=== PATIENT | male | born 1940 | race Caucasian/White ===

== ENCOUNTER 2018-11-08 10:10 | Inpatient (IN) | payer MEDICARE, BC ==
[2018-11-08 10:42] LABS: CHLORIDE,CL 98 mmol/L (98-107); SODIUM,NA 133 mmol/L (136-145)
[2018-11-08] MEDS ORDERED: Albuterol/Ipratropium 3.0-0.5 MG/3 ML Neb Soln NEB ONE (11:28)
[2018-11-08] MEDS ORDERED: methylPREDNISolone Sodium Succinate 125 MG/2 ML SDV IVPUSH ONE (11:28)
--- NOTE | 2018-11-08 11:32 | EDM.PDOC ---
ED HPI GENERAL MEDICAL PROBLEM - General Chief Complaint: Respiratory Problem Stated Complaint: shortness of breath Time Seen by Provider: 11/08/18 10:39 Source of Information: Reports: Patient History Limitations: Reports: No Limitations - History of Present Illness INITIAL COMMENTS - FREE TEXT/NARRATIVE: Patient sent here from clinic for evaluation of persistent increased SOB, informed by clinic that patient may have double pneumonia. Patient has not felt well this past week. Had cold type symptoms which led to the increased SOB. Patient says that anytime he has cold/respiratory infection that he gets SOB. Denies fever or chills. No pain complaint. No HEENT changes at this time. Mild cough, nonproductive. No CV changes. Denies GI changes such as nausea/emesis/bowel change. No neuro complaints. Place on Levaquin by clinic, no improvement noted. Has COPD for which he has numerous inhalers prescribed. Not on O2 at home. 89% on room air during initial evaluation. - Related Data Allergies Allergy/AdvReac Type Severity Reaction Status Date / Time gentamicin Allergy unknown Verified 11/08/18 12:06 lovastatin Allergy Dizziness Verified 02/05/14 15:39 Penicillins Allergy Hives Verified 02/05/14 15:39 Home Meds: Home Meds Acetaminophen [Tylenol Extra Strength] 1 - 2 tab PO Q6HR PRN 02/05/14 [History] Albuterol/Ipratropium [Combivent] 2 puff INH BID 02/05/14 [History] Allopurinol [Zyloprim] 200 mg PO QAM 02/05/14 [History] Budesonide/Formoterol [Symbicort 160-4.5 MCG] 2 puff INH QAM 02/05/14 [History] Aravind Cit/Mag/D3/Zn/Tax Collector/Omar/Bor [Citracal-Vit D + Magnesium] 1 each PO BID [History] Docusate Sodium [Colace] 100 mg PO BID PRN 02/05/14 [History] Ferrous Sulfate [Iron] 325 mg PO BID 02/05/14 [History] Fluticasone Propionate [Flonase] 2 spray NASBOTH BEDTIME 02/05/14 [History] Garlic [Odorless Garlic] 1,250 mg PO BID 02/05/14 [History] Isosorbide Mononitrate [Imdur] 30 mg PO QPM #30 tab.er 02/05/14 [Rx] Multivit-Min/FA/Lycopene/Lut [Centrum Silver] 1 each PO DAILY 02/05/14 [History] Niacin 1,000 mg PO BID 02/05/14 [History] Ranitidine HCl 150 mg PO BID 02/05/14 [History] Tiotropium [Spiriva HandiHaler] 1 cap INH DAILY 02/05/14 [History] atorvaSTATin [Lipitor] 60 mg PO QAM 02/05/14 [History] Loratadine [Claritin] 10 mg PO QAM 06/16/14 [History] Albuterol/Ipratropium [Combivent Respimat] 2 inhalation IN BID 11/08/18 [History ] Aspirin [Halfprin] 1 tab PO DAILY 11/08/18 [History] Gabapentin [Neurontin] 300 mg PO BID 11/08/18 [History] Lisinopril 40 mg PO DAILY 11/08/18 [History] Magnesium Gluconate [Mag-G] 1 tab PO DAILY 11/08/18 [History] Metoprolol Succinate [Toprol XL 100mg] 100 mg PO DAILY 11/08/18 [History] Polymyxin B Sulf/Trimethoprim [Polymyxin B-Tmp Eye Drops] 2 drop EYELF Q4H PRN 11/08/18 [History] Warfarin Sodium [Coumadin] 3 mg PO MO@1800 11/08/18 [History] Warfarin [Coumadin] 2 mg PO SUTUWETHFRSA@1800 11/08/18 [History] hydroCHLOROthiazide [Hydrochlorothiazide] 25 mg PO DAILY 11/08/18 [History] levoFLOXacin [Levaquin] 500 mg PO DAILY@1800 11/08/18 [History] Past Medical History HEENT History: Reports: Allergic Rhinitis Cardiovascular History: Reports: Arrhythmia, High Cholesterol, Hypertension, PVD Respiratory History: Reports: COPD Gastrointestinal History: Reports: Colon Polyp, Diverticulosis, GERD, Hiatal Hernia, PUD Genitourinary History: Reports: Chronic Renal Insuffiency Neurological History: Reports: CVA, Neuropathy, Peripheral Endocrine/Metabolic History: Reports: Hyperparathyroidism - Infectious Disease History Infectious Disease History: Reports: Chicken Pox - Past Surgical History HEENT Surgical History: Reports: Other (See Below) Social & Family History - Family History Cardiac: Reports: CAD, [place] Oncologic: Reports: Other (See Below) (family history of cancer) - Tobacco Use Smoking Status *Q: Former Smoker - Caffeine Use Caffeine Use: Reports: Coffee, Soda - Alcohol Use Alcohol Use History: Yes Days Per Week of Alcohol Use: 7 Number of Drinks Per Day: 4 Total Drinks Per Week: 28 Alcohol Use Frequency: Daily - Recreational Drug Use Recreational Drug Use: No Drug Use in Last 12 Months: No - Living Situation & Occupation Living situation: Reports: Single Occupation: Retired ED ROS GENERAL - Review of Systems Review Of Systems: ROS reveals no pertinent complaints other than HPI. ED EXAM, GENERAL - Physical Exam Exam: See Below Exam Limited By: No Limitations General Appearance: Alert, WD/WN, Other (appears fatigued, no acute distress) Eye Exam: Bilateral Eye: EOMI, PERRL Ears: Normal External Exam Nose: No: Nasal Deformity, Nasal Swelling, Nasal Drainage Throat/Mouth: Normal Lips, Normal Voice, No Airway Compromise Head: Atraumatic, Other Neck: Supple, Non-Tender Respiratory/Chest: No Respiratory Distress, No Accessory Muscle Use, Rhonchi ( scattered, bilateral, coarse breath sounds), Wheezing (mild). No: Rales, Stridor Peripheral Pulses: 2+: Radial (L), Radial (R) GI/Abdominal: Normal Bowel Sounds, Soft, Non-Tender, No Distention (Male) Exam: Deferred Rectal (Males) Exam: Deferred Back Exam: No: CVA Tenderness (L), CVA Tenderness (R), Muscle Spasm, Paraspinal Tenderness, Vertebral Tenderness Extremities: Normal Inspection, Non-Tender, No Pedal Edema, Normal Capillary Refill Neurological: Alert, Oriented, CN II-XII Intact, Normal Cognition, Normal Gait, No Motor/Sensory Deficits Psychiatric: Normal Affect, Normal Mood Skin Exam: Warm, Dry, Intact, Normal Color Course - Orders/Labs/Meds Orders: Active Orders 24 hr Category Date Time Status Patient Status [ADT] Routine ADT 11/08/18 13:41 Active Height and Weight [RC] UPON Care 11/08/18 13:41 Active Incentive Breathing [RT Incentive Spirometry] [RC] Care 11/08/18 14:00 Active Q2HWA Oxygen Therapy [RC] PRN Care 11/08/18 13:41 Active Pulse Oximetry [RC] PRN Care 11/08/18 13:44 Active RT Aerosol Therapy [RC] ASDIRECTED Care 11/08/18 11:28 Ordered RT Aerosol Therapy [RC] ASDIRECTED Care 11/08/18 13:47 Active Up ad Samara [RC] ASDIRECTED Care 11/08/18 13:41 Active VTE/DVT Education [RC] PER UNIT ROUTINE Care 11/08/18 13:41 Active Vital Signs [RC] Q6HR Care 11/08/18 13:41 Active Heart Healthy Diet [DIET] Diet 11/08/18 Dinner Active Chest 2V [CR] Stat Exams 11/08/18 10:12 Taken BASIC METABOLIC PANEL,BMP [CHEM] AM Lab 11/09/18 05:15 Ordered CBC WITH AUTO DIFF [HEME] AM Lab 11/09/18 05:15 Ordered INR,PT,PROTHROMBIN TIME [COAG] AM Lab 11/09/18 05:11 Ordered Acetaminophen [Tylenol] Med 11/08/18 13:53 Ordered 650 mg PO Q6H PRN Albuterol/Ipratropium [DuoNeb 3.0-0.5 MG/3 ML] Med 11/08/18 14:00 Ordered 3 ml NEB Q6HRRT Allopurinol [Zyloprim] Med 11/09/18 08:00 Ordered 200 mg PO QAM Aspirin [Halfprin] Med 11/09/18 08:00 Ordered 81 mg PO DAILY Azithromycin [Zithromax] 500 mg Med 11/08/18 11:30 Ordered Sodium Chloride 0.9% [Normal Saline] 250 ml IV Q24H Budesonide/Formoterol Med 11/09/18 08:00 Ordered 2 puff INH QAM Docusate Sodium [Colace] Med 11/08/18 13:47 Ordered 100 mg PO BID PRN Famotidine [Pepcid] Med 11/09/18 08:00 Ordered 20 mg PO DAILY Ferrous Sulfate [Iron] Med 11/08/18 18:00 Ordered 325 mg PO BID Fluticasone Propionate [Flonase] Med 11/08/18 20:00 Ordered DOSE gm NASBOTH BEDTIME Gabapentin [Neurontin] Med 11/08/18 18:00 Ordered 300 mg PO BID Isosorbide Mononitrate [Imdur] Med 11/08/18 18:00 Ordered 30 mg PO QPM Lisinopril [Lisinopril] Med 11/09/18 08:00 Ordered 40 mg PO DAILY Loratadine [Claritin] Med 11/09/18 08:00 Ordered 10 mg PO QAM Metoprolol Succinate [Toprol XL 100mg] Med 11/09/18 08:00 Ordered 100 mg PO DAILY Niacin [Niacin] Med 11/08/18 18:00 Ordered 1,000 mg PO BID Sodium Chloride 0.9% @ 75 MLS/HR(1000ml) Med 11/08/18 11:45 Ordered Sodium Chloride 0.9% [Normal Saline] 1,000 ml IV ASDIRECTED Sodium Chloride 0.9% [Saline Flush] Med 11/08/18 11:28 Ordered 10 ml FLUSH ASDIRECTED PRN Tiotropium [Spiriva HandiHaler] Med 11/09/18 08:00 Ordered DOSE mcg INH DAILY Warfarin Sodium Med 11/11/18 18:00 Ordered 3 mg PO MO@1800 Warfarin [Coumadin] Med 11/08/18 18:00 Ordered 2 mg PO SUTUWETHFRSA@1800 atorvaSTATin [Lipitor] Med 11/09/18 08:00 Ordered 60 mg PO QAM cefTRIAXone [Rocephin] 1 gm Med 11/08/18 11:30 Ordered Sodium Chloride 0.9% [Normal Saline] 100 ml IV Q24H hydroCHLOROthiazide Med 11/09/18 08:00 Ordered 25 mg PO DAILY methylPREDNISolone Sod Succ [Solu-MEDROL] Med 11/09/18 08:00 Ordered 125 mg IVPUSH DAILY Saline Lock Insert [OM.PC] Routine Oth 11/08/18 11:28 Ordered Resuscitation Status Routine Resus Stat 11/08/18 13:41 Ordered Medication Orders Acetaminophen (Tylenol) 650 mg PO Q6H PRN PRN Reason: Pain Albuterol/Ipratropium (Duoneb 3.0-0.5 Mg/3 Ml) 3 ml NEB Q6HRRT [facility] Allopurinol (Zyloprim) 200 mg PO QAM [facility] Aspirin (Halfprin) 81 mg PO DAILY [facility] Atorvastatin Calcium (Lipitor) 60 mg PO QAM [facility] Docusate Sodium (Colace) 100 mg PO BID PRN PRN Reason: Constipation Famotidine (Pepcid) 20 mg PO DAILY [facility] Fluticasone Propionate (Flonase) gm NASBOTH BEDTIME [facility] Gabapentin (Neurontin) 300 mg PO BID [facility] Hydrochlorothiazide (Hydrochlorothiazide) 25 mg PO DAILY [facility] Azithromycin 500 mg/ Sodium (Chloride) 250 mls @ 250 mls/hr IV Q24H [facility] Last Admin: 11/08/18 13:19 Dose: 250 mls/hr Ceftriaxone Sodium 1 gm/ (Sodium Chloride) 100 mls @ 200 mls/hr IV Q24H [facility] Last Admin: 11/08/18 11:58 Dose: 200 mls/hr Sodium Chloride (Normal Saline) 1,000 mls @ 75 mls/hr IV ASDIRECTED [facility] Last Admin: 11/08/18 13:19 Dose: 75 mls/hr Isosorbide Mononitrate (Imdur) 30 mg PO QPM [facility] Loratadine (Claritin) 10 mg PO QAM [facility] Methylprednisolone Sodium Succinate (Solu-Medrol) 125 mg IVPUSH DAILY [facility] Non-Formulary Medication (Budesonide/Formoterol) 2 puff INH QAM [facility] Non-Formulary Medication (Ferrous Sulfate [Iron]) 325 mg PO BID [facility] Non-Formulary Medication (Lisinopril [Lisinopril]) 40 mg PO DAILY [facility] Non-Formulary Medication (Metoprolol Succinate [Toprol Xl 100mg]) 100 mg PO DAILY [facility] Non-Formulary Medication (Niacin [Niacin]) 1,000 mg PO BID [facility] Non-Formulary Medication (Warfarin Sodium) 3 mg PO MO@1800 [facility] Sodium Chloride (Saline Flush) 10 ml FLUSH ASDIRECTED PRN PRN Reason: Keep Vein Open Last Admin: 11/08/18 11:58 Dose: 10 ml Tiotropium [place] (Spiriva Handihaler) mcg INH DAILY [facility] Warfarin Sodium (Coumadin) 2 mg PO SUTUWETHFRSA@1800 [facility] Labs: Laboratory Tests 11/08/18 11/08/18 11/08/18 Range/Units 10:20 10:20 10:20 WBC 10.2 (4.0-10.2) K/uL RBC 4.04 L (4.33-5.41) M/uL Hgb 13.5 (13.1-16.8) g/dL Hct 40.2 (39.0-49.0) % MCV 99.5 H (84.0-98.0) fL MCH 33.4 H (28.2-33.3) pg MCHC 33.6 (31.7-36.0) g/dL RDW 12.9 (11.2-14.1) % Plt Count 199 (150-350) K/uL Neut % (Auto) 69.7 (45.0-80.0) % Lymph % (Auto) 14.2 (10.0-50.0) % Smyth % (Auto) 13.9 (2.0-14.0) % Eos % (Auto) 2.0 (0.0-5.0) % Baso % (Auto) 0.2 (0.0-2.0) % Neut # (Auto) 7.11 H (1.40-7.00) K/uL Lymph # (Auto) 1.45 (0.50-3.50) K/uL Smyth # (Auto) 1.42 H (0.00-1.00) K/uL Eos # (Auto) 0.20 (0.00-0.50) K/uL Baso # (Auto) 0.02 (0.00-0.20) K/uL Sodium 133 L (136-145) mmol/L Potassium 4.4 (3.5-5.1) mmol/L Chloride 98 (98-107) mmol/L Carbon Dioxide 18.8 L (21.0-32.0) mmol/L BUN 54 H (7-18) mg/dL Creatinine 2.65 H (0.51-1.17) mg/dL Est Cr Clr Drug Dosing TNP Estimated GFR (MDRD) 24 mL/min Glucose 111 H (74-106) mg/dL Lactic Acid 2.5 H (0.4-2.0) mmol/L Calcium 9.5 (8.5-10.1) mg/dL Total Bilirubin 0.5 (0.2-1.0) mg/dL AST 71 H (15-37) U/L ALT 41 (12-78) U/L Alkaline Phosphatase 57 (46-116) IU/L NT-Pro-B Natriuret Pep (0-125) pg/mL Total Protein 7.7 (6.4-8.2) g/dL Albumin 3.9 (3.4-5.0) g/dL 11/08/18 Range/Units 10:20 WBC (4.0-10.2) K/uL RBC (4.33-5.41) M/uL Hgb (13.1-16.8) g/dL Hct (39.0-49.0) % MCV (84.0-98.0) fL MCH (28.2-33.3) pg MCHC (31.7-36.0) g/dL RDW (11.2-14.1) % Plt Count (150-350) K/uL Neut % (Auto) (45.0-80.0) % Lymph % (Auto) (10.0-50.0) % Smyth % (Auto) (2.0-14.0) % Eos % (Auto) (0.0-5.0) % Baso % (Auto) (0.0-2.0) % Neut # (Auto) (1.40-7.00) K/uL Lymph # (Auto) (0.50-3.50) K/uL Smyth # (Auto) (0.00-1.00) K/uL Eos # (Auto) (0.00-0.50) K/uL Baso # (Auto) (0.00-0.20) K/uL Sodium (136-145) mmol/L Potassium (3.5-5.1) mmol/L Chloride (98-107) mmol/L Carbon Dioxide (21.0-32.0) mmol/L BUN (7-18) mg/dL Creatinine (0.51-1.17) mg/dL Est Cr Clr Drug Dosing Estimated GFR (MDRD) mL/min Glucose (74-106) mg/dL Lactic Acid (0.4-2.0) mmol/L Calcium (8.5-10.1) mg/dL Total Bilirubin (0.2-1.0) mg/dL AST (15-37) U/L ALT (12-78) U/L Alkaline Phosphatase (46-116) IU/L NT-Pro-B Natriuret Pep 310 H (0-125) pg/mL Total Protein (6.4-8.2) g/dL Albumin (3.4-5.0) g/dL Meds: Medications Generic Name Dose Route Start Last Admin Trade Name Freq PRN Reason Stop Dose Admin Acetaminophen 650 mg 11/08/18 13:53 Tylenol PO Q6H PRN Pain Albuterol/Ipratropium 3 ml 11/08/18 14:00 Duoneb 3.0-0.5 Mg/3 Ml NEB Q6HRRT [facility] Allopurinol 200 mg 11/09/18 08:00 Zyloprim PO QAM [facility] Aspirin 81 mg 11/09/18 08:00 Halfprin PO DAILY [facility] Atorvastatin Calcium 60 mg 11/09/18 08:00 Lipitor PO QAM [facility] Docusate Sodium 100 mg 11/08/18 13:47 Colace PO BID PRN Constipation Famotidine 20 mg 11/09/18 08:00 Pepcid PO DAILY [facility] Fluticasone Propionate gm 11/08/18 20:00 Flonase NASBOTH BEDTIME [facility] Gabapentin 300 mg 11/08/18 18:00 Neurontin PO BID [facility] Hydrochlorothiazide 25 mg 11/09/18 08:00 Hydrochlorothiazide PO DAILY [facility] Azithromycin 500 mg/ Sodium 250 mls @ 250 mls/hr 11/08/18 11:30 11/08/18 13: 19 Chloride IV 250 mls/hr Q24H [facility] Administration Ceftriaxone Sodium 1 gm/ 100 mls @ 200 mls/hr 11/08/18 11:30 11/08/18 11:58 Sodium Chloride IV 200 mls/hr Q24H [facility] Administration Sodium Chloride 1,000 mls @ 75 mls/hr 11/08/18 11:45 11/08/18 13:19 Normal Saline IV 75 mls/hr ASDIRECTED [facility] Administration Isosorbide Mononitrate 30 mg 11/08/18 18:00 Imdur PO QPM [facility] Loratadine 10 mg 11/09/18 08:00 Claritin PO QAM [facility] Methylprednisolone Sodium Succinate 125 mg 11/09/18 08:00 Solu-Medrol IVPUSH DAILY [facility] Non-Formulary Medication 2 puff 11/09/18 08:00 Budesonide/Formoterol INH QAM [facility] Non-Formulary Medication 325 mg 11/08/18 18:00 Ferrous Sulfate [Iron] PO BID [facility] Non-Formulary Medication 40 mg 11/09/18 08:00 Lisinopril [Lisinopril] PO DAILY [facility] Non-Formulary Medication 100 mg 11/09/18 08:00 Metoprolol Succinate [Toprol Xl 100mg] PO DAILY [facility] Non-Formulary Medication 1,000 mg 11/08/18 18:00 Niacin [Niacin] PO BID [facility] Non-Formulary Medication 3 mg 11/11/18 18:00 Warfarin Sodium PO MO@1800 [facility] Sodium Chloride 10 ml 11/08/18 11:28 11/08/18 11:58 Saline Flush FLUSH 10 ml ASDIRECTED PRN Administration Keep Vein Open Tiotropium [place] mcg 11/09/18 08:00 Spiriva Handihaler INH DAILY [facility] Warfarin Sodium 2 mg 11/08/18 18:00 Coumadin PO SUTUWETHFRSA@1800 [facility] Discontinued Medications Generic Name Dose Route Start Last Admin Trade Name Freq PRN Reason Stop Dose Admin Albuterol/Ipratropium 3 ml 11/08/18 11:28 11/08/18 11:58 Duoneb 3.0-0.5 Mg/3 Ml NEB 11/08/18 11:29 3 ml ONETIME ONE Administration Methylprednisolone Sodium Succinate 125 mg 11/08/18 11:28 11/08/18 11:58 Solu-Medrol IVPUSH 11/08/18 11:29 125 mg ONETIME ONE Administration - Radiology Interpretation Free Text/Narrative:: Chest xray showed no acute infiltrates. No change from previous xray taken three days ago. - Re-Assessments/Exams Free Text/Narrative Re-Assessment/Exam: Hamilton Jamil ordered. WBC normal. Lactic acid 2.5 Minimal elevation of ProBNP. Na 133 BUN 54 Cr 2.65 AST 71 Given normal WBC, lack of fever, and clear chest xray, suspect acute COPD exacerbation secondary to viral respiratory infection. Given O2 sats in high 80s, and elevated Lactic Acid, will admit for treatment of COPD. Will continue antibiotic coverage for possible bacterial component. BUN/Cr elevated. Suspect mild dehydration may be contributing to elevation. Initial doses of Solumedrol, Rocephin, and Zithromax ordered while patient was still in ER and waiting for admission to floor. Departure - Departure Time of Disposition: 11:32 Disposition: Admitted As Inpatient 67 Condition: Good Clinical Impression: COPD exacerbation, Respiratory tract infection, Hypoxemia, Renal insufficiency - Discharge Information *PRESCRIPTION DRUG MONITORING PROGRAM REVIEWED*: Not Applicable *COPY OF PRESCRIPTION DRUG MONITORING REPORT IN PATIENT JAKE: Not Applicable Referrals: Homero Newman PA [Primary Care Provider] - Forms: ED Department Discharge - Problem List & Annotations (1) COPD exacerbation SNOMED Code(s): 314057780 Code(s): J44.1 - CHRONIC OBSTRUCTIVE PULMONARY DISEASE W (ACUTE) EXACERBATION Status: Acute Priority: High Current Visit: Yes Annotation/ Comment:: Aggressive nebulizer treatments as well as Solu-medrol IV ordered. PRN supplemental O2. (2) Hypoxemia SNOMED Code(s): 653678585 Code(s): R09.02 - HYPOXEMIA Status: Acute Priority: Medium Current Visit: Yes Annotation/Comment:: O2 sats in high 80s in ER. Supplemental O2 PRN. Plan is to treat underlying COPD exacerbation. (3) Respiratory tract infection SNOMED Code(s): 041312913 Code(s): J98.8 - OTHER SPECIFIED RESPIRATORY DISORDERS Status: Acute Priority: High Current Visit: Yes Annotation/Comment:: Suspect most likely due to viral etiology. Zithromax and Rocephin coverage initiated in ER. Was on Levaquin without any improvement of symptoms this past week. (4) Renal insufficiency SNOMED Code(s): 890536304, 665494868 Code(s): N28.9 - DISORDER OF KIDNEY AND URETER, UNSPECIFIED Status: Chronic Priority: Medium Current Visit: Yes Annotation/Comment:: BUN and Cr are elevated. Will observe for response to IV fluids. Suspect mild dehydration is contributing to current level of elevation. (5) CHF (congestive heart failure) SNOMED Code(s): 76336251 Code(s): I50.9 - HEART FAILURE, UNSPECIFIED Status: Chronic Priority: Low Current Visit: Yes Annotation/Comment:: Mild elevation of ProBNP. Observe for changes. No evidence of congestion on chest xray. Qualifiers: Heart failure type: unspecified Heart failure chronicity: unspecified Qualified Code(s): I50.9 - Heart failure, unspecified (6) HTN, Benign hypertension SNOMED Code(s): 61187830 Code(s): I10 - ESSENTIAL (PRIMARY) HYPERTENSION Status: Chronic Priority : Low Current Visit: No Annotation/Comment:: Observe trends (7) Peptic reflux disease SNOMED Code(s): 738801983 Code(s): K21.9 - GASTRO-ESOPHAGEAL REFLUX DISEASE WITHOUT ESOPHAGITIS Status: Chronic Priority: Low Current Visit: No Annotation/Comment:: Stable per patient (8) Chronic anticoagulation SNOMED Code(s): 318639794 Code(s): Z79.01 - PRISON (CURRENT) USE OF ANTICOAGULANTS Status: Chronic Priority: Low Current Visit: Yes Annotation/Comment:: recheck INR/ PT in am. - Problem List Review Problem List Initiated/Reviewed/Updated: Yes - My Orders Last 24 Hours: My Active Orders 11/08/18 10:12 Chest 2V [CR] Stat 11/08/18 11:28 RT Aerosol Therapy [RC] ASDIRECTED Sodium Chloride 0.9% [Saline Flush] 10 ml FLUSH ASDIRECTED PRN Saline Lock Insert [OM.PC] Routine 11/08/18 11:30 Azithromycin [Zithromax] 500 mg Sodium Chloride 0.9% [Normal Saline] 250 ml IV Q24H cefTRIAXone [Rocephin] 1 gm Sodium Chloride 0.9% [Normal Saline] 100 ml IV Q24H 11/08/18 11:45 Sodium Chloride 0.9% @ 75 MLS/HR(1000ml) Sodium Chloride 0.9% [Normal Saline] 1 ,000 ml IV ASDIRECTED 11/08/18 13:41 Patient Status [ADT] Routine Height and Weight [RC] UPON Oxygen Therapy [RC] PRN Up ad Samara [RC] ASDIRECTED VTE/DVT Education [RC] PER UNIT ROUTINE Vital Signs [RC] Q6HR Resuscitation Status Routine 11/08/18 13:44 Pulse Oximetry [RC] PRN 11/08/18 13:47 RT Aerosol Therapy [RC] ASDIRECTED Docusate Sodium [Colace] 100 mg PO BID PRN 11/08/18 13:53 Acetaminophen [Tylenol] 650 mg PO Q6H PRN 11/08/18 14:00 Incentive Breathing [RT Incentive Spirometry] [RC] Q2HWA Albuterol/Ipratropium [DuoNeb 3.0-0.5 MG/3 ML] 3 ml NEB Q6HRRT 11/08/18 18:00 Ferrous Sulfate [Iron] 325 mg PO BID Gabapentin [Neurontin] 300 mg PO BID Isosorbide Mononitrate [Imdur] 30 mg PO QPM Niacin [Niacin] 1,000 mg PO BID Warfarin [Coumadin] 2 mg PO SUTUWETHFRSA@1800 11/08/18 20:00 Fluticasone Propionate [Flonase] DOSE gm NASBOTH BEDTIME 11/08/18 Dinner Heart Healthy Diet [DIET] 11/09/18 05:11 INR,PT,PROTHROMBIN TIME [COAG] AM 11/09/18 05:15 BASIC METABOLIC PANEL,BMP [CHEM] AM CBC WITH AUTO DIFF [HEME] AM 11/09/18 08:00 Allopurinol [Zyloprim] 200 mg PO QAM Aspirin [Halfprin] 81 mg PO DAILY Budesonide/Formoterol 2 puff INH QAM Famotidine [Pepcid] 20 mg PO DAILY Lisinopril [Lisinopril] 40 mg PO DAILY Loratadine [Claritin] 10 mg PO QAM Metoprolol Succinate [Toprol XL 100mg] 100 mg PO DAILY Tiotropium [Spiriva HandiHaler] DOSE mcg INH DAILY atorvaSTATin [Lipitor] 60 mg PO QAM hydroCHLOROthiazide 25 mg PO DAILY methylPREDNISolone Sod Succ [Solu-MEDROL] 125 mg IVPUSH DAILY 11/11/18 18:00 Warfarin Sodium 3 mg PO MO@1800 - Assessment/Plan Admission H&P: Please use this note as an admission H&P Last 24 Hours: My Active Orders 11/08/18 10:12 Chest 2V [CR] Stat 11/08/18 11:28 RT Aerosol Therapy [RC] ASDIRECTED Sodium Chloride 0.9% [Saline Flush] 10 ml FLUSH ASDIRECTED PRN Saline Lock Insert [OM.PC] Routine 11/08/18 11:30 Azithromycin [Zithromax] 500 mg Sodium Chloride 0.9% [Normal Saline] 250 ml IV Q24H cefTRIAXone [Rocephin] 1 gm Sodium Chloride 0.9% [Normal Saline] 100 ml IV Q24H 11/08/18 11:45 Sodium Chloride 0.9% @ 75 MLS/HR(1000ml) Sodium Chloride 0.9% [Normal Saline] 1 ,000 ml IV ASDIRECTED 11/08/18 13:41 Patient Status [ADT] Routine Height and Weight [RC] UPON Oxygen Therapy [RC] PRN Up ad Samara [RC] ASDIRECTED VTE/DVT Education [RC] PER UNIT ROUTINE Vital Signs [RC] Q6HR Resuscitation Status Routine 11/08/18 13:44 Pulse Oximetry [RC] PRN 11/08/18 13:47 RT Aerosol Therapy [RC] ASDIRECTED Docusate Sodium [Colace] 100 mg PO BID PRN 11/08/18 13:53 Acetaminophen [Tylenol] 650 mg PO Q6H PRN 11/08/18 14:00 Incentive Breathing [RT Incentive Spirometry] [RC] Q2HWA Albuterol/Ipratropium [DuoNeb 3.0-0.5 MG/3 ML] 3 ml NEB Q6HRRT 11/08/18 18:00 Ferrous Sulfate [Iron] 325 mg PO BID Gabapentin [Neurontin] 300 mg PO BID Isosorbide Mononitrate [Imdur] 30 mg PO QPM Niacin [Niacin] 1,000 mg PO BID Warfarin [Coumadin] 2 mg PO [id number]@1800 11/08/18 20:00 Fluticasone Propionate [Flonase] DOSE gm NASBOTH BEDTIME 11/08/18 Dinner Heart Healthy Diet [DIET] 11/09/18 05:11 INR,PT,PROTHROMBIN TIME [COAG] AM 11/09/18 05:15 BASIC METABOLIC PANEL,BMP [CHEM] AM CBC WITH AUTO DIFF [HEME] AM 11/09/18 08:00 Allopurinol [Zyloprim] 200 mg PO QAM Aspirin [Halfprin] 81 mg PO DAILY Budesonide/Formoterol 2 puff INH QAM Famotidine [Pepcid] 20 mg PO DAILY Lisinopril [Lisinopril] 40 mg PO DAILY Loratadine [Claritin] 10 mg PO QAM Metoprolol Succinate [Toprol XL 100mg] 100 mg PO DAILY Tiotropium [Spiriva HandiHaler] DOSE mcg INH DAILY atorvaSTATin [Lipitor] 60 mg PO QAM hydroCHLOROthiazide 25 mg PO DAILY methylPREDNISolone Sod Succ [Solu-MEDROL] 125 mg IVPUSH DAILY 11/11/18 18:00 Warfarin Sodium 3 mg PO MO@1800 Assessment:: as above Plan: as above. Anticipate 3-4 day inpatient stay depending of clinic response to above interventions.
[2018-11-08] MEDS: cefTRIAXone 1 GM in Sodium Chloride 0.9% 100 ML IV SCH (11:58)
[2018-11-08] MEDS: Sodium Chloride 0.9% 10 ML Syringe FLUSH PRN (11:58)
[2018-11-08] MEDS: Sodium Chloride 0.9% 1,000 ML IV SCH (13:19)
[2018-11-08] MEDS: Azithromycin 500 MG in Sodium Chloride 0.9% 250 ML IV SCH (13:19)
[2018-11-08] MEDS ORDERED: Docusate Sodium 100 MG Cap PO PRN (13:47)
[2018-11-08] MEDS: Niacin 500 MG Tab PO SCH (18:21)
[2018-11-08] MEDS: Warfarin 2 MG Tab PO SCH (18:21)
[2018-11-08] MEDS: Albuterol/Ipratropium 3.0-0.5 MG/3 ML Neb Soln NEB SCH ×2 (18:23→23:13)
[2018-11-08] MEDS: Isosorbide Mononitrate 30 MG Tab.ER PO SCH (18:23)
[2018-11-08] MEDS: Gabapentin 300 MG Cap PO SCH (18:23)
[2018-11-08] MEDS: Ferrous Sulfate 325 MG Tab PO SCH (18:23)
[2018-11-08] MEDS: Fluticasone Propionate Nasal Spray 16 GM Bottle NASBOTH SCH (19:41)
[2018-11-08] MEDS: Acetaminophen 325 MG Tab PO PRN (19:42)
[2018-11-09] MEDS: Sodium Chloride 0.9% 1,000 ML IV SCH ×2 (03:56→19:32)
[2018-11-09] MEDS ORDERED: methylPREDNISolone Sodium Succinate 125 MG/2 ML SDV IVPUSH SCH (08:00)
[2018-11-09] MEDS ORDERED: Promethazine 25 MG Tab PO PRN (09:31)
[2018-11-09] MEDS: Albuterol/Ipratropium 3.0-0.5 MG/3 ML Neb Soln NEB SCH ×4 (09:38→19:31)
[2018-11-09] MEDS ORDERED: Albuterol 0.083% 2.5 MG/3 ML Neb Soln NEB PRN (09:42)
[2018-11-09] MEDS: Hydrochlorothiazide 25 MG Tab PO SCH (09:45)
[2018-11-09] MEDS: Metoprolol Succinate 50 MG Tab.ER PO SCH (09:45)
[2018-11-09] MEDS: Loratadine 10 MG Tab PO SCH (09:45)
[2018-11-09] MEDS: Niacin 500 MG Tab PO SCH ×2 (09:46→17:14)
[2018-11-09] MEDS: Lisinopril 20 MG Tab PO SCH (09:46)
[2018-11-09] MEDS: Aspirin 81 MG Tab.EC PO SCH (09:47)
[2018-11-09] MEDS: Ferrous Sulfate 325 MG Tab PO SCH ×2 (09:48→17:14)
[2018-11-09] MEDS: Benzonatate 100 MG Cap PO PRN (09:49)
[2018-11-09] MEDS: Gabapentin 300 MG Cap PO SCH ×2 (09:49→17:14)
[2018-11-09] MEDS: Allopurinol 100 MG Tab PO SCH (09:49)
[2018-11-09] MEDS: Famotidine 20 MG Tab PO SCH (09:50)
[2018-11-09] MEDS: atorvaSTATin 40 MG Tab PO SCH (09:50)
[2018-11-09] MEDS: Formoterol/Mometasone 200-5 MCG 8.8 GM Inhaler IH SCH (09:58)
[2018-11-09] MEDS: Tiotropium Inhaler 18 MCG Inhalation Powder Cap Kit of 5 INH SCH (09:58)
--- NOTE | 2018-11-09 11:10 | PCM.PN ---
- General Info Date of Service: 11/09/18 Admission Dx/Problem (Free Text): COPD exacerbation triggered by respiratory tract infection. Hypoxemia, increased SOB. Subjective Update: Overall patient feels improved today. Less SOB. Functional Status: Reports: Pain Controlled, Tolerating Diet, Ambulating, Urinating, Incentive Spirometry. Denies: New Symptoms - Review of Systems General: Reports: Fatigue, Other (feels a bit shaky this morning. ). Denies: Fever, Weakness, Malaise, Night Sweats HEENT: Denies: Headaches, Sinus Congestion, Sore Throat, Rhinitis Pulmonary: Reports: Shortness of Breath, Cough, Sputum (mostly clear). Denies: Pleuritic Chest Pain, Hemoptysis, Wheezing Cardiovascular: Reports: Dyspnea on Exertion. Denies: Chest Pain, Palpitations , Orthopnea, Edema, Lightheadedness Gastrointestinal: Reports: No Symptoms Genitourinary: Reports: No Symptoms Musculoskeletal: Reports: No Symptoms Skin: Reports: No Symptoms Neurological: Reports: No Symptoms Psychiatric: Reports: No Symptoms - Patient Data Vitals - Most Recent: Last Vital Signs Temp 37.2 C 11/09/18 07:51 Pulse 97 11/09/18 09:45 Resp 19 11/09/18 07:51 BP 132/74 11/09/18 09:46 Pulse Ox 96 11/09/18 07:51 Weight - Most Recent: 87.2 kg I&O - Last 24 Hours: Intake & Output 11/08/18 11/09/18 11/09/18 22:59 06:59 14:59 Intake Total 460 1502 240 Balance 460 1502 240 Lab Results Last 24 Hours: Laboratory Results - last 24 hr 11/08/18 11/09/18 11/09/18 Range/Units 10:20 08:00 08:00 WBC 9.3 (4.0-10.2) K/uL RBC 3.53 L (4.33-5.41) M/uL Hgb 12.0 L D (13.1-16.8) g/dL Hct 35.2 L (39.0-49.0) % MCV 99.7 H (84.0-98.0) fL MCH 34.0 H (28.2-33.3) pg MCHC 34.1 (31.7-36.0) g/dL RDW 12.8 (11.2-14.1) % Plt Count 188 (150-350) K/uL Neut % (Auto) 82.4 H (45.0-80.0) % Lymph % (Auto) 9.5 L (10.0-50.0) % Centre % (Auto) 8.1 (2.0-14.0) % Eos % (Auto) 0.0 (0.0-5.0) % Baso % (Auto) 0.0 (0.0-2.0) % Neut # (Auto) 7.63 H (1.40-7.00) K/uL Lymph # (Auto) 0.88 (0.50-3.50) K/uL Centre # (Auto) 0.75 (0.00-1.00) K/uL Eos # (Auto) 0.00 (0.00-0.50) K/uL Baso # (Auto) 0.00 (0.00-0.20) K/uL PT 31.3 H (9.5-12.0) SEC INR 2.9 Sodium (136-145) mmol/L Potassium (3.5-5.1) mmol/L Chloride (98-107) mmol/L Carbon Dioxide (21.0-32.0) mmol/L BUN (7-18) mg/dL Creatinine (0.51-1.17) mg/dL Est Cr Clr Drug Dosing mL/min Estimated GFR (MDRD) mL/min Glucose (74-106) mg/dL Lactic Acid (0.4-2.0) mmol/L Calcium (8.5-10.1) mg/dL NT-Pro-B Natriuret Pep 310 H (0-125) pg/mL 11/09/18 11/09/18 Range/Units 08:00 08:00 WBC (4.0-10.2) K/uL RBC (4.33-5.41) M/uL Hgb (13.1-16.8) g/dL Hct (39.0-49.0) % MCV (84.0-98.0) fL MCH (28.2-33.3) pg MCHC (31.7-36.0) g/dL RDW (11.2-14.1) % Plt Count (150-350) K/uL Neut % (Auto) (45.0-80.0) % Lymph % (Auto) (10.0-50.0) % Centre % (Auto) (2.0-14.0) % Eos % (Auto) (0.0-5.0) % Baso % (Auto) (0.0-2.0) % Neut # (Auto) (1.40-7.00) K/uL Lymph # (Auto) (0.50-3.50) K/uL Centre # (Auto) (0.00-1.00) K/uL Eos # (Auto) (0.00-0.50) K/uL Baso # (Auto) (0.00-0.20) K/uL PT (9.5-12.0) SEC INR Sodium 136 (136-145) mmol/L Potassium 4.2 (3.5-5.1) mmol/L Chloride 102 (98-107) mmol/L Carbon Dioxide 18.4 L (21.0-32.0) mmol/L BUN 50 H (7-18) mg/dL Creatinine 1.91 H (0.51-1.17) mg/dL Est Cr Clr Drug Dosing 31.34 mL/min Estimated GFR (MDRD) 34 mL/min Glucose 161 H (74-106) mg/dL Lactic Acid 0.9 (0.4-2.0) mmol/L Calcium 8.8 (8.5-10.1) mg/dL NT-Pro-B Natriuret Pep (0-125) pg/mL Med Orders - Current: Current Medications Acetaminophen (Tylenol) 650 mg PO Q6H PRN PRN Reason: Pain Last Admin: 11/08/18 19:42 Dose: 650 mg Albuterol (Proventil Neb Soln) 2.5 mg NEB Q6HRRT PRN PRN Reason: Shortness of Breath Albuterol/Ipratropium (Duoneb 3.0-0.5 Mg/3 Ml) 3 ml NEB Q6HRRT [facility] Last Admin: 11/09/18 09:53 Dose: 3 ml Allopurinol (Zyloprim) 200 mg PO QAM [facility] Last Admin: 11/09/18 09:49 Dose: 200 mg Aspirin (Halfprin) 81 mg PO DAILY [facility] Last Admin: 11/09/18 09:47 Dose: 81 mg Atorvastatin Calcium (Lipitor) 60 mg PO QAM [facility] Last Admin: 11/09/18 09:50 Dose: 60 mg Benzonatate (Tessalon Perles) 200 mg PO TID PRN PRN Reason: Cough Last Admin: 11/09/18 09:49 Dose: 200 mg Docusate Sodium (Colace) 100 mg PO BID PRN PRN Reason: Constipation Famotidine (Pepcid) 20 mg PO DAILY [facility] Last Admin: 11/09/18 09:50 Dose: 20 mg Ferrous Sulfate (Ferrous Sulfate) 325 mg PO BID [facility] Last Admin: 11/09/18 09:48 Dose: 325 mg Fluticasone Propionate (Flonase) 0 gm NASBOTH BEDTIME [facility] Last Admin: 11/08/18 19:41 Dose: 2 spray Gabapentin (Neurontin) 300 mg PO BID [facility] Last Admin: 11/09/18 09:49 Dose: 300 mg Guaifenesin (Mucinex) 600 mg PO TID [facility] Hydrochlorothiazide (Hydrochlorothiazide) 25 mg PO DAILY [facility] Last Admin: 11/09/18 09:45 Dose: 25 mg Azithromycin 500 mg/ Sodium (Chloride) 250 mls @ 250 mls/hr IV Q24H [facility] Last Admin: 11/08/18 13:19 Dose: 250 mls/hr Ceftriaxone Sodium 1 gm/ (Sodium Chloride) 100 mls @ 200 mls/hr IV Q24H [facility] Last Admin: 11/08/18 11:58 Dose: 200 mls/hr Sodium Chloride (Normal Saline) 1,000 mls @ 75 mls/hr IV ASDIRECTED [facility] Last Admin: 11/09/18 03:56 Dose: 75 mls/hr Isosorbide Mononitrate (Imdur) 30 mg PO QPM [facility] Last Admin: 11/08/18 18:23 Dose: 30 mg Lisinopril (Prinivil) 40 mg PO DAILY [facility] Last Admin: 11/09/18 09:46 Dose: 40 mg Loratadine (Claritin) 10 mg PO QAM [facility] Last Admin: 11/09/18 09:45 Dose: 10 mg Methylprednisolone Sodium Succinate (Solu-Medrol) 125 mg IVPUSH DAILY [facility] Last Admin: 11/09/18 09:52 Dose: Not Given Metoprolol Succinate (Toprol Xl) 100 mg PO DAILY [facility] Last Admin: 11/09/18 09:45 Dose: 100 mg Mometasone Furoate/Formoterol Fumar (Dulera 200-5 Mcg) 2 puff IH QAM [facility] Last Admin: 11/09/18 09:58 Dose: 2 puff Niacin (Niacin) 1,000 mg PO BID [facility] Last Admin: 11/09/18 09:46 Dose: 1,000 mg Promethazine HCl (Phenergan) 25 mg PO Q6H PRN PRN Reason: Nausea/Vomiting Sodium Chloride (Saline Flush) 10 ml FLUSH ASDIRECTED PRN PRN Reason: Keep Vein Open Last Admin: 11/08/18 11:58 Dose: 10 ml Tiotropium [place] (Spiriva Handihaler) 18 mcg INH DAILY [facility] Last Admin: 11/09/18 09:58 Dose: 1 cap Warfarin Sodium (Coumadin) 2 mg PO SUTUWETHFRSA@1800 [facility] Last Admin: 11/08/18 18:21 Dose: 2 mg Warfarin Sodium (Coumadin) 3 mg PO MO@1800 [facility] Discontinued Medications Albuterol/Ipratropium (Duoneb 3.0-0.5 Mg/3 Ml) 3 ml NEB ONETIME ONE Stop: 11/08/18 11:29 Last Admin: 11/08/18 11:58 Dose: 3 ml Albuterol/Ipratropium (Duoneb 3.0-0.5 Mg/3 Ml) 3 ml NEB Q6H [facility] Last Admin: 11/09/18 09:38 Dose: Not Given Albuterol/Ipratropium (Duoneb 3.0-0.5 Mg/3 Ml) 3 ml NEB Q4HRRT [facility] Methylprednisolone Sodium Succinate (Solu-Medrol) 125 mg IVPUSH ONETIME ONE Stop: 11/08/18 11:29 Last Admin: 11/08/18 11:58 Dose: 125 mg - Exam Quality Assessment: Supplemental Oxygen, DVT Prophylaxis General: Alert, Oriented, Cooperative, No Acute Distress HEENT: Pupils Equal, Pupils Reactive, EOMI, Mucous Membr. Moist/[place] Neck: Supple, Trachea Midline Lungs: Rhonchi (diffuse, bilateral). No: Crackles, Rales, Stridor, Wheezing Cardiovascular: Regular Rate, Regular Rhythm, No Murmurs GI/Abdominal Exam: Normal Bowel Sounds, Non-Tender, No Distention (Male) Exam: Deferred Back Exam: No: CVA Tenderness (L), CVA Tenderness (R), Muscle Spasm Extremities: Normal Inspection, Normal Range of Motion, Non-Tender, No Pedal Edema, Normal Capillary Refill Peripheral Pulses: 2+: Radial (L), Radial (R) Skin: Warm, Dry, Intact Neurological: No New Focal Deficit Psy/Mental Status: Alert, Normal Affect, Normal Mood Physical Findings Comments:: Rhonchi improved today compared to yesterday. - Problem List & Annotations (1) COPD exacerbation SNOMED Code(s): 299759815 Code(s): J44.1 - CHRONIC OBSTRUCTIVE PULMONARY DISEASE W (ACUTE) EXACERBATION Status: Acute Priority: High Current Visit: Yes Annotation/ Comment:: Aggressive nebulizer treatments as well as Solu-medrol IV ordered. PRN supplemental O2. Today's Solu-medrol dose held due to patient's complaint of feeling shaky. Shakiness may also be due to albuterol component of neb treatments. Improved lung sounds today. Oxygen sats in mid 90s on 2L O2 NC. (2) Hypoxemia SNOMED Code(s): 194332969 Code(s): R09.02 - HYPOXEMIA Status: Acute Priority: Medium Current Visit: Yes Annotation/Comment:: O2 sats in high 80s in ER. Supplemental O2 PRN. Plan is to treat underlying COPD exacerbation. (3) Respiratory tract infection SNOMED Code(s): 805832852 Code(s): J98.8 - OTHER SPECIFIED RESPIRATORY DISORDERS Status: Acute Priority: High Current Visit: Yes Annotation/Comment:: Suspect most likely due to viral etiology. Zithromax and Rocephin coverage initiated in ER. Was on Levaquin without any improvement of symptoms this past week. Will send in sputum culture if a good specimen is obtained by nursing staff. WBC normal today. Afebrile. (4) Renal insufficiency SNOMED Code(s): 271001507, 552864406 Code(s): N28.9 - DISORDER OF KIDNEY AND URETER, UNSPECIFIED Status: Chronic Priority: Medium Current Visit: Yes Annotation/Comment:: BUN and Cr have improved since admission. Will continue to monitor for acute changes. (5) CHF (congestive heart failure) SNOMED Code(s): 78915086 Code(s): I50.9 - HEART FAILURE, UNSPECIFIED Status: Chronic Priority: Low Current Visit: Yes Qualifiers: Heart failure type: unspecified Heart failure chronicity: unspecified Qualified Code(s): I50.9 - Heart failure, unspecified Annotation/Comment:: Mild elevation of ProBNP. Observe for changes. No evidence of congestion on chest xray. 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 Status: Chronic Priority: Low Current Visit: Yes Annotation/Comment:: INR theraputic - Problem List Review Problem List Initiated/Reviewed/Updated: Yes - My Orders Last 24 Hours: My Active Orders 11/08/18 10:12 Chest 2V [CR] Stat 11/08/18 11:28 Sodium Chloride 0.9% [Saline Flush] 10 ml FLUSH ASDIRECTED PRN Saline Lock Insert [OM.PC] Routine 11/08/18 11:30 Azithromycin [Zithromax] 500 mg Sodium Chloride 0.9% [Normal Saline] 250 ml IV Q24H cefTRIAXone [Rocephin] 1 gm Sodium Chloride 0.9% [Normal Saline] 100 ml IV Q24H 11/08/18 11:45 Sodium Chloride 0.9% [Normal Saline] 1,000 ml IV ASDIRECTED 11/08/18 13:41 Patient Status [ADT] Routine Oxygen Therapy [RC] 2300 Up ad Samara [RC] ASDIRECTED VTE/DVT Education [RC] PER UNIT ROUTINE Vital Signs [RC] Q6HR Resuscitation Status Routine 11/08/18 13:44 Pulse Oximetry [RC] PRN 11/08/18 13:47 RT Aerosol Therapy [RC] 00,06,12,18 Docusate Sodium [Colace] 100 mg PO BID PRN 11/08/18 14:00 Incentive Breathing [RT Incentive Spirometry] [RC] Q2HWA Acetaminophen [Tylenol] 650 mg PO Q6H PRN 11/08/18 18:00 Ferrous Sulfate 325 mg PO BID Gabapentin [Neurontin] 300 mg PO BID Isosorbide Mononitrate [Imdur] 30 mg PO QPM Niacin 1,000 mg PO BID Warfarin [Coumadin] 2 mg PO SUTUWETHFRSA@1800 11/08/18 20:00 Fluticasone Propionate [Flonase] 0 gm NASBOTH BEDTIME 11/08/18 Dinner Heart Healthy Diet [DIET] 11/09/18 08:00 Allopurinol [Zyloprim] 200 mg PO QAM Aspirin [Halfprin] 81 mg PO DAILY Famotidine [Pepcid] 20 mg PO DAILY Lisinopril [Prinivil] 40 mg PO DAILY Loratadine [Claritin] 10 mg PO QAM Metoprolol Succinate [Toprol XL] 100 mg PO DAILY Mometasone/Formoterol [Dulera 200-5 MCG] 2 puff IH QAM Tiotropium [Spiriva HandiHaler] 18 mcg INH DAILY atorvaSTATin [Lipitor] 60 mg PO QAM hydroCHLOROthiazide 25 mg PO DAILY methylPREDNISolone Sod Succ [Solu-MEDROL] 125 mg IVPUSH DAILY 11/09/18 09:31 Promethazine [Phenergan] 25 mg PO Q6H PRN 11/09/18 09:32 Benzonatate [Tessalon Perles] 200 mg PO TID PRN 11/09/18 09:34 Daily Weight [Height and Weight] [RC] DAILY 11/09/18 09:42 Albuterol [Proventil Neb Soln] 2.5 mg NEB Q6HRRT PRN 11/09/18 09:43 RT Aerosol Therapy [RC] ASDIRECTED 11/09/18 12:00 guaiFENesin [Mucinex] 600 mg PO TID 11/09/18 14:00 Albuterol/Ipratropium [DuoNeb 3.0-0.5 MG/3 ML] 3 ml NEB Q6HRRT 11/11/18 18:00 Warfarin [Coumadin] 3 mg PO MO@1800 - Assessment Assessment:: As above - Plan Plan:: As above. Continue to anticipate that patient will need a total of 4 days as inpatient as above complaints are being treated. He continues to require supplemental O2.
[2018-11-09] MEDS: cefTRIAXone 1 GM in Sodium Chloride 0.9% 100 ML IV SCH (11:12)
[2018-11-09] MEDS: Azithromycin 500 MG in Sodium Chloride 0.9% 250 ML IV SCH (11:44)
[2018-11-09] MEDS: guaiFENesin 600 MG Tab.ER PO SCH ×2 (11:58→17:14)
[2018-11-09] MEDS ORDERED: Albuterol/Ipratropium 3.0-0.5 MG/3 ML Neb Soln NEB SCH (12:00)
[2018-11-09] MEDS: Warfarin 2 MG Tab PO SCH (17:15)
[2018-11-09] MEDS: Isosorbide Mononitrate 30 MG Tab.ER PO SCH (17:16)
[2018-11-09] MEDS: Fluticasone Propionate Nasal Spray 16 GM Bottle NASBOTH SCH (19:31)
[2018-11-10] MEDS: Albuterol/Ipratropium 3.0-0.5 MG/3 ML Neb Soln NEB SCH ×4 (00:28→14:35)
[2018-11-10] MEDS: Benzonatate 100 MG Cap PO PRN (00:30)
[2018-11-10] MEDS: Acetaminophen 325 MG Tab PO PRN (00:33)
[2018-11-10] MEDS: Niacin 500 MG Tab PO SCH ×2 (08:16→17:43)
[2018-11-10] MEDS: Metoprolol Succinate 50 MG Tab.ER PO SCH (08:18)
[2018-11-10] MEDS: Lisinopril 20 MG Tab PO SCH (08:18)
[2018-11-10] MEDS: Loratadine 10 MG Tab PO SCH (08:19)
[2018-11-10] MEDS: Allopurinol 100 MG Tab PO SCH (08:19)
[2018-11-10] MEDS: guaiFENesin 600 MG Tab.ER PO SCH ×3 (08:19→17:43)
[2018-11-10] MEDS: Hydrochlorothiazide 25 MG Tab PO SCH (08:20)
[2018-11-10] MEDS: Ferrous Sulfate 325 MG Tab PO SCH ×2 (08:20→17:43)
[2018-11-10] MEDS: Aspirin 81 MG Tab.EC PO SCH (08:20)
[2018-11-10] MEDS: Famotidine 20 MG Tab PO SCH (08:20)
[2018-11-10] MEDS: Gabapentin 300 MG Cap PO SCH ×2 (08:20→17:43)
[2018-11-10] MEDS: atorvaSTATin 40 MG Tab PO SCH (08:21)
[2018-11-10] MEDS: Formoterol/Mometasone 200-5 MCG 8.8 GM Inhaler IH SCH (08:22)
[2018-11-10] MEDS: Tiotropium Inhaler 18 MCG Inhalation Powder Cap Kit of 5 INH SCH (08:22)
[2018-11-10] MEDS: cefTRIAXone 1 GM in Sodium Chloride 0.9% 100 ML IV SCH (11:03)
[2018-11-10] MEDS: Azithromycin 500 MG in Sodium Chloride 0.9% 250 ML IV SCH (11:03)
[2018-11-10] MEDS: Sodium Chloride 0.9% 10 ML Syringe FLUSH PRN ×3 (11:04→12:49)
[2018-11-10] MEDS ORDERED: Calcium Carbonate 750 MG Tab.Chew PO PRN (12:08)
--- NOTE | 2018-11-10 15:14 | PCM.PN ---
- General Info Date of Service: 11/10/18 Admission Dx/Problem (Free Text): COPD exacerbation triggered by respiratory tract infection. Hypoxemia, increased SOB. Subjective Update: Overall patient feels improved today. Less SOB. Did say that he had two brief episodes of nausea and anterior chest discomfort both yesterday and today, similar times each day, after taking meds and eating breakfast. Resolved on own. No accompanying emesis/SOB/dizziness/diaphoresis. No radiation of discomfort. Says that he thought it might be due to our giving him a large amount of AM medications at once, and he usually breaks them up over the day when he is home. Functional Status: Reports: Pain Controlled, Tolerating Diet, Ambulating, Urinating, Incentive Spirometry. Denies: New Symptoms - Review of Systems General: Reports: Weakness, Fatigue. Denies: Fever, Malaise, Chills, Night Sweats HEENT: Reports: No Symptoms (no acute changes) Pulmonary: Reports: Shortness of Breath (has chronic baseline SOB, exacerbation is improving. ), Cough, Sputum (mostly clear). Denies: Pleuritic Chest Pain, Hemoptysis, Wheezing Cardiovascular: Reports: Chest Pain (see above note). Denies: Palpitations, Edema, Lightheadedness Gastrointestinal: Reports: No Symptoms Genitourinary: Reports: No Symptoms Musculoskeletal: Reports: No Symptoms Skin: Reports: No Symptoms Neurological: Reports: No Symptoms Psychiatric: Reports: No Symptoms - Patient Data Vitals - Most Recent: Last Vital Signs Temp 36.9 C 11/10/18 12:00 Pulse 99 11/10/18 12:00 Resp 18 11/10/18 12:00 BP 97/59 L 11/10/18 12:00 Pulse Ox 91 L 11/10/18 12:00 Weight - Most Recent: 87.2 kg I&O - Last 24 Hours: Intake & Output 11/10/18 11/10/18 11/10/18 06:59 14:59 22:59 Intake Total 240 Balance 240 Lab Results Last 24 Hours: Laboratory Results - last 24 hr 11/10/18 11/10/18 Range/Units 07:38 07:38 WBC 10.5 H (4.0-10.2) K/uL RBC 3.35 L (4.33-5.41) M/uL Hgb 11.3 L (13.1-16.8) g/dL Hct 34.0 L (39.0-49.0) % MCV 101.5 H (84.0-98.0) fL MCH 33.7 H (28.2-33.3) pg MCHC 33.2 (31.7-36.0) g/dL RDW 13.1 (11.2-14.1) % Plt Count 194 (150-350) K/uL Neut % (Auto) 74.6 (45.0-80.0) % Lymph % (Auto) 15.2 (10.0-50.0) % Gates % (Auto) 10.0 (2.0-14.0) % Eos % (Auto) 0.1 (0.0-5.0) % Baso % (Auto) 0.1 (0.0-2.0) % Neut # (Auto) 7.84 H (1.40-7.00) K/uL Lymph # (Auto) 1.60 (0.50-3.50) K/uL [place] # (Auto) 1.05 H (0.00-1.00) K/uL Eos # (Auto) 0.01 (0.00-0.50) K/uL Baso # (Auto) 0.01 (0.00-0.20) K/uL Sodium 140 (136-145) mmol/L Potassium 3.6 (3.5-5.1) mmol/L Chloride 109 H (98-107) mmol/L Carbon Dioxide 18.8 L (21.0-32.0) mmol/L BUN 41 H (7-18) mg/dL Creatinine 1.64 H (0.51-1.17) mg/dL Est Cr Clr Drug Dosing 36.49 mL/min Estimated GFR (MDRD) 41 mL/min Glucose 122 H (74-106) mg/dL Calcium 8.4 L (8.5-10.1) mg/dL Magnesium 1.5 L (1.8-2.4) mg/dL Med Orders - Current: Current Medications Acetaminophen (Tylenol) 650 mg PO Q6H PRN PRN Reason: Pain Last Admin: 11/10/18 00:33 Dose: 650 mg Albuterol (Proventil Neb Soln) 2.5 mg NEB Q6HRRT PRN PRN Reason: Shortness of Breath Albuterol/Ipratropium (Duoneb 3.0-0.5 Mg/3 Ml) 3 ml NEB Q6HRRT [facility] Last Admin: 11/10/18 14:35 Dose: 3 ml Allopurinol (Zyloprim) 200 mg PO QAM [facility] Last Admin: 11/10/18 08:19 Dose: 200 mg Aspirin (Halfprin) 81 mg PO DAILY [facility] Last Admin: 11/10/18 08:20 Dose: 81 mg Atorvastatin Calcium (Lipitor) 60 mg PO QAM [facility] Last Admin: 11/10/18 08:21 Dose: 60 mg Benzonatate (Tessalon Perles) 200 mg PO TID PRN PRN Reason: Cough Last Admin: 11/10/18 00:30 Dose: 200 mg Calcium Carbonate/Glycine (Tums Extra Strength) 750 mg PO Q2HR PRN PRN Reason: Indigestion Last Admin: 11/10/18 12:21 Dose: 750 mg Docusate Sodium (Colace) 100 mg PO BID PRN PRN Reason: Constipation Famotidine (Pepcid) 20 mg PO DAILY [facility] Last Admin: 11/10/18 08:20 Dose: 20 mg Ferrous Sulfate (Ferrous Sulfate) 325 mg PO BID [facility] Last Admin: 11/10/18 08:20 Dose: 325 mg Fluticasone Propionate (Flonase) 0 gm NASBOTH BEDTIME [facility] Last Admin: 11/09/18 19:31 Dose: 2 spray Gabapentin (Neurontin) 300 mg PO BID [facility] Last Admin: 11/10/18 08:20 Dose: 300 mg Guaifenesin (Mucinex) 600 mg PO TID [facility] Last Admin: 11/10/18 11:04 Dose: 600 mg Hydrochlorothiazide (Hydrochlorothiazide) 25 mg PO DAILY [facility] Last Admin: 11/10/18 08:20 Dose: 25 mg Azithromycin 500 mg/ Sodium (Chloride) 250 mls @ 250 mls/hr IV Q24H [facility] Last Admin: 11/10/18 11:03 Dose: 250 mls/hr Ceftriaxone Sodium 1 gm/ (Sodium Chloride) 100 mls @ 200 mls/hr IV Q24H [facility] Last Admin: 11/10/18 11:03 Dose: 200 mls/hr Sodium Chloride (Normal Saline) 1,000 mls @ 75 mls/hr IV ASDIRECTED [facility] Last Admin: 11/09/18 19:32 Dose: 75 mls/hr Isosorbide Mononitrate (Imdur) 30 mg PO QPM [facility] Last Admin: 11/09/18 17:16 Dose: 30 mg Lisinopril (Prinivil) 40 mg PO DAILY [facility] Last Admin: 11/10/18 08:18 Dose: 40 mg Loratadine (Claritin) 10 mg PO QAM [facility] Last Admin: 11/10/18 08:19 Dose: 10 mg Methylprednisolone Sodium Succinate (Solu-Medrol) 125 mg IVPUSH DAILY [facility] Last Admin: 11/09/18 09:52 Dose: Not Given Metoprolol Succinate (Toprol Xl) 100 mg PO DAILY [facility] Last Admin: 11/10/18 08:18 Dose: 100 mg Mometasone Furoate/Formoterol Fumar (Dulera 200-5 Mcg) 2 puff IH QAM [facility] Last Admin: 11/10/18 08:22 Dose: 2 puff Niacin (Niacin) 1,000 mg PO BID [facility] Last Admin: 11/10/18 08:16 Dose: 1,000 mg Promethazine HCl (Phenergan) 25 mg PO Q6H PRN PRN Reason: Nausea/Vomiting Sodium Chloride (Saline Flush) 10 ml FLUSH ASDIRECTED PRN PRN Reason: Keep Vein Open Last Admin: 11/10/18 12:49 Dose: 10 ml Tiotropium [place] (Spiriva Handihaler) 18 mcg INH DAILY [facility] Last Admin: 11/10/18 08:22 Dose: 1 cap Warfarin Sodium (Coumadin) 2 mg PO SUTUWETHFRSA@1800 [facility] Last Admin: 11/09/18 17:15 Dose: 2 mg Warfarin Sodium (Coumadin) 3 mg PO MO@1800 [facility] Discontinued Medications Albuterol/Ipratropium (Duoneb 3.0-0.5 Mg/3 Ml) 3 ml NEB ONETIME ONE Stop: 11/08/18 11:29 Last Admin: 11/08/18 11:58 Dose: 3 ml Albuterol/Ipratropium (Duoneb 3.0-0.5 Mg/3 Ml) 3 ml NEB Q6H [facility] Last Admin: 11/09/18 09:38 Dose: Not Given Albuterol/Ipratropium (Duoneb 3.0-0.5 Mg/3 Ml) 3 ml NEB Q4HRRT [facility] Magnesium Sulfate/Dextrose (Magnesium 1 Gm In D5w 100 Ml) 1 gm IV ONETIME ONE Stop: 11/10/18 10:57 Last Admin: 11/10/18 12:43 Dose: 1 gm Methylprednisolone Sodium Succinate (Solu-Medrol) 125 mg IVPUSH ONETIME ONE Stop: 11/08/18 11:29 Last Admin: 11/08/18 11:58 Dose: 125 mg - Exam Quality Assessment: Supplemental Oxygen, DVT Prophylaxis General: Alert, Oriented, Cooperative, No Acute Distress HEENT: Pupils Equal, Pupils Reactive, EOMI, Mucous Membr. Moist/[place] Neck: Supple Lungs: Normal Respiratory Effort, Rhonchi (bilaterally), Wheezing (bilaterally) , Other (improved today compared to yesterday). No: Crackles, Rales, Rub, Stridor Cardiovascular: Regular Rate GI/Abdominal Exam: Normal Bowel Sounds, Soft, Non-Tender, No Distention (Male) Exam: Deferred Back Exam: No: CVA Tenderness (L), CVA Tenderness (R), Muscle Spasm, Paraspinal Tenderness, Vertebral Tenderness Extremities: Normal Inspection, Normal Range of Motion, Non-Tender, No Pedal Edema, Normal Capillary Refill Peripheral Pulses: 2+: Radial (L), Radial (R), Dorsalis Pedis (L), Dorsalis Pedis (R) Skin: Warm, Dry Neurological: No New Focal Deficit Psy/Mental Status: Alert, Normal Affect, Normal Mood - Problem List & Annotations (1) COPD exacerbation SNOMED Code(s): 794426721 Code(s): J44.1 - CHRONIC OBSTRUCTIVE PULMONARY DISEASE W (ACUTE) EXACERBATION Status: Acute Priority: High Current Visit: Yes Annotation/ Comment:: Aggressive nebulizer treatments as well as Solu-medrol IV ordered. Supplemental O2. Improved lung sounds today. Oxygen sats in mid 90s on 2L O2 NC. (2) Hypoxemia SNOMED Code(s): 559529196 Code(s): R09.02 - HYPOXEMIA Status: Acute Priority: Medium Current Visit: Yes Annotation/Comment:: O2 sats in high 80s in ER. Supplemental O2 PRN. Plan is to treat underlying COPD exacerbation. (3) Respiratory tract infection SNOMED Code(s): 871743673 Code(s): J98.8 - OTHER SPECIFIED RESPIRATORY DISORDERS Status: Acute Priority: High Current Visit: Yes Annotation/Comment:: Suspect most likely due to viral etiology. Zithromax and Rocephin coverage initiated in ER. Was on Levaquin without any improvement of symptoms this past week. Will send in sputum culture if a good specimen is obtained by nursing staff. Lactic acid improved. (4) Renal insufficiency SNOMED Code(s): 360530932, 414157022 Code(s): N28.9 - DISORDER OF KIDNEY AND URETER, UNSPECIFIED Status: Chronic Priority: Medium Current Visit: Yes Annotation/Comment:: BUN and Cr have improved since admission. Will continue to monitor for acute changes. (5) CHF (congestive heart failure) SNOMED Code(s): 82317679 Code(s): I50.9 - HEART FAILURE, UNSPECIFIED Status: Chronic Priority: Low Current Visit: Yes Qualifiers: Heart failure type: unspecified Heart failure chronicity: unspecified Qualified Code(s): I50.9 - Heart failure, unspecified Annotation/Comment:: Mild elevation of ProBNP. Observe for changes. No evidence of congestion on chest xray. (6) HTN, Benign hypertension SNOMED Code(s): 33893217 Code(s): I10 - ESSENTIAL (PRIMARY) HYPERTENSION Status: Chronic Priority : Low Current Visit: No Annotation/Comment:: Observe trends. Has intermittent hypotension noted. Asymptomatic. Will hold BP meds if hypotensive. 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 Currently resolved. Patient feels that it may be due taking meds/eating breakfast. Has history of GERD. Will order EKG and troponin this afternoon, with repeat troponin in AM. Monitor for recurrence. - Problem List Review Problem List Initiated/Reviewed/Updated: Yes - My Orders Last 24 Hours: My Active Orders 11/10/18 12:08 Calcium Carbonate [Tums Extra Strength] 750 mg PO Q2HR PRN 11/10/18 14:04 TROPONIN I [CHEM] Urgent 11/10/18 14:05 EKG Documentation Completion [RC] ASDIRECTED EKG 12 Lead [EK] Routine 11/10/18 14:06 Consult to Occupational Therapy [OT Evaluation and Treatment] [CONS] Routine PT Evaluation and Treatment [CONS] Routine 11/11/18 05:11 Chest 2V [CR] AM COMPREHENSIVE METABOLIC PN,CMP [CHEM] AM LACTIC ACID [CHEM] AM TROPONIN I [CHEM] AM 11/11/18 05:15 CBC WITH AUTO DIFF [HEME] AM 11/11/18 18:00 Warfarin [Coumadin] 3 mg PO MO@1800 - Assessment Assessment:: As above - Plan Plan:: As above. Continue to anticipate that patient will need a total of 4 days as inpatient as above complaints are being treated. He continues to require supplemental O2. Will have PT and OT consult on patient tomorrow. Consider swing bed admission vs transfer to higher level of care at 96hours depending on patient's clinical course.
[2018-11-10 17:31] VITALS: BP 117/70
--- NOTE | 2018-11-10 17:38 | PCM.DCSUM1 ---
Discharge Summary - Hospital Course Brief History: Patient admitted for treatment of COPD exacerbation/pneumonia Diagnosis: Stroke: No - Discharge Data Discharge Date: 11/10/18 Discharge Disposition: DC/Tfer to Acute Hospital 02 Condition: Good - Discharge Diagnosis/Problem(s) (1) Atypical chest pain SNOMED Code(s): 736247094 ICD Code: R07.89 - OTHER CHEST PAIN Status: Acute Priority: Medium Current Visit: Yes Onset Date: ~11/09/18 Problem Details: Two episodes of epigastric/lower chest discomfort lasting 30-60min yesterday morning and today around the same time. Currently resolved. Patient felt that it may be due taking meds/eating breakfast and did not report this until this afternoon. Troponin requested from sample taken this morning was 0.0 Elevated at 4.8 on sample from 1630. EKG showed depression in ventricular leads. Call placed to [facility] and transfer arranged after reviewing patient with /hospitalist and Cardiology. (2) COPD exacerbation SNOMED Code(s): 497739607 ICD Code: J44.1 - CHRONIC OBSTRUCTIVE PULMONARY DISEASE W (ACUTE) EXACERBATION Status: Acute Priority: High Current Visit: Yes Problem Details: Increased wheezing/SOB s/p symptoms suggestive of viral illness. Receiving regular nebulizer treatments, Solu-medrol, supplemental O2. Improved since admission. Oxygen sats in mid 90s on 2L O2 NC. (3) Hypoxemia SNOMED Code(s): 766968030 ICD Code: R09.02 - HYPOXEMIA Status: Acute Priority: Medium Current Visit: Yes Problem Details: O2 sats room air in high 80s in ER. Supplemental O2. (4) Respiratory tract infection SNOMED Code(s): 746150174 ICD Code: J98.8 - OTHER SPECIFIED RESPIRATORY DISORDERS Status: Acute Priority: High Current Visit: Yes Problem Details: Suspect most likely due to viral etiology. Zithromax and Rocephin coverage initiated in ER. Was on Levaquin without any improvement of symptoms this past week. Will send in sputum culture if a good specimen is obtained by nursing staff. Lactic acid improved. (5) Renal insufficiency SNOMED Code(s): 657177731, 110871574 ICD Code: N28.9 - DISORDER OF KIDNEY AND URETER, UNSPECIFIED Status: Chronic Priority: Medium Current Visit: Yes Problem Details: BUN and Cr have improved since admission and IV fluids. (6) CHF (congestive heart failure) SNOMED Code(s): 35235988 ICD Code: I50.9 - HEART FAILURE, UNSPECIFIED Status: Chronic Priority: Low Current Visit: Yes Problem Details: Mild elevation of ProBNP. No evidence of congestion on chest xray. Qualifiers: Heart failure type: unspecified Heart failure chronicity: unspecified Qualified Code(s): I50.9 - Heart failure, unspecified (7) HTN, Benign hypertension SNOMED Code(s): 28918288 ICD Code: I10 - ESSENTIAL (PRIMARY) HYPERTENSION Status: Chronic Priority : Low Current Visit: No Problem Details: Observe trends. Normotensive with episodes of lower BP observed. 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 ST changes observed on EKG and Troponin elevated. Consults: Consultations 11/10/18 14:06 Consult to Occupational Therapy [OT Evaluation and Treatment] [CONS] Routine PT Evaluation and Treatment [CONS] Routine Hospital Course: As above. Patient improved and reported feeling much better overall since admission. Cough improving. Lactic acid normalized. Eating and drinking well. Renal function also improved. Today he mentioned that he had had two similar episodes of chest heaviness/nausea after taking morning meds and eating breakfast both yesterday and today. Symptoms had resolved. He did not report this to staff as he thought it was due to taking all of his meds at once versus breaking them up throughout the day as he usually does when home. He denied any active chest pain, nausea, dizziness, diaphoresis. EKG and troponins requested. EKG suggested lateral ischemia. Troponins showed change from this morning's sample which was zero, to this afternoon's sample, which was elevated. Call placed to [facility]/EKG faxed. Discussed patient with , hospitalist, who also consulted with Cardiology. It was recommended that we transfer patient to their facility with planned cardiac cath for tomorrow. No heparin or other interventions were recommended at this time as patient had therapeutic INR and is on Coumadin. Transfer arranged by EMS. - Discharge Plan *PRESCRIPTION DRUG MONITORING PROGRAM REVIEWED*: Not Applicable *COPY OF PRESCRIPTION DRUG MONITORING REPORT IN PATIENT JAKE: Not Applicable Home Medications: Home Meds Acetaminophen [Tylenol Extra Strength] 1 - 2 tab PO Q6HR PRN 02/05/14 [History] Albuterol/Ipratropium [Combivent] 2 puff INH BID 02/05/14 [History] Allopurinol [Zyloprim] 200 mg PO QAM 02/05/14 [History] Budesonide/Formoterol [Symbicort 160-4.5 MCG] 2 puff INH QAM 02/05/14 [History] Aravind Cit/Mag/D3/Zn/Mold Tooling Technician/Omar/Bor [Citracal-Vit D + Magnesium] 1 each PO BID [History] Docusate Sodium [Colace] 100 mg PO BID PRN 02/05/14 [History] Ferrous Sulfate [Iron] 325 mg PO BID 02/05/14 [History] Fluticasone Propionate [Flonase] 2 spray NASBOTH BEDTIME 02/05/14 [History] Garlic [Odorless Garlic] 1,250 mg PO BID 02/05/14 [History] Isosorbide Mononitrate [Imdur] 30 mg PO QPM #30 tab.er 02/05/14 [Rx] Multivit-Min/FA/Lycopene/Lut [Centrum Silver] 1 each PO DAILY 02/05/14 [History] Niacin 1,000 mg PO BID 02/05/14 [History] Ranitidine HCl 150 mg PO BID 02/05/14 [History] Tiotropium [Spiriva HandiHaler] 1 cap INH DAILY 02/05/14 [History] atorvaSTATin [Lipitor] 60 mg PO QAM 02/05/14 [History] Loratadine [Claritin] 10 mg PO QAM 06/16/14 [History] Albuterol/Ipratropium [Combivent Respimat] 2 inhalation IN BID 11/08/18 [History ] Aspirin [Halfprin] 1 tab PO DAILY 11/08/18 [History] Gabapentin [Neurontin] 300 mg PO BID 11/08/18 [History] Lisinopril 40 mg PO DAILY 11/08/18 [History] Magnesium Gluconate [Mag-G] 1 tab PO DAILY 11/08/18 [History] Metoprolol Succinate [Toprol XL 100mg] 100 mg PO DAILY 11/08/18 [History] Polymyxin B Sulf/Trimethoprim [Polymyxin B-Tmp Eye Drops] 2 drop EYELF Q4H PRN 11/08/18 [History] Warfarin Sodium [Coumadin] 3 mg PO MO@1800 11/08/18 [History] Warfarin [Coumadin] 2 mg PO SUTUWETHFRSA@1800 11/08/18 [History] hydroCHLOROthiazide [Hydrochlorothiazide] 25 mg PO DAILY 11/08/18 [History] levoFLOXacin [Levaquin] 500 mg PO DAILY@1800 11/08/18 [History] Patient Handouts: Chronic Obstructive Pulmonary Disease, Ceftriaxone injection , Azithromycin for infusion, Community-Acquired Pneumonia, Adult Forms: ED Department Discharge Referrals: Homero Newman PA [Primary Care Provider] - - Discharge Summary/Plan Comment DC Time >30 min.: No - General Info Date of Service: 11/10/18 Admission Dx/Problem (Free Text: COPD exacerbation triggered by respiratory tract infection. Hypoxemia, increased SOB. Subjective Update: Denies chest pain at this time. Overall feels comfortable. Functional Status: Reports: Pain Controlled, Tolerating Diet, Ambulating, Urinating. Denies: New Symptoms Numeric/FACES Score: 0 - Review of Systems General: Reports: Weakness, Fatigue, Malaise. Denies: Fever, Chills, Night Sweats HEENT: Reports: No Symptoms Pulmonary: Reports: Shortness of Breath, Cough, Sputum, Wheezing. Denies: Pleuritic Chest Pain, Hemoptysis Cardiovascular: Reports: Dyspnea on Exertion. Denies: Chest Pain, Palpitations , Edema, Lightheadedness Gastrointestinal: Reports: No Symptoms Genitourinary: Reports: No Symptoms Musculoskeletal: Reports: No Symptoms Skin: Reports: No Symptoms Neurological: Reports: No Symptoms Psychiatric: Reports: No Symptoms - Patient Data Vitals - Most Recent: Last Vital Signs Temp 37.7 C 11/10/18 17:30 Pulse 94 11/10/18 17:30 Resp 19 11/10/18 17:30 BP 117/70 11/10/18 17:30 Pulse Ox 94 L 11/10/18 17:30 Weight - Most Recent: 87.2 kg I&O - Last 24 hours: Intake & Output 11/10/18 11/10/18 11/10/18 06:59 14:59 22:59 Intake Total 240 Balance 240 Lab Results - Last 24 hrs: Laboratory Results - last 24 hr 11/10/18 11/10/18 11/10/18 Range/Units 07:38 07:38 07:38 WBC 10.5 H (4.0-10.2) K/uL RBC 3.35 L (4.33-5.41) M/uL Hgb 11.3 L (13.1-16.8) g/dL Hct 34.0 L (39.0-49.0) % MCV 101.5 H (84.0-98.0) fL MCH 33.7 H (28.2-33.3) pg MCHC 33.2 (31.7-36.0) g/dL RDW 13.1 (11.2-14.1) % Plt Count 194 (150-350) K/uL Neut % (Auto) 74.6 (45.0-80.0) % Lymph % (Auto) 15.2 (10.0-50.0) % [place] % (Auto) 10.0 (2.0-14.0) % Eos % (Auto) 0.1 (0.0-5.0) % Baso % (Auto) 0.1 (0.0-2.0) % Neut # (Auto) 7.84 H (1.40-7.00) K/uL Lymph # (Auto) 1.60 (0.50-3.50) K/uL [place] # (Auto) 1.05 H (0.00-1.00) K/uL Eos # (Auto) 0.01 (0.00-0.50) K/uL Baso # (Auto) 0.01 (0.00-0.20) K/uL Sodium 140 (136-145) mmol/L Potassium 3.6 (3.5-5.1) mmol/L Chloride 109 H (98-107) mmol/L Carbon Dioxide 18.8 L (21.0-32.0) mmol/L BUN 41 H (7-18) mg/dL Creatinine 1.64 H (0.51-1.17) mg/dL Est Cr Clr Drug Dosing 36.49 mL/min Estimated GFR (MDRD) 41 mL/min Glucose 122 H (74-106) mg/dL Calcium 8.4 L (8.5-10.1) mg/dL Magnesium 1.5 L (1.8-2.4) mg/dL Troponin I 0.000 (0.000-0.056) ng/mL 11/10/18 Range/Units 16:30 WBC (4.0-10.2) K/uL RBC (4.33-5.41) M/uL Hgb (13.1-16.8) g/dL Hct (39.0-49.0) % MCV (84.0-98.0) fL MCH (28.2-33.3) pg MCHC (31.7-36.0) g/dL RDW (11.2-14.1) % Plt Count (150-350) K/uL Neut % (Auto) (45.0-80.0) % Lymph % (Auto) (10.0-50.0) % [place] % (Auto) (2.0-14.0) % Eos % (Auto) (0.0-5.0) % Baso % (Auto) (0.0-2.0) % Neut # (Auto) (1.40-7.00) K/uL Lymph # (Auto) (0.50-3.50) K/uL [place] # (Auto) (0.00-1.00) K/uL Eos # (Auto) (0.00-0.50) K/uL Baso # (Auto) (0.00-0.20) K/uL Sodium (136-145) mmol/L Potassium (3.5-5.1) mmol/L Chloride (98-107) mmol/L Carbon Dioxide (21.0-32.0) mmol/L BUN (7-18) mg/dL Creatinine (0.51-1.17) mg/dL Est Cr Clr Drug Dosing mL/min Estimated GFR (MDRD) mL/min Glucose (74-106) mg/dL Calcium (8.5-10.1) mg/dL Magnesium (1.8-2.4) mg/dL Troponin I 4.860 H* (0.000-0.056) ng/mL Med Orders - Current: Current Medications Acetaminophen (Tylenol) 650 mg PO Q6H PRN PRN Reason: Pain Last Admin: 11/10/18 00:33 Dose: 650 mg Albuterol (Proventil Neb Soln) 2.5 mg NEB Q6HRRT PRN PRN Reason: Shortness of Breath Albuterol/Ipratropium (Duoneb 3.0-0.5 Mg/3 Ml) 3 ml NEB Q6HRRT [facility] Last Admin: 11/10/18 14:35 Dose: 3 ml Allopurinol (Zyloprim) 200 mg PO QAM [facility] Last Admin: 11/10/18 08:19 Dose: 200 mg Aspirin (Halfprin) 81 mg PO DAILY [facility] Last Admin: 11/10/18 08:20 Dose: 81 mg Atorvastatin Calcium (Lipitor) 60 mg PO QAM [facility] Last Admin: 11/10/18 08:21 Dose: 60 mg Benzonatate (Tessalon Perles) 200 mg PO TID PRN PRN Reason: Cough Last Admin: 11/10/18 00:30 Dose: 200 mg Calcium Carbonate/Glycine (Tums Extra Strength) 750 mg PO Q2HR PRN PRN Reason: Indigestion Last Admin: 11/10/18 12:21 Dose: 750 mg Docusate Sodium (Colace) 100 mg PO BID PRN PRN Reason: Constipation Famotidine (Pepcid) 20 mg PO DAILY [facility] Last Admin: 11/10/18 08:20 Dose: 20 mg Ferrous Sulfate (Ferrous Sulfate) 325 mg PO BID [facility] Last Admin: 11/10/18 08:20 Dose: 325 mg Fluticasone Propionate (Flonase) 0 gm NASBOTH BEDTIME [facility] Last Admin: 11/09/18 19:31 Dose: 2 spray Gabapentin (Neurontin) 300 mg PO BID [facility] Last Admin: 11/10/18 08:20 Dose: 300 mg Guaifenesin (Mucinex) 600 mg PO TID [facility] Last Admin: 11/10/18 11:04 Dose: 600 mg Hydrochlorothiazide (Hydrochlorothiazide) 25 mg PO DAILY [facility] Last Admin: 11/10/18 08:20 Dose: 25 mg Azithromycin 500 mg/ Sodium (Chloride) 250 mls @ 250 mls/hr IV Q24H [facility] Last Admin: 11/10/18 11:03 Dose: 250 mls/hr Ceftriaxone Sodium 1 gm/ (Sodium Chloride) 100 mls @ 200 mls/hr IV Q24H [facility] Last Admin: 11/10/18 11:03 Dose: 200 mls/hr Sodium Chloride (Normal Saline) 1,000 mls @ 75 mls/hr IV ASDIRECTED [facility] Last Admin: 11/09/18 19:32 Dose: 75 mls/hr Isosorbide Mononitrate (Imdur) 30 mg PO QPM [facility] Last Admin: 11/09/18 17:16 Dose: 30 mg Lisinopril (Prinivil) 40 mg PO DAILY [facility] Last Admin: 11/10/18 08:18 Dose: 40 mg Loratadine (Claritin) 10 mg PO QAM [facility] Last Admin: 11/10/18 08:19 Dose: 10 mg Methylprednisolone Sodium Succinate (Solu-Medrol) 125 mg IVPUSH DAILY [facility] Last Admin: 11/09/18 09:52 Dose: Not Given Metoprolol Succinate (Toprol Xl) 100 mg PO DAILY [facility] Last Admin: 11/10/18 08:18 Dose: 100 mg Mometasone Furoate/Formoterol Fumar (Dulera 200-5 Mcg) 2 puff IH QAM [facility] Last Admin: 11/10/18 08:22 Dose: 2 puff Niacin (Niacin) 1,000 mg PO BID [facility] Last Admin: 11/10/18 08:16 Dose: 1,000 mg Promethazine HCl (Phenergan) 25 mg PO Q6H PRN PRN Reason: Nausea/Vomiting Sodium Chloride (Saline Flush) 10 ml FLUSH ASDIRECTED PRN PRN Reason: Keep Vein Open Last Admin: 11/10/18 12:49 Dose: 10 ml Tiotropium [place] (Spiriva Handihaler) 18 mcg INH DAILY [facility] Last Admin: 11/10/18 08:22 Dose: 1 cap Warfarin Sodium (Coumadin) 2 mg PO SUTUWETHFRSA@1800 [facility] Last Admin: 11/09/18 17:15 Dose: 2 mg Warfarin Sodium (Coumadin) 3 mg PO MO@1800 [facility] Discontinued Medications Albuterol/Ipratropium (Duoneb 3.0-0.5 Mg/3 Ml) 3 ml NEB ONETIME ONE Stop: 11/08/18 11:29 Last Admin: 11/08/18 11:58 Dose: 3 ml Albuterol/Ipratropium (Duoneb 3.0-0.5 Mg/3 Ml) 3 ml NEB Q6H [facility] Last Admin: 11/09/18 09:38 Dose: Not Given Albuterol/Ipratropium (Duoneb 3.0-0.5 Mg/3 Ml) 3 ml NEB Q4HRRT [place] Magnesium Sulfate/Dextrose (Magnesium 1 Gm In D5w 100 Ml) 1 gm IV ONETIME ONE Stop: 11/10/18 10:57 Last Admin: 11/10/18 12:43 Dose: 1 gm Methylprednisolone Sodium Succinate (Solu-Medrol) 125 mg IVPUSH ONETIME ONE Stop: 11/08/18 11:29 Last Admin: 11/08/18 11:58 Dose: 125 mg - Exam Quality Assessment: Reports: Supplemental Oxygen, DVT Prophylaxis General: Reports: Alert, Oriented, Cooperative, No Acute Distress HEENT: Reports: Pupils Equal, Pupils Reactive, EOMI, Mucous Membr. Moist/Chest [place] Neck: Reports: Supple Lungs: Reports: Rhonchi, Wheezing. Denies: Crackles, Rales, Stridor Cardiovascular: Reports: Regular Rate, Regular Rhythm GI/Abdominal Exam: Soft, Non-Tender (Male) Exam: Deferred Rectal (Males) Exam: Deferred Back Exam: Reports: Normal Inspection Extremities: Normal Range of Motion, Normal Capillary Refill Skin: Reports: Warm, Dry Neurological: Reports: No New Focal Deficit Psy/Mental Status: Reports: Alert, Normal Affect, Normal Mood EKG INTERPRETATION EKG Date: 11/10/18 Time: 15:45 Rhythm: NSR Rate (Beats/Min): 98 [place]: LAD-Left [place] Deviation P-Wave: Present QRS: Normal ST-T: Depressed (lateral leads) Comparison: Change From Previous EKG (last EKG 2013, NSR)
[2018-11-10] MEDS: Warfarin 2 MG Tab PO SCH (17:43)
[2018-11-10] MEDS: Isosorbide Mononitrate 30 MG Tab.ER PO SCH (17:43)
== END 2018-11-10 18:16 | DRG 191 ==
LOC: LL.ED 10:10 → LL.MS 11:36
PROVIDERS: ADMIT Emergency Medicine; ATTEND Emergency Medicine
DX: J44.1 Chronic obstructive pulmonary disease with (acute) exacerbation (principal); I13.0 Hypertensive heart and chronic kidney disease with heart failure and stage 1 through stage 4 chronic kidney disease, or unspecified chronic kidney disease; R09.02 Hypoxemia; I50.9 Heart failure, unspecified; J30.9 Allergic rhinitis, unspecified; E78.00 Pure hypercholesterolemia, unspecified; I73.9 Peripheral vascular disease, unspecified; J06.9 Acute upper respiratory infection, unspecified; B97.89 Other viral agents as the cause of diseases classified elsewhere; K21.9 Gastro-esophageal reflux disease without esophagitis; R07.89 Other chest pain; N18.9 Chronic kidney disease, unspecified; G62.9 Polyneuropathy, unspecified; E21.3 Hyperparathyroidism, unspecified; Z87.891 Personal history of nicotine dependence; Z88.0 Allergy status to penicillin; Z88.1 Allergy status to other antibiotic agents; Z79.82 Long term (current) use of aspirin; Z79.01 Long term (current) use of anticoagulants; Z86.010 Personal history of colon polyps; Z86.73 Personal history of transient ischemic attack (TIA), and cerebral infarction without residual deficits; Z87.11 Personal history of peptic ulcer disease
CPT/HCPCS: 36415; 71046; 80048; 80053; 83605; 83735; 83880; 84484; 85025; 85610; 93005; 94640; 99285-25; A9270-GY; J0456; J0696; J2930; J3475; J7030; J7050; J7620-GY

== ENCOUNTER 2018-12-10 21:04 | Emergency (ER) | payer MEDICARE, BC ==
[2018-12-10] MEDS ORDERED: Sodium Chloride 0.9% 10 ML Syringe FLUSH PRN (21:15)
[2018-12-10 22:02] LABS: CHLORIDE,CL 98 mmol/L (98-107); SODIUM,NA 133 mmol/L (136-145)
--- NOTE | 2018-12-10 22:52 | EDM.PDOC ---
ED HPI GENERAL MEDICAL PROBLEM - General Chief Complaint: Chest Pain Stated Complaint: CHEST PAIN Time Seen by Provider: 12/10/18 21:14 Source of Information: Reports: Patient History Limitations: Reports: No Limitations - History of Present Illness INITIAL COMMENTS - FREE TEXT/NARRATIVE: Patient noted central/left sided chest pain approx 20:45. No sweating/increased SOB noted. Pain radiated towards his back. No other complaints. Resolved completely by the time he arrived to the ER at 21:00 No other complaints. See here several months ago and found to be having ischemia. Transferred to [facility]. Has had stents but [facility] is currently putting a plan together for the patient to have bypass surgery. Has appointment two days from now for this. Chest Pain Score (Numeric/FACES): 5 - Related Data Allergies Allergy/AdvReac Type Severity Reaction Status Date / Time gentamicin Allergy unknown Verified 12/10/18 22:40 lovastatin Allergy Dizziness Verified 12/10/18 22:40 Penicillins Allergy Hives Verified 12/10/18 22:40 Home Meds: Home Meds Acetaminophen [Tylenol Extra Strength] 1 - 2 tab PO Q6HR PRN 02/05/14 [History] Albuterol/Ipratropium [Combivent] 2 puff INH BID 02/05/14 [History] Allopurinol [Zyloprim] 200 mg PO QAM 02/05/14 [History] Budesonide/Formoterol [Symbicort 160-4.5 MCG] 2 puff INH QAM 02/05/14 [History] Raavind Cit/Mag/D3/Zn/Back Line Cook/Omar/Bor [Citracal-Vit D + Magnesium] 1 each PO BID [History] Docusate Sodium [Colace] 100 mg PO BID PRN 02/05/14 [History] Ferrous Sulfate [Iron] 325 mg PO BID 02/05/14 [History] Fluticasone Propionate [Flonase] 2 spray NASBOTH BEDTIME 02/05/14 [History] Garlic [Odorless Garlic] 1,250 mg PO BID 02/05/14 [History] Isosorbide Mononitrate [Imdur] 30 mg PO QPM #30 tab.er 02/05/14 [Rx] Multivit-Min/FA/Lycopene/Lut [Centrum Silver] 1 each PO DAILY 02/05/14 [History] Niacin 1,000 mg PO BID 02/05/14 [History] Ranitidine HCl 150 mg PO BID 02/05/14 [History] Tiotropium [Spiriva HandiHaler] 1 cap INH DAILY 02/05/14 [History] atorvaSTATin [Lipitor] 60 mg PO QAM 02/05/14 [History] Loratadine [Claritin] 10 mg PO QAM 06/16/14 [History] Albuterol/Ipratropium [Combivent Respimat] 2 inhalation IN BID 11/08/18 [History ] Aspirin [Halfprin] 1 tab PO DAILY 11/08/18 [History] Gabapentin [Neurontin] 300 mg PO BID 11/08/18 [History] Lisinopril 40 mg PO DAILY 11/08/18 [History] Magnesium Gluconate [Mag-G] 1 tab PO DAILY 11/08/18 [History] Metoprolol Succinate [Toprol XL 100mg] 100 mg PO DAILY 11/08/18 [History] Polymyxin B Sulf/Trimethoprim [Polymyxin B-Tmp Eye Drops] 2 drop EYELF Q4H PRN 11/08/18 [History] hydroCHLOROthiazide [Hydrochlorothiazide] 25 mg PO DAILY 11/08/18 [History] Clopidogrel [Plavix] 75 mg PO DAILY 12/10/18 [History] Warfarin [Coumadin] 1 mg PO TUFR 12/10/18 [History] Warfarin [Coumadin] 2 mg PO ASDIRECTED 12/10/18 [History] Past Medical History HEENT History: Reports: Allergic Rhinitis Cardiovascular History: Reports: Arrhythmia, CAD, High Cholesterol, Hypertension , PVD Respiratory History: Reports: COPD Gastrointestinal History: Reports: Colon Polyp, Diverticulosis, GERD, Hiatal Hernia, PUD Genitourinary History: Reports: Chronic Renal Insuffiency Neurological History: Reports: CVA, Neuropathy, Peripheral Endocrine/Metabolic History: Reports: Hyperparathyroidism - Infectious Disease History Infectious Disease History: Reports: Chicken Pox - Past Surgical History HEENT Surgical History: Reports: Other (See Below) Social & Family History - Family History Cardiac: Reports: CAD, [place] Oncologic: Reports: Other (See Below) (family history of cancer) - Tobacco Use Smoking Status *Q: Former Smoker (quit 2000) - Caffeine Use Caffeine Use: Reports: Coffee, Soda - Alcohol Use Alcohol Use History: No - Recreational Drug Use Recreational Drug Use: No Drug Use in Last 12 Months: No - Living Situation & Occupation Living situation: Reports: Single Occupation: Retired ED ROS GENERAL - Review of Systems Review Of Systems: See Below Constitutional: Reports: No Symptoms HEENT: Reports: No Symptoms Respiratory: Reports: No Symptoms, Cough (had pneumonia diagnosis several months ago, has persistent improving cough) Cardiovascular: Reports: Chest Pain (now resolved), Dyspnea on Exertion (chronic , unchanged) GI/Abdominal: Reports: No Symptoms : Reports: No Symptoms Musculoskeletal: Reports: No Symptoms Skin: Reports: No Symptoms Neurological: Reports: No Symptoms Psychiatric: Reports: No Symptoms ED EXAM, GENERAL - Physical Exam Exam: See Below Exam Limited By: No Limitations General Appearance: Alert, WD/WN, No Apparent Distress Eye Exam: Bilateral Eye: EOMI, PERRL Nose: No: Nasal Deformity, Nasal Swelling, Nasal Drainage Throat/Mouth: Normal Lips, Normal Voice, No Airway Compromise, Other (dentures) Head: Atraumatic, Normocephalic Neck: Supple, Non-Tender, Full Range of Motion Respiratory/Chest: No Respiratory Distress, No Accessory Muscle Use, Chest Non- Tender, Rhonchi (scattered mild bilateral rhonchi). No: Rales, Wheezing, Stridor Cardiovascular: Normal Peripheral Pulses, Regular Rate, Rhythm, No Edema, No Murmur GI/Abdominal: Soft, Non-Tender (Male) Exam: Deferred Rectal (Males) Exam: Deferred Back Exam: No: CVA Tenderness (L), CVA Tenderness (R), Muscle Spasm Extremities: Non-Tender, Normal Capillary Refill Neurological: Alert, Oriented, Normal Cognition, Normal Gait, Other ( appropriate tone/strength) Psychiatric: Normal Affect, Normal Mood Skin Exam: Warm, Dry, Intact, Normal Color EKG INTERPRETATION EKG Date: 12/10/18 Time: 21:07 Rhythm: NSR Rate (Beats/Min): 87 [place]: LAD-Left [place] Deviation P-Wave: Present QRS: Normal ST-T: Other (no obvious depression/elevation suggestive of ischemia) QT: Normal Comparison: Change From Previous EKG (previous EKG was when patient presented with myocardial ischemia and ST depression) Course - Vital Signs Last Recorded V/S: Last Vital Signs Temp 36.5 C 12/10/18 21:10 Pulse 87 12/10/18 21:10 Resp 20 12/11/18 04:30 BP 146/84 H 12/11/18 04:30 Pulse Ox 97 12/11/18 04:30 - Orders/Labs/Meds Orders: Active Orders 24 hr Category Date Time Status EKG Documentation Completion [RC] ASDIRECTED Care 12/10/18 21:15 Active Chest 2V [CR] Stat Exams 12/10/18 21:16 Taken Saline Lock Insert [OM.PC] Stat Oth 12/10/18 21:15 Ordered Labs: Laboratory Tests 12/10/18 12/10/18 12/10/18 Range/Units 21:35 21:35 21:35 WBC 6.0 (4.0-10.2) K/uL RBC 3.17 L (4.33-5.41) M/uL Hgb 10.7 L (13.1-16.8) g/dL Hct 32.3 L (39.0-49.0) % MCV 101.9 H (84.0-98.0) fL MCH 33.8 H (28.2-33.3) pg MCHC 33.1 (31.7-36.0) g/dL RDW 13.6 (11.2-14.1) % Plt Count 165 (150-350) K/uL Neut % (Auto) 61.9 (45.0-80.0) % Lymph % (Auto) 22.0 (10.0-50.0) % Young % (Auto) 11.6 (2.0-14.0) % Eos % (Auto) 4.2 (0.0-5.0) % Baso % (Auto) 0.3 (0.0-2.0) % Neut # (Auto) 3.72 (1.40-7.00) K/uL Lymph # (Auto) 1.32 (0.50-3.50) K/uL Young # (Auto) 0.70 (0.00-1.00) K/uL Eos # (Auto) 0.25 (0.00-0.50) K/uL Baso # (Auto) 0.02 (0.00-0.20) K/uL PT 35.9 H (9.5-12.0) SEC INR 3.3 D-Dimer, Quantitative 102 (0-400) ng/mL Sodium (136-145) mmol/L Potassium (3.5-5.1) mmol/L Chloride (98-107) mmol/L Carbon Dioxide (21.0-32.0) mmol/L BUN (7-18) mg/dL Creatinine (0.51-1.17) mg/dL Est Cr Clr Drug Dosing Estimated GFR (MDRD) mL/min Glucose (74-106) mg/dL Calcium (8.5-10.1) mg/dL Magnesium (1.8-2.4) mg/dL Total Bilirubin (0.2-1.0) mg/dL AST (15-37) U/L ALT (12-78) U/L Alkaline Phosphatase (46-116) IU/L Troponin I (0.000-0.056) ng/mL NT-Pro-B Natriuret Pep (0-125) pg/mL Total Protein (6.4-8.2) g/dL Albumin (3.4-5.0) g/dL Specimen Type Urine Color Urine Appearance Urine pH (5.0-9.0) Ur Specific [place] (1.005-1.030) Urine Protein (NEGATIVE) mg/dL Urine Glucose (UA) (NEGATIVE) mg/dL Urine Ketones (NEGATIVE) mg/dL Urine Occult Blood (NEGATIVE) Urine Nitrite (NEGATIVE) Urine Bilirubin (NEGATIVE) Urine Urobilinogen (0.2-1.0) E.U./dL Ur Leukocyte Esterase (NEGATIVE) Urine RBC /HPF Urine WBC /HPF Ur Epithelial Cells /LPF Urine Bacteria (NONE TO FEW) /HPF 12/10/18 12/11/18 12/11/18 Range/Units 21:35 04:08 04:30 WBC (4.0-10.2) K/uL RBC (4.33-5.41) M/uL Hgb (13.1-16.8) g/dL Hct (39.0-49.0) % MCV (84.0-98.0) fL MCH (28.2-33.3) pg MCHC (31.7-36.0) g/dL RDW (11.2-14.1) % Plt Count (150-350) K/uL Neut % (Auto) (45.0-80.0) % Lymph % (Auto) (10.0-50.0) % Young % (Auto) (2.0-14.0) % Eos % (Auto) (0.0-5.0) % Baso % (Auto) (0.0-2.0) % Neut # (Auto) (1.40-7.00) K/uL Lymph # (Auto) (0.50-3.50) K/uL Young # (Auto) (0.00-1.00) K/uL Eos # (Auto) (0.00-0.50) K/uL Baso # (Auto) (0.00-0.20) K/uL PT (9.5-12.0) SEC INR D-Dimer, Quantitative (0-400) ng/mL Sodium 133 L (136-145) mmol/L Potassium 4.3 (3.5-5.1) mmol/L Chloride 98 (98-107) mmol/L Carbon Dioxide 23.7 (21.0-32.0) mmol/L BUN 36 H (7-18) mg/dL Creatinine 1.36 H (0.51-1.17) mg/dL Est Cr Clr Drug Dosing TNP Estimated GFR (MDRD) 51 mL/min Glucose 122 H (74-106) mg/dL Calcium 8.9 (8.5-10.1) mg/dL Magnesium 1.5 L (1.8-2.4) mg/dL Total Bilirubin 0.4 (0.2-1.0) mg/dL AST 24 (15-37) U/L ALT 47 (12-78) U/L Alkaline Phosphatase 55 (46-116) IU/L Troponin I 0.514 H* 0.484 H* (0.000-0.056) ng/mL NT-Pro-B Natriuret Pep 559 H (0-125) pg/mL Total Protein 6.0 L (6.4-8.2) g/dL Albumin 3.2 L (3.4-5.0) g/dL Specimen Type Urinblad Urine Color Yellow Urine Appearance Clear Urine pH 7.0 (5.0-9.0) Ur Specific [place] 1.015 (1.005-1.030) Urine Protein Negative (NEGATIVE) mg/dL Urine Glucose (UA) Negative (NEGATIVE) mg/dL Urine Ketones Negative (NEGATIVE) mg/dL Urine Occult Blood Negative (NEGATIVE) Urine Nitrite Negative (NEGATIVE) Urine Bilirubin Negative (NEGATIVE) Urine Urobilinogen 0.2 (0.2-1.0) E.U./dL Ur Leukocyte Esterase Negative (NEGATIVE) Urine RBC Not seen /HPF Urine WBC 0-5 /HPF Ur Epithelial Cells Rare /LPF Urine Bacteria Rare (NONE TO FEW) /HPF Meds: Medications Discontinued Medications Generic Name Dose Route Start Last Admin Trade Name Freq PRN Reason Stop Dose Admin Magnesium Sulfate/Dextrose 1 gm 12/10/18 22:53 12/10/18 23:04 Magnesium 1 Gm In D5w 100 Ml IV 12/10/18 22:54 1 gm ONETIME ONE Administration Sodium Chloride 10 ml 12/10/18 21:15 12/10/18 23:04 Saline Flush FLUSH 10 ml ASDIRECTED PRN Administration Keep Vein Open - Re-Assessments/Exams Free Text/Narrative Re-Assessment/Exam: 12/10/18 22:46 Troponin elevated at 0.5 EKG unremarkable for acute ischemia Call placed to [facility] and reviewed patient with from Cardiology. Noted that last week at [facility] patient's Troponin was 1.5 recommended recheck of Troponin in 6 hours. If it becomes more elevated, transfer to [facility] will be arranged. If it does not change/decreases, then the Troponin, while still elevated overall , is continuing to trend downward s/p initial cardiac event. Patient will be able to be discharged home. Patient is scheduled to see CardioThoracic Surgery as well as Pulmonology in two days () as they evaluate him for planned upcoming CABG. Patient is agreeable with this plan. Note that patient's BP and O2 sats are always lower in right arm than left. Hypotensive readings noted on right, but when BP checked on the right BPs were in normal range. 12/11/18 18:16 Repeat Troponin performed at 0400 showed further lowering of Troponin level. Patient remained comfortable throughout stay, sleeping. No recurrence of chest pain. OK to be discharged home. To follow up tomorrow December 12 with Pulmonology and Cardio-Thoracic surgery as scheduled. Departure - Departure Time of Disposition: 05:00 Disposition: Home, Self-Care 01 Clinical Impression: Chest pain Qualifiers: Chest pain type: unspecified Qualified Code(s): R07.9 - Chest pain, unspecified Instructions: Nonspecific Chest Pain, [id number] Referrals: Homero Newman PA [Primary Care Provider] - Forms: ED Department Discharge Additional Instructions: Observe for changes. Follow up for recheck if you have more episodes of chest pain. Follow up with your schedule appointments at [facility]. - My Orders Last 24 Hours: My Active Orders 12/10/18 21:15 EKG Documentation Completion [RC] ASDIRECTED Saline Lock Insert [OM.PC] Stat 12/10/18 21:16 Chest 2V [CR] Stat - Assessment/Plan Last 24 Hours: My Active Orders 12/10/18 21:15 EKG Documentation Completion [RC] ASDIRECTED Saline Lock Insert [OM.PC] Stat 12/10/18 21:16 Chest 2V [CR] Stat
[2018-12-10] MEDS ORDERED: Magnesium Sulfate/D5W 1 GM/100 ML Premix Bag IV ONE (22:53)
[2018-12-11 05:07] VITALS: BP 146/84
== END 2018-12-11 04:45 | disposition home or self-care (01) ==
LOC: LL.ED 21:04
DX: R07.9 Chest pain, unspecified (principal); I12.9 Hypertensive chronic kidney disease with stage 1 through stage 4 chronic kidney disease, or unspecified chronic kidney disease; N18.9 Chronic kidney disease, unspecified; J44.9 Chronic obstructive pulmonary disease, unspecified; E78.00 Pure hypercholesterolemia, unspecified; E21.3 Hyperparathyroidism, unspecified; I25.10 Atherosclerotic heart disease of native coronary artery without angina pectoris; Z87.891 Personal history of nicotine dependence; Z79.899 Other long term (current) drug therapy; Z88.1 Allergy status to other antibiotic agents; Z88.0 Allergy status to penicillin; Z88.8 Allergy status to other drugs, medicaments and biological substances; Z79.82 Long term (current) use of aspirin
CPT/HCPCS: 36415; 71046; 80053; 81001; 83735; 83880; 84484; 85025; 85379; 85610; 93005; 96365; 99285-25; J3475

== ENCOUNTER 2019-01-15 10:12 | Inpatient (IN) | payer MEDICARE, BC ==
--- NOTE | 2019-01-15 12:22 | PCM.HP ---
H&P History of Present Illness - General Date of Service: 01/15/19 Admit Problem/Dx: S/P CABG x 2 Source of Information: Patient History Limitations: Reports: No Limitations - History of Present Illness Initial Comments - Free Text/Narative: Patient is being admitted to [facility] for a short term stay for PT/OT rehabilitation after a CABG x 2. This patient is new to this provider. His PCP is Homero Newman PA-C. He recently had surgery completed at [facility] in [place] and is doing well. Plans are for him to regain strength and ensue he can complete ADLs prior to returning home. He will be discharged with cardiac rehab was well. He has a history of stroke, COPD, CKD, and CVD. - Related Data Allergies/Adverse Reactions: Allergies Allergy/AdvReac Type Severity Reaction Status Date / Time gentamicin Allergy unknown Verified 01/15/19 12:06 lovastatin Allergy Dizziness Verified 01/15/19 12:06 Penicillins Allergy Hives Verified 01/15/19 12:06 Home Medications: Home Meds Acetaminophen [Tylenol Extra Strength] 2 tab PO TID PRN 02/05/14 [History] Allopurinol [Zyloprim] 200 mg PO QAM 02/05/14 [History] Fluticasone Propionate [Flonase] 2 spray NASBOTH DAILY PRN 02/05/14 [History] Multivit-Min/FA/Lycopene/Lut [Centrum Silver] 1 each PO DAILY 02/05/14 [History] Tiotropium [Spiriva HandiHaler] 1 cap INH DAILY 02/05/14 [History] atorvaSTATin [Lipitor] 60 mg PO BEDTIME 02/05/14 [History] Loratadine [Claritin] 10 mg PO QAM 06/16/14 [History] Aspirin [Halfprin] 1 tab PO DAILY 11/08/18 [History] hydroCHLOROthiazide [Hydrochlorothiazide] 25 mg PO DAILY 11/08/18 [History] Clopidogrel [Plavix] 75 mg PO DAILY 12/10/18 [History] Warfarin [Coumadin] 2 mg PO ASDIRECTED 12/10/18 [History] Albuterol Sulfate [Albuterol Sulfate Hfa] 2 puff INH Q6H PRN 01/15/19 [History] Amiodarone [Cordarone] 400 mg PO DAILY 01/15/19 [History] Calcium Citrate/Vitamin D3 [Calcium Citrate - Vit D Tablet] 1 each PO BIDMEALS 01/15/19 [History] Colchicine 0.6 mg PO ASDIRECTED 01/15/19 [History] Docusate Sodium [Dss] 250 mg PO DAILY 01/15/19 [History] Fluticasone/Vilanterol [Breo Ellipta 200-25 Mcg INH] 1 puff INH DAILY 01/15/19 [ History] Hydrocodone/Acetaminophen [Hydrocodon-Acetaminoph 7.5-325] 1 tab PO Q4H PRN 07/24 [History] Metoprolol Tartrate [Lopressor] 50 mg PO Q12HR 01/15/19 [History] Omeprazole 20 mg PO DAILY 01/15/19 [History] Umeclidinium [place] [Incruse Ellipta*] 1 puff IH DAILY 01/15/19 [History] Past Medical History HEENT History: Reports: Allergic Rhinitis Cardiovascular History: Reports: Arrhythmia, Bypass, CAD, High Cholesterol, Hypertension, PVD Respiratory History: Reports: COPD Gastrointestinal History: Reports: Colon Polyp, Diverticulosis, GERD, Hiatal Hernia, PUD Genitourinary History: Reports: Chronic Renal Insuffiency Neurological History: Reports: CVA, Neuropathy, Peripheral Endocrine/Metabolic History: Reports: Hyperparathyroidism Hematologic History: Reports: None Immunologic History: Reports: None Dermatologic History: Reports: None - Infectious Disease History Infectious Disease History: Reports: None, Chicken Pox - Past Surgical History HEENT Surgical History: Reports: Other (See Below) Social & Family History - Family History HEENT: Reports: Allergic Rhinitis Cardiac: Reports: CAD, [place] Oncologic: Reports: Other (See Below) (family history of cancer) - Caffeine Use Caffeine Use: Reports: Coffee, Soda - Living Situation & Occupation Living situation: Reports: Single Occupation: Retired H&P Review of Systems - Review of Systems: Review Of Systems: See Below General: Reports: No Symptoms HEENT: Reports: No Symptoms, Glasses Pulmonary: Reports: Cough Cardiovascular: Reports: No Symptoms Gastrointestinal: Reports: No Symptoms Genitourinary: Reports: No Symptoms Musculoskeletal: Reports: No Symptoms Skin: Reports: No Symptoms Psychiatric: Reports: No Symptoms Neurological: Reports: No Symptoms Hematologic/Lymphatic: Reports: No Symptoms Immunologic: Reports: No Symptoms Exam - Exam Exam: See Below - Vital Signs Vital Signs: Last Vital Signs Temp 97.5 F 01/15/19 11:23 Pulse 103 H 01/15/19 11:23 Resp 18 01/15/19 11:23 BP 138/98 H 01/15/19 11:23 Pulse Ox 98 01/15/19 11:23 Weight: 192 lb 8 oz - Exam General: Alert, Oriented HEENT: Conjunctiva Clear, EOMI, Hearing Intact, Mucosa Moist & Bent Lungs: Clear to Auscultation, Normal Respiratory Effort, Crackles (crackes noted to the left lower base) Cardiovascular: Regular Rate, Regular Rhythm, Normal S1, Normal S2 GI/Abdominal Exam: Normal Bowel Sounds, Soft, Non-Tender (Male) Exam: Deferred Rectal (Males) Exam: Deferred Back Exam: Normal Inspection, Full Range of Motion Extremities: Normal Inspection, Normal Range of Motion, No Pedal Edema, Normal Capillary Refill Skin: Warm, Dry, Intact Neuro Extensive - Mental Status: Alert, Oriented x3, Normal Mood/Affect, Normal Cognition, Memory Intact Psychiatric: Alert, Normal Affect, Normal Mood - Problem List (1) Coronary artery disease involving coronary bypass graft SNOMED Code(s): 058101208, [id number], [id number], [id number], [id number] ICD Code: I25.810 - ATHEROSCLEROSIS OF CABG W/O ANGINA PECTORIS Status: Acute Current Visit: Yes Problem Details: S/P CABG x 2, Will r3ehab with PT/ OT. Discharge plan is to attend Cardiac rehab. Monitor BP and INR level to ensure adequate intervention (2) COPD, Mild chronic obstructive pulmonary disease SNOMED Code(s): 907406349 ICD Code: J44.9 - CHRONIC OBSTRUCTIVE PULMONARY DISEASE, UNSPECIFIED Status : Chronic Priority: Low Current Visit: No Problem Details: Stable disease with current medical therapy (3) HTN, Benign hypertension SNOMED Code(s): 41857747 ICD Code: I10 - ESSENTIAL (PRIMARY) HYPERTENSION Status: Chronic Priority : Low Current Visit: No Problem Details: Observe trends. keep within a stable range as he is S/P CABG x 2 Problem List Initiated/Reviewed/Updated: Yes
[2019-01-15] MEDS ORDERED: Albuterol 8 GM Inhaler INH PRN (12:28)
[2019-01-15] MEDS ORDERED: Acetaminophen/HYDROcodone 325-7.5 MG Tab PO PRN (12:28)
[2019-01-15] MEDS ORDERED: Fluticasone Propionate Nasal Spray 16 GM Bottle NASBOTH PRN (12:28)
[2019-01-15] MEDS ORDERED: Warfarin 2 MG Tab PO SCH (12:30)
[2019-01-15] MEDS: Calcium Carbonate/Vitamin D3 625 MG-125 Unit Tab PO SCH (17:55)
[2019-01-15] MEDS: Metoprolol Tartrate 50 MG Tab PO SCH (19:14)
[2019-01-15] MEDS: atorvaSTATin 40 MG Tab PO SCH (19:15)
[2019-01-15] MEDS: Acetaminophen 500 MG Tab PO PRN (19:15)
[2019-01-16] MEDS ORDERED: Non-Formulary Medication 1 Each (Umeclidinium Bromide [Incruse Ellipta*] 1 PUFF) IH SCH (08:00)
[2019-01-16] MEDS: Docusate Sodium 100 MG Cap PO SCH (08:29)
[2019-01-16] MEDS: Calcium Carbonate/Vitamin D3 625 MG-125 Unit Tab PO SCH ×2 (08:29→17:36)
[2019-01-16] MEDS: Omeprazole 20 MG Cap.CR PO SCH (08:29)
[2019-01-16] MEDS: Aspirin 81 MG Tab.EC PO SCH (08:29)
[2019-01-16] MEDS: Clopidogrel 75 MG Tab PO SCH (08:29)
[2019-01-16] MEDS: Metoprolol Tartrate 50 MG Tab PO SCH ×2 (08:29→20:36)
[2019-01-16] MEDS: Amiodarone 200 MG Tab PO SCH (08:29)
[2019-01-16] MEDS: Allopurinol 100 MG Tab PO SCH (08:29)
[2019-01-16] MEDS: Loratadine 10 MG Tab PO SCH (08:30)
[2019-01-16] MEDS: Formoterol/Mometasone 200-5 MCG 8.8 GM Inhaler IH SCH ×2 (08:30→17:36)
[2019-01-16] MEDS: Hydrochlorothiazide 25 MG Tab PO SCH (08:30)
[2019-01-16] MEDS: Multivitamin Tab PO SCH (08:30)
[2019-01-16] MEDS: Tiotropium Inhaler 18 MCG Inhalation Powder Cap Kit of 5 INH SCH (08:31)
[2019-01-16] MEDS: Acetaminophen 500 MG Tab PO PRN ×2 (08:40→20:35)
--- OUTSIDE RECORDS SUMMARY | 2019-01-16 15:21 | XMSREPORT ---
:[address] [facility] Address [address] [place] [address] [address] [place] [address] Care Team Providers Name Role Phone Homero Newman PA-C Primary Care Provider Provider, No Attributed RESOURCE Attributed Provider Unavailable Honey Livingston DO [facility] Attending [facility] RESOURCE Unavailable Reason for Referral Status Reason Specialty Diagnoses / Procedures Referred By Contact Referred To Contact Peter Basilio PA-C [address] [place] [address] Reason for Visit Auth/Cert Status Reason Specialty Diagnoses / Procedures Referred By Contact Referred To Contact Diagnoses Atherosclerotic heart disease of [place] coronary artery Procedures CORONARY ARTERY BYPASS USING ARTERIAL GRAFT(S) SNGL ARTERIAL GRAFT Encounter Details Date Type Department Care Team Description 01/08/2019 - Hospital Encounter [facility] V, CAD, multiple vessel 01/15/2019 CENTER 6CD Leta Castrejon MD [address] [facility] [address] [place] [address] [place] [address] [phone] Allergies Active Allergy Reactions Severity Noted Date Comments Gentamicin Rash 11/05/2018 Lovastatin Dizziness 12/06/2012 Penicillin Hives (High) High 12/06/2012 documented as of this encounter (statuses as of 01/15/2019) Medications Medication Sig Dispensed Refills Start End Status Date Date allopurinol (ZYLOPRIM) Take 200 mg by 0 Active 100 mg tablet mouth 1 time per day colchicine 0.6 mg Take 0.6 mg by 0 Active tablet mouth as needed. 2 tablets po on onset of gout attack with 1 tablet po q1h prn thereafter with max dose of 5 tablets per 24 hours fluticasone (FLONASE) [place] 2 sprays 0 Active 50 mcg/spray nasal into each nostril spray 1 time a day as needed for other (Specify) (allergies) loratadine (CLARITIN) Take 10 mg by 0 Active 10 mg tablet mouth 1 time per day. Multiple Take 1 tablet by 0 Active Vitamins-Minerals mouth 1 time per (CENTRUM SILVER ULTRA day. MENS PO) atorvaSTATin (LIPITOR) Take 60 mg by 30 tablet 1 Active 40 mg tablet mouth every night 013 at bedtime calcium Take 1 tablet by 0 Active citrate-vitamin D mouth 2 times a (CITRACAL + VIT D) 315 day with meals. mg-200 unit TABS aspirin (ECOTRIN LOW Take 81 mg by 0 Active STRENGTH) 81 MG mouth 1 time per 013 enteric coated tablet day tiotropium (SPIRIVA) Inhale 18 mcg 0 Active 18 MCG aer cap orally 1 time per 013 day albuterol HFA Inhale 2 puffs 0 Active (PROVENTIL,PROAIR,VENT orally every 6 MAURICIO) 108 (90 BASE) hours as needed MCG/ACT inhaler for shortness of breath Shake well before using. acetaminophen Take 2 tablets 0 Active (TYLENOL) 500 mg (1,000 mg) by 017 tabletIndications: mouth 3 times a Pain day as needed (pain) For mild pain or fever warfarin (COUMADIN) 2 [facility] 0 Active MG tablet Anticoagulation Pt:Take as directed. (Insurance Purposes: 2-3mg daily dose range) Call [phone] if ? clopidogrel (PLAVIX) Take 1 tablet (75 90 tablet 3 Active 75 mg mg) by mouth 1 019 tabletIndications: time per day NSTEMI (non-ST elevated myocardial infarction) (HCC) Docusate Sodium (DSS) Take 250 mg by 30 capsule 0 Active 250 MG mouth 1 time per 019 CAPSIndications: day NSTEMI (non-ST elevated myocardial infarction) (HCC), CAD, multiple vessel, S/P CABG x 2, Cerebrovascular accident (CVA), unspecified mechanism (HCC), Subclavian artery stenosis, right (HCC), Essential hypertension, Panlobular emphysema (HCC), Atherosclerotic peripheral vascular disease with intermittent claudication ([facility]), History of CEA (carotid endarterectomy), History of cerebral thrombosis, Paroxysmal atrial fibrillation ([facility]), Acute on chronic diastolic CHF (congestive heart failure) ([facility]) fluticasone-vilanterol Inhale 1 puff 3 Inhaler 4 01/15/2 01/19/ Active (BREO ELLIPTA) 200-25 orally 1 time per 019 2020 mcg/puff day inhalerIndications: NSTEMI (non-ST elevated myocardial infarction) ([facility]), CAD, multiple vessel, S/P CABG x 2, Cerebrovascular accident (CVA), unspecified mechanism (HCC), Subclavian artery stenosis, right (HCC), Essential hypertension, Panlobular emphysema ([facility]), Atherosclerotic peripheral vascular disease with intermittent claudication ([facility]), History of CEA (carotid endarterectomy), History of cerebral thrombosis, Paroxysmal atrial fibrillation ([facility]), Acute on chronic diastolic CHF (congestive heart failure) ([facility]) HYDROcodone-acetaminop Take 1 tablet by 40 tablet 0 Active hen (NORCO) 7.5-325 mg mouth Every 4 019 tabletIndications: hours as needed NSTEMI (non-ST for moderate pain elevated myocardial or severe pain infarction) ([facility]), Earliest Fill CAD, multiple vessel, Date: 01/15/19 S/P CABG x 2, Cerebrovascular accident (CVA), unspecified mechanism ([facility]), Subclavian artery stenosis, right ([facility]), Essential hypertension, Panlobular emphysema ([facility]), Atherosclerotic peripheral vascular disease with intermittent claudication ([facility]), History of CEA (carotid endarterectomy), History of cerebral thrombosis, Paroxysmal atrial fibrillation ([facility]), Acute on chronic diastolic CHF (congestive heart failure) ([facility]) omeprazole (PRILOSEC) Take 1 capsule (20 30 capsule 3 Active 20 mg mg) by mouth 1 019 capsuleIndications: time a day in the NSTEMI (non-ST morning elevated myocardial infarction) ([facility]), CAD, multiple vessel, S/P CABG x 2, Cerebrovascular accident (CVA), unspecified mechanism ([facility]), Subclavian artery stenosis, right (HCC), Essential hypertension, Panlobular emphysema (HCC), Atherosclerotic peripheral vascular disease with intermittent claudication (HCC), History of CEA (carotid endarterectomy), History of cerebral thrombosis, Paroxysmal atrial fibrillation (HCC), Acute on chronic diastolic CHF (congestive heart failure) (HCC) umeclidinium (INCRUSE Inhale 1 puff 1 Inhaler 0 Active ELLIPTA) 62.5 mcg/puff orally 1 time per 019 inhalerIndications: day NSTEMI (non-ST elevated myocardial infarction) (HCC), CAD, multiple vessel, S/P CABG x 2, Cerebrovascular accident (CVA), unspecified mechanism (HCC), Subclavian artery stenosis, right (HCC), Essential hypertension, Panlobular emphysema (HCC), Atherosclerotic peripheral vascular disease with intermittent claudication (HCC), History of CEA (carotid endarterectomy), History of cerebral thrombosis, Paroxysmal atrial fibrillation (HCC), Acute on chronic diastolic CHF (congestive heart failure) (HCC) hydroCHLOROthiazide 25 Take 1 tablet (25 30 tablet 0 Active mg tabletIndications: mg) by mouth NSTEMI (non-ST time per day elevated myocardial infarction) (HCC), CAD, multiple vessel, S/P CABG x 2, Cerebrovascular accident (CVA), unspecified mechanism (HCC), Subclavian artery stenosis, right (HCC), Essential hypertension, Panlobular emphysema (HCC), Atherosclerotic peripheral vascular disease with intermittent claudication (HCC), History of CEA (carotid endarterectomy), History of cerebral thrombosis, Paroxysmal atrial fibrillation (HCC), Acute on chronic diastolic CHF (congestive heart failure) (HCC) amiodarone (CORDARONE, Take 1 tablet (400 90 tablet 4 2 01/19/ Active PACERONE) 400 mg mg) by mouth 2019 tabletIndications: time per day NSTEMI (non-ST elevated myocardial infarction) (HCC), CAD, multiple vessel, S/P CABG x 2, Cerebrovascular accident (CVA), unspecified mechanism (HCC), Subclavian artery stenosis, right (HCC), Essential hypertension, Panlobular emphysema (HCC), Atherosclerotic peripheral vascular disease with intermittent claudication (HCC), History of CEA (carotid endarterectomy), History of cerebral thrombosis, Paroxysmal atrial fibrillation (HCC), Acute on chronic diastolic CHF (congestive heart failure) ([facility]) metoprolol tartrate Take 1 tablet (50 180 tablet 4 01/15/2 01/19/ Active (LOPRESSOR) 50 mg mg) by mouth Every 2019 tabletIndications: 12 hours NSTEMI (non-ST elevated myocardial infarction) ([facility]), CAD, multiple vessel, S/P CABG x 2, Cerebrovascular accident (CVA), unspecified mechanism ([facility]), Subclavian artery stenosis, right ([facility]), Essential hypertension, Panlobular emphysema ([facility]), Atherosclerotic peripheral vascular disease with intermittent claudication ([facility]), History of CEA (carotid endarterectomy), History of cerebral thrombosis, Paroxysmal atrial fibrillation ([facility]), Acute on chronic diastolic CHF (congestive heart failure) ([facility]) gabapentin (NEURONTIN) Take 300 mg by 0 01/15/ Discontinued 300 mg capsule mouth 2 times a 2018 day niacin 500 mg tablet Take 1,000 mg by 0 01/15/ Discontinued mouth 2 times a 2018 day with meals. garlic 1250 MG TABS Take 1 tablet by 0 01/15/ Discontinued mouth every 2018 at bedtime ranitidine (ZANTAC) Take 300 mg by 0 01/15/ Discontinued 150 mg tablet mouth every night 2018 at bedtime. magnesium gluconate Take 500 mg by 0 01/15/ Discontinued (MAGONATE) 500 mg mouth 1 time per 2018 tablet day isosorbide mononitrate Take 30 mg by 0 01/15/ Discontinued (IMDUR) 30 mg SR mouth 1 time a day 2018 tablet (24 hr) at supper metoprolol succinate Take 1 tablet (100 30 tablet 0 01/15/ Discontinued (TOPROL XL) 100 mg SR mg) by mouth 2018 tablet (24 time per day hr)Indications: Paroxysmal atrial fibrillation ([facility]) ferrous sulfate (65 MG Take 1 tablet (325 0 01/15/ Discontinued FE PER 325 MG TABLET) mg) by mouth 2018 325 mg tablet time per day lisinopril (PRINIVIL, Take 40 mg by 0 01/15/ Discontinued ZESTRIL) 40 mg tablet mouth 1 time per 2019 day hydroCHLOROthiazide 25 Take 25 mg by 0 01/15/ Discontinued mg tablet mouth 1 time per 2018 day docusate sodium Take 100 mg by 0 06/12/ Discontinued (COLACE) 100 mg mouth 2 times a 2018 capsule day as needed for constipation albuterol-ipratropium Inhale 1 puff 3 Inhaler 4 Discontinued (COMBIVENT RESPIMAT) orally Every 4 2018 20-100 MCG/ACT hours as needed inhalerIndications: for shortness of Chronic obstructive breath or wheezing pulmonary disease with acute exacerbation (HCC) budesonide-formoterol Inhale 2 puffs 3 Inhaler 4 Discontinued (SYMBICORT) 160-4.5 orally 2 times a 2018 mcg/puff day Shake well inhalerIndications: before using. 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 (HCC), Other emphysema (HCC) nitroglycerin Dissolve 1 tablet 20 tablet 0 Discontinued (NITROSTAT) 0.4 mg (0.4 mg) under the 2018 sublingual tongue Every 5 tabletIndications: minutes as needed NSTEMI (non-ST for chest pain May elevated myocardial repeat every 5 infarction) (HCC) minutes for a total of 3 doses. documented as of this encounter (statuses as of 01/15/2019) Active Problems Problem Noted Date S/P CABG x 2 01/11/2019 Overview: Procedure: PROCEDURE: Procedure(s) and Anesthesia Type: * CORONARY ARTERY BYPASS GRAFTING X2, SVBG FROM AORTA TO OBTUSE MARGINAL, SVBG FROM FREE CHOE TO LAD. 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 2) 04/02/13 Lower extremity angiogram with right BLOCK BREAKER stent/TRAINMASTER, bilateral BLOCK BREAKER occlusion with reconstitution of the deep femoral and SFAs at their origins via collaterals. Moderately diseased SFA and pop liteal arteries bilaterally, diseased AT and PT runoff to both feet. Essential hypertension 02/05/2013 Emphysema lung 02/05/2013 Subclavian artery stenosis, right 12/25/2012 Overview: Noted on CTA and MRA 12/07/12 December 31, 2012 Cerebral Angiogram shows stenosis right subclavian artery with diminutive right vertebral artery Bilateral carotid artery disease 12/09/2012 Overview: 1) H/O left CEA approximately [address] [facility] 2) 12/07/12 MRA and CTA with right ICA stenosis, bilateral vertebral artery stenosis, and no significant left ICA stenosis. Right subclavian stenosis and patent vertebral arteries. 3) Admitted to [facility] with amaurosis fugax of right eye and left facial numbness 12/30/12 4) 12/31/12 cerebral angiogram with > 90% right ICA stenosis with occlusion of right ECA. Previous left CEA , patent. Significant stenosis origin of the left vertebral artery. Stenosis right subclavian artery with diminutive right vertebral artery. 5) 01/01/[address] Sands. CVA (cerebral vascular accident) 12/07/2012 Overview: MRI, MRA, and CTA done 12/07/12. Symptomatic ischemic stroke in the right posterior cerebral artery (patent trigeminal artery) distribution. Symptomatic Right ICA stenosis with Amarurosis fugax as presenting symptom; resolved and on clopidogrel. documented as of this encounter (statuses as of 01/15/2019) Social History Tobacco Use Types Packs/Day Years Used Date Former Smoker 1 20 Quit: 08/06/1986 Smokeless Tobacco: Never Used Alcohol Use Drinks/Week oz/Week Comments Yes 28 Cans of beer 16.8 4 beers daily Sexually Active Control Partners Comments Not Currently Sex Assigned at Date Recorded Not on file Job Start Date Occupation Industry Not on file Not on file Not on file Travel History Travel Start Travel End No recent travel history available. documented as of this encounter Last Filed Vital Signs Vital Sign Reading Time Taken Blood Pressure 136/92 01/15/2019 9:11 AM CDT Pulse 113 01/15/2019 9:11 AM CDT Temperature 36.5 C (97.7 F) 01/15/2019 9:11 AM CDT Respiratory Rate 16 01/15/2019 9:11 AM CDT Oxygen Saturation 96% 01/15/2019 9:11 AM CDT Inhaled Oxygen Concentration - - Weight 87.4 kg (192 lb 10.9 oz) 01/15/2019 6:22 AM CDT Height 170.2 cm (5' 7") 01/08/2019 5:23 AM CDT Body Mass Index 30.18 01/08/2019 5:23 AM CDT documented in this encounter Functional Status Functional Status Response Date of Assessment Is the person deaf or does he/she have serious difficulty No 01/08/2019 hearing? Is this person blind or does he/she have difficulty No 01/08/2019 seeing even when wearing glasses? Do you have difficulty with walking, balance, climbing No 01/08/2019 stairs, or had a fall in the last 3 months? Does the patient have difficulty dressing or bathing? No 01/08/2019 Because of a physical, mental, or emotional condition; No 01/08/2019 does this person have difficulty doing errands alone such as visiting a doctor's office or shopping? Cognitive Status Response Date of Assessment Because of a physical, mental, or emotional condition; No 01/08/2019 does this person have serious difficulty concentrating, remembering, or making decisions? documented as of this encounter Discharge Summaries Not on filedocumented in this encounter Discharge Instructions Luiza Mendoza RN - 01/08/2019You have a scopolamine patch behind your left ear. This is to help prevent nausea and vomiting. You may remove this in 72 hours, 01/11/2019. After removing the patch fold the patch over on itself and dispose of it where children and pets cannot get to it. Wash behind you ear and then your hands. It is recommended that someone be with you around the clock for the first week at home. Continue to use incentive spirometer every 2 hours during the day while awake. Weigh daily. Notify if weight gain of 3-5 pounds or more in 1 week. Shower/wash incisions daily with antibacterial soap. Cleanse incisions gently each day with warm water and antibacterial soap (liquid soap is easiest to use). Do not scrub. Pat incisions dry. Watch for signs/symptoms of infection: Redness, warmth, swelling or extreme tenderness in any area of incision. Any drainage from chest incision. Pain associated with chest drainage and a clicking sensation. Moore or green drainage from arm or leg incisions. It is normal to see some clear, straw-colored or light pink drainage from arm or leg incisions for afew days. Notify of fever more than 101 degrees Fahrenheit for more than one day or over 100 degreesFahrenheit for more than two days. Walk at least 4 times daily. Goal: 10 to 15 minutes each time. Sit up in a chair for all meals. Elevate legs while sitting. If support stockings were worn in the hospital, continue to wear them at home during the day for one week. If legs are still swollen one week after surgery, continue wearing the stockings for one month. Do not lift more than 5 to 10 lbs for 2 weeks, then no more than 20 lbs for 1 month. No [address] until seen at last follow-up appointment (4 weeks). Heart Failure Discharge Instructions Diet: Low sodium (low salt) diet Fluid intake 2-3 liters daily unless otherwise advised Follow instructions from our dietitian if one visited you Activity: Plan time every day for walking or other activity. If you feel tired and short of breath, stop and rest. Continue activity when ready. Follow guidelines given by cardiac rehab and nursing staff. Treatments/Self Care: Weigh yourself daily at the same time of the day and with the same amount of clothing. Write down your weight every day and keep this record. Avoid NSAIDs or Non-Steroidal Anti-Inflammatory Drugs (ie: Advil, Ibuprofen, Motrin, etc.) Contact Your Doctor If You Have Any of These Symptoms: Sudden weight gain of 2 to 3 pounds in a day or 5 pounds in a week. This is a sign of fluid build-up. Swelling in feet , ankles, legs, or stomach area Shortness of breath or trouble breathing at rest Having to sleep with more pillows or sitting up Frequent or worsening cough A decrease in amount of urination Chest pain Confusion Questions about medications or other problems Review the Living Well with Heart Failure booklet for more information on caring for yourself or your loved one at home. documented in this encounter Medications at Time of Discharge Medication Sig Dispensed Refills Start Date End Date Docusate Sodium (DSS) 250 Take 250 mg by mouth 30 capsule 0 01/15/2019 MG CAPSIndications: 1 time per day NSTEMI (non-ST elevated myocardial infarction) ([facility]), CAD, multiple vessel, S/P CABG x 2, Cerebrovascular accident (CVA), unspecified mechanism (HCC), Subclavian artery stenosis, right (HCC), Essential hypertension, Panlobular emphysema (HCC), Atherosclerotic peripheral vascular disease with intermittent claudication ([facility]), History of CEA (carotid endarterectomy), History of cerebral thrombosis, Paroxysmal atrial fibrillation ([facility]), Acute on chronic diastolic CHF (congestive heart failure) ([facility]) fluticasone-vilanterol Inhale 1 puff orally 3 Inhaler 4 01/15/2019 (BREO ELLIPTA) 200-25 1 time per day 0 mcg/puff inhalerIndications: NSTEMI (non-ST elevated myocardial infarction) ([facility]), CAD, multiple vessel, S/P CABG x 2, Cerebrovascular accident (CVA), unspecified mechanism (HCC), Subclavian artery stenosis, right ([facility]), Essential hypertension, Panlobular emphysema ([facility]), Atherosclerotic peripheral vascular disease with intermittent claudication ([facility]), History of CEA (carotid endarterectomy), History of cerebral thrombosis, Paroxysmal atrial fibrillation ([facility]), Acute on chronic diastolic CHF (congestive heart failure) ([facility]) HYDROcodone-acetaminophen Take 1 tablet by 40 tablet 0 01/15/2019 (NORCO) 7.5-325 mg mouth Every 4 hours tabletIndications: NSTEMI as needed for (non-ST elevated moderate pain or myocardial infarction) severe pain Earliest ([facility]), CAD, multiple Fill Date: 01/15/19 vessel, S/P CABG x 2, Cerebrovascular accident (CVA), unspecified mechanism ([facility]), Subclavian artery stenosis, right (HCC), Essential hypertension, Panlobular emphysema ([facility]), Atherosclerotic peripheral vascular disease with intermittent claudication ([facility]), History of CEA (carotid endarterectomy), History of cerebral thrombosis, Paroxysmal atrial fibrillation ([facility]), Acute on chronic diastolic CHF (congestive heart failure) ([facility]) omeprazole (PRILOSEC) 20 Take 1 capsule (20 30 capsule 3 01/15/2019 mg capsuleIndications: mg) by mouth 1 time a NSTEMI (non-ST elevated day in the morning myocardial infarction) ([facility]), CAD, multiple vessel, S/P CABG x 2, Cerebrovascular accident (CVA), unspecified mechanism (HCC), Subclavian artery stenosis, right (HCC), Essential hypertension, Panlobular emphysema (HCC), Atherosclerotic peripheral vascular disease with intermittent claudication ([facility]), History of CEA (carotid endarterectomy), History of cerebral thrombosis, Paroxysmal atrial fibrillation ([facility]), Acute on chronic diastolic CHF (congestive heart failure) ([facility]) umeclidinium (INCRUSE Inhale 1 puff orally 1 Inhaler 0 01/15/2019 ELLIPTA) 62.5 mcg/puff 1 time per day inhalerIndications: NSTEMI (non-ST elevated myocardial infarction) ([facility]), CAD, multiple vessel, S/P CABG x 2, Cerebrovascular accident (CVA), unspecified mechanism (HCC), Subclavian artery stenosis, right (HCC), Essential hypertension, Panlobular emphysema ([facility]), Atherosclerotic peripheral vascular disease with intermittent claudication ([facility]), History of CEA (carotid endarterectomy), History of cerebral thrombosis, Paroxysmal atrial fibrillation ([facility]), Acute on chronic diastolic CHF (congestive heart failure) ([facility]) hydroCHLOROthiazide 25 mg Take 1 tablet (25 mg) 30 tablet 0 01/15/2019 tabletIndications: NSTEMI by mouth 1 time per (non-ST elevated day myocardial infarction) ([facility]), CAD, multiple vessel, S/P CABG x 2, Cerebrovascular accident (CVA), unspecified mechanism (HCC), Subclavian artery stenosis, right (HCC), Essential hypertension, Panlobular emphysema ([facility]), Atherosclerotic peripheral vascular disease with intermittent claudication ([facility]), History of CEA (carotid endarterectomy), History of cerebral thrombosis, Paroxysmal atrial fibrillation ([facility]), Acute on chronic diastolic CHF (congestive heart failure) ([facility]) amiodarone (CORDARONE, Take 1 tablet (400 90 tablet 4 01/15/2019 PACERONE) 400 mg mg) by mouth 1 time 0 tabletIndications: NSTEMI per day (non-ST elevated myocardial infarction) ([facility]), CAD, multiple vessel, S/P CABG x 2, Cerebrovascular accident (CVA), unspecified mechanism (HCC), Subclavian artery stenosis, right (HCC), Essential hypertension, Panlobular emphysema ([facility]), Atherosclerotic peripheral vascular disease with intermittent claudication ([facility]), History of CEA (carotid endarterectomy), History of cerebral thrombosis, Paroxysmal atrial fibrillation ([facility]), Acute on chronic diastolic CHF (congestive heart failure) ([facility]) metoprolol tartrate Take 1 tablet (50 mg) 180 tablet 4 01/15/2019 (LOPRESSOR) 50 mg by mouth Every 12 0 tabletIndications: NSTEMI hours (non-ST elevated myocardial infarction) ([facility]), CAD, multiple vessel, S/P CABG x 2, Cerebrovascular accident (CVA), unspecified mechanism ([facility]), Subclavian artery stenosis, right ([facility]), Essential hypertension, Panlobular emphysema ([facility]), Atherosclerotic peripheral vascular disease with intermittent claudication ([facility]), History of CEA (carotid endarterectomy), History of cerebral thrombosis, Paroxysmal atrial fibrillation ([facility]), Acute on chronic diastolic CHF (congestive heart failure) ([facility]) clopidogrel (PLAVIX) 75 Take 1 tablet (75 mg) 90 tablet 3 11/20/2018 mg tabletIndications: by mouth 1 time per NSTEMI (non-ST elevated day myocardial infarction) ([facility]) warfarin (COUMADIN) 2 MG [facility] 0 tablet Anticoagulation Pt:Take as directed. (Insurance Purposes: 2-3mg daily dose range) Call [phone] if ? acetaminophen (TYLENOL) Take 2 tablets (1,000 0 01/06/2017 500 mg tabletIndications: mg) by mouth 3 times Pain a day as needed (pain) For mild pain or fever albuterol HFA Inhale 2 puffs orally 0 (PROVENTIL,PROAIR,VENTOLI every 6 hours as N) 108 (90 BASE) MCG/ACT needed for shortness inhaler of breath Shake well before using. aspirin (ECOTRIN LOW Take 81 mg by mouth 1 0 04/11/2013 STRENGTH) 81 MG enteric time per day coated tablet tiotropium (SPIRIVA) 18 Inhale 18 mcg orally 0 04/11/2013 MCG aer cap 1 time per day calcium citrate-vitamin D Take 1 tablet by 0 (CITRACAL + VIT D) 315 mouth 2 times a day mg-200 unit TABS with meals. atorvaSTATin (LIPITOR) 40 Take 60 mg by mouth 30 tablet 1 01/06/2013 mg tablet every night at bedtime Multiple Take 1 tablet by 0 Vitamins-Minerals mouth 1 time per day. (CENTRUM SILVER ULTRA MENS PO) allopurinol (ZYLOPRIM) Take 200 mg by mouth 0 100 mg tablet 1 time per day colchicine 0.6 mg tablet Take 0.6 mg by mouth 0 as needed. 2 tablets po on onset of gout attack with 1 tablet po q1h prn thereafter with max dose of 5 tablets per 24 hours fluticasone (FLONASE) 50 [place] 2 sprays into 0 mcg/spray nasal spray each nostril 1 time a day as needed for other (Specify) (allergies) loratadine (CLARITIN) 10 Take 10 mg by mouth 1 0 mg tablet time per day. documented as of this encounter Progress Notes Cipriano Maciel MD - 01/13/2019 7:57 PM CDTCase management note reviewed: Patient with successful thoracentesis of 750 mld effusion today Hb 9.4 and would not routinely transfuse. Will check F/U hb again in AM Titrate coumadin to pre op parameters for PAF Home Ox evaluation in AM Anticipate appropriate for transfer in AM if heart rate controled with PAF Mirna Plaza PA-C - 01/13/2019 8:44 AM CDT Cardiothoracic Surgery Progress note - POD#5 Subjective Patient feels good this AM with no complaints. BM this morning Objective Admission weight: Weight: 87 kg (191 lb 11 oz) Current weight: Weight: 88.7 kg (195 lb 8 oz) Temp: 97.9 F (36.6 C) | BP: 127/59 | Pulse: 124 | Resp: 16 | Pain Ratin (out of 10) | Weight: 88.7 kg (195 lb 8 oz) | O2 Device: NC - no humidity O2 Flow Rate (L/min): 2 l/min | SpO2: 93 % Maximum Temperatures (last 24 hours) Temperature Maximum Max Temp 98.6 F (37 C) Tele: Sinus tachycardia Heart: Regular rhythm and tachycardic Lungs: Mild expiratory wheezes bilaterally Extremities: no edema Incision(s): sternotomy clean, dry and intact and right leg clean, dry and intact Labs: CBC: Lab Results Component Value Date WBC 13.3 (H) 01/12/2019 NUCRBC 0 01/07/2019 RBC 2.97 (L) 01/12/2019 HEMOGLOBIN 9.4 (L) 01/12/2019 HEMATOCRIT 28.7 (L) 01/12/2019 MCV 96.6 01/12/2019 MCH 31.6 01/12/2019 MCHC 32.8 01/12/2019 RDW 14.5 12/25/2016 PLTCOUNT 209 01/12/2019 NEUTROPCT 67.1 01/07/2019 BANDPCT 4 01/03/2013 LYMPHSPCT 18.8 01/07/2019 MONOSPCT 11.5 01/07/2019 EOSPCT 2.1 01/07/2019 BASOPHILPCT 0.5 01/07/2019 Renal Function Panel: Lab Results Component Value Date GLUCOSE 109 (H) 01/13/2019 BUN 32 (H) 01/12/2019 CREATSERUM 1.30 01/12/2019 BCRATIO 24.6 01/12/2019 NA 136 01/12/2019 POTASSIUM 4.2 01/12/2019 CL 105 01/12/2019 CO2 19 (L) 01/12/2019 ANIONGAP 8.0 12/25/2016 CA 9.8 01/12/2019 EGFR 54 (L) 01/12/2019 EGFRAF 65 01/12/2019 INR: Lab Results Component Value Date INR 1.7 (L) 01/13/2019 Assessment: Tre Hassan 78y/o/m POD# [address] Snow Plan: Left thoracentesis this morning Pulmonary toilet Continue aspirin, plavix, beta shadia, statin, amiodarone and coumadin OOB to chair Ambulate Cardiac rehab Discharge 1-2 days- needs SNF placement Peter Colon PA-C - 01/12/2019 9: 46 AM CDT Postop CABG NSR mostly converted Afib this am On anticoag and plavix Feels well no complaints Current Vital Signs Temp: 97.9 F (36.6 C) BP: 132/89 Pulse: 107 O2 Device: NC - no humidity O2 Flow Rate (L/min): 5 l/min Resp: 16 Pain Ratin (out of 10) Weight: 90.8 kg (200 lb 3.2 oz) SpO2: 94 % Labs (Last day) 01/12/19699 - 01/12/19699 CBC 01/12/19699 CBC WBC 4.0-11.0 (K/uL) 13.3 RBC 4.40-5.80 (M/uL) 2.97 Hemoglobin 13.5-17.5 (g/dL) 9.4 Hematocrit 40.0-50.0 (%) 28.7 MCV 80.0-98.0 (fL) 96.6 MCH 25.5-34.0 (pg) 31.6 MCHC 31.5-36.5 (g/dL) 32.8 RDW-CV 11.5-15.5 (%) 17.2 RDW-SD 35.5-50.0 (fl) 61.2 Platelet Count 140-400 (K/uL) 209 MPV 8.5-12.0 (fL) 9.8 01/12/19699 - 01/12/19699 CHEMISTRY 01/12/19699 CHEMISTRY Glucose 70-100 (mg/dL) 118 Sodium 135-145 (meq/L) 136 Potassium 3.5-5.3 (meq/L) 4.2 Chloride 99-110 (meq/L) 105 CO2 20-29 (meq/L) 19 Anion Gap with K 6-20 (meq/L) 16 BUN 6-22 (mg/dL) 32 Creatinine 0.80-1.30 (mg/dL) 1.30 BUN/Creatinine Ratio 10.0-25.0 24.6 Calcium 8.5-10.5 (mg/dL) 9.8 eGFR >=60 (mL/min/1.73m2) 65 eGFR Non- >=60 (mL/min/1.73m2) 54 01/12/19710 - 01/12/19710 ECG/EKG 01/12/19710 ECG/EKG EKG WAVEFORM Atrial fibrillation with rapid ventricular response Septal infarct , age undetermined Abnormal ECG When compared with ECG of 07-JAN-2019 14:11, Atrial fibrillation has replaced Sinus rhythm Septal infarct is now Present T wave amplitude has decreased in Lateral leads Ventricular Rate: 108 BPM Atrial Rate: 100 BPM QRS Duration: 84 ms Q-T Interval: 358 ms QTc Calculation(Bazett): 479 ms Calculated R [place]: -9 degrees Calculated T [place]: 54 degrees 01/12/19699 - 01/12/19699 GENERAL COAGULATION 01/12/19699 GENERAL COAGULATION Protime 12.0-14.5 (secs) 16.3 INR 2.0-3.5 1.3 01/12/19 0058 - 01/12/19 005 GLUCOSE POINT OF CARE 01/12/1957 GLUCOSE POINT OF CARE Glucose POC 70-100 (mg/dL) 120 01/12/19 0700 - 01/12/19 07 OTHER 01/12/19699 OTHER Age (Years) 78 Heart IRR Lungs clear Wounds intact Remove CL Amio BB Ambulate IS Home maybe tomorrow if HR controlled Seen examined by Dr snowElectronically signed by Peter Basilio PA-C at 9:47 AM CDPeter Tang PA-C - 01/11/2019 9:34 AM CDT Postop CABG Afib this am rate 120 Tolerating well No complaints except pablo which was placed for retention Current Vital Signs Temp: 98.1 F (36.7 C) BP: 137/90 Pulse: 131 O2 Device: NC - no humidity O2 Flow Rate (L/min): 6 l/min Resp: 18 Pain Ratin (out of 10) Weight: 89.5 kg (197 lb 5 oz) SpO2: 94 % Labs (Last day) 01/11/19313 - 01/11/19313 CBC 01/11/1931301/11/19313 CBC Hemoglobin 13.5-17.5 (g/dL) 9.1 Hematocrit 40.0-50.0 (%) 28.3 01/11/19313 - 01/11/19 011 CHEMISTRY 01/11/1931301/11/1931301/11/1931301/11/19 011 CHEMISTRY Glucose 70-100 (mg/dL) 133 Potassium 3.5-5.3 (meq/L) 4.1 BUN 6-22 (mg/dL) 26 Creatinine 0.80-1.30 (mg/dL) 1.44 eGFR >=60 (mL/min/1.73m2) 58 eGFR Non- >=60 (mL/min/1.73m2) 48 01/11/19 0314 - 01/11/19 0314 OTHER 01/11/19 0314 OTHER Age (Years) 78 Heart IRR Lungs clear some decrease basilar Wounds intact right thigh soft without ecchymosis Neuro intact Amio BB Voiding trial Ambulate IS Anitcoag if persistent Afib although he is on Plavix and ASA for severe PVD as well Seen examined by Dr SnowElectronically signed by Peter Basilio PA-C at 9:37 AM Tonny aBker MD - 01/10/2019 3:46 PM CDT DIABETES CONSULT SERVICE PROGRESS NOTE 01/10/2019 Assessment and Plan 1. Hyperglycemia is currently stable. Treatment Options and Recommendations Stop all insulin and accuchecks Endocrine will sign off. Please page [phone] to contact diabetes consult service with any questions you may have Identifying Information / Chief Complaint Tre Hassan is a 78yr old male admitted on 01/08/2019 4:56 AM. Chief Complaint: Hyperglycemia Interval History Interval History: He is stable. Blood sugars are well controlled. He is eating. Review of Systems General: No fevers or chills Skin: No rashes Physical Exam Vital Signs: BP: 93/58 (01/10/19 0900) | Pulse: 92 (01/10/19 1246) | Resp: 19 ( 01/10/19 1246) Mental Status: alert Eyes: sclera anicteric Skin: No rashes, lesions, or nodules on limited exam Data Review Last A1C Lab Results Component Value Date HGBA1C 5.9 (H) 11/10/2018 Last 48 Hours Glucose POC Glucose 01/10/19 0748 01/10/19 0401 01/09/19 2246 01/09/19 1811 01/09/19 1230 POC Glucose 143 155 149 146 Lab Glucose 191 01/09/19 0758 01/09/19 0406 01/08/19 1947 POC Glucose 121 107 Lab Glucose 124 Tonny Snow MD Peter Colon PA-C - 01/10/2019 7:03 AM CDT Postop CABG No problems overnight Rhoda mostly inop Current Vital Signs Temp: 98.6 F (37 C) BP: 112/70 Pulse: 84 O2 Device: Mask - Oxymask O2 Flow Rate (L/min): 6 l/min Resp: 20 Pain Ratin (out of 10) Weight: 91.4 kg (201 lb 8 oz) SpO2: (!) 89 % Labs (Last day) 01/10/19151 - 01/10/19151 BG ARTERIAL 01/10/19151 BG ARTERIAL pH Arterial 7.35-7.45 7.38 pCO2 Arterial 35-45 (mmHg) 34 pO2 Arterial 80-100 (mmHg) 114 O2 Sat % Arterial 95-98 (%) 98 Base Excess Arterial -2-2 (meq/L) -5 HCO3 (Bicarb) 20-29 (mmol/L) 20 Collection Site Arterial Arterial Line O2 Source Mask 01/10/19400 - 01/10/19400 CBC 01/10/19400 CBC WBC 4.0-11.0 (K/uL) 16.9 RBC 4.40-5.80 (M/uL) 3.12 Hemoglobin 13.5-17.5 (g/dL) 9.9 Hematocrit 40.0-50.0 (%) 30.3 MCV 80.0-98.0 (fL) 97.1 MCH 25.5-34.0 (pg) 31.7 MCHC 31.5-36.5 (g/dL) 32.7 RDW-CV 11.5-15.5 (%) 18.7 RDW-SD 35.5-50.0 (fl) 67.7 Platelet Count 140-400 (K/uL) 144 MPV 8.5-12.0 (fL) 9.5 01/10/19400 - 01/10/19151 CHEMISTRY 01/10/1940001/10/1915101/10/1915101/10/19151 CHEMISTRY Glucose 70-100 (mg/dL) 191 Sodium 135-145 (meq/L) 138 Potassium 3.5-5.3 (meq/L) 4.2 4.2 Chloride 99-110 (meq/L) 111 CO2 20-29 (meq/L) 16 Anion Gap with K 6-20 (meq/L) 15 BUN 6-22 (mg/dL) 20 Creatinine 0.80-1.30 (mg/dL) 1.32 BUN/Creatinine Ratio 10.0-25.0 15.2 Calcium 8.5-10.5 (mg/dL) 9.3 Ionized Calcium 1.12-1.32 (mmol/L) 1.32 Corrected Calcium 8.5-10.5 (mg/dL) 9.7 Phosphorus 2.5-4.5 (mg/dL) 2.4 Magnesium 1.8-2.4 (mg/dL) 2.0 Albumin 3.5-5.0 (g/dL) 3.5 eGFR >=60 (mL/min/1.73m2) 64 eGFR Non- >=60 (mL/min/1.73m2) 53 01/10/19 0152 - 01/10/19 0152 CO-OXIMETRY STUDIES 01/10/19 0152 CO-OXIMETRY STUDIES Carbon Monoxide 0.0-3.0 (%) 0.6 Methemoglobin 0.0-3.0 (%) 0.4 01/09/19 2246 - 01/09/19 2246 GLUCOSE POINT OF CARE 01/09/19 2246 GLUCOSE POINT OF CARE Glucose POC 70-100 (mg/dL) 155 01/10/19 0401 - 01/10/19 0152 OTHER 01/10/19 0401 01/10/19 0152 OTHER Age (Years) 78 [place] Test Not Done-Drawn From Line p50 25.00-29.00 (mmHg) 26.84 Heart RRR Lungs clear Wounds intact Neuro intact Same Rx Ambulate IS CTs out Seen examined by Dr SnowElectronically signed by Peter Basilio PA-C at 7:05 AM Igor Bonilla MD - 01/09/2019 9:35 AM CDT DIABETES CONSULT SERVICE PROGRESS NOTE 01/09/2019 Assessment and Plan 1. Stress Hyperglycemia, postoperative 2. Prediabetes 3. CAD s/p CABG He reports feeling better. Has not started eating much. BG at goal. Recommendations: -Will monitor on low dose novolog correction scale for today. -Blood sugar targets will be from 140 to 180 while inpatient. -It is likely that he will not need blood glucose medications upon dismissal, but lifestyle modification is going to be recommended. -We will continue to follow. Thank you for the consult, please page [phone] to contact diabetes consult service with any questions. Identifying Information / Chief Complaint Tre Hassan is a 78yr old male admitted on 01/08/2019 4:56 AM. CC: hyperglycemia, glucose management Interval History Patient reports feeling better today. No nausea, no vomiting and not eating much yet. Has remained hemodynamically stable. Review of Systems General: Denies any fever or chills CV: Denies chest pain Respiratory: Denies shortness of breath GI: Denies nausea, vomiting or abdominal pain, appetite is low. Physical Exam Vital Signs: BP: 100/66 (01/09/19 0700) | Pulse: 95 (01/09/19 08) | Resp: 17 ( 01/09/19825) Gen: Comfortable, no distress Mental Status: Awake, oriented Eyes: sclera anicteric Skin: No rashes, lesions, or nodules on limited exam Ext: no edema Data Review Last A1C Lab Results Component Value Date HGBA1C 5.9 (H) 11/10/2018 Last 48 Hours Glucose POC Glucose (Last 10 results in the past 48 hours) 01/09/19 0758 01/09/19 0406 01/08/19 1947 01/08/19 1545 01/08/19 1247 POC Glucose 121 107 111 111 Lab Glucose 124 01/08/19 1150 01/08/19 1121 01/08/19 1000 01/08/19 0825 01/08/19 0718 POC Glucose 129 132 Lab Glucose 181 142 116 Igor Uribe MD Cipriano Jay MD - 01/09/2019 6:59 AM CDT CARDIOVASCULAR SURGERY PROGRESS NOTE Tre Hassan is a 78yr old male admitted on 01/08/2019 4:56 AM. Procedure: PROCEDURE: Procedure(s) and Anesthesia Type: * CORONARY ARTERY BYPASS GRAFTING X2, SVBG FROM AORTA TO OBTUSE MARGINAL, SVBG FROM FREE CHOE TO LAD. ENDOSCOPIC VEIN HARVEST, OFF PUMP - general SUBJECTIVE Patient with hypotension post op requiring continued low to moderate infusion of josselyn synephrine. Newonset afib this AM with HR 115-120 and contributing to hypotension. Amiodarone infusion started. Patient awake and alert and denies symptoms. Excellent u/o. Known subclavian stenosis and central pressure likely higher OBJECTIVE 24 hour Intake/Output 01/08 0700 - 01/09 0659 In: 3594 Out: 3220 [Urine:2280] Vitals: Wt Readings from Last 1 Encounters: 01/08/19 87 kg (191 lb 11 oz) Current Vital Signs Temp: 100.2 F (37.9 C) BP: 62/33 Pulse: 114 O2 Device: Mask - Oxymask O2 Flow Rate (L/min): 6 l/min Resp: 18 Pain Ratin (out of 10) Weight: 87 kg (191 lb 11 oz) SpO2: 96 % Physical Exam Heart:IRR, afib Lungs:CTA, oxygenating well, no significant effusions onr CXR Wounds:dressings dry, chest tubes patent Extremities: warm and perfused with chronic PVD Medications amiodarone 400 mg 2 times a day allopurinol 200 mg daily atorvaSTATin 60 mg at bedtime calcium citrate-vitamin D 1 tablet 2 times a day with meals sodium bicarbonate 25 mEq Bolus scopolamine 1 patch Every 3 days albuterol-ipratropium 1 unit-dose 4 times a day fluticasone-vilanterol 1 puff Daily umeclidinium 1 puff daily insulin aspart 2-8 Units 3 times a day with meals Diagnostics and Labs Labs (Last day) 01/09/19405 - 01/08/192158 BG ARTERIAL 01/09/19 0406 01/08/19 2159 BG ARTERIAL pH Arterial 7.35-7.45 7.38 7.32 pCO2 Arterial 35-45 (mmHg) 35 40 pO2 Arterial 80-100 (mmHg) 96 103 O2 Sat % Arterial 95-98 (%) 96 96 Base Excess Arterial -2-2 (meq/L) -4 -5 HCO3 (Bicarb) 20-29 (mmol/L) 21 20 Collection Site Arterial Arterial Line Arterial Line O2 Source NIV NIV 01/09/1955 - 01[birth year]09[birth year]1955 BLOOD BANK 01/09/1965401/09/19654 BLOOD BANK Product Code RBC, Leukoreduced CP2D>AS3 [id number] Unit ID [id number] Unit ABO Type A Unit Rh Type POS XM Interp Compatible Product Status Issued IS 01/09/19405 - 01/08/192158 CBC 01/09/1940501/08/19215801/08/192158 CBC WBC 4.0-11.0 (K/uL) 15.3 RBC 4.40-5.80 (M/uL) 3.08 Hemoglobin 13.5-17.5 (g/dL) 9.7 9.7 Hematocrit 40.0-50.0 (%) 29.9 29.3 MCV 80.0-98.0 (fL) 97.1 MCH 25.5-34.0 (pg) 31.5 MCHC 31.5-36.5 (g/dL) 32.4 RDW-CV 11.5-15.5 (%) 16.5 RDW-SD 35.5-50.0 (fl) 58.7 Platelet Count 140-400 (K/uL) 176 MPV 8.5-12.0 (fL) 9.5 01/09/19405 - 01/08/192158 CHEMISTRY 01/09/1940501/09/1940501/09/1940501/08/19215801/08/192158 CHEMISTRY Glucose 70-100 (mg/dL) 124 Sodium 135-145 (meq/L) 138 Potassium 3.5-5.3 (meq/L) 4.6 4.7 Chloride 99-110 (meq/L) 108 CO2 20-29 (meq/L) 18 Anion Gap with K 6-20 (meq/L) 17 BUN 6-22 (mg/dL) 21 Creatinine 0.80-1.30 (mg/dL) 1.25 BUN/Creatinine Ratio 10.0-25.0 16.8 Calcium 8.5-10.5 (mg/dL) 8.8 Ionized Calcium 1.12-1.32 (mmol/L) 1.19 Phosphorus 2.5-4.5 (mg/dL) 3.8 Magnesium 1.8-2.4 (mg/dL) 2.0 2.2 Albumin 3.5-5.0 (g/dL) 4.0 eGFR >=60 (mL/min/1.73m2) 68 eGFR Non- >=60 (mL/min/1.73m2) 56 01/08/199 - 01/08/192158 CHEMISTRY 01/08/192158 CHEMISTRY Ionized Calcium 1.12-1.32 (mmol/L) 1.21 01/09/19 0406 - 01/08/192158 CO-OXIMETRY STUDIES 01/09/19 0406 01/08/192158 CO-OXIMETRY STUDIES Carbon Monoxide 0.0-3.0 (%) 0.9 0.9 Methemoglobin 0.0-3.0 (%) 0.7 0.8 01/08/197 - 01/08/191946 GLUCOSE POINT OF CARE 01/08/191946 GLUCOSE POINT OF CARE Glucose POC 70-100 (mg/dL) 107 01/09/19 0655 - 01/08/192158 OTHER 01/09/19 0655 01/09/19 0406 01/09/19 0406 01/08/192158 OTHER Age (Years) 78 [place] Test Not Done-Drawn From Line Not Done-Drawn From Line BPAM Blood Expiration Date [id number] BPA Coding System 6200 p50 25.00-29.00 (mmHg) 26.71 28.55 . ASSESSMENT/PLAN Post Op day: 1 Day Post-Op 1. Hypotension with rapid afib - starting amio / no tolerance for betablockers at this time 2. Chronic PVD 3. Moderate anemia - needs volume bolus and will transfuse for symptomatic hypotension Becky Lambert [facility] - 01/08/2019 6:13 AM T01/08/2019 06:13 - Patient was seen by pharmacy med reconciliation team. HOME MEDICATIONS have been reconciled and updated to match the patient's home usage. Patient denies use of other inhalers, creams/ointments, eye/ear drops, patches or injectables, OTC, vitamins and/or herbal products. Respectfully, Becky Palumbo RPh. documented in this encounter Plan of Treatment Name Priority Associated Diagnoses Order Schedule PROTIME/INR Routine Early AM draw for labs until discontinued starting 01/12/2019, 4 completed EKG Routine NSTEMI (non-ST elevated Expected: 02/13/2019 myocardial infarction) (Approximate), Expires: ([facility]) 01/15/2020 CAD, multiple vessel S/P CABG x 2 Cerebrovascular accident (CVA), unspecified mechanism (HCC) Subclavian artery stenosis, right ([facility]) Essential hypertension Panlobular emphysema ([facility]) Atherosclerotic peripheral vascular disease with intermittent claudication ([facility]) History of CEA (carotid endarterectomy) History of cerebral thrombosis Paroxysmal atrial fibrillation ([facility]) Acute on chronic diastolic CHF (congestive heart failure) ([facility]) XRAY CHEST PA AND LATERAL Routine NSTEMI (non-ST elevated Expected: 2018 myocardial infarction) (Approximate), Expires: ([facility]) 02/14/2020 CAD, multiple vessel S/P CABG x 2 Cerebrovascular accident (CVA), unspecified mechanism (HCC) Subclavian artery stenosis, right (HCC) Essential hypertension Panlobular emphysema (HCC) Atherosclerotic peripheral vascular disease with intermittent claudication ([facility]) History of CEA (carotid endarterectomy) History of cerebral thrombosis Paroxysmal atrial fibrillation (HCC) Acute on chronic diastolic CHF (congestive heart failure) ([facility]) COMPLETE BLOOD COUNT WITH Routine NSTEMI (non-ST elevated Expected: 2018 DIFFERENTIAL myocardial infarction) (Approximate), Expires: ([facility]) 02/14/2020 CAD, multiple vessel S/P CABG x 2 Cerebrovascular accident (CVA), unspecified mechanism (HCC) Subclavian artery stenosis, right (HCC) Essential hypertension Panlobular emphysema (HCC) Atherosclerotic peripheral vascular disease with intermittent claudication ([facility]) History of CEA (carotid endarterectomy) History of cerebral thrombosis Paroxysmal atrial fibrillation (HCC) Acute on chronic diastolic CHF (congestive heart failure) ([facility]) BASIC METABOLIC PANEL Routine NSTEMI (non-ST elevated Expected: 02/13/2019 myocardial infarction) (Approximate), Expires: (HCC) 02/14/2020 CAD, multiple vessel S/P CABG x 2 Cerebrovascular accident (CVA), unspecified mechanism (HCC) Subclavian artery stenosis, right (HCC) Essential hypertension Panlobular emphysema (HCC) Atherosclerotic peripheral vascular disease with intermittent claudication (HCC) History of CEA (carotid endarterectomy) History of cerebral thrombosis Paroxysmal atrial fibrillation (HCC) Acute on chronic diastolic CHF (congestive heart failure) ([facility]) Name Priority Associated Diagnoses Order Schedule Hospital Discharge Routine NSTEMI (non-ST elevated Expected: 01/15/2019, Referral - Patient being myocardial infarction) ([facility]) Expires: 01/21/2019 discharged on Warfarin CAD, multiple vessel ([facility]OUMADIN) S/P CABG x 2 Cerebrovascular accident (CVA), unspecified mechanism (HCC) Subclavian artery stenosis, right (HCC) Essential hypertension Panlobular emphysema (HCC) Atherosclerotic peripheral vascular disease with intermittent claudication (HCC) History of CEA (carotid endarterectomy) History of cerebral thrombosis Paroxysmal atrial fibrillation (HCC) Acute on chronic diastolic CHF (congestive heart failure) ([facility]) documented as of this encounter Implants Implanted Type Area Sales And Service Change Leader Device Shelf Model / Identifier Expiration Serial / Date Lot Patch Vascuguard 1x8mm N [id number] Ea - [id number] Vascular Right: DAVIS [id number] / Implanted: Qty: 1 on 01/01/2013 by Tonny Sands MD CAROTID / [id number] Stnt Smart 10x30 80cm N [id number] Ea-04/02/2013 Vascular J[employer]J CORDIS COLLEEN / Implanted: 04/02/2013 by Carlitos Ceballos MD (Quantity not on file) / [id number] Patch Vascuguard 0.8x8cm N [id number] Ea - [id number] Right: DAVIS [id number] 12/23/2020 [id number] / Implanted: Qty: 1 on 12/28/2016 by Adam Mccoy MD GROIN 1 / [id number] [employer] 6 Ccs 4-18 N [id number] Bx12/Ea1 - [id number] N/A: J&J ETHICON, [id number] / Implanted: Qty: 3 on 01/08/2019 by Cipriano Maciel MD [employer] / documented as of this encounter Procedures Procedure Name Priority Date/Time Associated Comments Diagnosis PROTIME/INR Routine 01/15/2019 6:16 Results for this AM CDT procedure are in the results section. PROTIME/INR Routine 01/14/2019 7:09 Results for this AM CDT procedure are in the results section. COMPLETE BLOOD COUNT Routine 01/14/2019 7:09 Results for this WITHOUT DIFFERENTIAL AM CDT procedure are in the results section. XRAY CHEST PA AND Routine 01/14/2019 6:32 Results for this LATERAL AM CDT procedure are in the results section. IR THORACENTESIS Routine 01/13/2019 8:30 Results for this AM CDT procedure are in the results section. GLUCOSE BY METER, Routine 01/13/2019 5:53 Results for this POCT AM CDT procedure are in the results section. PROTIME/INR Routine 01/13/2019 5:44 Results for this AM CDT procedure are in the results section. EKG Routine 01/12/2019 7:11 Results for this AM CDT procedure are in the results section. PROTIME/INR Routine 01/12/2019 7:00 Results for this AM CDT procedure are in the results section. COMPLETE BLOOD COUNT Timed Routine 01/12/2019 7:00 Results for this WITHOUT DIFFERENTIAL AM CDT procedure are in the results section. BASIC METABOLIC PANEL Routine 01/12/2019 7:00 Results for this AM CDT procedure are in the results section. XRAY CHEST PA AND Routine 01/12/2019 6:46 Results for this LATERAL AM CDT procedure are in the results section. GLUCOSE BY METER, Routine 01/12/2019 12:58 Results for this POCT AM CDT procedure are in the results section. HEMOGLOBIN Routine 01/11/2019 3:14 Results for this AM CDT procedure are in the results section. HEMATOCRIT Routine 01/11/2019 3:14 Results for this AM CDT procedure are in the results section. POTASSIUM Routine 01/11/2019 3:14 Results for this AM CDT procedure are in the results section. CREATININE Routine 01/11/2019 3:14 Results for this AM CDT procedure are in the results section. BLOOD UREA NITROGEN Timed Routine 01/11/2019 3:14 Results for this AM CDT procedure are in the results section. GLUCOSE Routine 01/11/2019 1:16 Results for this AM CDT procedure are in the results section. GLUCOSE BY METER, Routine 01/10/2019 7:48 Results for this POCT AM CDT procedure are in the results section. XRAY CHEST PORTABLE Routine 01/10/2019 4:40 Results for this AM CDT procedure are in the results section. COMPLETE BLOOD COUNT Routine 01/10/2019 4:01 Results for this WITHOUT DIFFERENTIAL AM CDT procedure are in the results section. RENAL FUNCTION PANEL Routine 01/10/2019 4:01 Results for this AM CDT procedure are in the results section. BLOOD GAS ARTERIAL Timed Routine 01/10/2019 1:52 Results for this WITH IONIZED CALCIUM AM CDT procedure are in the results section. POTASSIUM Timed Routine 01/10/2019 1:52 Results for this AM CDT procedure are in the results section. MAGNESIUM Timed Routine 01/10/2019 1:52 Results for this AM CDT procedure are in the results section. GLUCOSE BY METER, Routine 01/09/2019 10:46 Results for this POCT PM CDT procedure are in the results section. GLUCOSE BY METER, Routine 01/09/2019 6:11 Results for this POCT PM CDT procedure are in the results section. BLOOD GAS ARTERIAL Timed Routine 01/09/2019 6:10 Results for this WITH IONIZED CALCIUM PM CDT procedure are in the results section. POTASSIUM Timed Routine 01/09/2019 6:10 Results for this PM CDT procedure are in the results section. MAGNESIUM Timed Routine 01/09/2019 6:10 Results for this PM CDT procedure are in the results section. GLUCOSE BY METER, Routine 01/09/2019 12:30 Results for this POCT PM CDT procedure are in the results section. BLOOD GAS ARTERIAL Timed Routine 01/09/2019 10:00 Results for this WITH IONIZED CALCIUM AM CDT procedure are in the results section. POTASSIUM Timed Routine 01/09/2019 10:00 Results for this AM CDT procedure are in the results section. MAGNESIUM Timed Routine 01/09/2019 10:00 Results for this AM CDT procedure are in the results section. TRANSFUSE RED BLOOD STAT 01/09/2019 9:48 CELLS IN UNITS AM CDT GLUCOSE BY METER, Routine 01/09/2019 7:58 Results for this POCT AM CDT procedure are in the results section. PREPARE AND HOLD RED Routine 01/09/2019 6:55 Results for this BLOOD CELLS IN UNITS AM CDT procedure are in - BLOOD BANK the results section. XRAY CHEST PORTABLE Routine 01/09/2019 4:35 Results for this AM CDT procedure are in the results section. BLOOD GAS ARTERIAL Routine 01/09/2019 4:06 Results for this WITH IONIZED CALCIUM AM CDT procedure are in the results section. COMPLETE BLOOD COUNT Routine 01/09/2019 4:06 Results for this WITHOUT DIFFERENTIAL AM CDT procedure are in the results section. MAGNESIUM Routine 01/09/2019 4:06 Results for this AM CDT procedure are in the results section. RENAL FUNCTION PANEL Routine 01/09/2019 4:06 Results for this AM CDT procedure are in the results section. BLOOD GAS ARTERIAL Timed Routine 01/08/2019 9:59 Results for this WITH IONIZED CALCIUM PM CDT procedure are in the results section. HEMOGLOBIN Timed Routine 01/08/2019 9:59 Results for this PM CDT procedure are in the results section. HEMATOCRIT Timed Routine 01/08/2019 9:59 Results for this PM CDT procedure are in the results section. POTASSIUM Timed Routine 01/08/2019 9:59 Results for this PM CDT procedure are in the results section. MAGNESIUM Timed Routine 01/08/2019 9:59 Results for this PM CDT procedure are in the results section. GLUCOSE BY METER, Routine 01/08/2019 7:47 Results for this POCT PM CDT procedure are in the results section. BLOOD GAS ARTERIAL Routine 01/08/2019 6:44 Results for this WITH IONIZED CALCIUM PM CDT procedure are in the results section. BLOOD GAS ARTERIAL Timed Routine 01/08/2019 3:45 Results for this WITH IONIZED CALCIUM PM CDT procedure are in the results section. GLUCOSE BY METER, Routine 01/08/2019 3:45 Results for this POCT PM CDT procedure are in the results section. COMPLETE BLOOD COUNT Routine 01/08/2019 3:45 Results for this WITHOUT DIFFERENTIAL PM CDT procedure are in the results section. POTASSIUM Timed Routine 01/08/2019 3:45 Results for this PM CDT procedure are in the results section. MAGNESIUM Timed Routine 01/08/2019 3:45 Results for this PM CDT procedure are in the results section. BLOOD GAS ARTERIAL Timed Routine 01/08/2019 2:44 Results for this WITH IONIZED CALCIUM PM CDT procedure are in the results section. TRANSFUSE RED BLOOD Routine 01/08/2019 2:31 CELLS IN UNITS PM CDT PREPARE AND HOLD RED Routine 01/08/2019 1:10 Results for this BLOOD CELLS IN UNITS PM CDT procedure are in - BLOOD BANK the results section. BLOOD GAS ARTERIAL Timed Routine 01/08/2019 12:47 Results for this WITH IONIZED CALCIUM PM CDT procedure are in the results section. GLUCOSE BY METER, Routine 01/08/2019 12:47 Results for this POCT PM CDT procedure are in the results section. BLOOD GAS ARTERIAL Timed Routine 01/08/2019 11:50 Results for this WITH IONIZED CALCIUM AM CDT procedure are in the results section. GLUCOSE BY METER, Routine 01/08/2019 11:50 Results for this POCT AM CDT procedure are in the results section. PTT Routine 01/08/2019 11:50 Results for this AM CDT procedure are in the results section. PROTIME/INR Routine 01/08/2019 11:50 Results for this AM CDT procedure are in the results section. FIBRINOGEN Routine 01/08/2019 11:50 Results for this AM CDT procedure are in the results section. BLOOD GAS ARTERIAL Timed Routine 01/08/2019 11:22 Results for this WITH IONIZED CALCIUM AM CDT procedure are in the results section. COMPLETE BLOOD COUNT Routine 01/08/2019 11:22 Results for this WITHOUT DIFFERENTIAL AM CDT procedure are in the results section. HEMATOCRIT ANA 01/08/2019 11:22 Results for this AM CDT procedure are in the results section. POTASSIUM ANA 01/08/2019 11:22 Results for this AM CDT procedure are in the results section. MAGNESIUM NAA 01/08/2019 11:22 Results for this AM CDT procedure are in the results section. GLUCOSE BY METER, Routine 01/08/2019 11:21 Results for this POCT AM CDT procedure are in the results section. XRAY CHEST PORTABLE Routine 01/08/2019 10:57 Results for this AM CDT procedure are in the results section. HEPARIN ASSAY Routine 01/08/2019 10:02 Results for this AM CDT procedure are in the results section. ACTIVATED CLOTTING Routine 01/08/2019 10:02 Results for this TIME POCT AM CDT procedure are in the results section. OR PANEL 1 POCT Routine 01/08/2019 10:00 Results for this AM CDT procedure are in the results section. HEPARIN ASSAY Routine 01/08/2019 9:50 Results for this AM CDT procedure are in the results section. ACTIVATED CLOTTING Routine 01/08/2019 9:50 Results for this TIME POCT AM CDT procedure are in the results section. ACTIVATED CLOTTING Routine 01/08/2019 9:22 Results for this TIME POCT AM CDT procedure are in the results section. ACTIVATED CLOTTING Routine 01/08/2019 8:52 Results for this TIME POCT AM CDT procedure are in the results section. ACTIVATED CLOTTING Routine 01/08/2019 8:45 Results for this TIME POCT AM CDT procedure are in the results section. OR PANEL 1 POCT Routine 01/08/2019 8:25 Results for this AM CDT procedure are in the results section. ACTIVATED CLOTTING Routine 01/08/2019 8:25 Results for this TIME POCT AM CDT procedure are in the results section. HEPARIN DOSE RESPONSE Routine 01/08/2019 7:18 Results for this AM CDT procedure are in the results section. OR PANEL 1 POCT Routine 01/08/2019 7:18 Results for this AM CDT procedure are in the results section. ACTIVATED CLOTTING Routine 01/08/2019 7:18 Results for this TIME POCT AM CDT procedure are in the results section. BYPASS CORONARY 01/08/2019 6:45 CVD ARTERY AM CDT (cardiovascular disease) documented in this encounter Results PROTIME/INR (01/15/2019 6:16 AM CDT)Only the most recent of5 resultswithin the time period is included. Protime 25.3 (H) 12.0 - 14.[address] INR 2.3 2.0 - 3.[address] Specimen Blood Narrative Performed At Normal INR reference range (patients not on oral [address] anticoagulants)0.9-1.1. INR Standard Intensity=(2.0 - 3.0) INR Higher Intensity=(2.5 - 3.5) Performing Organization Address City/State/Zipcode Phone Number [address] [place] [address] COMPLETE BLOOD COUNT WITHOUT DIFFERENTIAL (01/14/2019 7:09 AM CDT)Only the most recent of6 resultswithin the time period is included. WBC 10.9 4.0 - 11.0 K/uL [address] RBC 2.88 (L) 4.40 - 5.80 M/uL [address] Hemoglobin 9.0 (L) 13.5 - 17.5 g/dL [address] Hematocrit 27.3 (L) 40.0 - 50.0 % [address] MCV 94.8 80.0 - 98.[address] MCH 31.3 25.5 - 34.[address] MCHC 33.0 31.5 - 36.5 g/dL [address] RDW-CV 16.3 (H) 11.5 - 15.5 % [address] RDW-SD 57.0 (H) 35.5 - 50.[address] Platelet Count 251 140 - 400 K/uL [address] MPV 9.6 8.5 - 12.[address] Specimen Blood Performing Organization Address City/State/Zipcode Phone Number [address], [place] [address] XRAY CHEST PA AND LATERAL (01/14/2019 6:32 AM CDT)Only the most recent of2 resultswithin the time period is included. Specimen Narrative Performed At [facility] Patient Name: TRE HASSAN Date of :1940 Procedure: XRAY CHEST PA AND LATERAL Date of Service: 01/14/2019 EXAM: XRAY CHEST PA AND LATERAL INDICATION:left effusion COMPARISON(S): 01/12/2019 0641 hours. FINDINGS/IMPRESSION: Right IJ CVP line is been removed. Left pleural effusion has improved. There is still persistent atelectasis and fluid on the left I can't exclude concomitant consolidation. Heart size is improved vessels are within normal limits without definite CHF. The right lung remains clear. Apical thickening is present bilaterally. IMPRESSION: Slight improvement in the appearance the chest. No new abnormalities detected. Finalized by: Jayden Aguilar MD on 01/14/2019 8:42 AM CDT Patient/Procedure Information: MRN/ELIZABETH: [id number] Order Number: [id number] Accession Number: [id number] Ordering Provider: CIPRIANO SNOW Authorizing Provider: CIPRIANO SNOW Procedure Note Interface, Radiantres - 01/14/2019 8:44 AM CDT Patient Name: TRE HASSAN Date of : 1940 Procedure: XRAY CHEST PA AND LATERAL Date of Service: 01/14/2019 EXAM: XRAY CHEST PA AND LATERAL INDICATION:left effusion COMPARISON(S): 01/12/2019 0641 hours. FINDINGS/IMPRESSION: Right IJ CVP line is been removed. Left pleural effusion has improved. There is still persistent atelectasis and fluid on the left I can't exclude concomitant consolidation. Heart size is improved vessels are within normal limits without definite CHF. The right lung remains clear. Apical thickening is present bilaterally. IMPRESSION: Slight improvement in the appearance the chest. No new abnormalities detected. Finalized by: Jayden Aguilar MD on 01/14/2019 8:42 AM CDT Patient/Procedure Information: MRN/ELIZABETH: [id number] Order Number: [id number] Accession Number: [id number] Ordering Provider: CIPRIANO SNOW Authorizing Provider: CIPRIANO SNOW Performing Organization Address City/State/Zipcode Phone Number [facility] IR THORACENTESIS (01/13/2019 8:30 AM CDT) Specimen Narrative Performed At [facility] Patient Name: TRE HASSAN Date of :1940 Procedure: IR THORACENTESIS Date of Service: 01/13/2019 ULTRASOUND GUIDED LEFT THORACENTESIS INDICATION: Pleural effusion SEDATION:Local anesthesia used. TECHNIQUE:Informed consent was obtained.Patient placed sitting upright position on the interventional table.Ultrasound was performed identifying a left pleural effusion.Image was recorded.The skin overlying the left posterior chest was prepped and draped in the usual sterile fashion.The skin was infiltrated with lidocaine.Using real-time ultrasound guidance, a Yueh needle was advanced into the pleural space with subsequent drainage of left pleural fluid.Samples of the fluid sent for appropriate laboratory testing if requested.Catheter was removed and a sterile dressing applied. ESTIMATED BLOOD LOSS:Minimal. CONDITION: Stable. FINDINGS:Ultrasound demonstrates a left pleural effusion. IMPRESSION: 1.Successful ultrasound guided left thoracentesis with drainage of 700 mL of dark bloody pleural fluid. Finalized by: Sae Pham MD on 01/13/2019 9:21 AM CDT Patient/Procedure Information: MRN/ELIZABETH: [id number] Order Number: [id number] Accession Number: [id number] Ordering Provider: CIPRIANO SNOW Authorizing Provider: CIPRIANO SNOW Procedure Note Interface, Radiantres - 01/13/2019 9:23 AM CDT Patient Name: TRE HASSAN Date of : 1940 Procedure: IR THORACENTESIS Date of Service: 01/13/2019 ULTRASOUND GUIDED LEFT THORACENTESIS INDICATION: Pleural effusion SEDATION: Local anesthesia used. TECHNIQUE: Informed consent was obtained. Patient placed sitting upright position on the interventional table. Ultrasound was performed identifying a left pleural effusion. Image was recorded. The skin overlying the left posterior chest was prepped and draped in the usual sterile fashion. The skin was infiltrated with lidocaine. Using real-time ultrasound guidance, a Yueh needle was advanced into the pleural space with subsequent drainage of left pleural fluid. Samples of the fluid sent for appropriate laboratory testing if requested. Catheter was removed and a sterile dressing applied. ESTIMATED BLOOD LOSS: Minimal. CONDITION: Stable. FINDINGS: Ultrasound demonstrates a left pleural effusion. IMPRESSION: 1. Successful ultrasound guided left thoracentesis with drainage of 700 mL of dark bloody pleural fluid. Finalized by: Sae Pham MD on 01/13/2019 9:21 AM CDT Patient/Procedure Information: MRN/ELIZABETH: [id number] Order Number: [id number] Accession Number: [id number] Ordering Provider: CIPRIANO SNOW Authorizing Provider: CIPRIANO SNOW Performing Organization Address City/[facility]/Zipcode Phone Number [facility] GLUCOSE BY METER, POCT (01/13/2019 5:53 AM CDT)Only the most recent of12 resultswithin the time period is included. Glucose POC 109 (H) 70 - 100 mg/dL POINT OF CARE TESTING Specimen Blood Performing Organization Address City/[facility]/Zipcode Phone Number POINT OF [address] [place] [address] CARE TESTING EKG (01/12/2019 7:11 AM CDT) EKG [employer] Atrial fibrillation with rapid ventricular response Septal infarct , age undetermined Abnormal ECG When compared with ECG of 07-JAN-2019 14:11, Atrial fibrillation has replaced Sinus rhythm Septal infarct is now Present T wave amplitude has decreased in Lateral leads Ventricular Rate: 108 BPM Atrial Rate: 100 BPM QRS Duration: 84 ms Q-T Interval: 358 ms QTc Calculation(Bazett): 479 ms Calculated R Chatham: -9 degrees Calculated T [place]: 54 degrees Specimen Narrative Performed At Performing Organization Address [facility] Phone Number IRIS JAIMES BASIC METABOLIC PANEL (01/12/2019 7:00 AM CDT) Glucose 118 (H) 70 - 100 mg/dL [address] BUN 32 (H) 6 - 22 mg/dL [place] [address] [facility] Creatinine 1.30 0.80 - 1.[address] mg/dL BUN/Creatinine Ratio 24.6 10.0 - 25.[address] Sodium 136 135 - 145 meq/L [address] Potassium 4.2 3.5 - 5.3 meq/L [address] Chloride 105 99 - 110 meq/L [address] CO2 19 (L) 20 - 29 meq/L [address] Anion Gap with K 16 6 - 20 meq/L [address] Calcium 9.8 8.5 - 10.5 mg/dL [address] Age [address] eGFR Non- 54 (L) >=[address] Cymro mL/min/1.73m2 eGFR 65 >=[address] mL/min/1.73m2 Specimen Blood Performing Organization Address [facility] Phone Number [place] [address] [facility] [address] [place] [address] BLOOD UREA NITROGEN (01/11/2019 3:14 AM CDT) BUN 26 (H) 6 - 22 mg/dL [place] [address] [facility] Specimen Blood Performing Organization Address [facility] Phone Number [place] [address] [facility] [address] [place] [address] CREATININE (01/11/2019 3:14 AM CDT) Creatinine 1.44 (H) 0.80 - 1.[address] mg/dL Age [address] eGFR Non- 48 (L) >=[address] Cymro mL/min/1.73m2 eGFR 58 (L) >=[address] mL/min/1.73m2 Specimen Blood Performing Organization Address [facility] Phone Number [address] [address] POTASSIUM (01/11/2019 3:14 AM CDT)Only the most recent of7 resultswithin the time period is included. Potassium 4.1 3.5 - 5.3 meq/L [address] Specimen Blood Performing Organization Address [facility] Phone Number [address] [address] HEMATOCRIT (01/11/2019 3:14 AM CDT)Only the most recent of3 resultswithin the time period is included. Hematocrit 28.3 (L) 40.0 - 50.0 % [address] Specimen Blood Performing Organization Address [facility] Phone Number [address] [address] HEMOGLOBIN (01/11/2019 3:14 AM CDT)Only the most recent of2 resultswithin the time period is included. Hemoglobin 9.1 (L) 13.5 - 17.5 g/dL [address] Specimen Blood Performing Organization Address [facility] Phone Number [address] [address] GLUCOSE (01/11/2019 1:16 AM CDT) Glucose 133 (H) 70 - 100 mg/dL [address] Specimen Blood Performing Organization Address [facility] Phone Number [address] [address] XRAY CHEST PORTABLE - (01/10/2019 4:40 AM CDT)Only the most recent of3 resultswithin the time period is included. Specimen Narrative Performed At [facility] Patient Name: TRE HASSAN Date of :1940 Procedure: XRAY CHEST PORTABLE Date of Service: 01/10/2019 EXAM: XRAY CHEST PORTABLE INDICATION: Male,78 years year old patient, cabg COMPARISON(S): 01/09/2019 TECHNIQUE: AP portable view FINDINGS: Support devices: Mediastinal drainage catheters are stable. Stable right internal jugular central line terminates within distal SVC. Lungs: The lungs are expanded. There is worsening dense left lung base opacity. There is minimal ground glass opacity right lung base, new. Pleura: There is no pneumothorax on either side. There is minimal pleural effusion on the left side. Right costophrenic angle is sharp. Heart, Mediastinum and Vessels: Sternal cerclage wires are present from a prior sternotomy. There is stable minimal cardiomegaly. There is new minimal interstitial edema. IMPRESSION: Minimal interstitial edema has developed. Worsening left lung base infiltrate/atelectasis. Right lung base opacity is likely due to congestion. Minimal left-sided pleural effusion. Finalized by: Katiuska Quintero MD on 01/10/2019 6:14 AM CDT Patient/Procedure Information: MRN/ELIZABETH: [id number] Order Number: [id number] Accession Number: [id number] Ordering Provider: CIPRIANO SNOW Authorizing Provider: CIPRIANO SNOW Procedure Note Interface, Radiantres - 01/10/2019 6:16 AM CDT Patient Name: TRE HASSAN Date of : 1940 Procedure: XRAY CHEST PORTABLE Date of Service: 01/10/2019 EXAM: XRAY CHEST PORTABLE INDICATION: Male, 78 years year old patient, cabg COMPARISON(S): 01/09/2019 TECHNIQUE: AP portable view FINDINGS: Support devices: Mediastinal drainage catheters are stable. Stable right internal jugular central line terminates within distal SVC. Lungs: The lungs are expanded. There is worsening dense left lung base opacity. There is minimal ground glass opacity right lung base, new. Pleura: There is no pneumothorax on either side. There is minimal pleural effusion on the left side. Right costophrenic angle is sharp. Heart, Mediastinum and Vessels: Sternal cerclage wires are present from a prior sternotomy. There is stable minimal cardiomegaly. There is new minimal interstitial edema. IMPRESSION: Minimal interstitial edema has developed. Worsening left lung base infiltrate/ atelectasis. Right lung base opacity is likely due to congestion. Minimal left- sided pleural effusion. Finalized by: Katiuska Quintero MD on 01/10/2019 6:14 AM CDT Patient/Procedure Information: MRN/ELIZABETH: [id number] Order Number: [id number] Accession Number: [id number] Ordering Provider: CIPRIANO SNOW Authorizing Provider: CIPRIANO SNOW Performing Organization Address [facility] Phone Number [facility] RENAL FUNCTION PANEL (01/10/2019 4:01 AM CDT)Only the most recent of2 resultswithin the time period is included. Glucose 191 (H) 70 - 100 mg/dL [address] BUN 20 6 - 22 mg/dL [address] Creatinine 1.32 (H) 0.80 - 1.[address] mg/dL BUN/Creatinine Ratio 15.2 10.0 - 25.[address] Sodium 138 135 - 145 meq/L [address] Potassium 4.2 3.5 - 5.3 meq/L [address] Chloride 111 (H) 99 - 110 meq/L [address] CO2 16 (L) 20 - 29 meq/L [address] Anion Gap with K 15 6 - 20 meq/L [address] Calcium 9.3 8.5 - 10.[address] mg/dL Phosphorus 2.4 (L) 2.5 - 4.5 mg/dL [address] Albumin 3.5 3.5 - 5.0 g/dL [address] Corrected Calcium 9.7 8.5 - 10.[address] mg/dL Age 78 Years [place] [address] [facility] eGFR Non- 53 (L) >=[address] Cymro mL/min/1.73m2 eGFR 64 >=[address] mL/min/1.73m2 Specimen Blood Performing Organization Address [facility] Phone Number [address] [place] [address] BLOOD GAS ARTERIAL WITH IONIZED CALCIUM (01/10/2019 1:52 AM CDT)Only the most recent of11 resultswithin the time period is included. pH Arterial 7.38 7.35 - 7.45 [facility] pCO2 Arterial 34 (L) 35 - 45 mmHg [facility] pO2 Arterial 114 (H) 80 - 100 [facility] mmHg [facility] Base Excess Arterial -5 (L) -2 - 2 meq/L [facility] HCO3 (Bicarb) 20 20 - 29 [facility] mmol/L [facility] O2 Sat % Arterial 98 95 - 98 % [facility] Carbon Monoxide 0.6 0.0 - 3.0 % [facility] Methemoglobin 0.4 0.0 - 3.0 % [facility] p50 26.84 25.00 - [facility] 29.00 mmHg [facility] Allens Test Not Done-Drawn [facility] From Line [facility] Collection Site Arterial Line [facility] Arterial [facility] O2 Source Mask [facility] Ionized Calcium 1.32 1.12 - 1.32 [facility] mmol/L [facility] Specimen Blood Narrative Performed At 6L [facility] oxymask Performing Organization Address [facility] Phone Number - [facility] [address] [address] RESPIRATORY THERAPY MAGNESIUM (01/10/2019 1:52 AM CDT)Only the most recent of7 resultswithin the time period is included. Pathologist [facility] Magnesium 2.0 1.8 - 2.4 mg/dL [place] [address] [facility] Specimen Blood Performing Organization Address [facility] Phone Number [address] [address] PREPARE AND HOLD RED BLOOD CELLS IN UNITS - BLOOD BANK, 1 Units (01/09/2019 6: 55 AM CDT)Only the most recent of2 resultswithin the time period is included. BPAM Product Code [id number] LAB BPAM Unit Number [id number] LAB Unit ABO Type A LAB Unit Rh Type POS LAB XM Interp Compatible LAB BPAM Dispense Status TR LAB BPAM Blood [id number] LAB Expiration Date BPAM Coding System 6202 LAB Product Code RBC, Leukoreduced LAB [id number] Unit ID [id number] LAB Product Status Transfused LAB Specimen Blood Performing Organization Address [facility] Phone Number LAB FIBRINOGEN (01/08/2019 11:50 AM CDT) Fibrinogen 292 200 - 450 mg/dL [address] Specimen Blood Performing Organization Address [facility] Phone Number [address] [address] PTT (01/08/2019 11:50 AM CDT) APTT 30 24 - [address] Specimen Blood Performing Organization Address [facility] Number [place] [address] [place] [address] ACTIVATED CLOTTING TIME POCT (01/08/2019 10:02 AM CDT)Only the most recent of7 resultswithin the time period is included. Activated Clotting 140 100 - 150 Secs [facility] POINT OF CARE TESTING Specimen Blood Performing Organization Address [facility] Phone Number POINT OF [address] [place] [id number] CARE TESTING HEPARIN ASSAY (01/08/2019 10:02 AM CDT)Only the most recent of2 resultswithin the time period is included. Heparin Assay 0 No Reference Range [facility] U/Kg [facility] POINT OF CARE TESTING Specimen Blood Performing Organization Address [facility] Phone Number POINT OF [address] [place] [id number] CARE TESTING OR PANEL 1 POCT (01/08/2019 10:00 AM CDT)Only the most recent of3 resultswithin the time period is included. pH Arterial POCT 7.28 (L) 7.35 - 7.45 POINT OF CARE TESTING pCO2 Arterial POCT 41 35 - 45 mmHg POINT OF CARE TESTING pO2 Arterial POCT 240 (H) 80 - 100 mmHg POINT OF [facility] TESTING HCO3 (Bicarb) 20 20 - 29 mmol/L [facility] Arterial POCT [facility] POINT OF [facility] TESTING Base Excess Arterial -7 (L) -2 - 2 meq/L [facility] POINT OF [facility] TESTING O2 Sat % Arterial 100 (H) 95 - 98 % [facility] POINT OF [facility] TESTING Ionized Calcium 1.19 1.12 - 1.32 [facility] mmol/L [facility] POINT OF [facility] TESTING Sodium 135 135 - 145 meq/L [facility] TESTING Potassium 3.6 3.5 - 5.3 meq/L [facility] TESTING Glucose 181 (H) 70 - 100 mg/dL [facility] OF [facility] TESTING Hematocrit 32.0 (L) 40.0 - 50.0 % [facility] OF [facility] TESTING Hemoglobin 11.0 (L) 13.5 - 17.5 [facility] g/dL [facility] POINT OF [facility] TESTING Specimen Source Arterial POINT OF [facility] TESTING Specimen Blood Narrative Performed At Whole blood sample. Unable to evaluate for POINT OF [facility] hemolysis. TESTING Performing Organization Address City/State/Zipcode Phone Number [facility] [address] [address] CARE TESTING HEPARIN DOSE RESPONSE (01/08/2019 7:18 AM CDT) Heparin Dose 85 No Reference Range 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 S/P CABG (coronary artery bypass graft) Postsurgical aortocoronary bypass status NSTEMI (non-ST elevated myocardial infarction) (HCC) Acute myocardial infarction, subendocardial infarction, episode of care unspecified CAD, multiple vessel Coronary atherosclerosis of unspecified type of vessel, one[place] or graft Cerebrovascular accident (CVA), unspecified mechanism (HCC) Subclavian artery stenosis, right (HCC) Atherosclerosis of other specified arteries Essential hypertension Unspecified essential hypertension Panlobular emphysema (HCC) Other emphysema Atherosclerotic peripheral vascular disease with intermittent claudication (HCC ) Atherosclerosis of oneida arteries of the extremities with intermittent claudication History of CEA (carotid endarterectomy) Other postprocedural status History of cerebral thrombosis Transient ischemic attack (TIA), and cerebral infarction without residual deficits Paroxysmal atrial fibrillation (HCC) Atrial fibrillation Acute on chronic diastolic CHF (congestive heart failure) (HCC) Acute on chronic diastolic heart failure documented in this encounter Discharge Diagnoses Not on filedocumented in this encounter Administered Medications Medication Order MAR Action Action Date Dose Rate Site .Anticoagulation (WARFARIN) therapy nursing reminder Anti-coag reminder, First dose on 01/11/19 at 1000, Until Discontinued acetaminophen (TYLENOL) tablet 650 mg Given 01/15/2019 9:00 AM CDT 650 mg 650 mg, Oral, Every four hours prn, Starting 01/08/19 at 1042, Until Discontinued, mild pain, fever > (indicate temp), fever greater than 101 F, Post - Op, Oral or NG, Given 01/15/2019 1:10 AM CDT 650 mg Given 01/14/2019 1:14 PM CDT 650 mg albuterol (PROVENTIL) (2.5 mg/3mL) 0.083% inhalation soln 2.5 mg 2.5 mg, Nebulization, Every four hours prn, Starting Temi 01/09/19 at 0445, Until Discontinued, shortness of breath, wheezing, 3 mL allopurinol (ZYLOPRIM) tablet 200 mg Given 01/15/2019 8:36 AM CDT 200 mg 200 mg, Oral, DAILY, First dose on Temi 01/09/19 at 0900, Until Discontinued Given 01/14/2019 7:33 AM CDT 200 mg Given 01/13/2019 9:17 AM CDT 200 mg amiodarone (CORDARONE, PACERONE) tablet 400 Given 01/15/2019 8:36 AM CDT 400 mg mg 400 mg, Oral, Daily, First dose on 01/15/19 at 0900, Until Discontinued, Hold for HR < 60, amiodarone (NEXTERONE) 1.8 mg/mL in D5W IV infusion (premix) 1 mg/min (33.3333 mL/hr, rounded to 33.3 mL/hr), IV, at 33.3 mL/hr, PRN per parameter, 1 dose, Starting Sun01/10/19 at 0718, Until Discontinued, other (Specify), atrial fib, 200 mL, Infuse using a 0.2 or 0.22 micron filter. Infuse at 1 mg/min x 6 hours. If possible, run in a dedicated central line., amiodarone (NEXTERONE) 1.8 mg/mL in D5W IV infusion (premix) 0.5 mg/min (16.6667 mL/hr, rounded to 16.7 mL/hr), IV, at 16.7 mL/hr, PRN per parameter, Starting Sun01/10/19 at 0718, Until Discontinued, other (Specify), atrial fib, 200 mL, Infuse using a 0.2 or 0.22 micron filter. Infuse at 0.5 mg/min. f possible, run in a dedicated central line. Check with Provider to continue after 24 hours., aspirin enteric coated tablet 81 mg Given 01/15/2019 8:36 AM CDT 81 mg 81 mg, Oral, Daily, First dose on Sun01/10/19 at 0900, Until Discontinued, Tablet should be swallowed whole and not be divided, crushed or chewed., Given 01/14/2019 7:33 AM CDT 81 mg Given 01/13/2019 9:31 AM CDT 81 mg atorvaSTATin (LIPITOR) tablet 60 mg Given 01/14/2019 8:46 PM CDT 60 mg 60 mg, Oral, Bedtime, First dose on Sun01/09/19 at 2100, Until Discontinued Given 01/13/2019 8:14 PM CDT 60 mg Given 01/12/2019 9:09 PM CDT 60 mg bisacodyl (DULCOLAX) suppository 10 mg Given 01/13/2019 5:48 AM CDT 10 mg 10 mg, Rectal, One time a day prn, Starting Sun01/10/19 at 0718, Until Discontinued, constipation, Administer if no BM by POD # 3, calcium citrate-vitamin D (CITRACAL + VIT Given 01/15/2019 8:36 AM CDT 1 tablet D) 315 mg-250 unit tablet 1 tablet 1 tablet, Oral, Two times a day with meals, First dose on Sun01/09/19 at 0800, Until Discontinued, Give with food, Given 01/14/2019 6:41 PM CDT 1 tablet Given 01/14/2019 7:32 AM CDT 1 tablet carbohydrate 30 g 30 g, Oral, PRN per parameter, Starting Sun01/08/19 at 1042, Until Discontinued , other (Specify), for FIRST blood glucose less than 70 mg/dL, Post - Op, - Patient is alert and taking Orals - Check blood glucose 30 minutes after administration - 30 grams carbohydrate=8 oz of fruit juice, clopidogrel (PLAVIX) tablet 75 mg Given 01/15/2019 8:36 AM CDT 75 mg 75 mg, Oral, Daily, First dose on Sun01/10/19 at 0900, Until Discontinued Given 01/14/2019 7:32 AM CDT 75 mg Given 01/13/2019 9:31 AM CDT 75 mg dextrose 50% IV solution 25 mL 25 mL, IV, PRN per parameter, Starting Sun01/08/19 at 1042, Until Discontinued, other (Specify), for FIRST blood glucose less than 70 mg/dL, 50 mL, Post - Op, - Patient not alert or if NPO - Check blood glucose 30 minutes after administration, dextrose 50% IV solution 50 mL 50 mL, IV, PRN per parameter, Starting Sun01/08/19 at 1042, Until Discontinued, other (Specify), blood glucose remains less than 70 mg/dL after first 30 minute check - Call Physician and recheck blood glucose again after 30 minutes, 50 mL , Post - Op, - Call Physician ANA and recheck blood glucose again after 30 minutes, dextrose chewable tablet 24 g 24 g (6 tablet), Oral, PRN per parameter, Starting Sun01/08/19 at 1042, Until Discontinued, other (Specify), for FIRST blood glucose less than 70 mg/dL, Post - Op, - Patient is alert and taking Orals - Check blood glucose 30 minutes after administration, docusate sodium capsule 250 mg Given 01/13/2019 9:18 AM CDT 250 mg 250 mg, Oral, Daily, First dose on Sun01/10/19 at 0900, Until Discontinued, Swallow cap whole. Should not be crushed or chewed, Given 01/12/2019 9:51 AM CDT 250 mg Given 01/11/2019 9:37 AM CDT 250 mg fluticasone-vilanterol (BREO ELLIPTA) 200-25 Given 01/15/2019 7:57 AM CDT 1 puff mcg/puff inhaler 1 puff 1 puff, Inhalation, Daily, First dose on 01/11/19 at 1200, Until Discontinued, Rinse mouth after use., Given 01/14/2019 10:00 AM CDT 1 puff Given 01/13/2019 8:54 AM CDT 1 puff heparin 2000 units in normal Already Infusing 01/08/2019 11:02 AM CDT 3 mL /hr saline 1000 mL IV solution Injection, at 3 mL/hr, Continuous, Starting Sun01/08/19 at 1135, Until Discontinued, 1,000 mL, Post - Op, Maintain pressure lines (CVP/Arterial Line) with heparin flush bag solution Infuse at 3 mL/hr continuously to maintain line patency. Discontinue when line removed, hydroCHLOROthiazide tablet 25 mg Given 01/15/2019 8:36 AM CDT 25 mg 25 mg, Oral, Daily, First dose on 01/11/19 at 0900, Until Discontinued Given 01/14/2019 7:32 AM CDT 25 mg Given 01/13/2019 9:17 AM CDT 25 mg HYDROcodone-acetaminophen (NORCO) 7.5-325 Given 01/13/2019 5:58 AM CDT 1 tablet mg tablet 1 tablet 1 tablet, Oral, Every four hours prn, Starting Sun01/08/19 at 1042, Until Discontinued, moderate pain, severe pain, Post - Op, Total dose of acetaminophen from all acetaminophen containing products should not exceed 4 grams (4000 mg) per day., Given 01/10/2019 10:41 AM CDT 1 tablet Given 01/10/2019 3:51 AM CDT 1 tablet magnesium hydroxide (MILK OF MAGNESIA) oral Given 01/13/2019 9:18 AM CDT 30 mL suspension 30 mL 30 mL, Oral, Daily, First dose on 01/11/19 at 0900, Until Discontinued, 30 mL, Start post-op day 2, Given 01/12/2019 9:50 AM CDT 30 mL Given 01/11/2019 9:39 AM CDT 30 mL metoprolol tartrate (LOPRESSOR) tablet 50 mg 50 mg, Oral, Every twelve hours, First dose on Sun01/15/19 at 1800, Until Discontinued, Hold for SBP < 100 or HR < 60, nalOXone (NARCAN) injection solution (vial) 0.2 mg 0.2 mg, IV, PRN per parameter, Starting Sun01/08/19 at 1030, Until Discontinued , other (Specify), Respiratory rate is 8 per minute or less, may repeat every 3 minutes until RR is over 10 and notify MD, 1 mL, Respiratory rate is 8 per minute or less, may repeat every 3 minutes until respiratory rate is over 10 and notify MD Discontinue when [employer] is discontinued, omeprazole (priLOSEC) capsule 20 mg Given 01/15/2019 6:20 AM CDT 20 mg 20 mg, Oral, One time a day before breakfast, First dose on Sun01/10/19 at 0720, Until Discontinued, Swallow cap whole. Do not crush, chew or open., Given 01/14/2019 6:15 AM CDT 20 mg Given 01/13/2019 5:49 AM CDT 20 mg ondansetron (ZOFRAN) injection solution 4 mg Given 01/12/2019 8:15 AM CDT 4 mg 4 mg, IV, Every four hours prn, Starting Sun01/08/19 at 1042, Until Discontinued, nausea, vomiting, 2 mL, Post - Op, If preference is to further dilute for IV administration: First draw up patient-specific dose, then dilute to 10 mL with 0.9% sodium chloride., Given 01/11/2019 4:51 PM CDT 4 mg Given 01/09/2019 4:43 AM CDT 4 mg temazepam (RESTORIL) capsule 15 mg 15 mg, Oral, Bedtime prn, Starting Sun01/10/19 at 0718, Until Discontinued, insomnia umeclidinium (INCRUSE ELLIPTA) 62.5 mcg/puff Given 01/15/2019 7:57 AM CDT 1 puff inhaler 1 puff 1 puff, Inhalation, Daily, First dose on Sun01/11/19 at 1200, Until Discontinued Given 01/14/2019 10:00 AM CDT 1 puff Given 01/13/2019 8:54 AM CDT 1 puff vitamin c (ascorbic acid) controlled Given 01/15/2019 9:00 AM CDT 1,000 mg release capsule 1,000 mg 1,000 mg, Oral, Two times a day, First dose on Sun01/13/19 at 0900, Until Discontinued Given 01/14/2019 8:44 PM CDT 1,000 mg Given 01/14/2019 7:32 AM CDT 1,000 mg Medication Order MAR Action Action Date Dose Rate Site acetaminophen (OFIRMEV) IV Given 01/08/2019 10:19 PM CDT 1,000 mg solution 1,000 mg 1,000 mg, IV, Every six hours, 2 doses, First dose on Sun01/08/19 at 1700, Last dose on Sun01/08/19 at 2300, 100 mL, Total dose of acetaminophen from all acetaminophen containing products should not exceed 4 grams (4000 mg) per day., Given 01/08/2019 5:14 PM CDT 1,000 mg albumin (human) 5 % IV solution 12.5 g Given 01/08/2019 11:07 AM CDT 12.5 g 12.5 g (250 mL), IV, PRN per parameter, Starting Sun01/08/19 at 1042, Until Temi 01/09/19 at 0646, other (Specify), blood pressure and HR parameters in admin instructions, 250 mL, Post - Op, as specified by MD. Give up to up to 250mL 5% albumin, albumin (human) 5 % IV solution 12.5 Given 01/08/2019 4:21 PM CDT 12.5 g 999 mL/hr g 12.5 g, IV, at 999 mL/hr, Now, 1 dose, Sun01/08/19 at 1620, 250 mL, If using a CENTRAL line: administer as fast as clinically possible. Run as a primary line; pump does not need to be utilized., albumin (human) 5 % IV solution 12.5 Given 01/08/2019 8:49 PM CDT 12.5 g 999 mL/hr g 12.5 g, IV, at 999 mL/hr, Now, 1 dose, Sun01/08/19 at 2035, 250 mL, If using a CENTRAL line: administer as fast as clinically possible. Run as a primary line; pump does not need to be utilized., albumin (human) 5 % IV solution 12.5 Given 01/08/2019 10:16 PM CDT 12.5 g 999 mL/hr g 12.5 g, IV, at 999 mL/hr, Now, 1 dose, Sun01/08/19 at 2205, 250 mL, If using a CENTRAL line: administer as fast as clinically possible. Run as a primary line; pump does not need to be utilized., albuterol (PROVENTIL) (2.5 mg/3mL) 0.083% Given 01/08/2019 3:50 PM CDT 2.5 mg inhalation soln 2.5 mg 2.5 mg, Nebulization, Every two hours, 3 doses, First dose on Sun01/08/19 at 1200, Last dose on Sun01/08/19 at 1600, 3 mL Given 01/08/2019 1:05 PM CDT 2.5 mg Given 01/08/2019 10:56 AM CDT 2.5 mg albuterol (PROVENTIL) (2.5 mg/3mL) 0.083% Given 01/09/2019 4:43 AM CDT 2.5 mg inhalation soln 2.5 mg 2.5 mg, Nebulization, Every four hours, First dose on Sun01/08/19 at 1835, Until Discontinued, 3 mL Given 01/09/2019 12:11 AM CDT 2.5 mg Given 01/08/2019 7:43 PM CDT 2.5 mg albuterol-ipratropium (DUO-NEB) 2.5-0.5 mg/3 Given 01/09/2019 11:45 AM CDT 3 mL mL inhalation solution 3 mL 3 mL (1 unit-dose), Nebulization, Four times a day, First dose on Sun01/08/19 at 1200, Until Discontinued, 3 mL, Formulary Substitute for Combivent , , Given 01/09/2019 8:24 AM CDT 3 mL albuterol-ipratropium (DUO-NEB) 2.5-0.5 mg/3 Given 01/11/2019 9:47 AM CDT 3 mL mL inhalation solution 3 mL 3 mL (1 unit-dose), Nebulization, Every four hours, First dose on Sun01/09/19 at 1600, Until Discontinued, 3 mL, Formulary Substitute for Combivent , , Given 01/11/2019 4:27 AM CDT 3 mL Given 01/11/2019 12:28 AM CDT 3 mL amiodarone (CORDARONE, PACERONE) tablet 400 Given 01/14/2019 7:33 AM CDT 400 mg mg 400 mg, Oral, Two times a day, First dose on Temi 01/09/19 at 0900, Until Discontinued, Hold for HR < 60, Given 01/13/2019 8:14 PM CDT 400 mg Given 01/13/2019 9:18 AM CDT 400 mg amiodarone (CORDARONE, PACERONE) tablet 400 Given 01/14/2019 8:46 PM CDT 400 mg mg 400 mg, Oral, One time, 1 dose, 01/14/19 at 2100 amiodarone (NEXTERONE) 1.8 New Bag 01/09/2019 8:36 AM CDT 1 mg/min 33.3 mL /hr mg/mL in D5W IV infusion (premix) 1 mg/min (33.3333 mL/hr, rounded to 33.3 mL/hr), IV, at 33.3 mL/hr, Continuous, Starting Temi 01/09/19 at 0745, Until Temi 01/09/19 at 1344, 200 mL, Infuse using a 0.2 micron filter. Infuse at 1 mg/min x 6 hours. If possible, run in a dedicated central line., amiodarone (NEXTERONE) 1.8 New Bag 01/10/2019 2:04 AM CDT 0.5 mg/min 16.7 mL/hr mg/mL in D5W IV infusion (premix) 0.5 mg/min (16.6667 mL/hr, rounded to 16.7 mL/hr), IV, at 16.7 mL/hr, Continuous, Starting Temi 01/09/19 at 1345, Until Sun01/10/19 at 1733, 200 mL, Infuse using a 0.2 or 0.22 micron filter. If possible, run in a dedicated central line., New Bag 01/09/2019 2:04 PM CDT 0.5 mg/min 16.7 mL/hr amiodarone (NEXTERONE) 1.8 New Bag 01/11/2019 3:06 AM CDT 0.5 mg/min 16.7 mL/hr mg/mL in D5W IV infusion (premix) 0.5 mg/min (16.6667 mL/hr, rounded to 16.7 mL/hr), IV, at 16.7 mL/hr, Continuous, Starting Sun01/10/19 at 1835, Until 01/12/19 at 1013, 200 mL, Infuse using a 0.2 or 0.22 micron filter. If possible, run in a dedicated central line., New Bag 01/10/2019 5:55 PM CDT 0.5 mg/min 16.7 mL/hr amiodarone (NEXTERONE) 150 mg/100 mL in Given 01/09/2019 5:30 AM CDT 150 mg dextrose IV loading dose (premix) 150 mg, IV, One time, 1 dose, [facility] 01/09/19 at 0635, 100 mL, Infuse using a 0.2 or 0.22 micron filter. If possible, run in a dedicated central line. Administer over 10 minutes., amiodarone (NEXTERONE) 150 mg/100 mL in Given 01/11/2019 9:40 AM CDT 150 mg dextrose IV loading dose (premix) 150 mg, IV, Loading dose, 1 dose, [facility] 01/11/19 at 0935, 100 mL, Central line preferred if available. Acceptable to give peripherally for urgent need and one-time administration. Pursue a central line for continuous use greater than 24 hours. Administer over 10 minutes. Administer over 10 minutes., amiodarone (NEXTERONE) 150 mg/100 mL in Given 01/12/2019 11:10 AM CDT 150 mg dextrose IV loading dose (premix) 150 mg, IV, One time, 1 dose, [facility] 01/12/19 at 1050, 100 mL, Central line preferred if available. Acceptable to give peripherally for urgent need and one-time administration. Pursue a central line for continuous use greater than 24 hours. Administer over 10 minutes. Administer over 10 minutes., budesonide (PULMICORT) 0.5 mg/2 mL Given 01/11/2019 9:48 AM CDT 0.5 mg inhalation soln 0.5 mg 0.5 mg, Nebulization, Two times a day, First dose on [facility] 01/09/19 at 2000, Until Discontinued, 2 mL, Protect from light., Given 01/10/2019 7:25 PM CDT 0.5 mg Given 01/10/2019 9:03 AM CDT 0.5 mg calcium CHLORIDE 10 % IV solution 500 mg Given 01/08/2019 4:22 PM CDT 500 mg 500 mg, IV, Now, 1 dose, Sun01/08/19 at 1620, 10 mL, Central line preferred if available. Acceptable to give peripherally for urgent need and one-time administration. Pursue a central line for continuous use greater than 24 hours., calcium CHLORIDE 10 % IV solution 500 mg Given 01/09/2019 6:52 AM CDT 500 mg 500 mg, IV, Now, 1 dose, Temi 01/09/19 at 0650, 10 mL, Central line preferred if available. Acceptable to give peripherally for urgent need and one-time administration. Pursue a central line for continuous use greater than 24 hours., calcium CHLORIDE 10% IV solution 1 dose, Starting Temi 01/09/19 at 0652, Until Sun01/09/19 at 0652, OdensChristopher : cabinet override, ceFAZolin (ANCEF) 2000 mg/20 mL sterile Given 01/09/2019 1:57 AM CDT 2,000 mg water IV syringe 2,000 mg, IV, Every six hours, 3 doses, First dose on Sun01/08/19 at 1330, Last dose on Sun01/09/19 at 0130, 20 mL, Post - Op, Administer as IV push over 4 minutes., Given 01/08/2019 6:46 PM CDT 2,000 mg Given 01/08/2019 1:25 PM CDT 2,000 mg DOPamine (1600 mcg/mL) Already Infusing 01/08/2019 11:30 2.5 mcg/kg/min 8.2 mL/hr in D5W IV solution AM CDT (premix)~ 2.5 mcg/kg/min 87 kg (8.1563 mL/hr, rounded to 8.2 mL/hr), IV, at 8.2 mL/hr, PRN per parameter, Starting Sun01/08/19 at 1042, Until Sun01/08/19 at 1307, blood pressure, SBP greater than 100, 250 mL, Post - Op DOPamine (1600 mcg/mL) in Rate Change 01/08/2019 1:05 PM CDT 3 mcg/kg/min 9.8 mL/hr D5W IV solution (premix)~ 3 mcg/kg/min 87 kg (9.7875 mL/hr, rounded to 9.8 mL/hr), IV, at 9.8 mL/hr, PRN per parameter, Starting Sun01/08/19 at 1306, Until Sun01/09/19 at 0646, blood pressure, SBP greater than 100, 250 mL, Post - Op enoxaparin (LOVENOX) subcutaneous injection Given 01/12/2019 9:09 PM CDT 60 mg solution 60 mg 60 mg, Subcutaneous, Every twelve hours, First dose on Sun01/09/19 at 1000, Until Discontinued, D/C if INR > or=1.8 Pharmacy to adjust for Cr Cl after 24 hours D/C if NSR for 6 hours Administration should be alternated between the left and right anterolateral and left and right posterolateral abdominal wall. The whole length of the needle should be introduced into a skin fold held between the thumb and forefinger; the skin fold should be held throughout the injection. To minimize bruising, do not rub the injection site after completion of the injection., Given 01/12/2019 8:17 AM CDT 60 mg Given 01/11/2019 9:29 PM CDT 60 mg furosemide (LASIX) injection solution 20 mg Given 01/10/2019 5:55 PM CDT 20 mg 20 mg, IV, One time, 1 dose, Sun01/10/19 at 1730, 2 mL, If preference is to further dilute for IV administration: First draw up patient-specific dose, then dilute to 10 mL with 0.9% sodium chloride. Administer SLOW IV push., hydrocortisone sod succinate (solu-CORTEF) Given 01/09/2019 11:30 PM CDT 100 mg injection 100 mg 100 mg, IV, Every eight hours, 2 doses, First dose on Sun01/09/19 at 1500, Last dose on Sun01/09/19 at 2300, 2 mL Given 01/09/2019 3:01 PM CDT 100 mg ketorolac (TORADOL) intravenous injection 15 Given 01/09/2019 5:06 AM CDT 15 mg mg 15 mg, IV, Every six hours prn, 4 doses, Starting Sun01/08/19 at 1630, Until Temi 01/09/19 at 0809, other (Specify), pain not responding to other pain medications, 1 mL, Post - Op, If preference is to further dilute for IV administration: First draw up patient-specific dose, then dilute to 10 mL with 0.9% sodium chloride., magnesium sulfate 2 g/50 mL premixed IV Given 01/09/2019 11:45 AM CDT 2 g solution 2 g, IV, PRN per parameter, Starting Sun01/08/19 at 1042, Until Sun01/10/19 at 0717, other (Specify), for Mg++ 1.6 - 1.8, 50 mL, Post - Op, For Mg++ 1.6 - 1.8 Consult with MD before administering if urine output less than 30 ml/hr OR SCr greater than 1.5, Given 01/08/2019 11:58 AM CDT 2 g magnesium sulfate in dextrose 5% IV solution 1 Given 01/10/2019 2:48 AM CDT 1 g g 1 g, IV, PRN per parameter, Starting Sun01/08/19 at 1042, Until Sun01/10/19 at 0717, other (Specify), for Mg++ 1.9 - 2.1, 100 mL, Post - Op, For Mg++ 1.9 - 2.1 Consult with MD before administering if urine output less than 30 ml/hr OR SCr greater than 1.5, methylPREDNISolone (MEDROL DOSEPAK) tablet 4 Given 01/10/2019 12:26 PM CDT 4 mg mg 4 mg, Oral, One time, 1 dose, Sun01/10/19 at 1230, 1 tablet after lunch, methylPREDNISolone (MEDROL DOSEPAK) tablet 4 Given 01/10/2019 5:54 PM CDT 4 mg mg 4 mg, Oral, One time, 1 dose, Sun01/10/19 at 1800, 1 tablet after supper, methylPREDNISolone (MEDROL DOSEPAK) tablet 4 Given 01/11/2019 6:35 AM CDT 4 mg mg 4 mg, Oral, One time, 1 dose, 01/11/19 at 0730, 2nd day: 1 tablet before breakfast, methylPREDNISolone (MEDROL DOSEPAK) tablet 4 Given 01/11/2019 1:18 PM CDT 4 mg mg 4 mg, Oral, One time, 1 dose, 01/11/19 at 1230, 2nd day: 1 tablet after lunch, methylPREDNISolone (MEDROL DOSEPAK) tablet 4 Given 01/11/2019 7:04 PM CDT 4 mg mg 4 mg, Oral, One time, 1 dose, 01/11/19 at 1800, 2nd day: 1 tablet after supper, methylPREDNISolone (MEDROL DOSEPAK) tablet 4 Given 01/12/2019 9:35 PM CDT 4 mg mg 4 mg, Oral, Before meals and at bedtime, 4 doses, First dose on 01/12/19 at 0730, Last dose on Sun01/12/19 at 2100, 3rd day: 1 tablet before breakfast, after lunch, after supper and at bedtime, per Medrol Dosepak instructions, Given 01/12/2019 4:55 PM CDT 4 mg Given 01/12/2019 1:16 PM CDT 4 mg methylPREDNISolone (MEDROL DOSEPAK) tablet 4 Given 01/13/2019 8:14 PM CDT 4 mg mg 4 mg, Oral, Three times a day, 3 doses, First dose on Sun01/13/19 at 0730, Last dose on Sun01/13/19 at 2100, 4th day: 1 tablet before breakfast, after lunch, and at bedtime, per Medrol Dosepak instructions, Given 01/13/2019 12:06 PM CDT 4 mg Given 01/13/2019 6:36 AM CDT 4 mg methylPREDNISolone (MEDROL DOSEPAK) tablet 4 Given 01/14/2019 8:46 PM CDT 4 mg mg 4 mg, Oral, Two times a day, 2 doses, First dose on Sun01/14/19 at 0730, Last dose on Sun01/14/19 at 2100, 5th day: 1 tablet before breakfast and at bedtime, per Medrol Dosepak instructions, Given 01/14/2019 7:32 AM CDT 4 mg methylPREDNISolone (MEDROL DOSEPAK) tablet 4 Given 01/15/2019 6:20 AM CDT 4 mg mg 4 mg, Oral, One time, 1 dose, Sun01/15/19 at 0700, 6th day: 1 tablet before breakfast, per Medrol Dosepak instructions, methylPREDNISolone (MEDROL DOSEPAK) tablet 8 Given 01/10/2019 8:09 AM CDT 8 mg mg 8 mg, Oral, One time, 1 dose, Sun01/10/19 at 0730, 1st day: 2 tablets before breakfast, methylPREDNISolone (MEDROL DOSEPAK) tablet 8 Given 01/10/2019 8:19 PM CDT 8 mg mg 8 mg, Oral, One time, 1 dose, Sun01/10/19 at 2100, 2 tablets at bedtime, methylPREDNISolone (MEDROL DOSEPAK) tablet 8 Given 01/11/2019 8:03 PM CDT 8 mg mg 8 mg, Oral, One time, 1 dose, Sun01/11/19 at 2100, 2nd day: 2 tablets at bedtime, metoprolol tartrate (LOPRESSOR) IV solution Given 01/13/2019 9:19 AM CDT 2.5 mg 2.5 mg 2.5 mg, IV, Bolus, 1 dose, 01/13/19 at 0800, 5 mL metoprolol tartrate (LOPRESSOR) tablet 25 mg Given 01/11/2019 9:39 AM CDT 25 mg 25 mg, Oral, One time, 1 dose, Sun01/11/19 at 0925 metoprolol tartrate (LOPRESSOR) tablet 25 mg Given 01/15/2019 6:20 AM CDT 25 mg 25 mg, Oral, Every twelve hours, First dose on Sun01/11/19 at 1800, Until Discontinued, Hold for SBP < 100 or HR < 60, Given 01/14/2019 6:40 PM CDT 25 mg Given 01/14/2019 6:15 AM CDT 25 mg metoprolol tartrate (LOPRESSOR) tablet 25 mg Given 01/15/2019 8:36 AM CDT 25 mg 25 mg, Oral, One time, 1 dose, Sun01/15/19 at 0800 metoprolol tartrate (LOPRESSOR) tablet 6.25 Given 01/08/2019 6:04 AM CDT 6.25 mg mg 6.25 mg, Oral, Pre-op, 1 dose, Sun01/08/19 at 0530, Pre - Op, Give po morning of surguery, PHENYLephrine 200 mcg/mL Rate Change 01/10/2019 5:11 AM 0.5 mcg/kg/min 13.1 mL/hr in sodium chloride 0.9% CDT 250 mL 0-1.5 mcg/kg/min 87 kg (0-39.15 mL/hr, rounded to 0-39.2 mL/hr), IV, at 0-39.2 mL/hr, Titrate, Starting Sun01/08/19 at 1135, Until Sun01/10/19 at 0717, 250 mL, Post - Op, Initiate the infusion at 0.1-0.5 mcg/kg/min. Increase or decrease the infusion by 0.1-0.5 mcg/kg/min every 5 minutes to keep SBP range 90 to 130. When discontinuing or weaning, decrease dose gradually by 0.1-0.5 mcg/kg/minute every 5 minutes as tolerated to prevent severe hypotension. Document titrations in One Chart (MAR or I&O Flowsheet medication group)., New Bag 01/10/2019 4:55 AM CDT 0.3 mcg/kg/min 7.8 mL/hr Rate Change 01/10/2019 4:50 AM CDT 0.3 mcg/kg/min 7.8 mL/hr potassium chloride 20meq/50 mL IV piggyback Given 01/08/2019 3:26 PM CDT 20 mEq (CENTRAL LINE) 20 mEq, IV, PRN per parameter, Starting Sun01/08/19 at 1042, Until Sun01/10/19 at 0717, other (Specify), For K+ less than 3.5, 50 mL, Post - Op, Potassium Replacement 60 mEq for K+ less than or equal to 3.5 (40 mEq infusion over 4 hr followed by a 20 mEq infusion over 2 hr) Consult with MD before administering if urine output less than 30 ml/hr OR SCr greater than 1.5, potassium chloride 40 mEq/100 mL sterile Given 01/08/2019 11:54 AM CDT 40 mEq water IV piggyback (CENTRAL LINE) 40 mEq, IV, PRN per parameter, Starting Sun01/08/19 at 1042, Until Sun01/10/19 at 0717, other (Specify), For K+ less than 3.5, 100 mL, Post - Op, Potassium Replacement 60 mEq for K+ less than or equal to 3.5 (40 mEq infusion over 4 hr followed by a 20 mEq infusion over 2 hr) Consult with MD before administering if urine output less than 30 ml/hr OR SCr greater than 1.5, scopolamine Applied 01/08/2019 6:06 AM 1 patch Behind Left Ear (TRANSDERM-SCOP) patch 1 CDT Transdermal patch 1 patch, Transdermal, Every three days, 1 dose, First dose on Sun01/08/19 at 0530, Administer over 3 Days sodium bicarbonate 8.4 % IV solution (bolus) Given 01/08/2019 12:02 PM CDT 25 mEq 25 mEq 25 mEq, IV, Bolus, 1 dose, Sun01/08/19 at 1255, 50 mL sodium bicarbonate 8.4 % IV solution (bolus) Given 01/09/2019 8:36 AM CDT 25 mEq 25 mEq 25 mEq, IV, Bolus, 1 dose, [place] 01/09/19 at 0800, 50 mL sodium bicarbonate 8.4% IV solution (bolus) 1 dose, Starting Sun01/08/19 at 1200, Until Sun01/08/19 at 1202, Roberts[place]ittin: cabinet override, sodium chloride 0.9% IV solution flush bag New Bag 01/08/2019 1:26 PM CDT 200 mL IV, Continuous, Starting Sun01/08/19 at 1410, Until Sun01/09/19 at 1409, 500 mL, IV line carrier for line flush with blood product infusion., sodium chloride 0.9% IV solution New Bag 01/10/2019 4:53 AM CDT 75 mL/hr IV, at 75 mL/hr, Continuous, Starting Sun01/08/19 at 1135, Until Sun01/10/19 at 0717, 1,000 mL, Post - Op Rate Change 01/09/2019 4:14 PM CDT 75 mL/hr Rate Change 01/09/2019 7:29 AM CDT 100 mL/hr vitamin c (ascorbic acid) controlled release Given 01/08/2019 6:04 AM CDT 500 mg capsule 1,000 mg 1,000 mg, Oral, Two times a day, First dose on Sun01/08/19 at 0900, Until Discontinued, Pre - Op warfarin (COUMADIN) tablet 1 mg Given 01/14/2019 10:12 PM CDT 1 mg 1 mg, Oral, Warfarin one time dose, 1 dose, 01/14/19 at 1845, If patient is receiving tube feeding, hold tube feeding 1 hour before and 1 hour after warfarin administration., warfarin (COUMADIN) tablet 2 mg Given 01/12/2019 4:56 PM CDT 2 mg 2 mg, Oral, Warfarin one time dose, 1 dose, 01/12/19 at 1600, If patient is receiving tube feeding, hold tube feeding 1 hour before and 1 hour after warfarin administration, warfarin (COUMADIN) tablet 2 mg Given 01/13/2019 4:20 PM CDT 2 mg 2 mg, Oral, Warfarin one time dose, 1 dose, 01/13/19 at 1600, If patient is receiving tube feeding, hold tube feeding 1 hour before and 1 hour after warfarin administration, warfarin (COUMADIN) tablet 2 mg Given 01/15/2019 9:00 AM CDT 2 mg 2 mg, Oral, Warfarin one time dose, 1 dose, 01/15/19 at 1600, If patient is receiving tube feeding, hold tube feeding 1 hour before and 1 hour after warfarin administration., warfarin (COUMADIN) tablet 2.5 mg Given 01/11/2019 5:26 PM CDT 2.5 mg 2.5 mg, Oral, Warfarin one time dose, 1 dose, 01/11/19 at 1600, If patient is receiving tube feeding, hold tube feeding 1 hour before and 1 hour after warfarin administration, documented in this encounter
[2019-01-16] MEDS: Calcium Carbonate 500 MG Tab.Chew PO PRN (17:35)
[2019-01-16] MEDS: atorvaSTATin 40 MG Tab PO SCH (20:36)
[2019-01-17] MEDS: Aspirin 81 MG Tab.EC PO SCH (07:23)
[2019-01-17] MEDS: Calcium Carbonate/Vitamin D3 625 MG-125 Unit Tab PO SCH ×2 (07:23→17:18)
[2019-01-17] MEDS: Hydrochlorothiazide 25 MG Tab PO SCH (07:23)
[2019-01-17] MEDS: Clopidogrel 75 MG Tab PO SCH (07:23)
[2019-01-17] MEDS: Allopurinol 100 MG Tab PO SCH (07:23)
[2019-01-17] MEDS: Omeprazole 20 MG Cap.CR PO SCH (07:23)
[2019-01-17] MEDS: Metoprolol Tartrate 50 MG Tab PO SCH ×2 (07:23→20:09)
[2019-01-17] MEDS: Docusate Sodium 100 MG Cap PO SCH (07:23)
[2019-01-17] MEDS: Multivitamin Tab PO SCH (07:23)
[2019-01-17] MEDS: Loratadine 10 MG Tab PO SCH (07:24)
[2019-01-17] MEDS: Tiotropium Inhaler 18 MCG Inhalation Powder Cap Kit of 5 INH SCH (07:24)
[2019-01-17] MEDS: Amiodarone 200 MG Tab PO SCH (07:24)
[2019-01-17] MEDS: Formoterol/Mometasone 200-5 MCG 8.8 GM Inhaler IH SCH ×2 (07:24→17:17)
[2019-01-17] MEDS: Acetaminophen 500 MG Tab PO PRN ×2 (14:41→23:51)
[2019-01-17] MEDS: atorvaSTATin 40 MG Tab PO SCH (20:03)
[2019-01-18] MEDS: Formoterol/Mometasone 200-5 MCG 8.8 GM Inhaler IH SCH ×2 (07:36→17:06)
[2019-01-18] MEDS: Allopurinol 100 MG Tab PO SCH (07:36)
[2019-01-18] MEDS: Amiodarone 200 MG Tab PO SCH (07:37)
[2019-01-18] MEDS: Docusate Sodium 100 MG Cap PO SCH (07:37)
[2019-01-18] MEDS: Clopidogrel 75 MG Tab PO SCH (07:37)
[2019-01-18] MEDS: Metoprolol Tartrate 50 MG Tab PO SCH ×2 (07:38→19:16)
[2019-01-18] MEDS: Omeprazole 20 MG Cap.CR PO SCH (07:38)
[2019-01-18] MEDS: Multivitamin Tab PO SCH (07:38)
[2019-01-18] MEDS: Hydrochlorothiazide 25 MG Tab PO SCH (07:38)
[2019-01-18] MEDS: Aspirin 81 MG Tab.EC PO SCH (07:39)
[2019-01-18] MEDS: Calcium Carbonate/Vitamin D3 625 MG-125 Unit Tab PO SCH ×2 (07:39→17:06)
[2019-01-18] MEDS: Loratadine 10 MG Tab PO SCH (07:39)
[2019-01-18] MEDS: Tiotropium Inhaler 18 MCG Inhalation Powder Cap Kit of 5 INH SCH (07:40)
[2019-01-18] MEDS: Warfarin 2 MG Tab PO SCH (17:06)
[2019-01-18] MEDS: atorvaSTATin 40 MG Tab PO SCH (19:16)
[2019-01-18] MEDS: Acetaminophen 500 MG Tab PO PRN (19:17)
[2019-01-19] MEDS: Calcium Carbonate/Vitamin D3 625 MG-125 Unit Tab PO SCH ×2 (07:28→17:42)
[2019-01-19] MEDS: Hydrochlorothiazide 25 MG Tab PO SCH (07:28)
[2019-01-19] MEDS: Clopidogrel 75 MG Tab PO SCH (07:28)
[2019-01-19] MEDS: Allopurinol 100 MG Tab PO SCH (07:28)
[2019-01-19] MEDS: Aspirin 81 MG Tab.EC PO SCH (07:28)
[2019-01-19] MEDS: Multivitamin Tab PO SCH (07:29)
[2019-01-19] MEDS: Formoterol/Mometasone 200-5 MCG 8.8 GM Inhaler IH SCH ×2 (07:29→17:42)
[2019-01-19] MEDS: Metoprolol Tartrate 50 MG Tab PO SCH ×2 (07:29→19:58)
[2019-01-19] MEDS: Docusate Sodium 100 MG Cap PO SCH (07:29)
[2019-01-19] MEDS: Amiodarone 200 MG Tab PO SCH (07:29)
[2019-01-19] MEDS: Omeprazole 20 MG Cap.CR PO SCH (07:29)
[2019-01-19] MEDS: Loratadine 10 MG Tab PO SCH (07:30)
[2019-01-19] MEDS: Tiotropium Inhaler 18 MCG Inhalation Powder Cap Kit of 5 INH SCH (07:30)
[2019-01-19] MEDS: Calcium Carbonate 500 MG Tab.Chew PO PRN (10:33)
[2019-01-19] MEDS ORDERED: Aluminum Hydroxide/Magnesium Hydroxide/Simethicone Susp 30 ML Cup PO PRN (11:23)
[2019-01-19] MEDS: Warfarin 2 MG Tab PO SCH (17:42)
[2019-01-19] MEDS: Acetaminophen 500 MG Tab PO PRN (19:56)
[2019-01-19] MEDS: atorvaSTATin 40 MG Tab PO SCH (19:57)
[2019-01-20] MEDS: Formoterol/Mometasone 200-5 MCG 8.8 GM Inhaler IH SCH ×2 (09:18→17:29)
[2019-01-20] MEDS: Calcium Carbonate/Vitamin D3 625 MG-125 Unit Tab PO SCH ×2 (09:18→17:29)
[2019-01-20] MEDS: Hydrochlorothiazide 25 MG Tab PO SCH (09:18)
[2019-01-20] MEDS: Aspirin 81 MG Tab.EC PO SCH (09:19)
[2019-01-20] MEDS: Loratadine 10 MG Tab PO SCH (09:19)
[2019-01-20] MEDS: Docusate Sodium 100 MG Cap PO SCH (09:19)
[2019-01-20] MEDS: Omeprazole 20 MG Cap.CR PO SCH (09:19)
[2019-01-20] MEDS: Metoprolol Tartrate 50 MG Tab PO SCH ×2 (09:20→19:20)
[2019-01-20] MEDS: Multivitamin Tab PO SCH (09:23)
[2019-01-20] MEDS: Tiotropium Inhaler 18 MCG Inhalation Powder Cap Kit of 5 INH SCH (09:23)
[2019-01-20] MEDS: Amiodarone 200 MG Tab PO SCH (09:24)
[2019-01-20] MEDS: Clopidogrel 75 MG Tab PO SCH (09:24)
[2019-01-20] MEDS: Allopurinol 100 MG Tab PO SCH (09:27)
[2019-01-20] MEDS: atorvaSTATin 40 MG Tab PO SCH (19:21)
[2019-01-21] MEDS: Aspirin 81 MG Tab.EC PO SCH (07:18)
[2019-01-21] MEDS: Calcium Carbonate/Vitamin D3 625 MG-125 Unit Tab PO SCH ×2 (07:18→17:13)
[2019-01-21] MEDS: Hydrochlorothiazide 25 MG Tab PO SCH (07:19)
[2019-01-21] MEDS: Loratadine 10 MG Tab PO SCH (07:19)
[2019-01-21] MEDS: Allopurinol 100 MG Tab PO SCH (07:19)
[2019-01-21] MEDS: Omeprazole 20 MG Cap.CR PO SCH (07:19)
[2019-01-21] MEDS: Docusate Sodium 100 MG Cap PO SCH (07:20)
[2019-01-21] MEDS: Amiodarone 200 MG Tab PO SCH (07:20)
[2019-01-21] MEDS: Clopidogrel 75 MG Tab PO SCH (07:20)
[2019-01-21] MEDS: Multivitamin Tab PO SCH (07:20)
[2019-01-21] MEDS: Metoprolol Tartrate 50 MG Tab PO SCH ×2 (07:21→20:29)
[2019-01-21] MEDS: Formoterol/Mometasone 200-5 MCG 8.8 GM Inhaler IH SCH ×2 (07:22→17:14)
[2019-01-21] MEDS: Tiotropium Inhaler 18 MCG Inhalation Powder Cap Kit of 5 INH SCH (07:22)
[2019-01-21] MEDS ORDERED: Warfarin 2 MG Tab PO ONE (18:00)
[2019-01-21] MEDS: atorvaSTATin 40 MG Tab PO SCH (20:30)
[2019-01-22] MEDS: Tiotropium Inhaler 18 MCG Inhalation Powder Cap Kit of 5 INH SCH (08:07)
[2019-01-22] MEDS: Formoterol/Mometasone 200-5 MCG 8.8 GM Inhaler IH SCH ×2 (08:07→17:24)
[2019-01-22] MEDS: Hydrochlorothiazide 25 MG Tab PO SCH (08:09)
[2019-01-22] MEDS: Allopurinol 100 MG Tab PO SCH (08:10)
[2019-01-22] MEDS: Aspirin 81 MG Tab.EC PO SCH (08:10)
[2019-01-22] MEDS: Multivitamin Tab PO SCH (08:10)
[2019-01-22] MEDS: Docusate Sodium 100 MG Cap PO SCH (08:10)
[2019-01-22] MEDS: Omeprazole 20 MG Cap.CR PO SCH (08:10)
[2019-01-22] MEDS: Calcium Carbonate/Vitamin D3 625 MG-125 Unit Tab PO SCH ×2 (08:11→17:24)
[2019-01-22] MEDS: Clopidogrel 75 MG Tab PO SCH (08:11)
[2019-01-22] MEDS: Acetaminophen 500 MG Tab PO PRN ×2 (08:11→15:41)
[2019-01-22] MEDS: Amiodarone 200 MG Tab PO SCH (08:11)
[2019-01-22] MEDS: Metoprolol Tartrate 50 MG Tab PO SCH ×2 (08:12→19:59)
[2019-01-22] MEDS: Loratadine 10 MG Tab PO SCH (08:12)
[2019-01-22] MEDS: Gabapentin 300 MG Cap PO SCH ×2 (10:24→17:24)
[2019-01-22] MEDS ORDERED: Iopamidol 755 Mg/ML 100 ML Bottle IVPUSH ONE (10:37)
[2019-01-22] MEDS: Levofloxacin 500 MG Tab PO SCH (15:42)
[2019-01-22] MEDS ORDERED: Albuterol/Ipratropium 3.0-0.5 MG/3 ML Neb Soln NEB PRN (16:46)
[2019-01-22] MEDS: Albuterol/Ipratropium 3.0-0.5 MG/3 ML Neb Soln NEB SCH (19:59)
[2019-01-22] MEDS: atorvaSTATin 40 MG Tab PO SCH (20:00)
[2019-01-23] MEDS: Calcium Carbonate/Vitamin D3 625 MG-125 Unit Tab PO SCH ×2 (07:20→17:02)
[2019-01-23] MEDS: Metoprolol Tartrate 50 MG Tab PO SCH ×2 (07:21→19:50)
[2019-01-23] MEDS: Omeprazole 20 MG Cap.CR PO SCH (07:21)
[2019-01-23] MEDS: Docusate Sodium 100 MG Cap PO SCH (07:21)
[2019-01-23] MEDS: Hydrochlorothiazide 25 MG Tab PO SCH (07:21)
[2019-01-23] MEDS: Allopurinol 100 MG Tab PO SCH (07:22)
[2019-01-23] MEDS: Clopidogrel 75 MG Tab PO SCH (07:23)
[2019-01-23] MEDS: Gabapentin 300 MG Cap PO SCH ×2 (07:23→17:02)
[2019-01-23] MEDS: Loratadine 10 MG Tab PO SCH (07:23)
[2019-01-23] MEDS: Amiodarone 200 MG Tab PO SCH (07:23)
[2019-01-23] MEDS: Multivitamin Tab PO SCH (07:23)
[2019-01-23] MEDS: Aspirin 81 MG Tab.EC PO SCH (07:23)
[2019-01-23] MEDS: Albuterol/Ipratropium 3.0-0.5 MG/3 ML Neb Soln NEB SCH ×4 (07:24→19:51)
[2019-01-23] MEDS: Levofloxacin 500 MG Tab PO SCH (07:24)
[2019-01-23] MEDS: Tiotropium Inhaler 18 MCG Inhalation Powder Cap Kit of 5 INH SCH (07:26)
[2019-01-23] MEDS: Formoterol/Mometasone 200-5 MCG 8.8 GM Inhaler IH SCH ×2 (07:26→17:02)
[2019-01-23] MEDS: Acetaminophen 500 MG Tab PO PRN (08:33)
[2019-01-23] MEDS ORDERED: Dextromethorphan/guaiFENesin 600-30 MG Tab.ER PO PRN (10:35)
[2019-01-23] MEDS ORDERED: Warfarin 2 MG Tab PO ONE (18:00)
[2019-01-23] MEDS: atorvaSTATin 40 MG Tab PO SCH (19:51)
[2019-01-24] MEDS: Albuterol/Ipratropium 3.0-0.5 MG/3 ML Neb Soln NEB SCH ×4 (08:04→20:11)
[2019-01-24] MEDS: Formoterol/Mometasone 200-5 MCG 8.8 GM Inhaler IH SCH ×2 (08:05→17:35)
[2019-01-24] MEDS: Gabapentin 300 MG Cap PO SCH ×2 (08:06→17:29)
[2019-01-24] MEDS: Multivitamin Tab PO SCH (08:06)
[2019-01-24] MEDS: Levofloxacin 500 MG Tab PO SCH (08:06)
[2019-01-24] MEDS: Loratadine 10 MG Tab PO SCH (08:06)
[2019-01-24] MEDS: Omeprazole 20 MG Cap.CR PO SCH (08:08)
[2019-01-24] MEDS: Clopidogrel 75 MG Tab PO SCH (08:08)
[2019-01-24] MEDS: Docusate Sodium 100 MG Cap PO SCH (08:08)
[2019-01-24] MEDS: Amiodarone 200 MG Tab PO SCH (08:08)
[2019-01-24] MEDS: Allopurinol 100 MG Tab PO SCH (08:08)
[2019-01-24] MEDS: Hydrochlorothiazide 25 MG Tab PO SCH (08:09)
[2019-01-24] MEDS: Metoprolol Tartrate 50 MG Tab PO SCH ×2 (08:09→20:15)
[2019-01-24] MEDS: Calcium Carbonate/Vitamin D3 625 MG-125 Unit Tab PO SCH ×2 (08:09→17:29)
[2019-01-24] MEDS: Aspirin 81 MG Tab.EC PO SCH (08:09)
[2019-01-24] MEDS: Tiotropium Inhaler 18 MCG Inhalation Powder Cap Kit of 5 INH SCH (08:10)
[2019-01-24] MEDS: Acetaminophen 500 MG Tab PO PRN (08:25)
[2019-01-24] MEDS ORDERED: Dextromethorphan/guaiFENesin 600-30 MG Tab.ER PO PRN (09:19)
[2019-01-24] MEDS ORDERED: Furosemide 40 MG/4 ML VIAL IVPUSH ONE (14:23)
[2019-01-24] MEDS ORDERED: Potassium Chloride 20 MEQ Tab.ER PO STA (14:24)
[2019-01-24] MEDS ORDERED: Furosemide 40 MG/4 ML VIAL ONE (17:16)
[2019-01-24] MEDS ORDERED: Potassium Chloride 20 MEQ Tab.ER ONE (17:16)
[2019-01-24] MEDS: atorvaSTATin 40 MG Tab PO SCH (20:11)
[2019-01-25] MEDS: Loratadine 10 MG Tab PO SCH (07:34)
[2019-01-25] MEDS: Calcium Carbonate/Vitamin D3 625 MG-125 Unit Tab PO SCH ×2 (07:34→17:32)
[2019-01-25] MEDS: Docusate Sodium 100 MG Cap PO SCH (07:34)
[2019-01-25] MEDS: Formoterol/Mometasone 200-5 MCG 8.8 GM Inhaler IH SCH ×2 (07:35→17:37)
[2019-01-25] MEDS: Hydrochlorothiazide 25 MG Tab PO SCH (07:36)
[2019-01-25] MEDS: Aspirin 81 MG Tab.EC PO SCH (07:36)
[2019-01-25] MEDS: Multivitamin Tab PO SCH (07:37)
[2019-01-25] MEDS: guaiFENesin 600 MG Tab.ER PO SCH (07:37)
[2019-01-25] MEDS: Allopurinol 100 MG Tab PO SCH (07:37)
[2019-01-25] MEDS: Omeprazole 20 MG Cap.CR PO SCH (07:37)
[2019-01-25] MEDS: Gabapentin 300 MG Cap PO SCH ×2 (07:37→17:32)
[2019-01-25] MEDS: Clopidogrel 75 MG Tab PO SCH (07:37)
[2019-01-25] MEDS: Tiotropium Inhaler 18 MCG Inhalation Powder Cap Kit of 5 INH SCH (07:47)
[2019-01-25] MEDS: Levofloxacin 500 MG Tab PO SCH (07:48)
[2019-01-25] MEDS: Metoprolol Tartrate 50 MG Tab PO SCH ×2 (07:49→19:55)
[2019-01-25] MEDS: Albuterol/Ipratropium 3.0-0.5 MG/3 ML Neb Soln NEB SCH ×4 (07:50→19:54)
[2019-01-25] MEDS ORDERED: Potassium Chloride 20 MEQ Tab.ER PO SCH ×2 (08:00→12:00)
[2019-01-25] MEDS: Amiodarone 200 MG Tab PO SCH ×2 (08:18→08:33)
[2019-01-25] MEDS: Furosemide 40 MG/4 ML VIAL IVPUSH SCH ×2 (08:33→16:30)
--- NOTE | 2019-01-25 10:17 | PCM.PN ---
- General Info Date of Service: 01/25/19 Admission Dx/Problem (Free Text): 1. Coronary artery disease status post TX and CABG 2. Postoperative pneumonia 3. Generalized weakness Subjective Update: Nursing staff is requesting that I evaluate the patient today. Functional Status: Reports: Pain Controlled, Tolerating Diet, Ambulating, Urinating, New Symptoms (Left-sided pleurisy) Pain Score: 2 (Left-sided pleurisy) - Review of Systems General: Reports: Weakness (Slowly improving generalized postoperative), Fatigue (As above). Denies: Fever, Malaise, Chills, Night Sweats, Appetite ( Adequate) HEENT: Reports: Glasses. Denies: Dysphasia, Ear Pain, Eye Pain, Headaches, Post Nasal Drip, Sinus Congestion, Sore Throat, Rhinitis, Visual Changes Pulmonary: Reports: Pleuritic Chest Pain, Cough, Wheezing. Denies: Shortness of Breath, Sputum, Hemoptysis Cardiovascular: Reports: Chest Pain (Pleurisy as above), Edema. Denies: Palpitations, Dyspnea on Exertion, Orthopnea, PND, Lightheadedness Gastrointestinal: Reports: No Symptoms. Denies: Abdominal Pain, Constipation, Decreased Appetite, Diarrhea, Difficulty Swallowing, Hematochezia, Melena, Nausea, Vomiting Genitourinary: Reports: No Symptoms. Denies: Dysuria, Frequency, Pain, Urgency , Incontinence, Hematuria, Retention, Flank Pain Musculoskeletal: Reports: No Symptoms. Denies: Neck Pain, Shoulder Pain, Arm Pain, Back Pain Skin: Reports: No Symptoms. Denies: Diaphoresis Neurological: Reports: Tremors, Difficulty Walking, Weakness. Denies: Confusion , Dizziness, Headache, Numbness, Paresthesia, Seizure, Syncope, Tingling Psychiatric: Reports: No Symptoms. Denies: Confusion, Depression, Anxiety, Agitation, Cravings, Hallucinations - Patient Data Vitals - Most Recent: Last Vital Signs Temp 37.1 C 01/25/19 07:31 Pulse 105 H 01/25/19 07:49 Resp 21 H 01/25/19 07:31 BP 101/59 L 01/25/19 07:49 Pulse Ox 91 L 01/25/19 07:31 Vital Signs - 24 hr 01/24/19 01/24/19 01/25/19 19:32 20:15 07:31 Temperature [ 36.7 C 37.1 C Oral] Pulse, 104 H Peripheral Pulse, 104 H 105 H Peripheral [ Pulse Oximetry] Respiratory 18 21 H Rate Blood Pressure 90/58 L Blood Pressure 101/59 L [Left Upper Arm ] Blood Pressure 90/58 L [Right Upper Arm] O2 Sat by Pulse 93 L 91 L Oximetry 01/25/19 07:49 Temperature [ Oral] Pulse, 105 H Peripheral Pulse, Peripheral [ Pulse Oximetry] Respiratory Rate Blood Pressure 101/59 L Blood Pressure [Left Upper Arm ] Blood Pressure [Right Upper Arm] O2 Sat by Pulse Oximetry Weight - Most Recent: 84.141 kg I&O - Last 24 Hours: Intake & Output 01/24/19 01/25/19 01/25/19 22:59 06:59 14:59 Intake Total 660 300 75 Balance 660 300 75 Imaging Impressions - Last 24 Hours: Telemetry strip shows mild sinus tachycardia with heart rate in the 100s. Chest x-ra, PA and lateral, shows moderate pulmonary obstructive disease with left lower lobe pulmonary infiltrates and possible mild pulmonary hypertension versus beginning centralized CHF. Note status post medial sternotomy. 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 Lab Results Last 24 Hours: Laboratory Tests 01/16/19 01/16/19 01/16/19 Range/Units 07:00 07:00 07:00 WBC 13.1 H (4.0-10.2) K/uL RBC 3.06 L (4.33-5.41) M/uL Hgb 9.6 L (13.1-16.8) g/dL Hct 29.3 L (39.0-49.0) % MCV 95.8 D (84.0-98.0) fL MCH 31.4 (28.2-33.3) pg MCHC 32.8 (31.7-36.0) g/dL RDW 15.7 H (11.2-14.1) % Plt Count 367 H D (150-350) K/uL Neut % (Auto) 77.2 (45.0-80.0) % Lymph % (Auto) 11.9 (10.0-50.0) % Hill % (Auto) 8.1 (2.0-14.0) % Eos % (Auto) 2.6 (0.0-5.0) % Baso % (Auto) 0.2 (0.0-2.0) % Neut # (Auto) 10.15 H (1.40-7.00) K/uL Lymph # (Auto) 1.56 (0.50-3.50) K/uL Hill # (Auto) 1.06 H (0.00-1.00) K/uL Eos # (Auto) 0.34 (0.00-0.50) K/uL Baso # (Auto) 0.02 (0.00-0.20) K/uL PT 40.8 H (9.5-12.0) SEC INR 3.8 D-Dimer, Quantitative (0-400) ng/mL Sodium 132 L (136-145) mmol/L Potassium 3.4 L (3.5-5.1) mmol/L Chloride 94 L (98-107) mmol/L Carbon Dioxide 25.1 (21.0-32.0) mmol/L BUN 29 H (7-18) mg/dL Creatinine 1.18 H (0.51-1.17) mg/dL Est Cr Clr Drug Dosing 49.01 mL/min Estimated GFR (MDRD) 60 mL/min Glucose 81 (74-106) mg/dL Lactic Acid (0.4-2.0) mmol/L Calcium 9.1 (8.5-10.1) mg/dL Total Bilirubin (0.2-1.0) mg/dL AST (15-37) U/L ALT (12-78) U/L Alkaline Phosphatase (46-116) IU/L NT-Pro-B Natriuret Pep (0-125) pg/mL Total Protein (6.4-8.2) g/dL Albumin (3.4-5.0) g/dL 01/20/19 01/22/19 01/22/19 Range/Units 07:00 09:28 09:28 WBC 12.4 H (4.0-10.2) K/uL RBC 3.02 L (4.33-5.41) M/uL Hgb 9.5 L (13.1-16.8) g/dL Hct 28.6 L (39.0-49.0) % MCV 94.7 (84.0-98.0) fL MCH 31.5 (28.2-33.3) pg MCHC 33.2 (31.7-36.0) g/dL RDW 15.9 H (11.2-14.1) % Plt Count 642 H D (150-350) K/uL Neut % (Auto) 79.2 (45.0-80.0) % Lymph % (Auto) 9.3 L (10.0-50.0) % Hill % (Auto) 9.5 (2.0-14.0) % Eos % (Auto) 1.5 (0.0-5.0) % Baso % (Auto) 0.5 (0.0-2.0) % Neut # (Auto) 9.81 H (1.40-7.00) K/uL Lymph # (Auto) 1.15 (0.50-3.50) K/uL Hill # (Auto) 1.17 H (0.00-1.00) K/uL Eos # (Auto) 0.19 (0.00-0.50) K/uL Baso # (Auto) 0.06 (0.00-0.20) K/uL PT (9.5-12.0) SEC INR 3.2 D-Dimer, Quantitative 2610 H (0-400) ng/mL Sodium (136-145) mmol/L Potassium (3.5-5.1) mmol/L Chloride (98-107) mmol/L Carbon Dioxide (21.0-32.0) mmol/L BUN (7-18) mg/dL Creatinine (0.51-1.17) mg/dL Est Cr Clr Drug Dosing mL/min Estimated GFR (MDRD) mL/min Glucose (74-106) mg/dL Lactic Acid (0.4-2.0) mmol/L Calcium (8.5-10.1) mg/dL Total Bilirubin (0.2-1.0) mg/dL AST (15-37) U/L ALT (12-78) U/L Alkaline Phosphatase (46-116) IU/L NT-Pro-B Natriuret Pep (0-125) pg/mL Total Protein (6.4-8.2) g/dL Albumin (3.4-5.0) g/dL 01/22/19 01/22/19 01/22/19 Range/Units 09:28 09:28 09:28 WBC (4.0-10.2) K/uL RBC (4.33-5.41) M/uL Hgb (13.1-16.8) g/dL Hct (39.0-49.0) % MCV (84.0-98.0) fL MCH (28.2-33.3) pg MCHC (31.7-36.0) g/dL RDW (11.2-14.1) % Plt Count (150-350) K/uL Neut % (Auto) (45.0-80.0) % Lymph % (Auto) (10.0-50.0) % Hill % (Auto) (2.0-14.0) % Eos % (Auto) (0.0-5.0) % Baso % (Auto) (0.0-2.0) % Neut # (Auto) (1.40-7.00) K/uL Lymph # (Auto) (0.50-3.50) K/uL Hill # (Auto) (0.00-1.00) K/uL Eos # (Auto) (0.00-0.50) K/uL Baso # (Auto) (0.00-0.20) K/uL PT 37.6 H (9.5-12.0) SEC INR 3.5 D-Dimer, Quantitative (0-400) ng/mL Sodium 129 L (136-145) mmol/L Potassium 3.7 (3.5-5.1) mmol/L Chloride 94 L (98-107) mmol/L Carbon Dioxide 20.8 L (21.0-32.0) mmol/L BUN 23 H (7-18) mg/dL Creatinine 1.24 H (0.51-1.17) mg/dL Est Cr Clr Drug Dosing 46.64 mL/min Estimated GFR (MDRD) 57 mL/min Glucose 162 H (74-106) mg/dL Lactic Acid 2.4 H (0.4-2.0) mmol/L Calcium 9.0 (8.5-10.1) mg/dL Total Bilirubin 0.6 (0.2-1.0) mg/dL AST 55 H (15-37) U/L ALT 75 (12-78) U/L Alkaline Phosphatase 72 (46-116) IU/L NT-Pro-B Natriuret Pep 1249 H (0-125) pg/mL Total Protein 6.8 (6.4-8.2) g/dL Albumin 2.9 L (3.4-5.0) g/dL 01/24/19 01/24/19 01/24/19 Range/Units 07:45 07:45 07:45 WBC 10.4 H (4.0-10.2) K/uL RBC 2.66 L (4.33-5.41) M/uL Hgb 8.4 L (13.1-16.8) g/dL Hct 25.3 L (39.0-49.0) % MCV 95.1 (84.0-98.0) fL MCH 31.6 (28.2-33.3) pg MCHC 33.2 (31.7-36.0) g/dL RDW 16.0 H (11.2-14.1) % Plt Count 617 H (150-350) K/uL Neut % (Auto) 72.9 (45.0-80.0) % Lymph % (Auto) 11.4 (10.0-50.0) % Hill % (Auto) 14.0 (2.0-14.0) % Eos % (Auto) 1.4 (0.0-5.0) % Baso % (Auto) 0.3 (0.0-2.0) % Neut # (Auto) 7.56 H (1.40-7.00) K/uL Lymph # (Auto) 1.18 (0.50-3.50) K/uL Hill # (Auto) 1.45 H (0.00-1.00) K/uL Eos # (Auto) 0.14 (0.00-0.50) K/uL Baso # (Auto) 0.03 (0.00-0.20) K/uL PT 46.0 H (9.5-12.0) SEC INR 4.3 D-Dimer, Quantitative 3590 H (0-400) ng/mL Sodium (136-145) mmol/L Potassium (3.5-5.1) mmol/L Chloride (98-107) mmol/L Carbon Dioxide (21.0-32.0) mmol/L BUN (7-18) mg/dL Creatinine (0.51-1.17) mg/dL Est Cr Clr Drug Dosing mL/min Estimated GFR (MDRD) mL/min Glucose (74-106) mg/dL Lactic Acid (0.4-2.0) mmol/L Calcium (8.5-10.1) mg/dL Total Bilirubin (0.2-1.0) mg/dL AST (15-37) U/L ALT (12-78) U/L Alkaline Phosphatase (46-116) IU/L NT-Pro-B Natriuret Pep (0-125) pg/mL Total Protein (6.4-8.2) g/dL Albumin (3.4-5.0) g/dL Aaron Results Last 24 Hours: None Med Orders - Current: Current Medications Acetaminophen (Tylenol Extra Strength) 1,000 mg PO TID PRN PRN Reason: Pain/Fever Last Admin: 01/24/19 08:25 Dose: 1,000 mg Hydrocodone Bitart/Acetaminophen ([place] 325-7.5 Mg) 1 tab PO Q4H PRN PRN Reason: Pain (moderate 4-6) Al Hydroxide/Mg Hydroxide (Mag-Al Plus) 30 ml PO Q4H PRN PRN Reason: Indigestion Last Admin: 01/19/19 16:21 Dose: 30 ml Albuterol (Ventolin Hfa) 0 gm INH Q6H PRN PRN Reason: Shortness of Breath Albuterol/Ipratropium (Duoneb 3.0-0.5 Mg/3 Ml) 3 ml NEB QIDRT [facility] Last Admin: 01/25/19 07:50 Dose: 3 ml Albuterol/Ipratropium (Duoneb 3.0-0.5 Mg/3 Ml) 3 ml NEB Q4H PRN PRN Reason: Shortness of Breath Last Admin: 01/22/19 16:50 Dose: 3 ml Allopurinol (Zyloprim) 200 mg PO QAM [facility] Last Admin: 01/25/19 07:37 Dose: 200 mg Amiodarone HCl (Cordarone) 200 mg PO DAILY [facility] Last Admin: 01/25/19 08:33 Dose: 200 mg Aspirin (Halfprin) 81 mg PO DAILY [facility] Last Admin: 01/25/19 07:36 Dose: 81 mg Atorvastatin Calcium (Lipitor) 60 mg PO BEDTIME [facility] Last Admin: 01/24/19 20:11 Dose: 60 mg Calcium Carbonate (Oystcal-D 625 Mg-125 Units) 1 tab PO BIDMEALS [facility] Last Admin: 01/25/19 07:34 Dose: 1 tab Calcium Carbonate/Glycine (Tums) 1,000 mg PO Q2HR PRN PRN Reason: Indigestion Last Admin: 01/19/19 10:33 Dose: 1,000 mg Clopidogrel Bisulfate (Plavix) 75 mg PO DAILY [facility] Last Admin: 01/25/19 07:37 Dose: 75 mg Docusate Sodium (Colace) 200 mg PO DAILY [facility] Last Admin: 01/25/19 07:34 Dose: 200 mg Fluticasone Propionate (Flonase) 0 gm NASBOTH DAILY PRN PRN Reason: Allergies Furosemide (Lasix) 40 mg IVPUSH Q8HR [facility] Last Admin: 01/25/19 08:33 Dose: 40 mg Gabapentin (Neurontin) 300 mg PO BID [facility] Last Admin: 01/25/19 07:37 Dose: 300 mg Guaifenesin (Mucinex) 600 mg PO DAILY [facility] Last Admin: 01/25/19 07:37 Dose: 600 mg Guaifenesin/Dextromethorphan (Mucinex Dm Er 600-30 Mg) 1 tab PO ASDIRECTED PRN PRN Reason: Cough Last Admin: 01/24/19 21:47 Dose: 1 tab Hydrochlorothiazide (Hydrochlorothiazide) 25 mg PO DAILY [facility] Last Admin: 01/25/19 07:36 Dose: 25 mg Ceftriaxone Sodium 1 gm/ (Sodium Chloride) 100 mls @ 200 mls/hr IV Q24H [facility] Loratadine (Claritin) 10 mg PO QAM [facility] Last Admin: 01/25/19 07:34 Dose: 10 mg Metoprolol Tartrate (Lopressor) 25 mg PO Q12HR [facility] Last Admin: 01/25/19 07:49 Dose: 25 mg Mometasone Furoate/Formoterol Fumar (Dulera 200-5 Mcg) 0 puff IH BID [facility] Last Admin: 01/25/19 07:35 Dose: 2 puff Multivitamins/Minerals/Vitamin C (Tab-A-Cooper) 1 tab PO DAILY [facility] Last Admin: 01/25/19 07:37 Dose: 1 tab Omeprazole (Omeprazole) 20 mg PO DAILY [facility] Last Admin: 01/25/19 07:37 Dose: 20 mg Potassium Chloride (Klor-Con M20) 20 meq PO TID [facility] Sodium Chloride (Saline Flush) 10 ml FLUSH ASDIRECTED PRN PRN Reason: Keep Vein Open Tiotropium [place] (Spiriva Handihaler) 18 mcg INH DAILY [facility] Last Admin: 01/25/19 07:47 Dose: 18 mcg Warfarin Sodium (Coumadin) 0.5 mg PO ONETIME ONE Stop: 01/25/19 18:01 Discontinued Medications Amiodarone HCl (Cordarone) 400 mg PO DAILY [facility] Last Admin: 01/25/19 08:18 Dose: Not Given Furosemide (Lasix) 40 mg IVPUSH NOW ONE Stop: 01/24/19 14:24 Last Admin: 01/24/19 17:28 Dose: 40 mg Furosemide (Lasix) Confirm Administered Dose 40 mg .ROUTE .STK-MED ONE Stop: 01/24/19 17:17 Last Admin: 01/24/19 17:30 Dose: Not Given Guaifenesin/Dextromethorphan (Mucinex Dm Er 600-30 Mg) 1 tab PO BID PRN PRN Reason: Cough Last Admin: 01/24/19 08:24 Dose: 1 tab Iopamidol (Isovue-370 (76%)) 100 ml IVPUSH ONETIME ONE Stop: 01/22/19 10:38 Last Admin: 01/22/19 11:41 Dose: 100 ml Levofloxacin (Levaquin) 750 mg PO DAILY [facility] Stop: 01/26/19 08:01 Last Admin: 01/25/19 07:48 Dose: 750 mg Metoprolol Tartrate (Lopressor) 50 mg PO Q12HR [facility] Last Admin: 01/20/19 09:20 Dose: 50 mg Non-Formulary Medication (Umeclidinium [place] [Incruse Ellipta*]) 1 puff IH DAILY [facility] Potassium Chloride (Klor-Con M20) 20 meq PO NOW STA Stop: 01/24/19 14:25 Last Admin: 01/24/19 17:29 Dose: 20 meq Potassium Chloride (Klor-Con M20) 20 meq PO DAILY [facility] Last Admin: 01/25/19 07:37 Dose: 20 meq Potassium Chloride (Klor-Con M20) Confirm Administered Dose 20 meq .ROUTE .STK- MED ONE Stop: 01/24/19 17:17 Last Admin: 01/24/19 17:30 Dose: Not Given Warfarin Sodium (Coumadin) 2 mg PO ASDIRECTED [facility] Warfarin Sodium (Coumadin) 1 mg PO ONETIME ONE Stop: 01/17/19 18:01 Last Admin: 01/17/19 17:18 Dose: 1 mg Warfarin Sodium (Coumadin) 2 mg PO DAILY@1800 [place] Stop: 01/19/19 18:01 Last Admin: 01/19/19 17:42 Dose: 2 mg Warfarin Sodium (Coumadin) 1 mg PO ONETIME ONE Stop: 01/20/19 18:01 Last Admin: 01/20/19 17:29 Dose: 1 mg Warfarin Sodium (Coumadin) 2 mg PO ONETIME ONE Stop: 01/21/19 18:01 Last Admin: 01/21/19 17:13 Dose: 2 mg Warfarin Sodium (Coumadin) 1 mg PO ONETIME ONE Stop: 01/22/19 18:01 Last Admin: 01/22/19 17:25 Dose: 1 mg Warfarin Sodium (Coumadin) 2 mg PO ONETIME ONE Stop: 01/23/19 18:01 Last Admin: 01/23/19 17:02 Dose: 2 mg - Exam Quality Assessment: Supplemental Oxygen, DVT Prophylaxis (On Coumadin). No: Central Line/PICC, Urine Catheter, Skin Breakdown, Restraints General: Alert, Cooperative, No Acute Distress HEENT: Pupils Equal, Pupils Reactive, EOMI, Mucous Membr. Moist/[place], Other ( Patient wearing glasses. Midline cleft palate/lip. Complete dentures uppers and lowers) Neck: Supple, Trachea Midline, No JVD, No Thyromegaly, Carotid Bruit (Mild bilateral carotid bruits). No: Lymphadenopathy Lungs: Rales (Moderate left-sided mid to inferior rales), Rhonchi (Occasional), Wheezing (Occasional). No: Rub Cardiovascular: No Murmurs, Tachycardia (Mild, regular rhythm). No: Gallops, Rubs GI/Abdominal Exam: Normal Bowel Sounds, Soft, Non-Tender, No Organomegaly, No Distention, No Abnormal Bruit, No Mass. No: Guarding (Male) Exam: Deferred Back Exam: Other (Mild kyphosis). No: CVA Tenderness (L), CVA Tenderness (R), Decreased Range of Motion, Muscle Spasm, Paraspinal Tenderness, Vertebral Tenderness Extremities: Normal Range of Motion, Non-Tender, Normal Capillary Refill, Pedal Edema (+1 pedal edema). No: Shmuel's Sign Peripheral Pulses: 2+: Radial (L), Radial (R), Dorsalis Pedis (L), Dorsalis Pedis (R) Skin: Warm, Dry, Intact Wound/Incisions: Healing Well (Sternotomy with no evidence of infection) Neurological: No New Focal Deficit, Other (Stable generalized weakness. Mild resting tremor with no rigidity or cogwheeling) Psy/Mental Status: Alert, Normal Affect, Normal Mood. No: Agitated, Hallucinations, Withdrawal Symptoms - Problem List & Annotations (1) Coronary artery disease involving coronary bypass graft SNOMED Code(s): 726534489, 05111433, 672111669, 508995785, 040817254 Code(s): I25.810 - ATHEROSCLEROSIS OF CABG W/O ANGINA PECTORIS Status: Acute Priority: Medium Current Visit: Yes Qualifiers: [place] vs. transplanted heart: [place] heart Associated angina: without angina Qualified Code(s): I25.810 - Atherosclerosis of coronary artery bypass graft(s) without angina pectoris Annotation/Comment:: No chest pain or anginal type symptoms. Note d-dimer elevation with apparently negative CTA of the chest with negative preliminary report of venous Doppler studies of the lower extremities in this facility on . Note previously elevated INR and Coumadin therapy. Continue aggressive IV Lasix therapy for now. S/P CABG x 2, Will r3ehab with PT/OT. Discharge plan is to attend Cardiac rehab. Monitor BP and INR level to ensure adequate intervention (2) Pneumonia SNOMED Code(s): 077156634 Code(s): J18.9 - PNEUMONIA, UNSPECIFIED ORGANISM Status: Acute Priority: High Current Visit: Yes Qualifiers: Pneumonia type: due to unspecified organism Laterality: left Lung location: lower lobe of lung Qualified Code(s): J18.1 - Lobar pneumonia, unspecified organism Annotation/Comment:: Refractory postoperative pneumonia after recent CABG not responding to oral Levaquin with patient receiving high-dose Levaquin with a total of 4 of 5 doses to this point. Secondary to ineffectiveness and elevated INR Levaquin will be discontinued with initiation of IV Rocephin therapy today with caution secondary to previously elevated INR. Coumadin is on hold. Attempt to obtain sputum ANA. Continue aggressive nebulizer treatments. Consider transfer to inpatient care, depending on his clinical course. His regular provider already has a planned follow-up scheduled for 01/27. Initiate incentive spirometry. (3) CHF (congestive heart failure) SNOMED Code(s): 22633523 Code(s): I50.9 - HEART FAILURE, UNSPECIFIED Status: Chronic Priority: High Current Visit: Yes Qualifiers: Heart failure type: unspecified Heart failure chronicity: unspecified Qualified Code(s): I50.9 - Heart failure, unspecified Annotation/Comment:: BNP elevation with IV Lasix therapy already initiated as above. Chest x-ray today does show some mild centralized CHF, however no significant pleural effusions. Continue to observe closely by regular provider with follow-up and blood work already scheduled for 01/27. (4) Elevated d-dimer SNOMED Code(s): 068949432 Code(s): R79.89 - OTHER SPECIFIED ABNORMAL FINDINGS OF BLOOD CHEMISTRY Status: Acute Priority: High Current Visit: Yes Annotation/Comment:: As above. (5) Anemia SNOMED Code(s): 823489593 Code(s): D64.9 - ANEMIA, UNSPECIFIED Status: Acute Priority: High Current Visit: Yes Qualifiers: Anemia type: unspecified type Qualified Code(s): D64.9 - Anemia, unspecified Annotation/Comment:: Progressive anemia with Coumadin on hold secondary to elevated INR. Blood work already ordered for 01/26 with additional INR to be conducted tomorrow. No evidence of acute GI bleed, etc. however additional TIBC panel, ferritin, and vitamin B 12 level tomorrow with repeat INR. (6) Hyponatremia SNOMED Code(s): 53595044 Code(s): E87.1 - HYPO-OSMOLALITY AND HYPONATREMIA Status: Acute Priority : Medium Current Visit: Yes Annotation/Comment:: Mild hyponatremia secondary to CHF. Continue to observe closely. Note initiation of IV Lasix therapy and potassium supplementation yesterday. Repeat labs already ordered. (7) Hypokalemia SNOMED Code(s): 75982704 Code(s): E87.6 - HYPOKALEMIA Status: Acute Priority: Medium Current Visit: Yes Annotation/Comment:: As above (8) HTN, Benign hypertension SNOMED Code(s): 46641819 Code(s): I10 - ESSENTIAL (PRIMARY) HYPERTENSION Status: Chronic Priority : Low Current Visit: No Annotation/Comment:: Observe trends some borderline nonsymptomatic hypotension during his swing bed care. Continue to observe closely secondary to his CABG x 2,, etc. (9) Peptic reflux disease SNOMED Code(s): 549008695 Code(s): K21.9 - GASTRO-ESOPHAGEAL REFLUX DISEASE WITHOUT ESOPHAGITIS Status: Chronic Priority: Low Current Visit: Yes Annotation/Comment:: Stable per patient (10) Renal insufficiency SNOMED Code(s): 408575507, 447523486 Code(s): N28.9 - DISORDER OF KIDNEY AND URETER, UNSPECIFIED Status: Chronic Priority: Medium Current Visit: Yes Annotation/Comment:: Continue to observe closely as above. BUN and Cr have improved since admission and IV fluids. - Problem List Review Problem List Initiated/Reviewed/Updated: Yes - My Orders Last 24 Hours: My Active Orders 01/25/19 08:00 Furosemide [Lasix] 40 mg IVPUSH Q8HR 01/25/19 08:15 Amiodarone [Cordarone] 200 mg PO DAILY 01/25/19 09:40 Chest 2V [CR] Routine 01/25/19 10:15 cefTRIAXone [Rocephin] 1 gm Sodium Chloride 0.9% [Normal Saline] 100 ml IV Q24H 01/25/19 12:00 Potassium Chloride [Klor-Con M20] 20 meq PO TID 01/27/19 05:11 EKG Documentation Completion [RC] ASDIRECTED CK W CKMB [CHEM] Routine TROPONIN I [CHEM] Routine EKG 12 Lead [EK] Routine - Assessment Assessment:: As above - Plan Plan:: As above. Extensive precautions were given to the patient, who is in agreement with the treatment plan. MO [facility] at the [facility] will reevaluate the patient on 01/27 with blood work already ordered.
[2019-01-25] MEDS ORDERED: Albuterol 0.083% 2.5 MG/3 ML Neb Soln INH PRN (10:19)
[2019-01-25] MEDS: cefTRIAXone 1 GM in Sodium Chloride 0.9% 100 ML IV SCH (11:35)
[2019-01-25] MEDS: Sodium Chloride 0.9% 10 ML Syringe FLUSH PRN ×2 (11:36→20:05)
[2019-01-25] MEDS: atorvaSTATin 40 MG Tab PO SCH (19:54)
[2019-01-25] MEDS: Acetaminophen 500 MG Tab PO PRN (20:00)
[2019-01-26] MEDS: Allopurinol 100 MG Tab PO SCH (07:43)
[2019-01-26] MEDS: Aspirin 81 MG Tab.EC PO SCH (07:44)
[2019-01-26] MEDS: Loratadine 10 MG Tab PO SCH (07:44)
[2019-01-26] MEDS: guaiFENesin 600 MG Tab.ER PO SCH (07:44)
[2019-01-26] MEDS: Gabapentin 300 MG Cap PO SCH ×2 (07:44→17:11)
[2019-01-26] MEDS: Multivitamin Tab PO SCH (07:44)
[2019-01-26] MEDS: Omeprazole 20 MG Cap.CR PO SCH (07:44)
[2019-01-26] MEDS: Clopidogrel 75 MG Tab PO SCH (07:44)
[2019-01-26] MEDS: Amiodarone 200 MG Tab PO SCH (07:44)
[2019-01-26] MEDS: Calcium Carbonate/Vitamin D3 625 MG-125 Unit Tab PO SCH ×2 (07:44→17:11)
[2019-01-26] MEDS: Tiotropium Inhaler 18 MCG Inhalation Powder Cap Kit of 5 INH SCH (07:45)
[2019-01-26] MEDS: Formoterol/Mometasone 200-5 MCG 8.8 GM Inhaler IH SCH ×2 (07:45→17:11)
[2019-01-26] MEDS: Docusate Sodium 100 MG Cap PO SCH (07:45)
[2019-01-26] MEDS: Albuterol/Ipratropium 3.0-0.5 MG/3 ML Neb Soln NEB SCH ×4 (07:45→19:56)
[2019-01-26] MEDS: Metoprolol Tartrate 50 MG Tab PO SCH (07:46)
[2019-01-26] MEDS ORDERED: Potassium Chloride 20 MEQ Tab.ER PO SCH (08:00)
[2019-01-26] MEDS ORDERED: Furosemide 20 MG/2 ML VIAL IVPUSH SCH (08:00)
--- NOTE | 2019-01-26 09:14 | PCM.SN ---
- Free Text/Narrative Note: Patient significantly hypotensive this morning with AM Lopresser and Lasix held and reduced doses yesterday. Patient not tolerating Lasix therapy, which will be discontinued. Discontinue potassium and Lopressor and change to low dose Toprol XL starting this evening. Patient is afebrile and no tachycardia despite recent decrease of his Amiodarone. No sign of Sepsis, GI bleed, cardiac symptoms , etc with patient otherwise clinically stable. INR now therapeutic but will still hold Coumadin until labs tomorrow secondary to new Rocephin therapy. Follow up already scheduled for tomorrow. Hemoccult still not collected.
[2019-01-26] MEDS: Sodium Chloride 0.9% 10 ML Syringe FLUSH PRN (10:53)
[2019-01-26] MEDS: cefTRIAXone 1 GM in Sodium Chloride 0.9% 100 ML IV SCH (10:53)
[2019-01-26] MEDS: Magnesium Hydroxide 400 MG/5 ML Susp 30 ML Cup PO PRN (10:53)
[2019-01-26] MEDS: Acetaminophen 500 MG Tab PO PRN (16:04)
[2019-01-26] MEDS: atorvaSTATin 40 MG Tab PO SCH (19:55)
[2019-01-26] MEDS ORDERED: Metoprolol Succinate 25 MG Tab.ER PO SCH (20:00)
[2019-01-26] MEDS ORDERED: Lactated Ringers 1,000 ML IV ONE (20:09)
[2019-01-26] MEDS ORDERED: Lactated Ringers 500 ML IV PRN (20:31)
[2019-01-27] MEDS: Omeprazole 20 MG Cap.CR PO SCH ×2 (00:23→09:14)
[2019-01-27 04:23] VITALS: BP 92/58
[2019-01-27] MEDS: Albuterol/Ipratropium 3.0-0.5 MG/3 ML Neb Soln NEB SCH (09:12)
[2019-01-27] MEDS: Formoterol/Mometasone 200-5 MCG 8.8 GM Inhaler IH SCH (09:12)
[2019-01-27] MEDS: Aspirin 81 MG Tab.EC PO SCH (09:13)
[2019-01-27] MEDS: Amiodarone 200 MG Tab PO SCH (09:13)
[2019-01-27] MEDS: guaiFENesin 600 MG Tab.ER PO SCH (09:13)
[2019-01-27] MEDS: Loratadine 10 MG Tab PO SCH (09:14)
[2019-01-27] MEDS: Clopidogrel 75 MG Tab PO SCH (09:15)
[2019-01-27] MEDS: Allopurinol 100 MG Tab PO SCH (09:15)
[2019-01-27] MEDS: Docusate Sodium 100 MG Cap PO SCH (09:15)
[2019-01-27] MEDS: Calcium Carbonate/Vitamin D3 625 MG-125 Unit Tab PO SCH (09:17)
[2019-01-27] MEDS: Magnesium Hydroxide 400 MG/5 ML Susp 30 ML Cup PO PRN (09:18)
[2019-01-27] MEDS: Multivitamin Tab PO SCH (09:20)
[2019-01-27] MEDS: Gabapentin 300 MG Cap PO SCH (09:20)
[2019-01-27] MEDS: Tiotropium Inhaler 18 MCG Inhalation Powder Cap Kit of 5 INH SCH (09:20)
[2019-01-27] MEDS ORDERED: Lactated Ringers 1,000 ML IV SCH (10:00)
--- NOTE | 2019-01-27 16:06 | PCM.DCSUM1 ---
Discharge Summary - Hospital Course Free Text/Narrative:: Patient was admitted to [facility] for a rehabilitation with PT/OT after a CABG x 2. He has progressively had a decline since being admitted. He was evaluated due to left lower lobe congestion. He was noted to have a small pleural effusion, along with pneumonia. An elevated WBC and lactic acid were suggestive of this as well. He was given Levaquin PO for this. Patient continued to have abnormal labs and deteriorating physical exam. Today, he was noted to have confusion, continued SOB, decreasing RBC level, elevated d-dimer, platelets and iron levels. He was noted to have a positive Hemoccult. His vitals were deteriorating as well. With this information, we transferred him back to [facility] for primary evaluation of positive Hemoccult with suspected GI bleed. Patient was informed and aware of transfer. He will be going by ambulance. Hospitalist at [facility] was accepting care. - Discharge Data Discharge Date: 01/27/19 Discharge Disposition: DC/Tfer to Acute Hospital 02 Condition: Good - Discharge Diagnosis/Problem(s) (1) Coronary artery disease involving coronary bypass graft SNOMED Code(s): 754516791, [id number], [id number], [id number], [id number] ICD Code: I25.810 - ATHEROSCLEROSIS OF CABG W/O ANGINA PECTORIS Status: Acute Priority: Medium Problem Details: No chest pain or anginal type symptoms. Note d-dimer elevation with apparently negative CTA of the chest with negative preliminary report of venous Doppler studies of the lower extremities in this facility on 01/24. Decreased BP wtih lasix wtihout resolve of SOB and/or pleural effusion continues. Re-evaluation requested at [facility]. Qualifiers: [place] vs. transplanted heart: [place] heart Associated angina: without angina Qualified Code(s): I25.810 - Atherosclerosis of coronary artery bypass graft(s) without angina pectoris (2) COPD, Mild chronic obstructive pulmonary disease SNOMED Code(s): 706565646 ICD Code: J44.9 - CHRONIC OBSTRUCTIVE PULMONARY DISEASE, UNSPECIFIED Status : Chronic Priority: Low Problem Details: Stable disease with current medical therapy (3) HTN, Benign hypertension SNOMED Code(s): 26119637 ICD Code: I10 - ESSENTIAL (PRIMARY) HYPERTENSION Status: Chronic Priority : Low Problem Details: Observe trends some borderline nonsymptomatic hypotension during his swing bed care. Continue to observe closely secondary to his CABG x 2,, etc. - Patient Summary/Data Consults: Consultations 01/15/19 12:22 OT Evaluation and Treatment [CONS] Routine PT Evaluation and Treatment [CONS] Routine - Patient Instructions Diet: Heart Healthy Diet Activity: As Tolerated Driving: Do Not Drive Showering/Bathing: May Shower - Discharge Plan *PRESCRIPTION DRUG MONITORING PROGRAM REVIEWED*: Not Applicable *COPY OF PRESCRIPTION DRUG MONITORING REPORT IN PATIENT JAKE: Not Applicable Home Medications: Home Meds Acetaminophen [Tylenol Extra Strength] 2 tab PO TID PRN 02/05/14 [History] Allopurinol [Zyloprim] 200 mg PO QAM 02/05/14 [History] Fluticasone Propionate [Flonase] 2 spray NASBOTH DAILY PRN 02/05/14 [History] Multivit-Min/FA/Lycopene/Lut [Centrum Silver] 1 each PO DAILY 02/05/14 [History] Tiotropium [Spiriva HandiHaler] 1 cap INH DAILY 02/05/14 [History] atorvaSTATin [Lipitor] 60 mg PO BEDTIME 02/05/14 [History] Loratadine [Claritin] 10 mg PO QAM 06/16/14 [History] Aspirin [Halfprin] 1 tab PO DAILY 11/08/18 [History] hydroCHLOROthiazide [Hydrochlorothiazide] 25 mg PO DAILY 11/08/18 [History] Clopidogrel [Plavix] 75 mg PO DAILY 12/10/18 [History] Warfarin [Coumadin] 2 mg PO ASDIRECTED 12/10/18 [History] Albuterol Sulfate [Albuterol Sulfate Hfa] 2 puff INH Q6H PRN 01/15/19 [History] Amiodarone [Cordarone] 400 mg PO DAILY 01/15/19 [History] Calcium Citrate/Vitamin D3 [Calcium Citrate - Vit D Tablet] 1 each PO BIDMEALS 01/15/19 [History] Colchicine 0.6 mg PO ASDIRECTED 01/15/19 [History] Docusate Sodium [Dss] 250 mg PO DAILY 01/15/19 [History] Fluticasone/Vilanterol [Breo Ellipta 200-25 Mcg INH] 1 puff INH DAILY 01/15/19 [ History] Hydrocodone/Acetaminophen [Hydrocodon-Acetaminoph 7.5-325] 1 tab PO Q4H PRN 07/24 [History] Metoprolol Tartrate [Lopressor] 50 mg PO Q12HR 01/15/19 [History] Omeprazole 20 mg PO DAILY 01/15/19 [History] Umeclidinium [place] [Incruse Ellipta*] 1 puff IH DAILY 01/15/19 [History] Nitroglycerin 0.4 mg SL Q5M PRN 01/20/19 [History] Gabapentin [Neurontin] 300 mg PO Q12HR 01/22/19 [History] - Discharge Summary/Plan Comment DC Time >30 min.: Yes - General Info Functional Status: Reports: Pain Controlled - Review of Systems General: Reports: No Symptoms HEENT: Reports: No Symptoms Pulmonary: Reports: Shortness of Breath Cardiovascular: Reports: No Symptoms Gastrointestinal: Reports: No Symptoms Genitourinary: Reports: No Symptoms Musculoskeletal: Reports: No Symptoms Skin: Reports: No Symptoms Neurological: Reports: Confusion Psychiatric: Reports: Confusion - Patient Data Vitals - Most Recent: Last Vital Signs Temp 98.6 F 01/27/19 04:00 Pulse 95 01/27/19 04:00 Resp 20 01/27/19 04:00 BP 92/58 L 01/27/19 04:00 Pulse Ox 92 L 01/27/19 04:00 Weight - Most Recent: 185 lb 6.4 oz I&O - Last 24 hours: Intake & Output 01/27/19 01/27/19 01/27/19 06:59 14:59 22:59 Intake Total 400 120 Output Total 200 Balance 200 120 Lab Results - Last 24 hrs: Laboratory Results - last 24 hr 01/27/19 01/27/19 01/27/19 Range/Units 07:15 07:15 07:15 WBC 9.6 (4.0-10.2) K/uL RBC 2.43 L (4.33-5.41) M/uL Hgb 7.5 L (13.1-16.8) g/dL Hct 23.0 L* (39.0-49.0) % MCV 94.7 (84.0-98.0) fL MCH 30.9 (28.2-33.3) pg MCHC 32.6 (31.7-36.0) g/dL RDW 16.2 H (11.2-14.1) % Plt Count 497 H D (150-350) K/uL Neut % (Auto) 77.1 (45.0-80.0) % Lymph % (Auto) 9.3 L (10.0-50.0) % [place] % (Auto) 9.8 (2.0-14.0) % Eos % (Auto) 3.4 (0.0-5.0) % Baso % (Auto) 0.4 (0.0-2.0) % Neut # (Auto) 7.41 H (1.40-7.00) K/uL Lymph # (Auto) 0.89 (0.50-3.50) K/uL [place] # (Auto) 0.94 (0.00-1.00) K/uL Eos # (Auto) 0.33 (0.00-0.50) K/uL Baso # (Auto) 0.04 (0.00-0.20) K/uL PT 18.8 H D (9.5-12.0) SEC INR 1.7 D-Dimer, Quantitative 3950 H (0-400) ng/mL Sodium (136-145) mmol/L Potassium (3.5-5.1) mmol/L Chloride (98-107) mmol/L Carbon Dioxide (21.0-32.0) mmol/L BUN (7-18) mg/dL Creatinine (0.51-1.17) mg/dL Est Cr Clr Drug Dosing mL/min Estimated GFR (MDRD) mL/min Glucose (74-106) mg/dL Lactic Acid (0.4-2.0) mmol/L Calcium (8.5-10.1) mg/dL Iron (50-175) ug/dL TIBC (250-450) ug/dL % Saturation Ferritin (8-388) ng/mL Total Bilirubin (0.2-1.0) mg/dL AST (15-37) U/L ALT (12-78) U/L Alkaline Phosphatase (46-116) IU/L Creatine Kinase (26-308) U/L Creatine Kinase Index (0.0-2.5) % CK-MB (CK-2) (0.00-3.60) ng/mL Troponin I (0.000-0.056) ng/mL NT-Pro-B Natriuret Pep (0-125) pg/mL Total Protein (6.4-8.2) g/dL Albumin (3.4-5.0) g/dL Vitamin B12 (193-986) pg/mL Folate (8.6-58.9) ng/mL 01/27/19 01/27/19 01/27/19 Range/Units 07:15 07:15 07:15 WBC (4.0-10.2) K/uL RBC (4.33-5.41) M/uL Hgb (13.1-16.8) g/dL Hct (39.0-49.0) % MCV (84.0-98.0) fL MCH (28.2-33.3) pg MCHC (31.7-36.0) g/dL RDW (11.2-14.1) % Plt Count (150-350) K/uL Neut % (Auto) (45.0-80.0) % Lymph % (Auto) (10.0-50.0) % [place] % (Auto) (2.0-14.0) % Eos % (Auto) (0.0-5.0) % Baso % (Auto) (0.0-2.0) % Neut # (Auto) (1.40-7.00) K/uL Lymph # (Auto) (0.50-3.50) K/uL [place] # (Auto) (0.00-1.00) K/uL Eos # (Auto) (0.00-0.50) K/uL Baso # (Auto) (0.00-0.20) K/uL PT (9.5-12.0) SEC INR D-Dimer, Quantitative (0-400) ng/mL Sodium 132 L (136-145) mmol/L Potassium 4.3 (3.5-5.1) mmol/L Chloride 98 (98-107) mmol/L Carbon Dioxide 20.7 L (21.0-32.0) mmol/L BUN 36 H (7-18) mg/dL Creatinine 1.71 H (0.51-1.17) mg/dL Est Cr Clr Drug Dosing 33.82 mL/min Estimated GFR (MDRD) 39 mL/min Glucose 122 H (74-106) mg/dL Lactic Acid 1.0 (0.4-2.0) mmol/L Calcium 8.9 (8.5-10.1) mg/dL Iron 15 L (50-175) ug/dL TIBC 208 L (250-450) ug/dL % Saturation 7.08254 Ferritin 1471 H (8-388) ng/mL Total Bilirubin 0.4 (0.2-1.0) mg/dL AST 86 H (15-37) U/L ALT 106 H (12-78) U/L Alkaline Phosphatase 67 (46-116) IU/L Creatine Kinase 139 (26-308) U/L Creatine Kinase Index 0.9 (0.0-2.5) % CK-MB (CK-2) 1.30 (0.00-3.60) ng/mL Troponin I 0.006 (0.000-0.056) ng/mL NT-Pro-B Natriuret Pep 1401 H (0-125) pg/mL Total Protein 6.1 L (6.4-8.2) g/dL Albumin 2.3 L (3.4-5.0) g/dL Vitamin B12 792 (193-986) pg/mL Folate 19.9 (8.6-58.9) ng/mL [facility] Results - Last 24 hrs: Microbiology 01/26/19 21:15 Stool Occult Blood (LEONIDES) - Final Stool / Feces Med Orders - Current: Current Medications Discontinued Medications Acetaminophen (Tylenol Extra Strength) 1,000 mg PO TID PRN PRN Reason: Pain/Fever Last Admin: 01/26/19 16:04 Dose: 1,000 mg Hydrocodone Bitart/Acetaminophen ([place] 325-7.5 Mg) 1 tab PO Q4H PRN PRN Reason: Pain (moderate 4-6) Al Hydroxide/Mg Hydroxide (Mag-Al Plus) 30 ml PO Q4H PRN PRN Reason: Indigestion Last Admin: 01/19/19 16:21 Dose: 30 ml Albuterol (Ventolin Hfa) 0 gm INH Q6H PRN PRN Reason: Shortness of Breath Albuterol (Proventil Neb Soln) 2.5 mg INH Q2H PRN PRN Reason: SHORTNESS OF BREATH Albuterol/Ipratropium (Duoneb 3.0-0.5 Mg/3 Ml) 3 ml NEB QIDRT [facility] Last Admin: 01/27/19 09:12 Dose: 3 ml Albuterol/Ipratropium (Duoneb 3.0-0.5 Mg/3 Ml) 3 ml NEB Q4H PRN PRN Reason: Shortness of Breath Last Admin: 01/22/19 16:50 Dose: 3 ml Allopurinol (Zyloprim) 200 mg PO QAM [facility] Last Admin: 01/27/19 09:15 Dose: 200 mg Amiodarone HCl (Cordarone) 400 mg PO DAILY [facility] Last Admin: 01/25/19 08:18 Dose: Not Given Amiodarone HCl (Cordarone) 200 mg PO DAILY [facility] Last Admin: 01/27/19 09:13 Dose: 200 mg Aspirin (Halfprin) 81 mg PO DAILY [facility] Last Admin: 01/27/19 09:13 Dose: 81 mg Atorvastatin Calcium (Lipitor) 60 mg PO BEDTIME [facility] Last Admin: 01/26/19 19:55 Dose: 60 mg Calcium Carbonate (Oystcal-D 625 Mg-125 Units) 1 tab PO BIDMEALS [facility] Last Admin: 01/27/19 09:17 Dose: 1 tab Calcium Carbonate/Glycine (Tums) 1,000 mg PO Q2HR PRN PRN Reason: Indigestion Last Admin: 01/19/19 10:33 Dose: 1,000 mg Clopidogrel Bisulfate (Plavix) 75 mg PO DAILY [facility] Last Admin: 01/27/19 09:15 Dose: 75 mg Docusate Sodium (Colace) 200 mg PO DAILY [facility] Last Admin: 01/27/19 09:15 Dose: 200 mg Fluticasone Propionate (Flonase) 0 gm NASBOTH DAILY PRN PRN Reason: Allergies Furosemide (Lasix) 40 mg IVPUSH NOW ONE Stop: 01/24/19 14:24 Last Admin: 01/24/19 17:28 Dose: 40 mg Furosemide (Lasix) Confirm Administered Dose 40 mg .ROUTE .STK-MED ONE Stop: 01/24/19 17:17 Last Admin: 01/24/19 17:30 Dose: Not Given Furosemide (Lasix) 40 mg IVPUSH Q8HR [facility] Last Admin: 01/25/19 16:30 Dose: Not Given Furosemide (Lasix) 20 mg IVPUSH Q12H [facility] Last Admin: 01/26/19 07:46 Dose: Not Given Gabapentin (Neurontin) 300 mg PO BID [facility] Last Admin: 01/27/19 09:20 Dose: 300 mg Guaifenesin (Mucinex) 600 mg PO DAILY [facility] Last Admin: 01/27/19 09:13 Dose: 600 mg Guaifenesin/Dextromethorphan (Mucinex Dm Er 600-30 Mg) 1 tab PO BID PRN PRN Reason: Cough Last Admin: 01/24/19 08:24 Dose: 1 tab Guaifenesin/Dextromethorphan (Mucinex Dm Er 600-30 Mg) 1 tab PO ASDIRECTED PRN PRN Reason: Cough Last Admin: 01/24/19 21:47 Dose: 1 tab Hydrochlorothiazide (Hydrochlorothiazide) 25 mg PO DAILY [facility] Last Admin: 01/25/19 07:36 Dose: 25 mg Ceftriaxone Sodium 1 gm/ (Sodium Chloride) 100 mls @ 200 mls/hr IV Q24H [facility] Last Admin: 01/26/19 10:53 Dose: 200 mls/hr Lactated Ringer's (Ringers, Lactated) 500 mls @ 500 mls/hr IV .BOLUS ONE Stop: 01/26/19 21:08 Last Admin: 01/26/19 21:02 Dose: 500 mls/hr Lactated Ringer's (Ringers, Lactated) 500 mls @ 500 mls/hr IV .BOLUS PRN PRN Reason: IF SBP LESS THAN 90 Stop: 01/26/19 23:59 Last Admin: 01/26/19 22:10 Dose: 999 mls/hr Lactated Ringer's (Ringers, Lactated) 1,000 mls @ 150 mls/hr IV ASDIRECTED [facility] Last Admin: 01/27/19 10:06 Dose: 150 mls/hr Iopamidol (Isovue-370 (76%)) 100 ml IVPUSH ONETIME ONE Stop: 01/22/19 10:38 Last Admin: 01/22/19 11:41 Dose: 100 ml Levofloxacin (Levaquin) 750 mg PO DAILY [facility] Stop: 01/26/19 08:01 Last Admin: 01/25/19 07:48 Dose: 750 mg Loratadine (Claritin) 10 mg PO QAM [facility] Last Admin: 01/27/19 09:14 Dose: 10 mg Magnesium Hydroxide (Milk Of Magnesia) 30 ml PO DAILY PRN PRN Reason: Constipation Last Admin: 01/27/19 09:18 Dose: 30 ml Metoprolol Succinate (Toprol Xl) 12.5 mg PO BEDTIME [facility] Last Admin: 01/26/19 22:10 Dose: 12.5 mg Metoprolol Tartrate (Lopressor) 50 mg PO Q12HR [facility] Last Admin: 01/20/19 09:20 Dose: 50 mg Metoprolol Tartrate (Lopressor) 25 mg PO Q12HR [facility] Last Admin: 01/26/19 07:46 Dose: Not Given Mometasone Furoate/Formoterol Fumar (Dulera 200-5 Mcg) 0 puff IH BID [facility] Last Admin: 01/27/19 09:12 Dose: 2 puff Multivitamins/Minerals/Vitamin C (Tab-A-Cooper) 1 tab PO DAILY [facility] Last Admin: 01/27/19 09:20 Dose: 1 tab Non-Formulary Medication (Umeclidinium [place] [Incruse Ellipta*]) 1 puff IH DAILY [facility] Omeprazole (Omeprazole) 20 mg PO DAILY [facility] Last Admin: 01/26/19 07:44 Dose: 20 mg Omeprazole (Omeprazole) 20 mg PO BIDAC [facility] Last Admin: 01/27/19 09:14 Dose: 20 mg Potassium Chloride (Klor-Con M20) 20 meq PO NOW STA Stop: 01/24/19 14:25 Last Admin: 01/24/19 17:29 Dose: 20 meq Potassium Chloride (Klor-Con M20) 20 meq PO DAILY [facility] Last Admin: 01/25/19 07:37 Dose: 20 meq Potassium Chloride (Klor-Con M20) Confirm Administered Dose 20 meq .ROUTE .STK- MED ONE Stop: 01/24/19 17:17 Last Admin: 01/24/19 17:30 Dose: Not Given Potassium Chloride (Klor-Con M20) 20 meq PO TID [facility] Last Admin: 01/25/19 11:36 Dose: 20 meq Potassium Chloride (Klor-Con M20) 20 meq PO BID [facility] Last Admin: 01/26/19 07:44 Dose: 20 meq Sodium Chloride (Saline Flush) 10 ml FLUSH ASDIRECTED PRN PRN Reason: Keep Vein Open Last Admin: 01/26/19 10:53 Dose: 10 ml Tiotropium [place] (Spiriva Handihaler) 18 mcg INH DAILY [facility] Last Admin: 01/27/19 09:20 Dose: 18 mcg Warfarin Sodium (Coumadin) 2 mg PO ASDIRECTED [facility] Warfarin Sodium (Coumadin) 1 mg PO ONETIME ONE Stop: 01/17/19 18:01 Last Admin: 01/17/19 17:18 Dose: 1 mg Warfarin Sodium (Coumadin) 2 mg PO DAILY@1800 [facility] Stop: 01/19/19 18:01 Last Admin: 01/19/19 17:42 Dose: 2 mg Warfarin Sodium (Coumadin) 1 mg PO ONETIME ONE Stop: 01/20/19 18:01 Last Admin: 01/20/19 17:29 Dose: 1 mg Warfarin Sodium (Coumadin) 2 mg PO ONETIME ONE Stop: 01/21/19 18:01 Last Admin: 01/21/19 17:13 Dose: 2 mg Warfarin Sodium (Coumadin) 1 mg PO ONETIME ONE Stop: 01/22/19 18:01 Last Admin: 01/22/19 17:25 Dose: 1 mg Warfarin Sodium (Coumadin) 2 mg PO ONETIME ONE Stop: 01/23/19 18:01 Last Admin: 01/23/19 17:02 Dose: 2 mg Warfarin Sodium (Coumadin) 0.5 mg PO ONETIME ONE Stop: 01/25/19 18:01 - Exam Quality Assessment: Reports: Supplemental Oxygen General: Reports: Alert HEENT: Reports: Pupils Equal, Pupils Reactive Neck: Reports: Supple Lungs: Reports: Rales Cardiovascular: Reports: Regular Rate, Regular Rhythm GI/Abdominal Exam: Normal Bowel Sounds, Soft, Non-Tender Skin: Reports: Warm, Dry, Intact Psy/Mental Status: Reports: Alert, Normal Affect, Normal Mood, Other (some confusion noted)
== END 2019-01-27 11:00 | DRG 194 ==
LOC: LL.MS 11:13
PROVIDERS: ADMIT Nurse Practitioner; ATTEND Family Medicine
PROC: 3E033XZ Introduction of Vasopressor into Peripheral Vein, Percutaneous Approach (ICD-10-PCS; principal; 2019-01-26)
DX: J18.1 Lobar pneumonia, unspecified organism (principal); J44.0 Chronic obstructive pulmonary disease with (acute) lower respiratory infection; I13.0 Hypertensive heart and chronic kidney disease with heart failure and stage 1 through stage 4 chronic kidney disease, or unspecified chronic kidney disease; E87.1 Hypo-osmolality and hyponatremia; J90 Pleural effusion, not elsewhere classified; N18.9 Chronic kidney disease, unspecified; I25.10 Atherosclerotic heart disease of native coronary artery without angina pectoris; J31.0 Chronic rhinitis; E78.00 Pure hypercholesterolemia, unspecified; I73.9 Peripheral vascular disease, unspecified; K21.9 Gastro-esophageal reflux disease without esophagitis; G62.9 Polyneuropathy, unspecified; E21.3 Hyperparathyroidism, unspecified; I95.9 Hypotension, unspecified; I50.9 Heart failure, unspecified; R79.89 Other specified abnormal findings of blood chemistry; D63.1 Anemia in chronic kidney disease; E87.6 Hypokalemia; Z95.1 Presence of aortocoronary bypass graft; Z86.73 Personal history of transient ischemic attack (TIA), and cerebral infarction without residual deficits; Z88.1 Allergy status to other antibiotic agents; Z88.0 Allergy status to penicillin; Z88.8 Allergy status to other drugs, medicaments and biological substances; Z79.899 Other long term (current) drug therapy; Z79.82 Long term (current) use of aspirin; Z79.01 Long term (current) use of anticoagulants; Z86.010 Personal history of colon polyps; Z87.11 Personal history of peptic ulcer disease; I25.2 Old myocardial infarction
CPT/HCPCS: 36415; 71046; 71275; 80048; 80053; 82272; 82550; 82553; 82607; 82728; 82746; 83540; 83550; 83605; 83880; 84484; 85025; 85379; 85610; 87040; 93005; 93970; 94640; 97110-GO; 97110-GP; 97116-GP; 97161-GP; 97165-GO; 97530-GO; 97530-GP; 97535-GO; A9270-GY; J0696; J1940; J7050; J7120; J7620-GY; Q9967

== ENCOUNTER 2019-01-31 11:28 | Inpatient (IN) | payer MEDICARE, BC ==
--- OUTSIDE RECORDS SUMMARY | 2019-01-31 14:03 | XMSREPORT ---
:1940 Author Organization and [facility] Address [address] [place] [address] [address] [place] [address] Care Team Providers Name Role Phone Homero Newman PA-C Primary Care Provider Provider, No Attributed RESOURCE Attributed Provider Unavailable Honey Livingston DO [facility] Attending [facility] RESOURCE Unavailable Reason for Referral (Routine) Status Reason Specialty Diagnoses / Procedures Referred By Contact Referred To Contact [address] [phone] (Routine) Status Reason Specialty Diagnoses / Procedures Referred By Contact Referred To Contact [address] [phone] Reason for Visit Auth/Cert Status Reason Specialty Diagnoses / Procedures Referred By Contact Referred To Contact Encounter Details Date Type Department Care Team Description 01/27/2019 - Hospital Encounter [facility] Provider, Generic Hosp Procedure CAP ([facility] 01/31/2019 CENTER 5B ICU Paul Arcos MD [address] [place] [address] [id number] acquired pneumonia) [id number] Rocío Chen MD [address] [place] [address] [id number] [place], [place] [id number] Allergies Active Allergy Reactions Severity Noted Date Comments Gentamicin Rash 11/05/2018 Lovastatin Dizziness 12/06/2012 Penicillin Hives (High) High 12/06/2012 documented as of this encounter (statuses as of 01/31/2019) Medications Medication Sig Dispensed Refills Start End Status Date Date fluticasone (FLONASE) Benton 2 sprays 0 Active 50 mcg/spray nasal into each nostril spray 1 time a day as needed for other (Specify) (allergies) tiotropium (SPIRIVA) Inhale 18 mcg 0 Active [...] needed (pain) For mild pain or fever CALCIUM Take 1 tablet 0 Active CITRATE-VITAMIN D PO (Citracal - 625mg and VitD 125units) by mouth 2 times a day with meals budesonide-formoterol Inhale 2 puffs 3 Inhaler 4 02/04/ Active (SYMBICORT) 160-4.5 orally 2 times a 019 2020 mcg/puff day Shake well inhalerIndications: before using. 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 (HCC) allopurinol (ZYLOPRIM) Take 2 tablets 30 tablet 0 Active 100 mg tablet (200 mg) by mouth 019 1 time per day docusate sodium Take 2 capsules 0 Active (COLACE) 100 mg (200 mg) by mouth 019 capsule 1 time per day gabapentin (NEURONTIN) Take 1 capsule 0 Active 300 mg (300 mg) by mouth 019 capsuleIndications: 2 times a day NSTEMI (non-ST elevated myocardial infarction) ([facility]), CAD, multiple vessel, S/P CABG x 2, Cerebrovascular accident (CVA), unspecified mechanism ([facility]), Subclavian artery stenosis, right ([facility]), Essential hypertension, Panlobular emphysema ([facility]), Atherosclerotic peripheral vascular disease with intermittent claudication ([facility]), History of CEA (carotid endarterectomy), History of cerebral thrombosis, Paroxysmal atrial fibrillation ([facility]), Acute on chronic diastolic CHF (congestive heart failure) ([facility]) loratadine (CLARITIN) Take 1 tablet (10 0 Active 10 mg tablet mg) by mouth 1 019 time per day omeprazole (PRILOSEC) Take 1 capsule (20 30 capsule 3 Active 20 mg mg) by mouth 1 019 capsuleIndications: time a day in the NSTEMI (non-ST morning elevated myocardial infarction) ([facility]), CAD, multiple vessel, S/P CABG x 2, Cerebrovascular accident (CVA), unspecified mechanism ([facility]), Subclavian artery stenosis, right ([facility]), Essential hypertension, Panlobular emphysema ([facility]), Atherosclerotic peripheral vascular disease with intermittent claudication ([facility]), History of CEA (carotid endarterectomy), History of cerebral thrombosis, Paroxysmal atrial fibrillation ([facility]), Acute on chronic diastolic CHF (congestive heart failure) ([facility]) atorvaSTATin (LIPITOR) Take 1.5 tablets 30 tablet 1 Active 40 mg tablet (60 mg) by mouth 019 every night at bedtime aspirin (ECOTRIN LOW Take 1 tablet (81 30 tablet 0 Active STRENGTH) 81 MG mg) by mouth 1 019 enteric coated tablet time per day enoxaparin (LOVENOX) Inject 80 mg 10 syringe 0 Active 80 mg syringe (100 subcutaneously 2 019 mg/mL) subcutaneous times a day injection solutionIndications: Paroxysmal atrial fibrillation ([facility]) predniSONE 20 mg Take 1 tablet (20 12 tablet 0 Active tabletIndications: mg) by mouth 1 019 Chronic obstructive time per day pulmonary disease with acute exacerbation ([facility]) Multiple Take by mouth 1 0 Active Vitamins-Minerals time per day 019 (CENTRUM SILVER ULTRA MENS) TABS warfarin (COUMADIN) 2 [facility] 0 Active MG tablet Anticoagulation 019 Pt:Take as directed. (Insurance Purposes: 2-3mg daily dose range) Call [phone] if ? amiodarone (CORDARONE, Take 1 tablet (200 0 Active PACERONE) 200 mg mg) by mouth 1 019 tablet time per day metoprolol succinate Take 1.5 tablets 45 tablet 0 01/31/2 03/02/ Active (TOPROL XL) 50 mg SR (75 mg) by mouth 2018 tablet (24 time per day hr)Indications: Paroxysmal atrial fibrillation (HCC) colchicine 0.6 mg Take 1 tablet (0.6 3 tablet 0 Active tablet mg) by mouth as 019 needed 2 tablets po on onset of gout attack with 1 tablet po q1h prn thereafter with max dose of 5 tablets per 24 hours allopurinol (ZYLOPRIM) Take 200 mg by 0 01/31/ Discontinued 100 mg tablet mouth 1 time per 2018 day colchicine 0.6 mg Take 0.6 mg by 0 01/31/ Discontinued tablet mouth as needed. 2 2019 tablets po on onset of gout attack with 1 tablet po q1h prn thereafter with max dose of 5 tablets per 24 hours loratadine (CLARITIN) Take 10 mg by 0 01/31/ Discontinued 10 mg tablet mouth 1 time per 2018 day. Multiple Take 1 tablet by 0 01/31/ Discontinued Vitamins-Minerals mouth 1 time per 2018 (CENTRUM SILVER ULTRA day. MENS PO) atorvaSTATin (LIPITOR) Take 60 mg by 30 tablet 1 01/31/ Discontinued 40 mg tablet mouth every night 2018 at bedtime calcium Take 1 tablet by 0 01/28/ Discontinued citrate-vitamin D mouth 2 times a 2018 (CITRACAL + VIT D) 315 day with meals. mg-200 unit TABS aspirin (ECOTRIN LOW Take 81 mg by 0 2 01/31/ Discontinued STRENGTH) 81 MG mouth 1 time per 2018 enteric coated tablet day warfarin (COUMADIN) 2 [facility] 0 01/31/ Discontinued MG tablet Anticoagulation 2018 Pt:Take as directed. (Insurance Purposes: 2-3mg daily dose range) Call [phone] if ? clopidogrel (PLAVIX) Take 1 tablet (75 90 tablet 3 11/20/01/31/ Discontinued 75 mg mg) by mouth 2018 tabletIndications: time per day NSTEMI (non-ST elevated myocardial infarction) ([facility]) Docusate Sodium (DSS) Take 250 mg by 30 capsule 0 01/15/01/31/ Discontinued 250 MG mouth 1 time per 2018 CAPSIndications: day NSTEMI (non-ST elevated myocardial infarction) ([facility]), CAD, multiple vessel, S/P CABG x 2, Cerebrovascular accident (CVA), unspecified mechanism ([facility]), Subclavian artery stenosis, right (HCC), Essential hypertension, Panlobular emphysema (HCC), Atherosclerotic peripheral vascular disease with intermittent claudication (HCC), History of CEA (carotid endarterectomy), History of cerebral thrombosis, Paroxysmal atrial fibrillation ([facility]), Acute on chronic diastolic CHF (congestive heart failure) ([facility]) fluticasone-vilanterol Inhale 1 puff 3 Inhaler 4 2 01/31/ Discontinued (BREO ELLIPTA) 200-25 orally 1 time per 2018 mcg/puff day inhalerIndications: NSTEMI (non-ST elevated myocardial infarction) ([facility]), CAD, multiple vessel, S/P CABG x 2, Cerebrovascular accident (CVA), unspecified mechanism (HCC), Subclavian artery stenosis, right (HCC), Essential hypertension, Panlobular emphysema ([facility]), Atherosclerotic peripheral vascular disease with intermittent claudication ([facility]), History of CEA (carotid endarterectomy), History of cerebral thrombosis, Paroxysmal atrial fibrillation ([facility]), Acute on chronic diastolic CHF (congestive heart failure) ([facility]) HYDROcodone-acetaminop Take 1 tablet by 40 tablet 0 2 01/31/ Discontinued hen (NORCO) 7.5-325 mg mouth Every 2018 tabletIndications: hours as needed NSTEMI (non-ST for moderate pain elevated myocardial or severe pain infarction) ([facility]), Earliest Fill CAD, multiple vessel, Date: 01/15/19 S/P CABG x 2, Cerebrovascular accident (CVA), unspecified mechanism (HCC), Subclavian artery stenosis, right (HCC), Essential hypertension, Panlobular emphysema (HCC), Atherosclerotic peripheral vascular disease with intermittent claudication ([facility]), History of CEA (carotid endarterectomy), History of cerebral thrombosis, Paroxysmal atrial fibrillation ([facility]), Acute on chronic diastolic CHF (congestive heart failure) ([facility]) omeprazole (PRILOSEC) Take 1 capsule (20 30 capsule 3 2 01/31/ Discontinued 20 mg mg) by mouth 2018 capsuleIndications: time a day in the NSTEMI (non-ST morning elevated myocardial infarction) ([facility]), CAD, multiple vessel, S/P CABG x 2, Cerebrovascular accident (CVA), unspecified mechanism (HCC), Subclavian artery stenosis, right (HCC), Essential hypertension, Panlobular emphysema (HCC), Atherosclerotic peripheral vascular disease with intermittent claudication (HCC), History of CEA (carotid endarterectomy), History of cerebral thrombosis, Paroxysmal atrial fibrillation (HCC), Acute on chronic diastolic CHF (congestive heart failure) ([facility]) umeclidinium (INCRUSE Inhale 1 puff 1 Inhaler 0 01/15/2 01/31/ Discontinued ELLIPTA) 62.5 mcg/puff orally 1 time per 2018 inhalerIndications: day NSTEMI (non-ST elevated myocardial infarction) (HCC), CAD, multiple vessel, S/P CABG x 2, Cerebrovascular accident (CVA), unspecified mechanism (HCC), Subclavian artery stenosis, right (HCC), Essential hypertension, Panlobular emphysema (HCC), Atherosclerotic peripheral vascular disease with intermittent claudication (HCC), History of CEA (carotid endarterectomy), History of cerebral thrombosis, Paroxysmal atrial fibrillation (HCC), Acute on chronic diastolic CHF (congestive heart failure) ([facility]) hydroCHLOROthiazide 25 Take 1 tablet (25 30 tablet 0 01/15/2 01/31/ Discontinued mg tabletIndications: mg) by mouth 2018 NSTEMI (non-ST time per day elevated myocardial infarction) (HCC), CAD, multiple vessel, S/P CABG x 2, Cerebrovascular accident (CVA), unspecified mechanism (HCC), Subclavian artery stenosis, right (HCC), Essential hypertension, Panlobular emphysema (HCC), Atherosclerotic peripheral vascular disease with intermittent claudication (HCC), History of CEA (carotid endarterectomy), History of cerebral thrombosis, Paroxysmal atrial fibrillation (HCC), Acute on chronic diastolic CHF (congestive heart failure) ([facility]) amiodarone (CORDARONE, Take 1 tablet (400 90 tablet 4 01/15/2 01/31/ Discontinued PACERONE) 400 mg mg) by mouth 2018 tabletIndications: time per day NSTEMI (non-ST elevated myocardial infarction) (HCC), CAD, multiple vessel, S/P CABG x 2, Cerebrovascular accident (CVA), unspecified mechanism (HCC), Subclavian artery stenosis, right (HCC), Essential hypertension, Panlobular emphysema (HCC), Atherosclerotic peripheral vascular disease with intermittent claudication (HCC), History of CEA (carotid endarterectomy), History of cerebral thrombosis, Paroxysmal atrial fibrillation ([facility]), Acute on chronic diastolic CHF (congestive heart failure) ([facility]) metoprolol tartrate Take 1 tablet (50 180 tablet 4 01/31/ Discontinued (LOPRESSOR) 50 mg mg) by mouth Every 2019 tabletIndications: 12 hours NSTEMI (non-ST elevated myocardial infarction) ([facility]), CAD, multiple vessel, S/P CABG x 2, Cerebrovascular accident (CVA), unspecified mechanism ([facility]), Subclavian artery stenosis, right ([facility]), Essential hypertension, Panlobular emphysema ([facility]), Atherosclerotic peripheral vascular disease with intermittent claudication ([facility]), History of CEA (carotid endarterectomy), History of cerebral thrombosis, Paroxysmal atrial fibrillation ([facility]), Acute on chronic diastolic CHF (congestive heart failure) ([facility]) docusate sodium Take 200 mg by 0 01/31/ Discontinued (COLACE) 100 mg mouth 1 time per 2018 capsule day IPRATROPIUM-ALBUTEROL Inhale 3 mL by 0 01/31/ Discontinued INH nebulization 4 2019 times a day amiodarone (CORDARONE, Take 200 mg by 0 01/31/ Discontinued PACERONE) 200 mg mouth 1 time per 2018 tablet day metoprolol tartrate Take 25 mg by 0 01/31/ Discontinued (LOPRESSOR) 25 mg mouth 2 times a 2019 tablet day mometasone-formoterol Inhale 2 puffs 0 01/31/ Discontinued (DULERA) 200-5 orally 2 times a 2019 mcg/puff inhaler day Shake well before using. Rinse mouth after use. 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 Right subclavian stenosis and patent vertebral arteries. 3) Admitted to [facility] with amaurosis fugax of right eye and [...] as of this encounter (statuses as of 01/31/2019) Social History Tobacco Use Types Packs/Day Years [...] Vital Sign Reading Time Taken Blood Pressure 156/125 01/31/2019 10:00 AM CDT Pulse 75 01/31/2019 10:00 AM CDT Temperature 36.7 C (98 F) 01/31/2019 12:00 AM CDT Respiratory Rate 23 01/31/2019 10:00 AM CDT Oxygen Saturation 94% 01/31/2019 10:00 AM CDT Inhaled Oxygen Concentration - - Weight 86.1 kg (189 lb 13.1 oz) 01/27/2019 3:00 PM CDT Height 170.2 cm (5' 7") 01/27/2019 3:00 PM CDT Body Mass Index 29.73 01/27/2019 3:00 PM CDT documented in this encounter Functional Status Functional Status Response Date of Assessment Is the person deaf or does he/she have serious difficulty No 01/27/2019 hearing? Is this person blind or does he/she have difficulty No 01/27/2019 seeing even when wearing glasses? Do you have difficulty with walking, balance, climbing No 01/27/2019 stairs, or had a fall in the last 3 months? Does the patient have difficulty dressing or bathing? No 01/27/2019 Because of a physical, mental, or emotional condition; No 01/27/2019 does this person have difficulty doing errands alone such as visiting a doctor's office or shopping? Cognitive Status Response Date of Assessment Because of a physical, mental, or emotional condition; No 01/27/2019 does this person have serious difficulty concentrating, remembering, or making decisions? documented as of this encounter Discharge Summaries Not on filedocumented in this encounter Discharge Instructions InstructionsKayleen Bettencourt, PHARM D - 01/30/2019Warfarin Discharge Instructions : Warfarin dose given 01/31/19 in the hospital. Discharge Fri/Sat/before holiday Start warfarin tomorrow as below: 02/01/19: Take warfarin 2 mg 02/02/19: Take warfarin 2 mg 02/03/19: Check INR in AM 1. Bridging with Lovenox 80 mg twice a day ( subcutaneous injections) along with Warfarin daily until the INR is 2 or above for two consecutive days. 2. Continue medications as prescribed. 3. Discontinue Plavix. Aspirin 81 mg and Coumadin with Lovenox bridging should be continued. 4. Take 40 mg of prednisone daily until 02/01, then 20 mg daily until 02/04, then 10 mg daily until nd then 5 mg daily until 02/07. 5. Follow up with PCP in one week. documented in this encounter Medications at Time of Discharge Medication Sig Dispensed Refills Start Date End Date allopurinol (ZYLOPRIM) Take 2 tablets (200 30 tablet 0 01/31/2019 100 mg tablet mg) by mouth 1 time per day docusate sodium Take 2 capsules (200 0 01/31/2019 (COLACE) 100 mg mg) by mouth 1 time capsule per day gabapentin (NEURONTIN) Take 1 capsule (300 0 01/31/2019 300 mg mg) by mouth 2 times a capsuleIndications: day NSTEMI (non-ST elevated myocardial infarction) (HCC), CAD, multiple vessel, S/P CABG x 2, Cerebrovascular accident (CVA), unspecified mechanism (HCC), Subclavian artery stenosis, right (HCC), Essential hypertension, Panlobular emphysema (HCC), Atherosclerotic peripheral vascular disease with intermittent claudication (HCC), History of CEA (carotid endarterectomy), History of cerebral thrombosis, Paroxysmal atrial fibrillation (HCC), Acute on chronic diastolic CHF (congestive heart failure) ([facility]) loratadine (CLARITIN) Take 1 tablet (10 mg) 0 01/31/2019 10 mg tablet by mouth 1 time per day omeprazole (PRILOSEC) Take 1 capsule (20 mg) 30 capsule 3 01/31/2019 20 mg by mouth 1 time a day capsuleIndications: in the morning NSTEMI (non-ST elevated myocardial infarction) (HCC), CAD, multiple vessel, S/P CABG x 2, Cerebrovascular accident (CVA), unspecified mechanism (HCC), Subclavian artery stenosis, right (HCC), Essential hypertension, Panlobular emphysema (HCC), Atherosclerotic peripheral vascular disease with intermittent claudication (HCC), History of CEA (carotid endarterectomy), History of cerebral thrombosis, Paroxysmal atrial fibrillation (HCC), Acute on chronic diastolic CHF (congestive heart failure) ([facility]) atorvaSTATin (LIPITOR) Take 1.5 tablets (60 30 tablet 1 01/31/2019 40 mg tablet mg) by mouth every night at bedtime aspirin (ECOTRIN LOW Take 1 tablet (81 mg) 30 tablet 0 01/31/2019 STRENGTH) 81 MG by mouth 1 time per enteric coated tablet day enoxaparin (LOVENOX) Inject 80 mg 10 syringe 0 01/31/2019 80 mg syringe (100 subcutaneously 2 times mg/mL) subcutaneous a day injection solutionIndications: Paroxysmal atrial fibrillation ([facility]) warfarin (COUMADIN) 2 [facility] 0 01/31/2019 MG tablet Anticoagulation Pt:Take as directed. (Insurance Purposes: 2-3mg daily dose range) Call [phone] if ? amiodarone (CORDARONE, Take 1 tablet (200 mg) 0 01/31/2019 PACERONE) 200 mg by mouth 1 time per tablet day colchicine 0.6 mg Take 1 tablet (0.6 mg) 3 tablet 0 01/31/2019 tablet by mouth as needed 2 tablets po on onset of gout attack with 1 tablet po q1h prn thereafter with max dose of 5 tablets per 24 hours CALCIUM Take 1 tablet 0 CITRATE-VITAMIN D PO (Citracal - 625mg and VitD 125units) by mouth 2 times a day with meals acetaminophen Take 2 tablets (1,000 0 01/06/2017 (TYLENOL) 500 mg mg) by mouth 3 times a tabletIndications: day as needed (pain) Pain For mild pain or fever albuterol HFA Inhale 2 puffs orally 0 (PROVENTIL,PROAIR,VENT every 6 hours as MAURICIO) 108 (90 BASE) needed for shortness MCG/ACT inhaler of breath Shake well before using. tiotropium (SPIRIVA) Inhale 18 mcg orally 1 0 04/11/2013 18 MCG aer cap time per day fluticasone (FLONASE) Benton 2 sprays into 0 50 mcg/spray nasal each nostril 1 time a spray day as needed for other (Specify) (allergies) budesonide-formoterol Inhale 2 puffs orally 3 Inhaler 4 01/31/20192019 (SYMBICORT) 160-4.5 2 times a day Shake mcg/puff well before using. inhalerIndications: Rinse mouth after use. Chronic obstructive pulmonary disease with acute exacerbation (HCC) predniSONE 20 mg Take 1 tablet (20 mg) 12 tablet 0 01/31/2019 tabletIndications: by mouth 1 time per Chronic obstructive day pulmonary disease with acute exacerbation (HCC) Multiple Take by mouth 1 time 0 01/31/2019 Vitamins-Minerals per day (CENTRUM SILVER ULTRA MENS) TABS metoprolol succinate Take 1.5 tablets (75 45 tablet 0 01/31/20192018 (TOPROL XL) 50 mg SR mg) by mouth 1 time tablet (24 per day hr)Indications: Paroxysmal atrial fibrillation (HCC) documented as of this encounter Progress Notes Amanda Dockery MD - 01/30/2019 1:38 PM CDT DAILY PROGRESS NOTE Tre Hassan is a 78yr old male admitted on 01/27/2019 12:34 PM. Impression / Plan # Acute hypoxic respiratory failure likely secondary to COPD exacerbation and aspiration pneumonia:resolved #Sepsis secondary toabove: resolved Ceftin and Flagyl, sputum culture positive for Stap- ( last dose tomorrow to complete a 7 day course). # Pericardial hematoma: # Recent CABG x 2 for multivessel coronary artery disease CTS consulted: no intervention needed at this point. # Atrial Fibrillation: Patient converted to AF with RVR( 120s) in morning and converted back to NSR after Amiodarone bolus. Will continue home Amiodarone 200 mg daily and Lopressor 12.5 mg BID. B.P readings have been within normal range. [id number]: Continue Warfarin,bridging with Lovenox until INR is 2 or above 2 for 2 consecutive days. #Acute kidney injury on chronic kidney disease, stage 3- pre-renal- resolved # Hypomagnesemia:Will continue to monitor # Hyponatremia: Asymptomatic, will continue to monitor # Acute on chronic anemia: Hb stable. Will continue to monitor Chronic Conditions: Peripheral arterial disease, status post bilateral femoral endarterectomy. 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 COPD: RT per protocol, Duo nebs,Prednisone taper Hyperlipidemia: Continue Lipitor HTN: lopressor 12.5 mg BID Code: Full DVT Prophylaxis: warfarin with bridging Diet:Heart healthy Disposition: PT recommends low intensity setting to continue rehab. D/C tomorrow. Interval History HPI Overnight no acute events, converted to AFib with RVR in morning, now NSR. No SOB, has linda tolerating diet well. Review of Systems Review of Systems Constitutional: Negative for fatigue and fever. Eyes: Negative for visual disturbance. Respiratory: Positive for cough. Negative for shortness of breath. Cardiovascular: Negative for chest pain and leg swelling. Gastrointestinal: Negative for abdominal distention. Genitourinary: Negative for difficulty urinating. Physical Exam Vital Signs: Temp: 97.9 F (36.6 C) | BP: 133/78 | Pulse: 80 | Resp: 22 | Pain Ratin (out of 10) | Weight: 86.1 kg (189 lb 13.1 oz) | O2 Device: Room Air O2 Flow Rate (L/min): 4 l/min | SpO2: 93 % Maximum Temperatures (last 24 hours) Temperature Maximum Max Temp 97.9 F (36.6 C) Intake and Output: 01/29 0700 - 01/30 0659 In: 480 [Oral:480] Out: 475 [Urine:475] Physical Exam Constitutional: He is oriented to person, place, and time. He appears well- developed. No distress. Neck: No JVD present. Cardiovascular: Normal rate, regular rhythm and normal heart sounds. Pulmonary/Chest: Effort normal. B/L crackles improves, diminished BS throughout Abdominal: Soft. Bowel sounds are normal. Musculoskeletal: He exhibits no edema. Neurological: He is alert and oriented to person, place, and time. Labs Labs (Last day) 01/30/19727 - 01/30/19 07 CBC 01/30/19 07 CBC WBC 4.0-11.0 (K/uL) 8.3 RBC 4.40-5.80 (M/uL) 3.51 Hemoglobin 13.5-17.5 (g/dL) 10.3 Hematocrit 40.0-50.0 (%) 31.0 MCV 80.0-98.0 (fL) 88.3 MCH 25.5-34.0 (pg) 29.3 MCHC 31.5-36.5 (g/dL) 33.2 RDW-CV 11.5-15.5 (%) 16.9 RDW-SD 35.5-50.0 (fl) 54.1 Platelet Count 140-400 (K/uL) 357 MPV 8.5-12.0 (fL) 8.7 01/30/19727 - 01/30/19727 CHEMISTRY 01/30/19727 CHEMISTRY Glucose 70-100 (mg/dL) 149 Sodium 135-145 (meq/L) 132 Potassium 3.5-5.3 (meq/L) 4.1 Chloride 99-110 (meq/L) 102 CO2 20-29 (meq/L) 20 Anion Gap with K 6-20 (meq/L) 14 BUN 6-22 (mg/dL) 27 Creatinine 0.80-1.30 (mg/dL) 0.95 BUN/Creatinine Ratio 10.0-25.0 28.4 Calcium 8.5-10.5 (mg/dL) 9.4 Corrected Calcium 8.5-10.5 (mg/dL) 10.0 Phosphorus 2.5-4.5 (mg/dL) 2.7 Albumin 3.5-5.0 (g/dL) 3.3 eGFR >=60 (mL/min/1.73m2) >90 eGFR Non- >=60 (mL/min/1.73m2) 77 01/30/19727 - 01/30/19727 DIFFERENTIAL 01/30/19727 DIFFERENTIAL Seg Neut Absolute 1.8-8.0 (K/uL) 7.2 Lymphocytes Absolute 0.8-4.1 (K/uL) 0.7 Monocytes Absolute 0.0-1.0 (K/uL) 0.5 Eosinophils Absolute 0.0-0.7 (K/uL) 0.0 Basophil Absolute 0.0-0.2 (K/uL) 0.0 Immature Granulocyte Absolute 0.00-0.06 (K/uL) 0.06 Neutrophils Abs. (Segs and Bands) (/uL) 7,200 Neutrophils Percent (%) 86.3 Lymphocytes Percent (%) 7.8 Monocytes Percent (%) 5.8 Immature Granulocyte Percent (%) 0.7 Eosinophils Percent (%) 0.0 Basophil Percent (%) 0.1 Nucleated RBC (/100 WBC's) 0 01/30/19 0716 - 01/30/19 0716 GENERAL COAGULATION 01/30/19 0716 GENERAL COAGULATION Protime 12.0-14.5 (secs) 17.7 INR 2.0-3.5 1.5 01/30/19 0728 - 01/30/19 0728 OTHER 01/30/19 0728 OTHER Age (Years) 78 Medical Decision making Medical Decision Making 8 :59 AM CDT Associated attestation - Rocío Easton MD - 01/31/2019 8:59 AM CDT Patient was seen and discussed with the resident; I personally interviewed and examined the patient. I agree with the resident's diagnosis and management. Note the following additions/corrections: Coagulase Negative Staph Pneumonia Hypoxic Resp Failure - resolved Afib RVR, s/p chemical cardioversion. [id number] score of 7- started on Lovenox bridging Newly diagnosed pericardial Hematoma- recommended to d/c plavix. Continue ASA and anticoagulation Medical Decision Making I have: Independently visualized and interpreted an image, tracing or specimen previously or subsequently interpreted by another provider. Discussed results of laboratory, radiology or other diagnostic tests with the physician who performed or interpreted the study. Obtained/reviewed old records from [place] or elsewhere (details outlined elsewhere in note). Obtained history from a person other than the patient (details outlined elsewhere in note). Discussed case with another provider (details outlined elsewhere in note). A total of 35 minutes was spent with the patient or on the floor today, greater than 50% of which was spent in counseling regarding today's findings/assessment/ plan and in coordination of care, chart review, medical decision making, and documentation Magaly Reed MD - 01/29/2019 7:42 AM CDT Surgery progress note Subjective: Tre is doing well this morning. Says he didn't sleep much last night but feels pretty good. No chest pain/SOB/nausea/vomiting/fevers/chills. Was up walking around yesterday. No other concerns/complaints. Objective: Current Vital Signs Temp: 97.5 F (36.4 C) BP: 104/80 Pulse: 91 O2 Device: NC - no humidity O2 Flow Rate (L/min): 4 l/min Resp: 15 Pain Ratin (out of 10) Weight: 86.1 kg (189 lb 13.1 oz) SpO2: 90 % Gen: Laying in bed, NAD CV: Regular rate, no murmurs appreciated. Incision is healing well and is clean/ dry. Resp: CTAB GI: Abdomen soft, non-tender Extrem: Sensation intact, wiggles toes/plantarflexes/dorsiflexes. Toes are warm , well-perfused. Intake/Output Summary (Last 24 hours) at 01/29/2019 0743 Last data filed at 01/28/20192013 Gross per 24 hour Intake Output 0 ml Net 0 ml No new labs Assessment: 78YOM with pericardial hematoma s/p CABGx2 on 01/08/19. Doing well this morning, NSR, SBPs 110s-120s. Being treated for possible pneumonia. Plan: - IM primary, appreciate their assistance. - No need for evacuation of pericardial hematoma. We recommend treating conservatively. - CTS will sign-off. We will be happy to re-evaluate the patient if the need arises. Thank you for the consult. Magaly Reed MD Orthopedic surgery PGY-1 Lyssa Carmona, PHARM D - 01/28/2019 4:51 PM Kimberley Initial Consult Note Mr. Hassan has been initiated on warfarin per pharmacy protocol for Afib. Desired goal INR is 2-3. Patient has previously been on anticoagulation therapy. Previous dose was no current maintenance plan. Plan: Warfarin: 2 mg today. Pharmacy will monitor and if indicated, adjust dose per the anticoagulation policy. Thank you very much for the consult. Lyssa Johnston, PHARM D Jose Alejandro Rodgers, STUDENT - 01/28/2019 3:50 PM CDTPatient was seen by pharmacy medication reconciliation team. HOME MEDICATIONS have been reconciled and updated to match the patient's home usage. Meds added: Duoneb, Dulera, Gabapentin Meds removed: Breo Ellipta, [place], Meds changed: amiodarone, vzotleu-pakhwds-spphtkw D, docusate sodium, metoprolol tartrate It was unclear exactly what medications the patient should be taking. Received info from patient interview, [facility] discharge, [facility] [place], and [facility]. Conflicting medications, doses, and instructions were present on these sources. There were medications that were discontinued on previous discharge on 01/15/19, but were still given to the patient at the [facility]. Updated the med list to mirror the [facility], as this likely has the most updated information of patient intake. Patient was most unclear on his inhalers, warfarin dose, and if he was on niacin and gabapentin. Current dose of warfarin is unclear. Kept the 2mg dose, but patient believed he took a 1mg and 2mg dose. Patient denies use of any other OTC medications, creams/ointments, eye/ear drops , herbals, or vitamins/minerals. Jose Alejandro Calvo PharmD. Candidate 2020 Floyd Hernandez MD - 01/28/2019 10:31 AM CDTCT Surgery Pt seen and studies and records reviewed Admitted with SOB CABG x2 01/08/2019 Dr. Snow Afib postop- on warfarin. Was supertherapeutic postop- better control lately. Echo on admission- pericardial hematoma. No tamponade. CXR- LLL consolidation Hgb 7.4- transfused 2u PRBC Hgb 9.5 today. Currently: Feels better Walking BP 100-130s syst. P 90s NSR RR 18 Afeb Sternal wound clean and dry, healing well. A/P Likely oozing when INR ~4. Doesn't need evacuation of hematoma- recommend treating conservatively. He has been in NSR since admission. Doesn't need warfarin for episodes of afib after surgery. Treated for possible pneumonia. Amanda Rubalcava MD - 01/28/2019 7:17 AM CDT DAILY PROGRESS NOTE Tre Hassan is a 78yr old male admitted on 01/27/2019 12:34 PM. Impression / Plan # Acute hypoxic respiratory failure likely secondary to COPD exacerbation and aspiration pneumonia: #Sepsis secondary to above: VFSS showed aspiration to liquids, B.P and HR improving after fluids. Afebrile Diet: Heart healthy will pills in a purees. IV Rocephin and IV Flagyl. 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 CTS has been informed about the patient # AF rate controlled, on chronic anticoagulation: Plan: Telemetry Restart Warfarin #Acute kidney injury on chronic kidney disease, stage 3- pre-renal- resolved # Hypomagnesemia: Will continue to monitor # Hyponatremia: Asymptomatic, will continue to monitor # Acute on chronic anemia: Hb stable. Will continue to monitor Chronic Conditions: Peripheral arterial disease, status post bilateral femoral endarterectomy. 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 COPD: RT per protocol, Duo nebs, IV Solucortef Hyperlipidemia: Continue Lipitor Code: Full DVT Prophylaxis: SCDs Diet: Heart healthy Disposition: CTS consulted, PT recommends low intensity setting to continue rehab Interval History HPI No acute events overnight, decrease in cough. Afebrile. Review of Systems Constitutional: Negative for appetite change and fever. HENT: Positive for dental problem. Eyes: Positive for discharge. Respiratory: Positive for cough, shortness of breath and wheezing. Cardiovascular: Negative for chest pain, palpitations and leg swelling. Gastrointestinal: Positive for constipation. Negative for abdominal pain. Physical Exam Vital Signs: Temp: 97.6 F (36.4 C) | BP: 106/60 | Pulse: 77 | Resp: 22 | Pain Ratin (out of 10) | Weight: 86.1 kg (189 lb 13.1 oz) | O2 Device: NC - no humidity O2 Flow Rate (L/min): 4 l/min | SpO2: 95 % Maximum Temperatures (last 24 hours) Temperature Maximum Max Temp 98.6 F (37 C) Intake and Output: 01/27 0700 - 01/28 0659 In: 2335 Out: - Physical Exam Constitutional: He is oriented to person, place, and time. He appears well- developed. Eyes: Left eye exhibits discharge. Whitish discharge from L eye Neck: No JVD present. Cardiovascular: Normal rate, regular rhythm and normal heart sounds. Pulmonary/Chest: He is in respiratory distress. He has wheezes. Decreased breath sounds, Crackles most appreciable on the L side improving Musculoskeletal: He exhibits edema. Neurological: He is alert and oriented to person, place, and time. Labs Labs (Last day) 01/27/191749 - 01/27/191709 BLOOD BANK 01/27/19 17501/27/19 17101/27/19 17101/27/19 17101/27/191709 BLOOD BANK ABO Type A Rh Type Positive Antibody Screen Negative Expiration Date 01/30/2019 23:59 Product Code RBC, Leukoreduced CP2D>AS3 [id number] RBC, Leukoreduced CP2D&gt ;AS3 [id number] Unit ID [id number] Unit ABO Type A A Unit Rh Type POS POS XM Interp Compatible Compatible Product Status Issued IS Issued IS 01/27/19 1455 - 01/27/19 1455 CARDIAC MARKERS 01/27/19 1455 CARDIAC MARKERS BNP 0-100 (pg/mL) 228 01/28/19 0640 - 01/27/19 1454 CBC 01/28/19 0640 01/27/19 1454 CBC WBC 4.0-11.0 (K/uL) 8.2 9.0 RBC 4.40-5.80 (M/uL) 3.23 2.48 Hemoglobin 13.5-17.5 (g/dL) 9.5 7.3 Hematocrit 40.0-50.0 (%) 29.0 23.4 MCV 80.0-98.0 (fL) 89.8 94.4 MCH 25.5-34.0 (pg) 29.4 29.4 MCHC 31.5-36.5 (g/dL) 32.8 31.2 RDW-CV 11.5-15.5 (%) 17.7 16.3 RDW-SD 35.5-50.0 (fl) 58.2 56.2 Platelet Count 140-400 (K/uL) 426 482 MPV 8.5-12.0 (fL) 8.9 9.0 01/27/19 1455 - 01/27/19 1455 CHEMISTRY 01/27/19 1455 01/27/19 1455 01/27/19 1455 01/27/19 1455 CHEMISTRY Glucose 70-100 (mg/dL) 104 Sodium 135-145 (meq/L) 132 Potassium 3.5-5.3 (meq/L) 4.3 Chloride 99-110 (meq/L) 99 CO2 20-29 (meq/L) 22 Anion Gap with K 6-20 (meq/L) 15 BUN 6-22 (mg/dL) 31 Creatinine 0.80-1.30 (mg/dL) 1.63 BUN/Creatinine Ratio 10.0-25.0 19.0 Calcium 8.5-10.5 (mg/dL) 9.2 Bilirubin Total 0.2-1.2 (mg/dL) 0.4 Bilirubin Direct 0.0-0.4 (mg/dL) 0.3 Bilirubin Indirect 0.0-0.8 (mg/dL) 0.1 Alkaline Phosphatase 30-150 (U/L) 67 ALT - SGPT 0-55 (U/L) 93 AST - SGOT 0-35 (U/L) 85 Protein Total 6.0-8.2 (g/dL) 6.2 Albumin 3.5-5.0 (g/dL) 3.2 Lactic Acid 0.5-2.2 (mmol/L) 1.2 Procalcitonin <0.07 (ng/mL) 0.15 eGFR >=60 (mL/min/1.73m2) 50 eGFR Non- >=60 (mL/min/1.73m2) 41 01/28/19 0640 - 01/27/19 1454 DIFFERENTIAL 01/28/19 0640 01/27/19 1454 DIFFERENTIAL Seg Neut Absolute 1.8-8.0 (K/uL) 7.1 6.9 Lymphocytes Absolute 0.8-4.1 (K/uL) 0.5 1.0 Monocytes Absolute 0.0-1.0 (K/uL) 0.6 0.9 Eosinophils Absolute 0.0-0.7 (K/uL) 0.0 0.3 Basophil Absolute 0.0-0.2 (K/uL) 0.0 0.0 Immature Granulocyte Absolute 0.00-0.06 (K/uL) 0.10 0.12 Neutrophils Abs. (Segs and Bands) (/uL) 7,100 6,900 Neutrophils Percent (%) 86.6 76.4 Lymphocytes Percent (%) 6.6 10.9 Monocytes Percent (%) 6.7 9.4 Immature Granulocyte Percent (%) 1.2 1.3 Eosinophils Percent (%) 0.0 2.9 Basophil Percent (%) 0.1 0.4 Nucleated RBC (/100 WBC's) 0 0 01/27/19 1428 - 01/27/19 1428 ECG/EKG 01/27/19 1428 ECG/EKG EKG WAVEFORM Normal sinus rhythm Left axis deviation Minimal voltage criteria for LVH, may be normal variant Abnormal ECG When compared with ECG of 12-JAN-2019 07:11, Sinus rhythm has replaced Atrial fibrillation Criteria for Septal infarct are no longer Present Ventricular Rate: 100 BPM Atrial Rate: 100 BPM P-R Interval: 184 ms QRS Duration: 88 ms Q-T Interval: 370 ms QTc Calculation(Bazett): 477 ms Calculated P Edmonds: 46 degrees Calculated R Edmonds: -36 degrees Calculated T Edmonds: 71 degrees 01/27/19 1455 - 01/27/19 1455 GENERAL COAGULATION 01/27/19 1455 GENERAL COAGULATION Protime 12.0-14.5 (secs) 21.4 INR 2.0-3.5 1.9 01/27/19 1712 - 01/27/19 1440 OTHER 01/27/19 1712 01/27/19 1710 01/27/19 1455 01/27/19 1440 OTHER Age (Years) 78 BPAM Blood Expiration Date [id number] [facility] Coding System 6200 6200 Fasting Yes, No, Unknown Unknown MRSA by NAD, Nasal Not Detected Not Detected Medical Decision making Medical Decision Making 10 :41 PM CDT Associated attestation - Rocío Easton MD - 01/29/2019 10:41 PM CDT Patient was seen and discussed with the resident; I personally interviewed and examined the patient. I agree with the resident's diagnosis and management. Medical Decision Making I have: Independently visualized and interpreted an image, tracing or specimen previously or subsequently interpreted by another provider. Discussed results of laboratory, radiology or other diagnostic tests with the physician who performed or interpreted the study. Obtained/reviewed old records from [place] or elsewhere (details outlined elsewhere in note). Obtained history from a person other than the patient (details outlined elsewhere in note). Discussed case with another provider (details outlined elsewhere in note). A total of 35 minutes was spent with the patient or on the floor today, greater than 50% of which was spent in counseling regarding today's findings/assessment/ plan and in coordination of care, chart review, medical decision making, and documentation documented in this encounter Plan of Treatment Date Type Specialty Care Team Description 02/12/2019 Office Visit CARDIOLOGY Rhianna Evans APRN-CNP [address] [place] [address] [id number] 02/17/2019 Appointment Radiology Peter Basilio PA-C [address], [place] [address] [phone] 02/17/2019 Appointment Cardiovascular Services Peter Basilio PA-C [address], [place] [address] [phone] 02/17/2019 Office Visit CARDIOLOGY 03/03/2019 Ancillary Procedure Radiology 03/03/2019 Ancillary Procedure Radiology 03/03/2019 Office Visit Interventional Radiology Carlitos Ceballos MD [address] [place] [address] [id number] Name Priority Associated Diagnoses Order Schedule PROTIME/INR Routine every 24 hours until discontinued starting 01/29/2019, 3 completed Name Priority Associated Diagnoses Order Schedule HOSPITAL DISCHARGE WARFARIN Routine Once for 1 Occurrences ANTICOAG ORDER starting 01/31/2019 until 01/31/2019 documented as of this encounter Implants Implanted Type Area Stoper Device Shelf Model / Identifier Expiration Serial / Date Lot Patch Vascuguard 1x8mm N [id number] Ea - [id number] Vascular Right: DAVIS [id number] / Implanted: Qty: 1 on 01/01/2013 by Tonny Sands MD CAROTID / [id number] Stnt Smart 10x30 80cm N [id number] Ea-04/02/2013 Vascular J[employer]J CORDIS COLLEEN / Implanted: 04/02/2013 by Carlitos Ceballos MD (Quantity not on file) / [id number] Patch Vascuguard 0.8x8cm N [id number] Ea - [id number] Right: DAVIS [id number] 12/23/2020 [id number] / Implanted: Qty: 1 on 12/28/2016 by Adam Mccoy MD GROIN 1 / [id number] [employer] 6 Ccs 4-18 N [id number] Bx12/Ea1 - [id number] N/A: J&J ETHICON, [id number] / Implanted: Qty: 3 on 01/08/2019 by Lucía Maciel MD [employer] / documented as of this encounter Procedures Procedure Name Priority Date/Time Associated Comments Diagnosis PROTIME/INR Timed Routine 01/31/2019 6:58 Results for this AM CDT procedure are in the results section. HEMOGLOBIN Routine 01/31/2019 6:58 Results for this AM CDT procedure are in the results section. MAGNESIUM Routine 01/31/2019 6:58 Results for this AM CDT procedure are in the results section. RENAL FUNCTION PANEL Routine 01/31/2019 6:58 Results for this AM CDT procedure are in the results section. XRAY CHEST PORTABLE Routine 01/30/2019 9:35 Results for this AM CDT procedure are in the results section. LAB ONLY-COMPLETE Timed Routine 01/30/2019 7:28 Results for this BLOOD COUNT WITH AM CDT procedure are in DIFFERENTIAL the results section. RENAL FUNCTION PANEL Routine 01/30/2019 7:28 Results for this AM CDT procedure are in the results section. COMPLETE BLOOD COUNT Timed Routine 01/30/2019 7:28 Results for this WITH DIFFERENTIAL AM CDT procedure are in the results section. PROTIME/INR Timed Routine 01/30/2019 7:16 Results for this AM CDT procedure are in the results section. LAB ONLY-COMPLETE Routine 01/29/2019 7:16 Results for this BLOOD COUNT WITH AM CDT procedure are in DIFFERENTIAL the results section. PROTIME/INR Timed Routine 01/29/2019 7:16 Results for this AM CDT procedure are in the results section. MAGNESIUM Routine 01/29/2019 7:16 Results for this AM CDT procedure are in the results section. RENAL FUNCTION PANEL Routine 01/29/2019 7:16 Results for this AM CDT procedure are in the results section. COMPLETE BLOOD COUNT Routine 01/29/2019 7:16 Results for this WITH DIFFERENTIAL AM CDT procedure are in the results section. PROTIME/INR Routine 01/28/2019 3:44 Results for this PM CDT procedure are in the results section. XRAY VIDEO SWALLOW Routine 01/28/2019 10:14 Results for this WITH FLUORO AM CDT procedure are in the results section. LAB ONLY-COMPLETE Routine 01/28/2019 6:40 Results for this BLOOD COUNT WITH AM CDT procedure are in DIFFERENTIAL the results section. MAGNESIUM Routine 01/28/2019 6:40 Results for this AM CDT procedure are in the results section. RENAL FUNCTION PANEL Routine 01/28/2019 6:40 Results for this AM CDT procedure are in the results section. COMPLETE BLOOD COUNT Routine 01/28/2019 6:40 Results for this WITH DIFFERENTIAL AM CDT procedure are in the results section. TRANSFUSE RED BLOOD Routine 01/27/2019 9:46 CELLS IN UNITS PM CDT TRANSFUSE RED BLOOD Routine 01/27/2019 9:08 CELLS IN UNITS PM CDT TYPE AND SCREEN STAT 01/27/2019 5:50 Results for this PM CDT procedure are in the results section. PREPARE AND HOLD RED Routine 01/27/2019 5:12 Results for this BLOOD CELLS IN UNITS PM CDT procedure are in - BLOOD BANK the results section. PREPARE AND HOLD RED Routine 01/27/2019 5:10 Results for this BLOOD CELLS IN UNITS PM CDT procedure are in - BLOOD BANK the results section. CULTURE BACTERIAL, Routine 01/27/2019 3:21 Results for this RESPIRATORY WITH GRAM PM CDT procedure are in STAIN the results section. PROCALCITONIN Routine 01/27/2019 2:55 Results for this PM CDT procedure are in the results section. PROTIME/INR Routine 01/27/2019 2:55 Results for this PM CDT procedure are in the results section. HEPATIC FUNCTION Routine 01/27/2019 2:55 Results for this PANEL PM CDT procedure are in the results section. LACTIC ACID Routine 01/27/2019 2:55 Results for this PM CDT procedure are in the results section. BASIC METABOLIC PANEL Routine 01/27/2019 2:55 Results for this PM CDT procedure are in the results section. BRAIN NATRIURETIC ANA 01/27/2019 2:55 Results for this PEPTIDE PM CDT procedure are in the results section. LAB ONLY-COMPLETE Routine 01/27/2019 2:54 Results for this BLOOD COUNT WITH PM CDT procedure are in DIFFERENTIAL the results section. COMPLETE BLOOD COUNT Routine 01/27/2019 2:54 Results for this WITH DIFFERENTIAL PM CDT procedure are in the results section. ECHO ADULT LIMITED Routine 01/27/2019 2:52 Results for this PM CDT procedure are in the results section. MRSA NASAL SCREEN, Routine 01/27/2019 2:40 Results for this RAJINDER PM CDT procedure are in the results section. XRAY CHEST PORTABLE Routine 01/27/2019 2:29 Results for this PM CDT procedure are in the results section. EKG Routine 01/27/2019 2:28 Results for this PM CDT procedure are in the results section. documented in this encounter Results MAGNESIUM (01/31/2019 6:58 AM CDT)Only the most recent of3 resultswithin the time period is included. Magnesium 1.7 (L) 1.8 - 2.4 mg/dL [address] Specimen Blood Performing Organization Address City/State/Zipcode Phone Number [address] [place] [phone] RENAL FUNCTION PANEL (01/31/2019 6:58 AM CDT)Only the most recent of4 resultswithin the time period is included. Glucose 104 (H) 70 - 100 mg/dL [address] BUN 34 (H) 6 - 22 mg/dL [address] Creatinine 1.04 0.80 - 1.[address] mg/dL BUN/Creatinine Ratio 32.7 (H) 10.0 - 25.[address] Sodium 135 135 - 145 meq/L [address] Potassium 3.9 3.5 - 5.3 meq/L [address] Chloride 103 99 - 110 meq/L [address] CO2 24 20 - 29 meq/L [address] Anion Gap with K 12 6 - 20 meq/L [address] Calcium 9.3 8.5 - 10.[address] mg/dL Phosphorus 2.1 (L) 2.5 - 4.5 mg/dL [address] Albumin 3.1 (L) 3.5 - 5.0 g/dL [address] Corrected Calcium 10.0 8.5 - 10.[address] mg/dL Age [address] eGFR Non- 69 >=[address] [place] mL/min/1.73m2 eGFR 84 >=[address] mL/min/1.73m2 Specimen Blood Performing Organization Address [facility] Phone Number [address] [place] [address], [place] [address] HEMOGLOBIN (01/31/2019 6:58 AM CDT) Hemoglobin 10.8 (L) 13.5 - 17.5 g/dL [address] Specimen Blood Performing Organization Address [facility] Phone Number [address] [place] [phone] PROTIME/INR (01/31/2019 6:58 AM CDT)Only the most recent of5 resultswithin the time period is included. Protime 21.9 (H) 12.0 - 14.[address] INR 1.9 (L) 2.0 - 3.[address] Specimen Blood Narrative Performed At Normal INR reference range (patients not on oral [address] anticoagulants)0.9-1.1. INR Standard Intensity=(2.0 - 3.0) INR Higher Intensity=(2.5 - 3.5) Performing Organization Address [facility] Phone Number [address] [place] [address], [place] [address] XRAY CHEST PORTABLE - (01/30/2019 9:35 AM CDT)Only the most recent of2 resultswithin the time period is included. Specimen Narrative Performed At [facility] Patient Name: TRE HASSAN Date of :1940 Procedure: XRAY CHEST PORTABLE Date of Service: 01/30/2019 EXAM: XRAY CHEST PORTABLE INDICATION: dyspnea . TECHNIQUE: Single AP portable chest radiograph, one view. COMPARISON:01/27/2019. FINDINGS: EKG leads overlie the thorax. The cardiomediastinal silhouette is normal in size. There is evidence of prior CABG. The trachea is midline. The right lung remains clear. There is improved aeration of the left lung base. There are subclavian and axillary vascular calcifications, prominent projecting over the upper lungs and axilla.There is no pneumothorax.There is elevation of the left hemidiaphragm. The visualized osseous structures and soft tissues are stable. IMPRESSION: 1.Improved aeration of the left lung base when compared to 01/27/2019. 2.Persistent trace left pleural effusion versus chronic pleural thickening with an improving hazy basilar opacity. Continued follow-up evaluation is recommended. Finalized by: Vale Danielle MD on 01/30/2019 2:33 PM CDT Patient/Procedure Information: [facility] MRN/ELIZABETH: [id number] Order Number: [id number] Accession Number: [id number] Ordering Provider: ROCÍO EASTON Authorizing Provider: ROCÍO EASTON Procedure Note Interface, Radiantres - 01/30/2019 2:35 PM CDT Patient Name: TRE HASSAN Date of : 1940 Procedure: XRAY CHEST PORTABLE Date of Service: 01/30/2019 EXAM: XRAY CHEST PORTABLE INDICATION: dyspnea . TECHNIQUE: Single AP portable chest radiograph, one view. COMPARISON:01/27/2019. FINDINGS: EKG leads overlie the thorax. The cardiomediastinal silhouette is normal in size. There is evidence of prior CABG. The trachea is midline. The right lung remains clear. There is improved aeration of the left lung base. There are subclavian and axillary vascular calcifications, prominent projecting over the upper lungs and axilla. There is no pneumothorax. There is elevation of the left hemidiaphragm. The visualized osseous structures and soft tissues are stable. IMPRESSION: 1. Improved aeration of the left lung base when compared to 01/27/2019. 2. Persistent trace left pleural effusion versus chronic pleural thickening with an improving hazy basilar opacity. Continued follow-up evaluation is recommended. Finalized by: Vale Danielle MD on 01/30/2019 2:33 PM CDT Patient/Procedure Information: [facility] MRN/ELIZABETH: [id number] Order Number: [id number] Accession Number: [id number] Ordering Provider: ROCÍO EASTON Authorizing Provider: ROCÍO EASTON Performing Organization Address City/State/Zipcode Phone Number [id number] LAB ONLY-COMPLETE BLOOD COUNT WITH DIFFERENTIAL (01/30/2019 7:28 AM CDT)Only the most recent of4 resultswithin the time period is included. WBC 8.3 4.0 - 11.0 K/uL [address] RBC 3.51 (L) 4.40 - 5.[address] M/uL Hemoglobin 10.3 (L) 13.5 - 17.[address] g/dL Hematocrit 31.0 (L) 40.0 - 50.0 % [address] MCV 88.3 80.0 - 98.[address] MCH 29.3 25.5 - 34.[address] MCHC 33.2 31.5 - 36.[address] g/dL RDW-CV 16.9 (H) 11.5 - 15.5 % [address] RDW-SD 54.1 (H) 35.5 - 50.[address] Platelet Count 357 140 - 400 K/uL [address] MPV 8.7 8.5 - 12.[address] Seg Neut Absolute 7.2 1.8 - 8.0 K/uL [address] Lymphocytes Absolute 0.7 (L) 0.8 - 4.1 K/uL [address] Monocytes Absolute 0.5 0.0 - 1.0 K/uL [address] Eosinophils Absolute 0.0 0.0 - 0.7 K/uL [address] Basophil Absolute 0.0 0.0 - 0.2 K/uL [address] Immature Granulocyte 0.06 0.00 - 0.[address] Absolute K/uL Neutrophils Abs. 7,200 /uL [address] (Segs and Bands) Neutrophils Percent 86.3 % [address] Lymphocytes Percent 7.8 % [address] Monocytes Percent 5.8 % [address] Immature Granulocyte 0.7 % [address] Percent Eosinophils Percent 0.0 % [address] Basophil Percent 0.1 % [address] Nucleated RBC 0 /[address] Specimen Blood Performing Organization Address City/State/Zipcode Phone Number [address] [place] [address] XRAY VIDEO SWALLOW WITH FLUORO (01/28/2019 10:14 AM CDT) Specimen Narrative Performed At [facility] Patient Name: TRE HASSAN Date of :1940 Procedure: XRAY VIDEO SWALLOW WITH FLUORO Date of Service: 01/28/2019 EXAM: XRAY VIDEO SWALLOW WITH FLUORO INDICATION: dysphagia COMPARISON(S): None Available TECHNIQUE: Video swallow under fluoroscopy was performed in conjunction with speech pathology using varying consistencies of barium. FINDINGS: Ingestion of thin liquids, puree textures, semisolid and crispy solid textures were observed and appeared normal. Ingestion of pill with thin liquids with aspiration and slightly delayed detection.Ingestion with straw was not tested. IMPRESSION: 1. Aspiration with delayed dissection noted with ingestion of pill and thin liquids, other ingestions appeared safe. 2. Please see speech pathology note for further discussion of findings and recommendations . Finalized by: Marie Franco MD on 01/28/2019 11:11 AM CDT Patient/Procedure Information: [facility] MRN/ELIZABETH: [id number] Order Number: [id number] Accession Number: [id number] Ordering Provider: ROCÍO EASTON Authorizing Provider: ROCÍO EASTON Procedure Note Interface, Radiantres - 01/28/2019 11:21 AM CDT Patient Name: TRE HASSAN Date of : 1940 Procedure: XRAY VIDEO SWALLOW WITH FLUORO Date of Service: 01/28/2019 EXAM: XRAY VIDEO SWALLOW WITH FLUORO INDICATION: dysphagia COMPARISON(S): None Available TECHNIQUE: Video swallow under fluoroscopy was performed in conjunction with speech pathology using varying consistencies of barium. FINDINGS: Ingestion of thin liquids, puree textures, semisolid and crispy solid textures were observed and appeared normal. Ingestion of pill with thin liquids with aspiration and slightly delayed detection. Ingestion with straw was not tested. IMPRESSION: 1. Aspiration with delayed dissection noted with ingestion of pill and thin liquids, other ingestions appeared safe. 2. Please see speech pathology note for further discussion of findings and recommendations . Finalized by: Marie Franco MD on 01/28/2019 11:11 AM CDT Patient/Procedure Information: [facility] MRN/ELIZABETH: [id number] Order Number: [id number] Accession Number: [id number] Ordering Provider: ROCÍO EASTON Authorizing Provider: ROCÍO EASTON Performing Organization Address [facility] Phone Number [id number] TYPE AND SCREEN (01/27/2019 5:50 PM CDT) ABO Type A [address] BLOOD BANK Rh Type Positive [address] BLOOD BANK Antibody Screen Negative [address] Comment: BLOOD BANK Allogenic Red Cells Available 5BC 01/27/19 Expiration Date 01/30/2019 23:[address] BLOOD BANK Specimen Blood Performing Organization Address [facility] Phone Number [address] BLOOD BANK [address] [place] [address], [place] [address] PREPARE AND HOLD RED BLOOD CELLS IN UNITS - BLOOD BANK (01/27/2019 5:12 PM CDT) Only the most recent of2 resultswithin the time period is included. BPAM Product Code [id number] LAB BPAM Unit Number [id number] LAB Unit ABO Type A LAB Unit Rh Type POS LAB XM Interp Compatible LAB BPAM Dispense Status TR LAB [facility] Blood [id number] LAB Expiration Date BPAM Coding System 6200 LAB Product Code RBC, Leukoreduced LAB [id number] Unit ID [id number] LAB Product Status Transfused LAB Specimen Performing Organization Address [facility] Phone Number LAB CULTURE BACTERIAL, RESPIRATORY WITH GRAM STAIN (01/27/2019 3:21 PM CDT) Culture Result Many Staphylococcus haemolyticus (!) [facility] Comment: CLINIC This is a Coagulase Negative Staphylococcus species. In pure culture. Gram Stain Moderate (10 to 25/LPF) [facility] WBC's [facility] Gram Stain Few (1 to 9/LPF) [facility] Squamous epithelial [facility] cells Gram Stain Few (1 to 5/OIF) Gram [facility] positive cocci in CLINIC pairs, chains and clusters Specimen Respiratory Narrative Performed At No MRSA or Pseudomonas aeruginosa isolated [facility] Performing Organization Address [facility] Phone Number [facility] [address] [place] [address] LACTIC ACID (01/27/2019 2:55 PM CDT) Lactic Acid 1.2 0.5 - 2.2 mmol/L [address] Specimen Blood Performing Organization Address [facility] Phone Number [address] [place] [address] PROCALCITONIN (01/27/2019 2:55 PM CDT) Pathologist [facility] Procalcitonin 0.15 (H) <0.07 ng/mL [address] Specimen Blood Narrative Performed At Suspected Lower Respiratory Tract Infection: [address] 0.1-0.25: Low risk for bacterial infection; Antibiotics discouraged. > 0.25: Increased likelihood for bacterial infection; Antibiotics encouraged. Suspected Sepsis: 0.1-0.5: Low likelihood for sepsis; Antibiotics discouraged. > 0.5: Increased Likelihood for sepsis; Antibiotics encouraged. > 2.0: High risk of sepsis/septic shock; Antibiotics strongly encouraged. Decisions on antibiotic use should not be based solely on procalcitonin levels. If antibiotics are administered, repeat procalcitonin testing should be performed every 2-3 days to consider early antibiotic cessation. PCT is a dynamic biomarker and most useful when trends are analyzed over time in accompaniment with other clinical data. Performing Organization Address [facility] Phone Number [address] [place] [address] HEPATIC FUNCTION PANEL (01/27/2019 2:55 PM CDT) Alkaline Phosphatase 67 30 - 150 U/L [address] AST - SGOT 85 (H) 0 - 35 U/L [address] ALT - SGPT 93 (H) 0 - 55 U/L [address] Bilirubin Total 0.4 0.2 - 1.2 mg/dL [address] Bilirubin Indirect 0.1 0.0 - 0.8 mg/dL [address] Bilirubin Direct 0.3 0.0 - 0.4 mg/dL [address] Albumin 3.2 (L) 3.5 - 5.0 g/dL [address] Protein Total 6.2 6.0 - 8.2 g/dL [address] Specimen Blood Performing Organization Address [facility] Phone Number [address] [place] [address] BASIC METABOLIC PANEL (01/27/2019 2:55 PM CDT) Glucose 104 (H) 70 - 100 mg/dL [address] BUN 31 (H) 6 - 22 mg/dL [address] Creatinine 1.63 (H) 0.80 - 1.30 mg/dL [address] BUN/Creatinine Ratio 19.0 10.0 - 25.[address] Sodium 132 (L) 135 - 145 meq/L [address] Potassium 4.3 3.5 - 5.3 meq/L [address] Chloride 99 99 - 110 meq/L [address] CO2 22 20 - 29 meq/L [address] Anion Gap with K 15 6 - 20 meq/L [address] Calcium 9.2 8.5 - 10.5 mg/dL [address] Age [address] eGFR Non- 41 (L) >=[address] [place] mL/min/1.73m2 eGFR 50 (L) >=[address] [place] mL/min/1.73m2 Fasting Unknown Yes, No, Unknown [address] Specimen Blood Narrative Performed At For patients with a GFR <45 a referral to Nephrology is [address] recommended. Performing Organization Address [facility] Phone Number [address] [place] [address], [place] [address] BRAIN NATRIURETIC PEPTIDE (01/27/2019 2:55 PM CDT) BNP 228 (H) 0 - 100 pg/mL [place] [address] CLINIC Specimen Blood Performing Organization Address City/State/Zipcode Phone Number [place] [facility] [address] [place] [address] ECHO ADULT LIMITED (01/27/2019 2:52 PM CDT) Specimen Narrative Performed At [facility] Patient: TRE HASSAN MR#:[id number] Exam Date:01/27/2019 Transthoracic Echocardiogram [facility] [address] [place], [place] : 90/60 mmHgHR:98 bpm : 1Exam Location: Bedside Height:67.00 "( 170.2 cm) Age: 78 year(s)[facility] kg[facility] Gender:MalePatient Status: Inpatient BSA: 1.99 m2 Lining Scrubber:FERNANDO RIVAS RDCS Reading Physician:VIN KIRK MD Ordering Physician: ROCÍO EASTON MD Referring Physician: MELISA PATHAK Procedure Indication(s): Congestive heart failure Examination: TTE Limited 2D, Limited Spectral Doppler, Color Doppler Clinical History Comment:CABG (01/2019) Conclusions Pericardium: Large loculated pericardial effusion (Right Ventricle) , partly organized blood likely . Most likely consistent with post-operative procedure. Small effusion noted posteriorly. Doppler and 2d features suggest tamponade physiology. Clinical Correlation suggested . Comparison Study Comparison Date: 11/11/2018 Comparison Study: Transthoracic Echocardiogram A new pericardial effusion has appeared, RWMA's have improved Findings Left Ventricle: Normal left ventricular size. Increased left ventricular wall thickness. Normal left ventricular systolic function. The ejection fraction is visually estimated to be 70 %. There are no left ventricular regional wall motion abnormalities. Left Atrium: Moderately dilated left atrium. Aortic Valve: The aortic valve is tricuspid. Mild aortic cuspal thickening. Aortic sclerosis is present. No significant aortic regurgitation. No aortic stenosis. Mitral Valve: Mild mitral leaflet thickening. No significant mitral regurgitation. IAS: No gross evidence of shunt flow seen; however the possibility of a PFO cannot be completely ruled out. Right Ventricle: Normal right ventricular size. Normal right ventricular systolic function. Pulmonary artery systolic pressure is measured at 24 mmHg. Pulmonary Artery: No significant pulmonary artery hypertension. Right Atrium: Normal right atrial size by visual assessment. Tricuspid Valve: Normal tricuspid valve structure. Trivial tricuspid regurgitation. Pulmonic Valve: Normal pulmonary valve structure. No significant pulmonary regurgitation. IVC: Normal IVC size with normal respirophasic changes. Pericardium: Large loculated pericardial effusion (Right Ventricle) , partly organized blood likely . Most likely consistent with post-operative procedure. Small effusion noted posteriorly. Doppler and 2d features suggest tamponade physiology. Clinical Correlation suggested .MV Variation: 25 %. TV Variation: 30 %. Measurements Left Ventricle Tricuspid Valve Label ValueNormal Value Label Value Normal Value LVDd, 2D35.6 mm TR Tytf558 cm/s LVDs, 2D21.5 mm TR Pmax21 mmHg IVSd, 2D13 mm RA Pressure3 mmHg LVPWd, 2D 10.7 mm RVSP 24 mmHg FS, 2D39.61 % Left Atrium Label ValueNormal Value LADs Long.66 mm LA Volume Index 45.4 ml/m-sq Heart Rate Label ValueNormal Value Heart Rate98 bpm at 03: 49 PM Procedure Note Interface, Inc Results No Pull Forward - 01/27/2019 3:51 PM CDT Patient: TRE HASSAN MR#: [id number] Exam Date: 01/27/2019 Transthoracic Echocardiogram [place] [address] [place] [address] BP: 90/60 mmHg HR: 98 bpm : 1940 Exam Location: Bedside Height: 67.00 "(170.2 cm) Age: 78 year(s) Patient Room: [facility] Weight: 192 lbs.(87.09 kg) Gender: Male Patient Status: Inpatient BSA: 1.99 m2 Lining Scrubber: FERNANDO RIVAS RDCS Reading Physician: VIN KIRK MD Ordering Physician: ROCÍO EASTON MD Referring Physician: MELISA PATHAK Procedure Indication(s): Congestive heart failure Examination: TTE Limited 2D, Limited Spectral Doppler, Color Doppler Clinical History Comment: CABG (01/2019) Conclusions Pericardium: Large loculated pericardial effusion (Right Ventricle) , partly organized blood likely . Most likely consistent with post-operative procedure. Small effusion noted posteriorly. Doppler and 2d features suggest tamponade physiology. Clinical Correlation suggested . Comparison Study Comparison Date: 11/11/2018 Comparison Study: Transthoracic Echocardiogram A new pericardial effusion has appeared, RWMA's have improved Findings Left Ventricle: Normal left ventricular size. Increased left ventricular wall thickness. Normal left ventricular systolic function. The ejection fraction is visually estimated to be 70 %. There are no left ventricular regional wall motion abnormalities. Left Atrium: Moderately dilated left atrium. Aortic Valve: The aortic valve is tricuspid. Mild aortic cuspal thickening. Aortic sclerosis is present. No significant aortic regurgitation. No aortic stenosis. Mitral Valve: Mild mitral leaflet thickening. No significant mitral regurgitation. IAS: No gross evidence of shunt flow seen; however the possibility of a PFO cannot be completely ruled out. Right Ventricle: Normal right ventricular size. Normal right ventricular systolic function. Pulmonary artery systolic pressure is measured at 24 mmHg. Pulmonary Artery: No significant pulmonary artery hypertension. Right Atrium: Normal right atrial size by visual assessment. Tricuspid Valve: Normal tricuspid valve structure. Trivial tricuspid regurgitation. Pulmonic Valve: Normal pulmonary valve structure. No significant pulmonary regurgitation. IVC: Normal IVC size with normal respirophasic changes. Pericardium: Large loculated pericardial effusion (Right Ventricle) , partly organized blood likely . Most likely consistent with post-operative procedure. Small effusion noted posteriorly. Doppler and 2d features suggest tamponade physiology. Clinical Correlation suggested .MV Variation: 25 %. TV Variation: 30 %. Measurements Left Ventricle Tricuspid Valve Label Value Normal Value Label Value Normal Value LVDd, 2D 35.6 mm TR Vmax 227 cm/s LVDs, 2D 21.5 mm TR Pmax 21 mmHg IVSd, 2D 13 mm RA Pressure 3 mmHg LVPWd, 2D 10.7 mm RVSP 24 mmHg FS, 2D 39.61 % Left Atrium Label Value Normal Value LADs Long. 66 mm LA Volume Index 45.4 ml/m-sq Heart Rate Label Value Normal Value Heart Rate 98 bpm at 03: 49 PM Performing Organization Address City/State/Zipcode Phone Number [facility], [place] MRSA, PCR (01/27/2019 2:40 PM CDT) MRSA by NAD, Nasal Not Detected Not Detected [facility] Specimen Swab Narrative Performed At MRSA DNA not detected. [facility] This test was performed by polymerase chain reaction (PCR) on the GeneXpert instrument. Performing Organization Address City/State/Zipcode Phone Number [facility] [address] [place] [address] EKG (01/27/2019 2:28 PM CDT) EKG WAVEFORM IRIS COOMBSB Normal sinus rhythm Left axis deviation Minimal voltage criteria for LVH, may be normal variant Abnormal ECG When compared with ECG of 12-JAN-2019 07:11, Sinus rhythm has replaced Atrial fibrillation Criteria for Septal infarct are no longer Present Ventricular Rate: 100 BPM Atrial Rate: 100 BPM P-R Interval: 184 ms QRS Duration: 88 ms Q-T Interval: 370 ms QTc Calculation(Bazett): 477 ms Calculated P [place]: 46 degrees Calculated R [place]: -36 degrees Calculated T [place]: 71 degrees Specimen Narrative Performed At Performing Organization Address City/[facility] Phone Number [employer] documented in this encounter Visit Diagnoses Diagnosis Chronic obstructive pulmonary disease with acute exacerbation (HCC) - Primary Obstructive chronic bronchitis with exacerbation NSTEMI (non-ST elevated myocardial infarction) (HCC) Acute myocardial infarction, subendocardial infarction, episode of care unspecified CAD, multiple vessel Coronary atherosclerosis of unspecified type of vessel, [place] or graft S/P CABG x 2 Postsurgical aortocoronary bypass status Cerebrovascular accident (CVA), unspecified mechanism (HCC) Subclavian artery stenosis, right (HCC) Atherosclerosis of other specified arteries Essential hypertension Unspecified essential hypertension Panlobular emphysema (HCC) Other emphysema Atherosclerotic peripheral vascular disease with intermittent claudication (HCC ) Atherosclerosis of [place] arteries of the extremities with intermittent claudication History of CEA (carotid endarterectomy) Other postprocedural status History of cerebral thrombosis Transient ischemic attack (TIA), and cerebral infarction without residual deficits Paroxysmal atrial fibrillation (HCC) Atrial fibrillation Acute on chronic diastolic CHF (congestive heart failure) (HCC) Acute on chronic diastolic heart failure CAP (community acquired pneumonia) Pneumonia, organism unspecified HAP (hospital-acquired pneumonia) Pneumonia, organism unspecified Symptomatic hypotension documented in this encounter Discharge Diagnoses Not on filedocumented in this encounter Administered Medications Medication Order MAR Action Action Date Dose Rate Site .Anticoagulation (WARFARIN) therapy nursing reminder Anti-coag reminder, First dose on Sun01/29/19 at 1000, Until Discontinued acetaminophen (TYLENOL) tablet 650 mg Given 01/28/2019 2:18 AM CDT 650 mg 650 mg, Oral, Every four hours prn, Starting Sun01/27/19 at 1236, Until Discontinued, mild pain, fever, for pain Scale 3 or less, Pain stratification is defined as follows for either analog scale (0-10) or critical care pain observation tool (CPOT, 0-8). a. No pain (0) b. Mild pain level (1-3) c. Moderate pain level (4-6) d. Severe pain level (greater than or equal to 7), Given 01/27/2019 8:14 PM CDT 650 mg albuterol-ipratropium (DUO-NEB) 2.5-0.5 mg/3 mL inhalation solution 3 mL 3 mL, Nebulization, Four times a day prn, Starting Sun01/27/19 at 1441, Until Discontinued, bronchospasm, shortness of breath, wheezing, 3 mL amiodarone (CORDARONE, PACERONE) tablet 200 Given 01/31/2019 8:32 AM CDT 200 mg mg 200 mg, Oral, Daily, First dose on Sun01/31/19 at 0900, Until Discontinued aspirin chewable tablet 81 mg Given 01/31/2019 8:32 AM CDT 81 mg 81 mg, Oral, Daily, First dose on Sun01/30/19 at 0900, Until Discontinued Given 01/30/2019 8:10 AM CDT 81 mg atorvaSTATin (LIPITOR) tablet 60 mg Given 01/30/2019 8:31 PM CDT 60 mg 60 mg, Oral, Bedtime, First dose on Sun01/28/19 at 2100, Until Discontinued Given 01/29/2019 8:04 PM CDT 60 mg Given 01/28/2019 8:22 PM CDT 60 mg bisacodyl (DULCOLAX) suppository 10 mg Given 01/27/2019 6:45 PM CDT 10 mg 10 mg, Rectal, One time a day prn, Starting Sun01/27/19 at 1641, Until Discontinued, constipation cefuroxime (CEFTIN) tablet 500 mg Given 01/31/2019 8:33 AM CDT 500 mg 500 mg, Oral, Two times a day, First dose on Sun01/30/19 at 0915, Until Discontinued, Tablet should not be crushed or chewed., Given 01/30/2019 8:31 PM CDT 500 mg Given 01/30/2019 10:43 AM CDT 500 mg enoxaparin (LOVENOX) subcutaneous injection Given 01/31/2019 8:32 AM CDT 80 mg solution 80 mg 80 mg, Subcutaneous, Two times a day, First dose on Sun01/30/19 at 1140, Until Discontinued, Administration should be alternated between the left and right anterolateral and left and right posterolateral abdominal wall. The whole length of the needle should be introduced into a skin fold held between the thumb and forefinger; the skin fold should be held throughout the injection. To minimize bruising, do not rub the injection site after completion of the injection., Given 01/30/2019 8:31 PM CDT 80 mg Given 01/30/2019 12:31 PM CDT 80 mg magnesium oxide tablet 500 mg Given 01/31/2019 8:32 AM CDT 500 mg 500 mg, Oral, Three times a day, First dose on Sun01/28/19 at 0735, Until Discontinued Given 01/30/2019 8:31 PM CDT 500 mg Given 01/30/2019 3:58 PM CDT 500 mg metoclopramide (REGLAN) inj soln 5 mg 5 mg, IV, Every six hours prn, Starting 01/27/19 at 1236, Until Discontinued , nausea, vomiting, 2 mL, Use SECOND. If ineffective and ondansetron used, call physician for alternative If preference is to further dilute for IV administration: First draw up patient-specific dose, then dilute to 10 mL with 0.9% sodium chloride., metoprolol tartrate (LOPRESSOR) tablet 25 mg Given 01/31/2019 8:32 AM CDT 25 mg 25 mg, Oral, Two times a day, First dose on Sun01/30/19 at 0820, Until Discontinued, Hold for SBP less than 100 Hold for HR less than 60, Given 01/30/2019 8:31 PM CDT 25 mg Given 01/30/2019 8:44 AM CDT 25 mg ondansetron (ZOFRAN) injection solution 4 mg 4 mg, IV, Every four hours prn, Starting 01/27/19 at 1236, Until Discontinued, nausea, vomiting, 2 mL, Use FIRST. If ineffective after 15 minutes use metoclopramide. If preference is to further dilute for IV administration: First draw up patient-specific dose, then dilute to 10 mL with 0.9% sodium chloride. , polyethylene glycol (MIRALAX) packet 1 Given 01/28/2019 8:37 AM CDT 1 packet packet 1 packet, Oral, Daily, First dose on Sun01/28/19 at 0900, Until Discontinued, Dissolve in 8 ounces of water, juice, soda, coffee, tea. -- Hold for >2-3 BMs and if NPO status, predniSONE tablet 10 mg 10 mg, Oral, Daily, 3 doses, First dose on Sun02/05/19 at 0900, Last dose on Sun02/07/19 at 0900 predniSONE tablet 20 mg 20 mg, Oral, Daily, 3 doses, First dose on Sun02/02/19 at 0900, Last dose on Sun02/04/19 at 0900 predniSONE tablet 40 mg Given 01/31/2019 8:32 AM CDT 40 mg 40 mg, Oral, Daily, 3 doses, First dose on Temi 01/30/19 at 0915, Last dose on Sun02/01/19 at 0900 Given 01/30/2019 10:43 AM CDT 40 mg predniSONE tablet 5 mg 5 mg, Oral, Daily, 3 doses, First dose on Sun02/08/19 at 0900, Last dose on Sun02/10/19 at 0900 senna-docusate sodium Given 01/30/2019 8:31 PM CDT 2 tablets (SENOKOT-S;PERICOLACE) tablet 2 tablet 2 tablet, Oral, Bedtime, First dose on Sun01/27/19 at 1645, Until Discontinued Given 01/29/2019 8:04 PM CDT 2 tablets Given 01/27/2019 5:23 PM CDT 2 tablets sodium chloride 0.9% flush (adult) 10 mL Given 01/31/2019 8:32 AM CDT 10 mL 10 mL, IV, Two times a day and prn, First dose on Sun01/27/19 at 2100, Until Discontinued, 10 mL, Flush IV line as scheduled and as often as necessary before and after meds., Given 01/30/2019 8:00 PM CDT 10 mL Given 01/30/2019 8:10 AM CDT 10 mL Medication Order MAR Action Action Date Dose Rate Site amiodarone (CORDARONE, PACERONE) Given 01/30/2019 8:44 AM CDT 200 mg tablet 200 mg 200 mg, Oral, Daily, First dose on Temi 01/30/19 at 0900, Until Discontinued amiodarone (NEXTERONE) 1.8 New Bag 01/30/2019 10:23 AM CDT 1 mg/min 33.3 mL /hr mg/mL in D5W IV infusion (premix) 1 mg/min (33.3333 mL/hr, rounded to 33.3 mL/hr), IV, at 33.3 mL/hr, Continuous, Starting Temi 01/30/19 at 1020, Until Temi 01/30/19 at 1137, 200 mL, Infuse using a 0.2 micron filter. Infuse at 1 mg/min x 6 hours. If possible, run in a dedicated central line., amiodarone (NEXTERONE) 150 mg/100 mL in Given 01/30/2019 10:49 AM CDT 150 mg dextrose IV loading dose (premix) 150 mg, IV, One time, 1 dose, Temi 01/30/19 at 1020, 100 mL, Infuse using a 0.2 or 0.22 micron filter. If possible, run in a dedicated central line. Administer over 10 minutes., barium sulfate (E-Z DISK) tablet 700 mg Given 01/28/2019 10:17 AM CDT 700 mg 700 mg, Oral, Now imaging, 1 dose, Starting Sun01/28/19 at 1016, Until Sun01/28/19 at 1017, E-Z DISK, barium sulfate (VARIBAR) suspension 90 mL Given 01/28/2019 10:17 AM CDT 90 mL 90 mL, Oral, Now imaging, 1 dose, Starting e 01/28/19 at 1015, Until 01/28/19 at 1017, 148 mL, VARIBAR Thin Liquid suspension, barium sulfate 40% paste (VARIBAR PUDDING) Given 01/28/2019 10:18 AM CDT 5 mL suspension 5 mL 5 mL, Oral, Now imaging, 1 dose, Starting e 01/28/19 at 1015, Until Sun01/28/19 at 1018, 230 mL, VARIBAR Pudding paste, barium sulfate 98% powder (EZ-HD) suspension 5 Given 01/28/2019 10:16 AM CDT 5 mL mL 5 mL, Oral, Now imaging, 1 dose, Starting Sun01/28/19 at 1016, Until Sun01/28/19 at 1016, 135 mL, EZ-HD, cefepime (MAXIPIME) 2000 mg/20 mL in Given 01/27/2019 2:55 PM CDT 2,000 mg sterile water IV syringe 2,000 mg, IV, Every eight hours, 21 doses, First dose on Sun01/27/19 at 1430, Last dose on Sun02/03/19 at 0630, 20 mL, Administer over 5 minutes., cefepime (MAXIPIME) 2000 mg/20 mL in Given 01/28/2019 2:18 AM CDT 2,000 mg sterile water IV syringe 2,000 mg, IV, Every twelve hours, 14 doses, First dose on Sun01/28/19 at 0300, Last dose on Sun02/03/19 at 1500, 20 mL, Administer over 5 minutes., cefTRIAXone (ROCEPHIN) 1000 mg/10 mL IV Given 01/29/2019 11:19 AM CDT 1,000 mg syringe in sterile water 1,000 mg, IV, Every twenty four hours, First dose on Sun01/28/19 at 1030, Until Discontinued, 10 mL, Flush IV line with normal saline prior and post administration. Do not administer with calcium containing solutions (example: Lactated Ringer's, TPN with calcium, etc) as these are not compatible with ceftriaxone. Administer over 5 minutes., Given 01/28/2019 10:31 AM CDT 1,000 mg methylPREDNISolone sod succ (SOLU-medrol) Given 01/30/2019 6:20 AM CDT 40 mg injection 40 mg 40 mg, IV, Two times a day, First dose on Sun01/27/19 at 1630, Until Discontinued, 1 mL Given 01/29/2019 8:04 PM CDT 40 mg Given 01/29/2019 6:11 AM CDT 40 mg metroNIDAZOLE (FLAGYL) IV piggyback Given 01/28/2019 1:17 PM CDT 500 mg 100 mL/hr in sodium chloride 0.79% (premix) 500 mg 500 mg, IV, at 100 mL/hr, Every eight hours, First dose on Sun01/28/19 at 1045, Until Discontinued, 100 mL metroNIDAZOLE (FLAGYL) tablet 500 mg Given 01/30/2019 8:10 AM CDT 500 mg 500 mg, Oral, Three times a day, First dose on Sun01/28/19 at 2100, Until Discontinued Given 01/29/2019 8:05 PM CDT 500 mg Given 01/29/2019 4:06 PM CDT 500 mg senna-docusate sodium Given 01/30/2019 8:10 AM CDT 2 tablets (SENOKOT-S;PERICOLACE) tablet 2 tablet 2 tablet, Oral, One time, 1 dose, [facility] 01/30/19 at 0820 sodium chloride 0.9% (bolus) IV solution 500 Given 01/27/2019 3:19 PM CDT 500 mL mL 500 mL, IV, Bolus, 1 dose, Sun01/27/19 at 1520, 500 mL sodium chloride 0.9% IV solution flush New Bag/Tubing 01/27/2019 7:12 PM CDT bag IV, Continuous, Starting Sun01/27/19 at 1810, Until Sun01/28/19 at 1809, 500 mL, IV line carrier for line flush with blood product infusion., sodium chloride 0.9% IV solution New Bag 01/27/2019 9:47 PM CDT 75 mL/hr IV, at 75 mL/hr, Continuous, Starting Sun01/27/19 at 1240, Until Sun01/28/19 at 1445, 1,000 mL New Bag/Tubing 01/27/2019 1:01 PM CDT 75 mL/hr vancomycin (VANCOCIN) 1,750 mg in sodium Given 01/27/2019 4:44 PM CDT 1, 750 mg chloride 0.9% 500 mL (Locked) 1,750 mg, IV, Now, 1 dose, Sun01/27/19 at 1445, 500 mL, Vanco Dose 1750 mg- Total Volume: 568 mL @ 284 mL/hr x 2 hours , warfarin (COUMADIN) tablet 2 mg Given 01/28/2019 6:30 PM CDT 2 mg 2 mg, Oral, Warfarin one time dose, 1 dose, Sun01/28/19 at 1650, If patient is receiving tube feeding, hold tube feeding 1 hour before and 1 hour after warfarin administration., warfarin (COUMADIN) tablet 2 mg Given 01/29/2019 8:04 PM CDT 2 mg 2 mg, Oral, Warfarin one time dose, 1 dose, [facility] 01/29/19 at 1600, If patient is receiving tube feeding, hold tube feeding 1 hour before and 1 hour after warfarin administration., warfarin (COUMADIN) tablet 3 mg Given 01/30/2019 3:58 PM CDT 3 mg 3 mg, Oral, Warfarin one time dose, 1 dose, [facility] 01/30/19 at 1600, If patient is receiving tube feeding, hold tube feeding 1 hour before and 1 hour after warfarin administration., documented in this encounter
[2019-01-31] MEDS ORDERED: Colchicine 0.6 MG Tab PO PRN (16:30)
[2019-01-31] MEDS ORDERED: Fluticasone Propionate Nasal Spray 16 GM Bottle NASBOTH PRN (16:30)
[2019-01-31] MEDS ORDERED: Albuterol 8 GM Inhaler INH PRN (16:30)
--- NOTE | 2019-01-31 17:21 | PCM.HP ---
H&P History of Present Illness - General Date of Service: 01/31/19 Admit Problem/Dx: Admitted to Swing Bed s/p CABG at [place] performed 01/08/19 Source of Information: Patient, Old Records History Limitations: Reports: No Limitations - History of Present Illness Initial Comments - Free Text/Narative: Admitted to Swing Bed s/p CABG at [place] performed 01/08/19 Transferred back to [place] last week due to increased shortness of breath and hypotension. Re-evaluated and admitted as inpatient at their facility. Returns to Swing Bed status here today for continued assistance post-operatively and strengthening. Patient lives alone and has goal of being able to return home. Patient says that he is feeling overall pretty well and has no acute complaints - Related Data Allergies/Adverse Reactions: Allergies Allergy/AdvReac Type Severity Reaction Status Date / Time gentamicin Allergy unknown Verified 01/15/19 12:06 lovastatin Allergy Dizziness Verified 01/15/19 12:06 Penicillins Allergy Hives Verified 01/15/19 12:06 Home Medications: Home Meds Acetaminophen [Tylenol Extra Strength] 2 tab PO TID PRN 02/05/14 [History] Allopurinol [Zyloprim] 200 mg PO DAILY 02/05/14 [History] Fluticasone Propionate [Flonase] 2 spray NASBOTH DAILY PRN 02/05/14 [History] Multivit-Min/FA/Lycopene/Lut [Centrum Silver] 1 each PO DAILY 02/05/14 [History] Tiotropium [Spiriva HandiHaler] 1 cap INH DAILY 02/05/14 [History] atorvaSTATin [Lipitor] 60 mg PO BEDTIME 02/05/14 [History] Loratadine [Claritin] 10 mg PO QAM 06/16/14 [History] Aspirin [Halfprin] 1 tab PO DAILY 11/08/18 [History] Warfarin [Coumadin] 2 mg PO DAILY 12/10/18 [History] Albuterol Sulfate [Albuterol Sulfate Hfa] 2 puff INH Q6H PRN 01/15/19 [History] Amiodarone [Cordarone] 200 mg PO DAILY 01/15/19 [History] Calcium Citrate/Vitamin D3 [Calcium Citrate - Vit D Tablet] 1 each PO BIDMEALS 01/15/19 [History] Colchicine 0.6 mg PO ASDIRECTED 01/15/19 [History] Metoprolol Tartrate [Lopressor] 75 mg PO DAILY 01/15/19 [History] Omeprazole 20 mg PO DAILY 01/15/19 [History] Gabapentin [Neurontin] 300 mg PO Q12HR 01/22/19 [History] Budesonide/Formoterol [Symbicort 160-4.5 MCG] 2 puff INH BID@01/31/19 [ History] Docusate Sodium 200 mg PO DAILY 01/31/19 [History] Enoxaparin Sodium [Lovenox] 80 mg SUBCUT BID@01/31/19 [History] predniSONE [Prednisone] 40 mg PO DAILY 01/31/19 [History] Past Medical History HEENT History: Reports: Allergic Rhinitis Cardiovascular History: Reports: Afib, Arrhythmia, Bypass, CAD, Heart Failure, High Cholesterol, Hypertension, PVD Respiratory History: Reports: COPD, Interstitial Lung Disease Gastrointestinal History: Reports: Colon Polyp, Diverticulosis, GERD, Hiatal Hernia, PUD Genitourinary History: Reports: Chronic Renal Insuffiency Neurological History: Reports: CVA, Neuropathy, Peripheral Endocrine/Metabolic History: Reports: Hyperparathyroidism Hematologic History: Reports: None Immunologic History: Reports: None Dermatologic History: Reports: None - Infectious Disease History Infectious Disease History: Reports: None, Chicken Pox - Past Surgical History HEENT Surgical History: Reports: Other (See Below) Cardiovascular Surgical History: Reports: Coronary Artery Bypass Social & Family History - Family History Family Medical History: Noncontributory HEENT: Reports: Allergic Rhinitis Cardiac: Reports: CAD, [place] Oncologic: Reports: Other (See Below) - Tobacco Use Smoking Status *Q: Former Smoker Years of Tobacco use: 20 Used Tobacco, but Quit: No - Caffeine Use Caffeine Use: Reports: Soda - Alcohol Use Days Per Week of Alcohol Use: 7 Number of Drinks Per Day: 2 Total Drinks Per Week: 14 - Recreational Drug Use Recreational Drug Use: No - Living Situation & Occupation Living situation: Reports: Single Occupation: Retired H&P Review of Systems - Review of Systems: Review Of Systems: See Below General: Denies: Fever, Chills, Malaise, Night Sweats, Diaphoresis, Weight Gain HEENT: Reports: Glasses Pulmonary: Reports: Shortness of Breath (chronic baseline SOB, improved overall since admission to [place]. ), Wheezing (chronic), Cough (chronic, improved overall since admission to [place]. ). Denies: Pleuritic Chest Pain, Sputum, Hemoptysis Cardiovascular: Reports: Dyspnea on Exertion (chronic, improved). Denies: Chest Pain, Palpitations, Lightheadedness Gastrointestinal: Denies: Abdominal Pain, Constipation, Diarrhea, Nausea, Vomiting Genitourinary: Reports: No Symptoms, Other (has pablo) Musculoskeletal: Reports: No Symptoms (no acute changes from baseline) Skin: Reports: No Symptoms Psychiatric: Reports: No Symptoms Neurological: Reports: No Symptoms (no acute changes from baseline) Hematologic/Lymphatic: Reports: Easy Bleeding (oozing frpm Lovenox sites) Exam - Exam Exam: See Below - Vital Signs Vital Signs: Last Vital Signs Temp 36.3 C 01/31/19 13:44 Pulse 78 01/31/19 13:44 Resp 19 01/31/19 13:44 BP 129/92 H 01/31/19 13:44 Pulse Ox 94 L 01/31/19 13:44 Weight: 83.461 kg - Exam Quality Assessment: DVT Prophylaxis General: Alert, Oriented, Cooperative HEENT: Conjunctiva Clear, EOMI, Mucosa Moist & [place], Pupils Equal, Pupils Reactive Neck: Supple, Trachea Midline Lungs: Normal Respiratory Effort, Wheezing (mild,bilateral). No: Rales, Rhonchi , Rub, Stridor Cardiovascular: Regular Rate, Regular Rhythm GI/Abdominal Exam: Normal Bowel Sounds, Soft, Non-Tender (Male) Exam: Deferred Rectal (Males) Exam: Deferred Back Exam: No: CVA Tenderness (L), CVA Tenderness (R), Muscle Spasm Extremities: Non-Tender, Normal Capillary Refill Skin: Warm, Dry, Other (has been observed to have some oozing at two sites on abdomen where Lovenox injected. ) Neurological: Normal Speech Neuro Extensive - Mental Status: Alert, Oriented x3, Normal Mood/Affect Psychiatric: Alert, Normal Affect, Normal Mood - Problem List (1) S/P CABG (coronary artery bypass graft) SNOMED Code(s): 079220326, 960558626, 854374601 ICD Code: Z95.1 - PRESENCE OF AORTOCORONARY BYPASS GRAFT Status: Acute Priority: High Current Visit: Yes Onset Date: 01/08/19 Problem Details: Here for PT/OT with goal of returning home. (2) Chronic anticoagulation SNOMED Code(s): 707061224 ICD Code: Z79.01 - CORRECTION (CURRENT) USE OF ANTICOAGULANTS Status: Chronic Priority: Medium Current Visit: Yes Problem Details: Currently on both Lovenox and Coumadin. Will d/c Lovenox once INR above 2 for two consecutive days. (3) Anemia SNOMED Code(s): 860629743 ICD Code: D64.9 - ANEMIA, UNSPECIFIED Status: Chronic Priority: Medium Current Visit: Yes Problem Details: Recently transfused. Pattern consistent with anemia of chronic disease based on recent iron studies. Monitor for change Qualifiers: Anemia type: other cause Other causes of anemia: chronic disease, other Qualified Code(s): D63.8 - Anemia in other chronic diseases classified elsewhere (4) Paroxysmal A-fib SNOMED Code(s): 036182598 ICD Code: I48.0 - PAROXYSMAL ATRIAL FIBRILLATION Status: Chronic Priority : Low Current Visit: No Problem Details: Monitor for changes (5) Peripheral arterial disease SNOMED Code(s): 068694756, 705965320 ICD Code: I73.9 - PERIPHERAL VASCULAR DISEASE, UNSPECIFIED Status: Chronic Priority: Low Current Visit: No (6) History of CVA (cerebrovascular accident) SNOMED Code(s): 587531163 ICD Code: Z86.73 - PRSNL HX OF TIA (TIA), AND CEREB INFRC W/O RESID DEFICITS Status: Chronic Priority: Low Current Visit: No (7) Interstitial lung disease SNOMED Code(s): 407318213 ICD Code: J84.9 - INTERSTITIAL PULMONARY DISEASE, UNSPECIFIED Status: Chronic Priority: Low Current Visit: No Problem Details: currently stable (8) Chronic diastolic (congestive) heart failure SNOMED Code(s): 634365718, 758965540 ICD Code: I50.32 - CHRONIC DIASTOLIC (CONGESTIVE) HEART FAILURE Status: Chronic Priority: Low Current Visit: No Problem Details: Monitor for changes (9) COPD (chronic obstructive pulmonary disease) SNOMED Code(s): 66148237 ICD Code: J44.9 - CHRONIC OBSTRUCTIVE PULMONARY DISEASE, UNSPECIFIED Status : Chronic Priority: Medium Current Visit: No Problem Details: Currently stable. PRN supplemental O2 at night and with activity Qualifiers: COPD type: emphysema (10) Peptic reflux disease SNOMED Code(s): 300232449 ICD Code: K21.9 - GASTRO-ESOPHAGEAL REFLUX DISEASE WITHOUT ESOPHAGITIS Status: Chronic Priority: Low Current Visit: No Problem Details: Stable per patient (11) HTN, Benign hypertension SNOMED Code(s): 74240812 ICD Code: I10 - ESSENTIAL (PRIMARY) HYPERTENSION Status: Chronic Priority : Low Current Visit: No Problem Details: Observe trends Problem List Initiated/Reviewed/Updated: Yes Orders Last 24hrs: Active Orders 24 hr Category Date Time Status Acetaminophen [Tylenol Extra Strength] Med 01/31/19 16:30 Ordered 1,000 mg PO TID PRN Albuterol [Ventolin HFA] Med 01/31/19 16:30 Ordered 2 puff INH Q6H PRN Allopurinol [Zyloprim] Med 02/01/19 08:00 Ordered 200 mg PO DAILY Amiodarone [Cordarone] Med 02/01/19 08:00 Ordered 200 mg PO DAILY Aspirin [Halfprin] Med 02/01/19 08:00 Ordered 81 mg PO DAILY Budesonide/Formoterol Med 01/31/19 20:00 Ordered 2 puff INH BID@08,20 Calcium Citrate/Vitamin D3 [Calcium Citrate - Vit D Med 01/31/19 17:30 Ordered Tablet] 1 each PO BIDMEALS Colchicine [Colcrys] Med 01/31/19 16:30 Ordered 0.6 mg PO ASDIRECTED Docusate Sodium [Colace] Med 02/01/19 08:00 Ordered 200 mg PO DAILY Enoxaparin [Lovenox] Med 01/31/19 20:00 Ordered 80 mg SUBCUT BID@08,20 Fluticasone Propionate [Flonase] Med 01/31/19 16:30 Ordered 2 spray NASBOTH DAILY PRN Gabapentin [Neurontin] Med 01/31/19 20:00 Ordered 300 mg PO Q12HR Loratadine [Claritin] Med 02/01/19 08:00 Ordered 10 mg PO QAM Metoprolol Tartrate [Lopressor] Med 02/01/19 08:00 Ordered 75 mg PO DAILY Multivit-Min/FA/Lycopene/Lut [Centrum Silver] Med 02/01/19 08:00 Ordered 1 each PO DAILY Omeprazole Med 02/01/19 08:00 Ordered 20 mg PO DAILY Tiotropium [Spiriva HandiHaler] Med 02/01/19 08:00 Ordered 1 cap INH DAILY Warfarin [Coumadin] Med 02/01/19 18:00 Active 2 mg PO DAILY@1800 atorvaSTATin [Lipitor] Med 01/31/19 20:00 Ordered 60 mg PO BEDTIME predniSONE Med 02/05/19 08:00 Active 10 mg PO DAILY predniSONE Med 02/02/19 08:00 Active 20 mg PO DAILY predniSONE Med 02/01/19 08:00 Active 40 mg PO DAILY predniSONE Med 02/08/19 08:00 Active 5 mg PO DAILY Medication Orders Acetaminophen (Tylenol Extra Strength) 1,000 mg PO TID PRN PRN Reason: Pain/Fever Albuterol (Ventolin Hfa) 0 gm INH Q6H PRN PRN Reason: Shortness of Breath Allopurinol (Zyloprim) 200 mg PO DAILY [facility] Amiodarone HCl (Cordarone) 200 mg PO DAILY [facility] Aspirin (Halfprin) 81 mg PO DAILY [facility] Atorvastatin Calcium (Lipitor) 60 mg PO BEDTIME [facility] Calcium Carbonate (Caltrate 600+D 1500 Mg-400 Units) 1 tab PO BIDMEALS [facility] Colchicine (Colcrys) 0.6 mg PO ASDIRECTED PRN PRN Reason: GOUT PAIN Docusate Sodium (Colace) 200 mg PO DAILY [facility] Enoxaparin Sodium (Lovenox) 80 mg SUBCUT BID@08,20 [facility] Fluticasone Propionate (Flonase) 0 gm NASBOTH DAILY PRN PRN Reason: Allergies Gabapentin (Neurontin) 300 mg PO Q12HR [facility] Loratadine (Claritin) 10 mg PO QAM [facility] Metoprolol Tartrate (Lopressor) 75 mg PO DAILY [facility] Mometasone Furoate/Formoterol Fumar (Dulera 200-5 Mcg) 0 puff IH BIDRT [facility] Multivitamins/Minerals/Vitamin C (Tab-A-Cooper) 1 tab PO DAILY [facility] Omeprazole (Omeprazole) 20 mg PO DAILY [facility] Prednisone (Prednisone) 40 mg PO DAILY [facility] Stop: 02/01/19 08:01 Prednisone (Prednisone) 20 mg PO DAILY [facility] Stop: 02/04/19 08:01 Prednisone (Prednisone) 10 mg PO DAILY [facility] Stop: 02/07/19 08:01 Prednisone (Prednisone) 5 mg PO DAILY [facility] Stop: 02/10/19 08:01 Tiotropium [place] (Spiriva Handihaler) 18 mcg INH DAILY [facility] Warfarin Sodium (Coumadin) 2 mg PO DAILY@1800 [facility] Stop: 02/02/19 18:01 Assessment/Plan Comment:: As above. PT and OT to see patient with goal of possible discharge home vs assisted living.
[2019-01-31] MEDS: Calcium Carbonate/Vitamin D3 1500 MG-400 Units Tab PO SCH (17:29)
[2019-01-31] MEDS: Formoterol/Mometasone 200-5 MCG 8.8 GM Inhaler IH SCH (20:01)
[2019-01-31] MEDS: Gabapentin 300 MG Cap PO SCH (20:02)
[2019-01-31] MEDS: atorvaSTATin 40 MG Tab PO SCH (20:03)
[2019-01-31] MEDS: Enoxaparin 80 MG/0.8 ML Syringe SUBCUT SCH (20:04)
[2019-01-31] MEDS: Acetaminophen 500 MG Tab PO PRN (20:48)
[2019-01-31] MEDS: Warfarin 2 MG Tab PO SCH (20:48)
[2019-02-01] MEDS ORDERED: predniSONE 20 MG Tab PO SCH ×2 (08:00)
[2019-02-01] MEDS ORDERED: Warfarin 2 MG Tab PO SCH ×2 (08:00→18:00)
[2019-02-01 08:07] LABS: CHLORIDE,CL 102 mmol/L (98-107); SODIUM,NA 136 mmol/L (136-145)
[2019-02-01] MEDS: Metoprolol Tartrate 25 MG Tab PO SCH (08:19)
[2019-02-01] MEDS: Calcium Carbonate/Vitamin D3 1500 MG-400 Units Tab PO SCH ×2 (08:20→17:44)
[2019-02-01] MEDS: Omeprazole 20 MG Cap.CR PO SCH (08:20)
[2019-02-01] MEDS: Gabapentin 300 MG Cap PO SCH ×2 (08:20→20:26)
[2019-02-01] MEDS: Multivitamin Tab PO SCH (08:20)
[2019-02-01] MEDS: Docusate Sodium 100 MG Cap PO SCH (08:20)
[2019-02-01] MEDS: Tiotropium Inhaler 18 MCG Inhalation Powder Cap Kit of 5 INH SCH (08:21)
[2019-02-01] MEDS: Allopurinol 100 MG Tab PO SCH (08:21)
[2019-02-01] MEDS: Loratadine 10 MG Tab PO SCH (08:21)
[2019-02-01] MEDS: Formoterol/Mometasone 200-5 MCG 8.8 GM Inhaler IH SCH ×2 (08:21→20:24)
[2019-02-01] MEDS: Amiodarone 200 MG Tab PO SCH (08:21)
[2019-02-01] MEDS: Aspirin 81 MG Tab.EC PO SCH (08:21)
[2019-02-01] MEDS: Enoxaparin 80 MG/0.8 ML Syringe SUBCUT SCH ×2 (08:22→20:27)
[2019-02-01] MEDS: Warfarin 2 MG Tab PO SCH (17:44)
[2019-02-01] MEDS: atorvaSTATin 40 MG Tab PO SCH (20:25)
[2019-02-01] MEDS: Acetaminophen 500 MG Tab PO PRN (20:26)
[2019-02-02] MEDS: Acetaminophen 500 MG Tab PO PRN ×2 (07:59→17:08)
[2019-02-02] MEDS: Loratadine 10 MG Tab PO SCH (07:59)
[2019-02-02] MEDS: Multivitamin Tab PO SCH (08:00)
[2019-02-02] MEDS: predniSONE 20 MG Tab PO SCH (08:00)
[2019-02-02] MEDS: Gabapentin 300 MG Cap PO SCH ×2 (08:01→19:25)
[2019-02-02] MEDS: Amiodarone 200 MG Tab PO SCH (08:01)
[2019-02-02] MEDS: Metoprolol Tartrate 25 MG Tab PO SCH (08:01)
[2019-02-02] MEDS: Allopurinol 100 MG Tab PO SCH (08:02)
[2019-02-02] MEDS: Omeprazole 20 MG Cap.CR PO SCH (08:05)
[2019-02-02] MEDS: Docusate Sodium 100 MG Cap PO SCH (08:05)
[2019-02-02] MEDS: Calcium Carbonate/Vitamin D3 1500 MG-400 Units Tab PO SCH ×2 (08:05→17:07)
[2019-02-02] MEDS: Formoterol/Mometasone 200-5 MCG 8.8 GM Inhaler IH SCH ×2 (08:06→19:25)
[2019-02-02] MEDS: Aspirin 81 MG Tab.EC PO SCH (08:06)
[2019-02-02] MEDS: Tiotropium Inhaler 18 MCG Inhalation Powder Cap Kit of 5 INH SCH (08:07)
[2019-02-02] MEDS: Enoxaparin 80 MG/0.8 ML Syringe SUBCUT SCH (08:09)
[2019-02-02] MEDS ORDERED: Magnesium Oxide 400 MG Tab PO SCH (12:00)
[2019-02-02] MEDS: atorvaSTATin 40 MG Tab PO SCH (19:26)
[2019-02-03] MEDS: Magnesium Oxide 400 MG Tab PO SCH (07:43)
[2019-02-03] MEDS: Metoprolol Tartrate 25 MG Tab PO SCH (07:44)
[2019-02-03] MEDS: Gabapentin 300 MG Cap PO SCH ×2 (07:44→19:37)
[2019-02-03] MEDS: Calcium Carbonate/Vitamin D3 1500 MG-400 Units Tab PO SCH ×2 (07:45→17:01)
[2019-02-03] MEDS: predniSONE 20 MG Tab PO SCH (07:45)
[2019-02-03] MEDS: Amiodarone 200 MG Tab PO SCH (07:45)
[2019-02-03] MEDS: Allopurinol 100 MG Tab PO SCH (07:46)
[2019-02-03] MEDS: Multivitamin Tab PO SCH (07:46)
[2019-02-03] MEDS: Aspirin 81 MG Tab.EC PO SCH (07:46)
[2019-02-03] MEDS: Loratadine 10 MG Tab PO SCH (07:47)
[2019-02-03] MEDS: Docusate Sodium 100 MG Cap PO SCH (07:48)
[2019-02-03] MEDS: Formoterol/Mometasone 200-5 MCG 8.8 GM Inhaler IH SCH ×2 (07:48→19:37)
[2019-02-03] MEDS: Tiotropium Inhaler 18 MCG Inhalation Powder Cap Kit of 5 INH SCH (07:53)
[2019-02-03] MEDS: Omeprazole 20 MG Cap.CR PO SCH (07:54)
[2019-02-03] MEDS: Acetaminophen 500 MG Tab PO PRN (11:44)
[2019-02-03] MEDS: atorvaSTATin 40 MG Tab PO SCH (19:37)
[2019-02-04] MEDS: Allopurinol 100 MG Tab PO SCH (07:08)
[2019-02-04] MEDS: Loratadine 10 MG Tab PO SCH (07:08)
[2019-02-04] MEDS: Acetaminophen 500 MG Tab PO PRN (07:08)
[2019-02-04] MEDS: Metoprolol Tartrate 25 MG Tab PO SCH (07:10)
[2019-02-04] MEDS: Aspirin 81 MG Tab.EC PO SCH (07:12)
[2019-02-04] MEDS: predniSONE 20 MG Tab PO SCH (07:12)
[2019-02-04] MEDS: Omeprazole 20 MG Cap.CR PO SCH (07:12)
[2019-02-04] MEDS: Calcium Carbonate/Vitamin D3 1500 MG-400 Units Tab PO SCH ×2 (07:12→17:24)
[2019-02-04] MEDS: Amiodarone 200 MG Tab PO SCH (07:13)
[2019-02-04] MEDS: Formoterol/Mometasone 200-5 MCG 8.8 GM Inhaler IH SCH ×2 (07:13→19:55)
[2019-02-04] MEDS: Multivitamin Tab PO SCH (07:13)
[2019-02-04] MEDS: Magnesium Oxide 400 MG Tab PO SCH (07:14)
[2019-02-04] MEDS: Gabapentin 300 MG Cap PO SCH ×2 (07:14→19:55)
[2019-02-04] MEDS: Docusate Sodium 100 MG Cap PO SCH (07:15)
[2019-02-04] MEDS: Tiotropium Inhaler 18 MCG Inhalation Powder Cap Kit of 5 INH SCH (07:17)
--- NOTE | 2019-02-04 12:50 | PCM.PN ---
- General Info Date of Service: 02/04/19 Admission Dx/Problem (Free Text): 1. Coronary artery disease with status post CABG 2 on 01/08/19 2. Postoperative fatigue and weakness 3. CHF Subjective Update: I did receive a call from Dr. Sandoval shortly after she was ending her shift this morning at 8 AM with EKG, blood work, and chest x-ray were ordered by her secondary to patient's nonspecific 4/10 sharp and pressure type pleuritic type retrosternal discomfort earlier this morning, which has since resolved. Initially her regular provider, MO Franklin at the [facility] , was to review the above evaluations, however note upcoming vacation with no providers available at the [facility] at this time. Hospital staff and administration have requested that I evaluate the patient. Functional Status: Reports: Pain Controlled (As above) Pain Score: 0 - Review of Systems General: Reports: Weakness (Improving slowly). Denies: Fever, Fatigue, Malaise , Chills, Night Sweats, Appetite (Adequate) HEENT: Reports: Glasses. Denies: Dysphasia, Eye Pain, Headaches, Post Nasal Drip, Sinus Congestion, Sore Throat, Rhinitis, Visual Changes Pulmonary: Reports: Pleuritic Chest Pain, Cough. Denies: Shortness of Breath, Sputum, Hemoptysis, Wheezing Cardiovascular: Reports: Chest Pain (As above), Edema (Stable dependent). Denies: Palpitations, Dyspnea on Exertion, Orthopnea, PND, Lightheadedness Gastrointestinal: Reports: No Symptoms, Other (Normal bowel movement shortly before my examination by his history). Denies: Abdominal Pain, Constipation, Decreased Appetite, Diarrhea, Difficulty Swallowing, Flatus, Hematochezia, Melena, Nausea, Vomiting Genitourinary: Reports: No Symptoms. Denies: Dysuria, Frequency, Burning, Pain , Urgency, Hematuria, Retention, Flank Pain Musculoskeletal: Reports: No Symptoms. Denies: Neck Pain, Shoulder Pain, Arm Pain, Back Pain, Leg Pain Skin: Reports: No Symptoms. Denies: Diaphoresis, Bruising Neurological: Reports: Difficulty Walking (Secondary to weakness), Weakness. Denies: Confusion, Dizziness, Headache, Numbness, Syncope, Tingling, Trouble Speaking, Change in Speech, Gait Disturbance - Patient Data Vitals - Most Recent: Last Vital Signs Temp 36.8 C 02/04/19 07:08 Pulse 95 02/04/19 07:10 Resp 17 02/04/19 07:08 BP 158/80 H 02/04/19 07:10 Pulse Ox 95 02/04/19 07:08 Vital Signs - 24 hr 02/03/19 02/04/19 02/04/19 20:00 07:08 07:10 Temperature [ 37.1 C 36.8 C Temporal] Pulse, 95 Peripheral Pulse, 74 69 Peripheral [ Left Pulse Oximetry] Respiratory 16 17 Rate Blood Pressure 158/80 H Blood Pressure 156/84 H 159/80 H [Left Upper Arm ] O2 Sat by Pulse 97 95 Oximetry Weight - Most Recent: 82.146 kg I&O - Last 24 Hours: Intake & Output 02/03/19 02/04/19 02/04/19 22:59 06:59 14:59 Intake Total 720 360 Balance 720 360 Imaging Impressions - Last 24 Hours: Chest x-ray, PA and lateral, report from 02/04/19 was reviewed with no evidence of CHF, pulmonary infiltrates, etc. with mild left lung basilar atelectasis. Lab Results Last 24 Hours: Laboratory Results - last 24 hr 02/04/19 02/04/19 Range/Units 07:10 08:13 INR 2.9 Troponin I 0.040 (0.000-0.056) ng/mL Laboratory Tests 02/01/19 02/01/19 02/01/19 Range/Units 07:10 07:10 07:10 WBC 9.4 (4.0-10.2) K/uL RBC 3.61 L (4.33-5.41) M/uL Hgb 10.7 L D (13.1-16.8) g/dL Hct 33.0 L (39.0-49.0) % MCV 91.4 D (84.0-98.0) fL MCH 29.6 (28.2-33.3) pg MCHC 32.4 (31.7-36.0) g/dL RDW 16.7 H (11.2-14.1) % Plt Count 318 D (150-350) K/uL Neut % (Auto) 70.7 (45.0-80.0) % Lymph % (Auto) 17.3 (10.0-50.0) % [place] % (Auto) 9.8 (2.0-14.0) % Eos % (Auto) 2.0 (0.0-5.0) % Baso % (Auto) 0.2 (0.0-2.0) % Neut # (Auto) 6.61 (1.40-7.00) K/uL Lymph # (Auto) 1.62 (0.50-3.50) K/uL [place] # (Auto) 0.92 (0.00-1.00) K/uL Eos # (Auto) 0.19 (0.00-0.50) K/uL Baso # (Auto) 0.02 (0.00-0.20) K/uL PT 33.0 H D (9.5-12.0) SEC INR 3.1 Sodium 136 (136-145) mmol/L Potassium 3.8 (3.5-5.1) mmol/L Chloride 102 (98-107) mmol/L Carbon Dioxide 24.7 (21.0-32.0) mmol/L BUN 42 H (7-18) mg/dL Creatinine 1.16 (0.51-1.17) mg/dL Est Cr Clr Drug Dosing 49.86 mL/min Estimated GFR (MDRD) > 60 mL/min Glucose 88 (74-106) mg/dL Calcium 9.6 (8.5-10.1) mg/dL Magnesium (1.8-2.4) mg/dL Total Bilirubin 0.4 (0.2-1.0) mg/dL AST 29 (15-37) U/L ALT 67 (12-78) U/L Alkaline Phosphatase 66 (46-116) IU/L Troponin I (0.000-0.056) ng/mL Total Protein 6.0 L (6.4-8.2) g/dL Albumin 2.5 L (3.4-5.0) g/dL 02/02/19 02/02/19 02/03/19 Range/Units 07:15 07:15 07:45 WBC (4.0-10.2) K/uL RBC (4.33-5.41) M/uL Hgb (13.1-16.8) g/dL Hct (39.0-49.0) % MCV (84.0-98.0) fL MCH (28.2-33.3) pg MCHC (31.7-36.0) g/dL RDW (11.2-14.1) % Plt Count (150-350) K/uL Neut % (Auto) (45.0-80.0) % Lymph % (Auto) (10.0-50.0) % [place] % (Auto) (2.0-14.0) % Eos % (Auto) (0.0-5.0) % Baso % (Auto) (0.0-2.0) % Neut # (Auto) (1.40-7.00) K/uL Lymph # (Auto) (0.50-3.50) K/uL [place] # (Auto) (0.00-1.00) K/uL Eos # (Auto) (0.00-0.50) K/uL Baso # (Auto) (0.00-0.20) K/uL PT 49.9 H D 47.1 H (9.5-12.0) SEC INR 4.6 4.4 Sodium (136-145) mmol/L Potassium (3.5-5.1) mmol/L Chloride (98-107) mmol/L Carbon Dioxide (21.0-32.0) mmol/L BUN (7-18) mg/dL Creatinine (0.51-1.17) mg/dL Est Cr Clr Drug Dosing mL/min Estimated GFR (MDRD) mL/min Glucose (74-106) mg/dL Calcium (8.5-10.1) mg/dL Magnesium 1.5 L (1.8-2.4) mg/dL Total Bilirubin (0.2-1.0) mg/dL AST (15-37) U/L ALT (12-78) U/L Alkaline Phosphatase (46-116) IU/L Troponin I (0.000-0.056) ng/mL Total Protein (6.4-8.2) g/dL Albumin (3.4-5.0) g/dL 02/04/19 02/04/19 Range/Units 07:10 08:13 WBC (4.0-10.2) K/uL RBC (4.33-5.41) M/uL Hgb (13.1-16.8) g/dL Hct (39.0-49.0) % MCV (84.0-98.0) fL MCH (28.2-33.3) pg MCHC (31.7-36.0) g/dL RDW (11.2-14.1) % Plt Count (150-350) K/uL Neut % (Auto) (45.0-80.0) % Lymph % (Auto) (10.0-50.0) % [place] % (Auto) (2.0-14.0) % Eos % (Auto) (0.0-5.0) % Baso % (Auto) (0.0-2.0) % Neut # (Auto) (1.40-7.00) K/uL Lymph # (Auto) (0.50-3.50) K/uL [place] # (Auto) (0.00-1.00) K/uL Eos # (Auto) (0.00-0.50) K/uL Baso # (Auto) (0.00-0.20) K/uL PT (9.5-12.0) SEC INR 2.9 Sodium (136-145) mmol/L Potassium (3.5-5.1) mmol/L Chloride (98-107) mmol/L Carbon Dioxide (21.0-32.0) mmol/L BUN (7-18) mg/dL Creatinine (0.51-1.17) mg/dL Est Cr Clr Drug Dosing mL/min Estimated GFR (MDRD) mL/min Glucose (74-106) mg/dL Calcium (8.5-10.1) mg/dL Magnesium (1.8-2.4) mg/dL Total Bilirubin (0.2-1.0) mg/dL AST (15-37) U/L ALT (12-78) U/L Alkaline Phosphatase (46-116) IU/L Troponin I 0.040 (0.000-0.056) ng/mL Total Protein (6.4-8.2) g/dL Albumin (3.4-5.0) g/dL Aaron Results Last 24 Hours: None Med Orders - Current: Current Medications Acetaminophen (Tylenol Extra Strength) 1,000 mg PO TID PRN PRN Reason: Pain/Fever Last Admin: 02/04/19 07:08 Dose: 1,000 mg Albuterol (Ventolin Hfa) 0 gm INH Q6H PRN PRN Reason: Shortness of Breath Allopurinol (Zyloprim) 200 mg PO DAILY [facility] Last Admin: 02/04/19 07:08 Dose: 200 mg Amiodarone HCl (Cordarone) 200 mg PO DAILY [facility] Last Admin: 02/04/19 07:13 Dose: 200 mg Aspirin (Halfprin) 81 mg PO DAILY [facility] Last Admin: 02/04/19 07:12 Dose: 81 mg Atorvastatin Calcium (Lipitor) 60 mg PO BEDTIME [facility] Last Admin: 02/03/19 19:37 Dose: 60 mg Calcium Carbonate (Caltrate 600+D 1500 Mg-400 Units) 1 tab PO BIDMEALS [facility] Last Admin: 02/04/19 07:12 Dose: 1 tab Colchicine (Colcrys) 0.6 mg PO ASDIRECTED PRN PRN Reason: GOUT PAIN Docusate Sodium (Colace) 200 mg PO DAILY [facility] Last Admin: 02/04/19 07:15 Dose: 200 mg Fluticasone Propionate (Flonase) 0 gm NASBOTH DAILY PRN PRN Reason: Allergies Gabapentin (Neurontin) 300 mg PO Q12HR [facility] Last Admin: 02/04/19 07:14 Dose: 300 mg Loratadine (Claritin) 10 mg PO QAM [facility] Last Admin: 02/04/19 07:08 Dose: 10 mg Magnesium Oxide (Magnesium Oxide) 800 mg PO DAILY [facility] Last Admin: 02/04/19 07:14 Dose: 800 mg Metoprolol Tartrate (Lopressor) 75 mg PO DAILY [facility] Last Admin: 02/04/19 07:10 Dose: 75 mg Mometasone Furoate/Formoterol Fumar (Dulera 200-5 Mcg) 0 puff IH BIDRT [facility] Last Admin: 02/04/19 07:13 Dose: 2 inhalation Multivitamins/Minerals/Vitamin C (Tab-A-Cooper) 1 tab PO DAILY [facility] Last Admin: 02/04/19 07:13 Dose: 1 tab Omeprazole (Omeprazole) 20 mg PO DAILY [facility] Last Admin: 02/04/19 07:12 Dose: 20 mg Prednisone (Prednisone) 10 mg PO DAILY [facility] Stop: 02/07/19 08:01 Prednisone (Prednisone) 5 mg PO DAILY [facility] Stop: 02/10/19 08:01 Tiotropium [place] (Spiriva Handihaler) 18 mcg INH DAILY [facility] Last Admin: 02/04/19 07:17 Dose: 18 mcg Warfarin Sodium (Coumadin) 1 mg PO ONETIME ONE Stop: 02/04/19 18:01 Discontinued Medications Enoxaparin Sodium (Lovenox) 80 mg SUBCUT BID@08,20 [facility] Last Admin: 02/01/19 20:27 Dose: 80 mg Magnesium Oxide (Magnesium Oxide) 400 mg PO DAILY [facility] Prednisone (Prednisone) 40 mg PO DAILY [facility] Stop: 02/01/19 08:01 Last Admin: 02/01/19 08:20 Dose: 40 mg Prednisone (Prednisone) 20 mg PO DAILY [facility] Stop: 02/04/19 08:01 Last Admin: 02/04/19 07:12 Dose: 20 mg Warfarin Sodium (Coumadin) 2 mg PO DAILY@1800 [facility] Stop: 02/02/19 18:01 Warfarin Sodium (Coumadin) 2 mg PO DAILY@1800 [facility] Stop: 02/01/19 18:01 Last Admin: 02/01/19 17:44 Dose: 2 mg - Exam Quality Assessment: DVT Prophylaxis (On Coumadin). No: Supplemental Oxygen, Central Line/PICC, Urine Catheter, Skin Breakdown, Restraints General: Alert, Oriented, Cooperative, No Acute Distress HEENT: Pupils Equal, Pupils Reactive, EOMI, Mucous Membr. Moist/[place], Other ( Recent wearing glasses. Complete dentures uppers and lowers. Note cleft upper lip) Neck: Supple, Trachea Midline, No JVD, No Thyromegaly. No: Lymphadenopathy Lungs: Normal Respiratory Effort, Rales (Mild bilateral basilar). No: Rhonchi, Rub Cardiovascular: Regular Rate, Regular Rhythm, No Murmurs. No: Gallops, Rubs GI/Abdominal Exam: Normal Bowel Sounds, Soft, Non-Tender, No Organomegaly, No Distention, No Abnormal Bruit, No Mass, Other (Obese). No: Guarding (Male) Exam: Deferred Back Exam: Normal Inspection, Full Range of Motion. No: CVA Tenderness (L), CVA Tenderness (R), Muscle Spasm Extremities: Normal Range of Motion, Non-Tender, Pedal Edema (+1 bilateral pedal edema). No: Shmuel's Sign Peripheral Pulses: 1+: Dorsalis Pedis (L), Dorsalis Pedis (R), 2+: Radial (L), Radial (R) Skin: Warm, Dry, Intact Neurological: No New Focal Deficit, Other (Stable generalized weakness) Psy/Mental Status: Alert, Normal Affect, Normal Mood. No: Agitated, Hallucinations, Withdrawal Symptoms EKG INTERPRETATION EKG Date: 02/04/19 Time: 08:16 Rhythm: NSR Rate (Beats/Min): 70 [place]: LAD-Left [place] Deviation (Extended left cardiac axis) P-Wave: Enlarged (Moderate diffuse biphasic P waves with extreme poor R-wave progression in the anterior leads) QRS: Normal (0.09 seconds) ST-T: Normal (With resolution of previous T-wave inversion in lead aVL) QT: Normal IN/PQ Interval: 0.16 seconds Comparison: Change From Previous EKG (As above since 01/27/19) EKG Interpretation Comments: 1. No acute ischemic changes 2. Left atrial enlargement - Problem List & Annotations (1) Coronary artery disease involving coronary bypass graft SNOMED Code(s): 441057247, 54726615, 752871098, 701633900, 178711718 Code(s): I25.810 - ATHEROSCLEROSIS OF CABG W/O ANGINA PECTORIS Status: Acute Priority: Medium Current Visit: No Qualifiers: [place] vs. transplanted heart: [place] heart Associated angina: without angina Qualified Code(s): I25.810 - Atherosclerosis of coronary artery bypass graft(s) without angina pectoris Annotation/Comment:: Nonspecific pleuritic type chest pain symptoms earlier this morning as above with symptoms completely resolved at this time. Patient felt that he may have slept wrong and did notice that the symptoms only occurred when coughing, which is nonproductive at this time. EKG and chest x- ray are normal with troponin I still normal at this time. Repeat blood work in the a.m. No chest pain or anginal type symptoms at this time. Note patient was initially transferred to our facility from [facility] in [place] for swing bed care on 01/15/19 for postoperative strengthening, etc. He did develop some subsequent postoperative complications including d-dimer elevation, Hemoccult- positive stools, postoperative pneumonia, and hypotension with subsequent transfer back to [facility] on 01/27/19. He has been readmitted to our facility in swing bed for further strengthening, etc. Continue PT and OT with possible future long-term care versus discharge to home with home health. Kun Blake M.D. at the [facility] and/or MO Franklin at the [facility] will resume care upon their return to this area with the administration requesting that [facility] physicians follow the patient for the time being. (2) CHF (congestive heart failure) SNOMED Code(s): 11003462 Code(s): I50.9 - HEART FAILURE, UNSPECIFIED Status: Chronic Priority: Medium Current Visit: Yes Qualifiers: Heart failure type: unspecified Heart failure chronicity: unspecified Qualified Code(s): I50.9 - Heart failure, unspecified Annotation/Comment:: No evidence of significant CHF by today's chest x-ray. Repeat BNP with additional cardiac labs in the a.m. No chest pain or anginal type symptoms at this time as above. (3) Anemia SNOMED Code(s): 193087087 Code(s): D64.9 - ANEMIA, UNSPECIFIED Status: Chronic Priority: Medium Current Visit: Yes Qualifiers: Anemia type: other cause Other causes of anemia: chronic disease, other Qualified Code(s): D63.8 - Anemia in other chronic diseases classified elsewhere Annotation/Comment:: Recently transfused at [facility] prior to return to [facility] bed as above. Pattern consistent with anemia of chronic disease based on recent iron studies. Monitor for change especially in light of Coumadin therapy and previous Hemoccult-positive stools prior to transfer back to [facility] on 01/27/19. CBC to be repeated in the a.m. (4) Paroxysmal A-fib SNOMED Code(s): 502055694 Code(s): I48.0 - PAROXYSMAL ATRIAL FIBRILLATION Status: Chronic Priority : Medium Current Visit: Yes Annotation/Comment:: [facility] is following patient's Coumadin therapy with INR already ordered for tomorrow. Note normal sinus rhythm today. (5) Hypomagnesemia SNOMED Code(s): 289261841 Code(s): E83.42 - HYPOMAGNESEMIA Status: Chronic Priority: Medium Current Visit: Yes Annotation/Comment:: Repeat magnesium level in the a.m. (6) Hypoalbuminemia SNOMED Code(s): 637575781 Code(s): E88.09 - OTH DISORDERS OF PLASMA-PROTEIN METABOLISM, NEC Status: Chronic Priority: Medium Current Visit: Yes Annotation/Comment:: Observe for now. Consider high protein Glucerna supplements as snacks. (7) COPD (chronic obstructive pulmonary disease) SNOMED Code(s): 63550365 Code(s): J44.9 - CHRONIC OBSTRUCTIVE PULMONARY DISEASE, UNSPECIFIED Status : Chronic Priority: Medium Current Visit: Yes Qualifiers: COPD type: emphysema Annotation/Comment:: Currently stable with resolution of previous postoperative pneumonia during her earlier swing bed care as above. Chest x-ray is normal today. PRN supplemental O2 at night and with activity (8) HTN, Benign hypertension SNOMED Code(s): 98939705 Code(s): I10 - ESSENTIAL (PRIMARY) HYPERTENSION Status: Chronic Priority : Medium Current Visit: Yes Annotation/Comment:: Blood pressure is still somewhat mildly elevated, however much improved from previous sling bed care. Continue to observe closely. (9) Peptic reflux disease SNOMED Code(s): 199052461 Code(s): K21.9 - GASTRO-ESOPHAGEAL REFLUX DISEASE WITHOUT ESOPHAGITIS Status: Chronic Priority: Medium Current Visit: Yes Annotation/Comment:: Stable per patient (10) Renal insufficiency SNOMED Code(s): 207989929, 240016465 Code(s): N28.9 - DISORDER OF KIDNEY AND URETER, UNSPECIFIED Status: Chronic Priority: Medium Current Visit: No Annotation/Comment:: Continue to observe closely with repeat blood work in the a.m. - Problem List Review Problem List Initiated/Reviewed/Updated: Yes - Assessment Assessment:: As above - Plan Plan:: As above. Extensive precautions were given to the patient, who is in agreement with the treatment plan.. Administration has requested that the [facility] physicians follow the patient until providers are available at [facility].
[2019-02-04] MEDS: atorvaSTATin 40 MG Tab PO SCH (19:55)
[2019-02-05] MEDS: Mineral Oil/Petrolatum/Phenylephrine/Shark Liver Oil Oint 57 GM Tube RECTAL PRN (03:39)
[2019-02-05] MEDS: Calcium Carbonate/Vitamin D3 1500 MG-400 Units Tab PO SCH ×2 (07:25→17:44)
[2019-02-05] MEDS: Allopurinol 100 MG Tab PO SCH (07:25)
[2019-02-05] MEDS: Metoprolol Tartrate 25 MG Tab PO SCH (07:26)
[2019-02-05] MEDS: Docusate Sodium 100 MG Cap PO SCH (07:26)
[2019-02-05] MEDS: Magnesium Oxide 400 MG Tab PO SCH (07:26)
[2019-02-05] MEDS: Multivitamin Tab PO SCH (07:27)
[2019-02-05] MEDS: predniSONE 5 MG Tab PO SCH (07:28)
[2019-02-05] MEDS: Loratadine 10 MG Tab PO SCH (07:28)
[2019-02-05] MEDS: Tiotropium Inhaler 18 MCG Inhalation Powder Cap Kit of 5 INH SCH (07:29)
[2019-02-05] MEDS: Aspirin 81 MG Tab.EC PO SCH (07:29)
[2019-02-05] MEDS: Amiodarone 200 MG Tab PO SCH (07:31)
[2019-02-05] MEDS: Formoterol/Mometasone 200-5 MCG 8.8 GM Inhaler IH SCH ×2 (07:31→19:32)
[2019-02-05] MEDS: Gabapentin 300 MG Cap PO SCH ×2 (07:32→19:32)
[2019-02-05] MEDS: Omeprazole 20 MG Cap.CR PO SCH (07:32)
[2019-02-05 08:01] LABS: CHLORIDE,CL 103 mmol/L (98-107); SODIUM,NA 137 mmol/L (136-145)
--- NOTE | 2019-02-05 09:01 | PCM.SN ---
- Free Text/Narrative Note: Blood work reviewed this morning. INR still therapeutic at 2.1 with Coumadin therapy currently controlled by the Coumadin clinic at [facility]. Stable anemia. Mild BNP elevation without significant clinical CHF. Mild secondary troponin I change, which is still normal. No chest pain or anginal type symptoms. Blood pressure still somewhat elevated however stable. Note hypoalbuminemia with initiation of high protein Glucerna supplements as snacks. Repeat blood work on 02/07. Note previous hypomagnesemia with current high-dose magnesium supplementation. Initiate low-dose Lasix and potassium therapy. [facility] physicians continue to follow patient for the time being as per previous progress note.
[2019-02-05] MEDS: Acetaminophen 500 MG Tab PO PRN ×2 (09:53→19:32)
[2019-02-05] MEDS: Potassium Chloride 20 MEQ Tab.ER PO SCH (10:42)
[2019-02-05] MEDS: Furosemide 20 MG Tab PO SCH (10:43)
[2019-02-05] MEDS: Enoxaparin 80 MG/0.8 ML Syringe SUBCUT SCH (15:43)
[2019-02-05] MEDS ORDERED: Warfarin 2 MG Tab PO ONE (18:00)
[2019-02-05] MEDS: atorvaSTATin 40 MG Tab PO SCH (19:32)
[2019-02-06] MEDS: Loratadine 10 MG Tab PO SCH (07:36)
[2019-02-06] MEDS: Calcium Carbonate/Vitamin D3 1500 MG-400 Units Tab PO SCH ×2 (07:36→17:18)
[2019-02-06] MEDS: Docusate Sodium 100 MG Cap PO SCH (07:36)
[2019-02-06] MEDS: Amiodarone 200 MG Tab PO SCH (07:37)
[2019-02-06] MEDS: Formoterol/Mometasone 200-5 MCG 8.8 GM Inhaler IH SCH ×2 (07:37→19:39)
[2019-02-06] MEDS: Aspirin 81 MG Tab.EC PO SCH (07:37)
[2019-02-06] MEDS: Magnesium Oxide 400 MG Tab PO SCH (07:38)
[2019-02-06] MEDS: Potassium Chloride 20 MEQ Tab.ER PO SCH (07:38)
[2019-02-06] MEDS: Furosemide 20 MG Tab PO SCH (07:38)
[2019-02-06] MEDS: Omeprazole 20 MG Cap.CR PO SCH (07:39)
[2019-02-06] MEDS: Gabapentin 300 MG Cap PO SCH ×2 (07:39→19:40)
[2019-02-06] MEDS: predniSONE 5 MG Tab PO SCH (07:39)
[2019-02-06] MEDS: Tiotropium Inhaler 18 MCG Inhalation Powder Cap Kit of 5 INH SCH (07:40)
[2019-02-06] MEDS: Multivitamin Tab PO SCH (07:41)
[2019-02-06] MEDS: Allopurinol 100 MG Tab PO SCH (07:41)
[2019-02-06] MEDS: Metoprolol Tartrate 25 MG Tab PO SCH (07:42)
[2019-02-06] MEDS: atorvaSTATin 40 MG Tab PO SCH (19:39)
[2019-02-06] MEDS: Acetaminophen 500 MG Tab PO PRN (19:40)
[2019-02-06] MEDS ORDERED: Magnesium Hydroxide 400 MG/5 ML Susp 30 ML Cup PO PRN (20:35)
[2019-02-06] MEDS ORDERED: Bisacodyl 5 MG Tab PO PRN (20:36)
[2019-02-07 08:07] LABS: CHLORIDE,CL 101 mmol/L (98-107); SODIUM,NA 138 mmol/L (136-145)
[2019-02-07] MEDS: Tiotropium Inhaler 18 MCG Inhalation Powder Cap Kit of 5 INH SCH (08:46)
[2019-02-07] MEDS: Metoprolol Tartrate 25 MG Tab PO SCH (08:47)
[2019-02-07] MEDS: Formoterol/Mometasone 200-5 MCG 8.8 GM Inhaler IH SCH ×2 (08:47→19:34)
[2019-02-07] MEDS: Magnesium Oxide 400 MG Tab PO SCH (08:48)
[2019-02-07] MEDS: Potassium Chloride 20 MEQ Tab.ER PO SCH (08:48)
[2019-02-07] MEDS: predniSONE 5 MG Tab PO SCH (08:49)
[2019-02-07] MEDS: Gabapentin 300 MG Cap PO SCH ×2 (08:49→19:34)
[2019-02-07] MEDS: Multivitamin Tab PO SCH (08:50)
[2019-02-07] MEDS: Amiodarone 200 MG Tab PO SCH (08:50)
[2019-02-07] MEDS: Calcium Carbonate/Vitamin D3 1500 MG-400 Units Tab PO SCH ×2 (08:50→18:36)
[2019-02-07] MEDS: Aspirin 81 MG Tab.EC PO SCH (08:51)
[2019-02-07] MEDS: Omeprazole 20 MG Cap.CR PO SCH (08:51)
[2019-02-07] MEDS: Docusate Sodium 100 MG Cap PO SCH (08:51)
[2019-02-07] MEDS: Allopurinol 100 MG Tab PO SCH (08:51)
[2019-02-07] MEDS: Loratadine 10 MG Tab PO SCH (08:52)
[2019-02-07] MEDS: Furosemide 20 MG Tab PO SCH (08:52)
--- NOTE | 2019-02-07 11:42 | PCM.SN ---
- Free Text/Narrative Note: Blood work results reviewed today. Magnesium is still somewhat decreased despite high-dose magnesium oxide therapy. Observe for now. INR is therapeutic with Coumadin therapy being monitored and controlled through the Coumadin clinic at [place]. Repeat blood work on 02/10.
[2019-02-07] MEDS: atorvaSTATin 40 MG Tab PO SCH (19:34)
[2019-02-07] MEDS: Acetaminophen 500 MG Tab PO PRN (19:36)
[2019-02-08] MEDS: Formoterol/Mometasone 200-5 MCG 8.8 GM Inhaler IH SCH ×2 (08:12→19:05)
[2019-02-08] MEDS: Tiotropium Inhaler 18 MCG Inhalation Powder Cap Kit of 5 INH SCH (08:12)
[2019-02-08] MEDS: Multivitamin Tab PO SCH (08:13)
[2019-02-08] MEDS: Omeprazole 20 MG Cap.CR PO SCH (08:13)
[2019-02-08] MEDS: Aspirin 81 MG Tab.EC PO SCH (08:13)
[2019-02-08] MEDS: Loratadine 10 MG Tab PO SCH (08:13)
[2019-02-08] MEDS: predniSONE 5 MG Tab PO SCH (08:13)
[2019-02-08] MEDS: Gabapentin 300 MG Cap PO SCH ×2 (08:13→19:08)
[2019-02-08] MEDS: Magnesium Oxide 400 MG Tab PO SCH ×3 (08:13→17:25)
[2019-02-08] MEDS: Potassium Chloride 20 MEQ Tab.ER PO SCH (08:13)
[2019-02-08] MEDS: Calcium Carbonate/Vitamin D3 1500 MG-400 Units Tab PO SCH ×2 (08:13→17:25)
[2019-02-08] MEDS: Allopurinol 100 MG Tab PO SCH (08:13)
[2019-02-08] MEDS: Docusate Sodium 100 MG Cap PO SCH (08:13)
[2019-02-08] MEDS: Amiodarone 200 MG Tab PO SCH (08:13)
[2019-02-08] MEDS: Furosemide 20 MG Tab PO SCH (08:13)
[2019-02-08] MEDS: Metoprolol Tartrate 25 MG Tab PO SCH (08:14)
[2019-02-08] MEDS: Acetaminophen 500 MG Tab PO PRN ×2 (08:20→19:07)
[2019-02-08] MEDS: atorvaSTATin 40 MG Tab PO SCH (19:06)
[2019-02-09] MEDS: Formoterol/Mometasone 200-5 MCG 8.8 GM Inhaler IH SCH ×2 (08:50→18:59)
[2019-02-09] MEDS: Tiotropium Inhaler 18 MCG Inhalation Powder Cap Kit of 5 INH SCH (08:50)
[2019-02-09] MEDS: Aspirin 81 MG Tab.EC PO SCH (08:53)
[2019-02-09] MEDS: Multivitamin Tab PO SCH (08:53)
[2019-02-09] MEDS: Gabapentin 300 MG Cap PO SCH ×2 (08:53→18:59)
[2019-02-09] MEDS: Furosemide 20 MG Tab PO SCH (08:53)
[2019-02-09] MEDS: Docusate Sodium 100 MG Cap PO SCH (08:53)
[2019-02-09] MEDS: Loratadine 10 MG Tab PO SCH (08:53)
[2019-02-09] MEDS: Omeprazole 20 MG Cap.CR PO SCH (08:53)
[2019-02-09] MEDS: Metoprolol Tartrate 25 MG Tab PO SCH (08:53)
[2019-02-09] MEDS: predniSONE 5 MG Tab PO SCH (08:54)
[2019-02-09] MEDS: Amiodarone 200 MG Tab PO SCH (08:54)
[2019-02-09] MEDS: Potassium Chloride 20 MEQ Tab.ER PO SCH (08:54)
[2019-02-09] MEDS: Allopurinol 100 MG Tab PO SCH (08:54)
[2019-02-09] MEDS: Magnesium Oxide 400 MG Tab PO SCH ×3 (08:54→17:47)
[2019-02-09] MEDS: Calcium Carbonate/Vitamin D3 1500 MG-400 Units Tab PO SCH ×2 (08:54→17:46)
[2019-02-09] MEDS: Acetaminophen 500 MG Tab PO PRN ×2 (08:58→19:02)
[2019-02-09] MEDS: atorvaSTATin 40 MG Tab PO SCH (18:59)
[2019-02-10] MEDS: Docusate Sodium 100 MG Cap PO SCH (07:36)
[2019-02-10] MEDS: Metoprolol Tartrate 25 MG Tab PO SCH (07:36)
[2019-02-10] MEDS: predniSONE 5 MG Tab PO SCH (07:37)
[2019-02-10] MEDS: Calcium Carbonate/Vitamin D3 1500 MG-400 Units Tab PO SCH ×2 (07:37→17:25)
[2019-02-10] MEDS: Magnesium Oxide 400 MG Tab PO SCH ×3 (07:37→17:25)
[2019-02-10] MEDS: Omeprazole 20 MG Cap.CR PO SCH (07:38)
[2019-02-10] MEDS: Furosemide 20 MG Tab PO SCH (07:38)
[2019-02-10] MEDS: Loratadine 10 MG Tab PO SCH (07:38)
[2019-02-10] MEDS: Multivitamin Tab PO SCH (07:38)
[2019-02-10] MEDS: Gabapentin 300 MG Cap PO SCH ×2 (07:38→20:07)
[2019-02-10] MEDS: Amiodarone 200 MG Tab PO SCH (07:39)
[2019-02-10] MEDS: Aspirin 81 MG Tab.EC PO SCH (07:39)
[2019-02-10] MEDS: Potassium Chloride 20 MEQ Tab.ER PO SCH (07:39)
[2019-02-10] MEDS: Allopurinol 100 MG Tab PO SCH (07:39)
[2019-02-10] MEDS: Formoterol/Mometasone 200-5 MCG 8.8 GM Inhaler IH SCH ×2 (07:40→20:05)
[2019-02-10] MEDS: Tiotropium Inhaler 18 MCG Inhalation Powder Cap Kit of 5 INH SCH (07:40)
[2019-02-10 07:53] LABS: CHLORIDE,CL 101 mmol/L (98-107); SODIUM,NA 138 mmol/L (136-145)
[2019-02-10] MEDS ORDERED: Warfarin 2 MG Tab PO ONE ×2 (18:00)
[2019-02-10] MEDS: atorvaSTATin 40 MG Tab PO SCH (20:06)
[2019-02-11] MEDS: Acetaminophen 500 MG Tab PO PRN ×2 (02:45→20:15)
[2019-02-11] MEDS: Mineral Oil/Petrolatum/Phenylephrine/Shark Liver Oil Oint 57 GM Tube RECTAL PRN (07:16)
[2019-02-11] MEDS: Tiotropium Inhaler 18 MCG Inhalation Powder Cap Kit of 5 INH SCH (07:17)
[2019-02-11] MEDS: Formoterol/Mometasone 200-5 MCG 8.8 GM Inhaler IH SCH ×2 (07:17→20:12)
[2019-02-11] MEDS: Magnesium Oxide 400 MG Tab PO SCH ×3 (07:19→17:15)
[2019-02-11] MEDS: Loratadine 10 MG Tab PO SCH (07:19)
[2019-02-11] MEDS: Gabapentin 300 MG Cap PO SCH ×2 (07:19→20:11)
[2019-02-11] MEDS: Multivitamin Tab PO SCH (07:19)
[2019-02-11] MEDS: Calcium Carbonate/Vitamin D3 1500 MG-400 Units Tab PO SCH ×2 (07:19→17:15)
[2019-02-11] MEDS: Aspirin 81 MG Tab.EC PO SCH (07:19)
[2019-02-11] MEDS: Potassium Chloride 20 MEQ Tab.ER PO SCH (07:19)
[2019-02-11] MEDS: Amiodarone 200 MG Tab PO SCH (07:19)
[2019-02-11] MEDS: Allopurinol 100 MG Tab PO SCH (07:19)
[2019-02-11] MEDS: Omeprazole 20 MG Cap.CR PO SCH (07:19)
[2019-02-11] MEDS: Docusate Sodium 100 MG Cap PO SCH (07:19)
[2019-02-11] MEDS: Metoprolol Tartrate 25 MG Tab PO SCH (07:20)
[2019-02-11] MEDS: Furosemide 20 MG Tab PO SCH (07:20)
[2019-02-11] MEDS: atorvaSTATin 40 MG Tab PO SCH (20:11)
[2019-02-12] MEDS: Potassium Chloride 20 MEQ Tab.ER PO SCH (07:48)
[2019-02-12] MEDS: Calcium Carbonate/Vitamin D3 1500 MG-400 Units Tab PO SCH ×2 (07:49→18:08)
[2019-02-12] MEDS: Amiodarone 200 MG Tab PO SCH (07:49)
[2019-02-12] MEDS: Furosemide 20 MG Tab PO SCH (07:49)
[2019-02-12] MEDS: Multivitamin Tab PO SCH (07:49)
[2019-02-12] MEDS: Loratadine 10 MG Tab PO SCH (07:49)
[2019-02-12] MEDS: Metoprolol Tartrate 25 MG Tab PO SCH (07:49)
[2019-02-12] MEDS: Aspirin 81 MG Tab.EC PO SCH (07:49)
[2019-02-12] MEDS: Gabapentin 300 MG Cap PO SCH ×2 (07:49→19:08)
[2019-02-12] MEDS: Allopurinol 100 MG Tab PO SCH (07:49)
[2019-02-12] MEDS: Docusate Sodium 100 MG Cap PO SCH (07:49)
[2019-02-12] MEDS: Magnesium Oxide 400 MG Tab PO SCH ×3 (07:49→18:08)
[2019-02-12] MEDS: Omeprazole 20 MG Cap.CR PO SCH (07:49)
[2019-02-12] MEDS: Formoterol/Mometasone 200-5 MCG 8.8 GM Inhaler IH SCH ×2 (07:50→19:08)
[2019-02-12] MEDS: Tiotropium Inhaler 18 MCG Inhalation Powder Cap Kit of 5 INH SCH (07:50)
[2019-02-12] MEDS: Acetaminophen 500 MG Tab PO PRN ×2 (07:59→19:11)
[2019-02-12] MEDS ORDERED: Warfarin 5 MG Tab PO ONE (18:00)
[2019-02-12] MEDS: atorvaSTATin 40 MG Tab PO SCH (19:08)
[2019-02-13] MEDS: Formoterol/Mometasone 200-5 MCG 8.8 GM Inhaler IH SCH ×2 (08:53→19:36)
[2019-02-13] MEDS: Tiotropium Inhaler 18 MCG Inhalation Powder Cap Kit of 5 INH SCH (08:53)
[2019-02-13] MEDS: Allopurinol 100 MG Tab PO SCH (08:55)
[2019-02-13] MEDS: Docusate Sodium 100 MG Cap PO SCH (08:55)
[2019-02-13] MEDS: Metoprolol Tartrate 25 MG Tab PO SCH (08:55)
[2019-02-13] MEDS: Omeprazole 20 MG Cap.CR PO SCH (08:55)
[2019-02-13] MEDS: Aspirin 81 MG Tab.EC PO SCH (08:56)
[2019-02-13] MEDS: Calcium Carbonate/Vitamin D3 1500 MG-400 Units Tab PO SCH ×2 (08:56→17:12)
[2019-02-13] MEDS: Multivitamin Tab PO SCH (08:56)
[2019-02-13] MEDS: Potassium Chloride 20 MEQ Tab.ER PO SCH (08:56)
[2019-02-13] MEDS: Furosemide 20 MG Tab PO SCH (08:56)
[2019-02-13] MEDS: Loratadine 10 MG Tab PO SCH (08:56)
[2019-02-13] MEDS: Magnesium Oxide 400 MG Tab PO SCH ×3 (08:56→17:12)
[2019-02-13] MEDS: Gabapentin 300 MG Cap PO SCH ×2 (08:57→19:36)
[2019-02-13] MEDS: Amiodarone 200 MG Tab PO SCH (08:57)
[2019-02-13] MEDS: Acetaminophen 500 MG Tab PO PRN (15:37)
[2019-02-13] MEDS: atorvaSTATin 40 MG Tab PO SCH (19:36)
[2019-02-14 08:23] VITALS: BP 154/90; PULSE 90
[2019-02-14] MEDS: Formoterol/Mometasone 200-5 MCG 8.8 GM Inhaler IH SCH (08:45)
[2019-02-14] MEDS: Potassium Chloride 20 MEQ Tab.ER PO SCH (08:46)
[2019-02-14] MEDS: Aspirin 81 MG Tab.EC PO SCH (08:47)
[2019-02-14] MEDS: Allopurinol 100 MG Tab PO SCH (08:47)
[2019-02-14] MEDS: Docusate Sodium 100 MG Cap PO SCH (08:47)
[2019-02-14] MEDS: Magnesium Oxide 400 MG Tab PO SCH ×2 (08:47→11:45)
[2019-02-14] MEDS: Furosemide 20 MG Tab PO SCH (08:48)
[2019-02-14] MEDS: Calcium Carbonate/Vitamin D3 1500 MG-400 Units Tab PO SCH (08:48)
[2019-02-14] MEDS: Loratadine 10 MG Tab PO SCH (08:48)
[2019-02-14] MEDS: Multivitamin Tab PO SCH (08:48)
[2019-02-14] MEDS: Omeprazole 20 MG Cap.CR PO SCH (08:48)
[2019-02-14] MEDS: Metoprolol Tartrate 25 MG Tab PO SCH (08:49)
[2019-02-14] MEDS: Amiodarone 200 MG Tab PO SCH (08:49)
[2019-02-14] MEDS: Tiotropium Inhaler 18 MCG Inhalation Powder Cap Kit of 5 INH SCH (08:50)
[2019-02-14] MEDS: Gabapentin 300 MG Cap PO SCH (08:50)
[2019-02-14] MEDS: Acetaminophen 500 MG Tab PO PRN (08:53)
--- NOTE | 2019-02-14 13:53 | PCM.DCSUM1 ---
Discharge Summary - Hospital Course HPI Initial Comments: See admission H&P Brief History: See admission H&P Diagnosis: Stroke: No Modified Damaso Scale: No Symptoms at All Modified Damaso Scale Score: 0 - Discharge Data Discharge Date: 02/14/19 Discharge Disposition: Home, W Home Health Agency 06 Condition: Good - Discharge Diagnosis/Problem(s) (1) Coronary artery disease involving coronary bypass graft SNOMED Code(s): 989367684, [id number], 961239532, 911158843, [id number] ICD Code: I25.810 - ATHEROSCLEROSIS OF CABG W/O ANGINA PECTORIS Status: Acute Priority: Medium Current Visit: No Problem Details: The patient has not had any significant anginal type symptoms since readmission into the swing bed. He has tolerated physical therapy and occupational therapy well and does feel ready to go home. Note extremely variable INRs throughout his swing bed care likely secondary to tapering prednisone therapy and as needed Tylenol with Coumadin therapy controlled through the Coumadin clinic at [facility] in [place]. The patient does have a follow-up appointment scheduled in the cardiology clinic on 02/17 with recommended blood work at that time as per discharge instructions. He will also get new Coumadin instructions from the Coumadin clinic on that day with Coumadin to be held until 02/16 with 1 mg at that time. He should also be scheduled for a low level cardiac stress test by his regular provider, Homero Newman PA-C, at the [facility] in [place], and/or his gate keeper for entry into the cardiac rehabilitation program in our facility ANA possibly at time of cardiology appointment on 02/17. Nonspecific pleuritic type chest pain symptoms were noted occasionally during his swing bed care. He did notice that the symptoms only occurred when coughing, which is nonproductive at this time. Negative EKG and cardiac enzymes during his care. Note patient was initially transferred to our facility from [facility] in [place] for swing bed care on 01/15/19 for postoperative strengthening, etc. He did develop some subsequent postoperative complications including d-dimer elevation, Hemoccult-positive stools, postoperative pneumonia, and hypotension with subsequent transfer back to [facility] in [place] on 01/27/19. He had been readmitted to our facility in swing bed for further strengthening, etc. Continue PT and OT on an outpatient basis. Patient did not wish to have long- term care, however he does agree to home health. Qualifiers: [place] vs. transplanted heart: [place] heart Associated angina: without angina Qualified Code(s): I25.810 - Atherosclerosis of coronary artery bypass graft(s) without angina pectoris (2) CHF (congestive heart failure) SNOMED Code(s): 44571166 ICD Code: I50.9 - HEART FAILURE, UNSPECIFIED Status: Chronic Priority: Medium Current Visit: Yes Problem Details: No evidence of significant CHF by today's clinical exam and previous chest x-ray during his swing bed care.. Repeat BNP with additional cardiac labs at time of follow-up visit with his gate keeper as above. Qualifiers: Heart failure type: unspecified Heart failure chronicity: unspecified Qualified Code(s): I50.9 - Heart failure, unspecified (3) Anemia SNOMED Code(s): 518062253 ICD Code: D64.9 - ANEMIA, UNSPECIFIED Status: Chronic Priority: Medium Current Visit: Yes Problem Details: Anemia improved during this hospitalization with no evidence acute GI bleed, etc. despite verbal INR results. Continue to observe his CBC and INR closely by his regular providers and gate keeper. Note that the patient was recently transfused at [facility] prior to return to [facility] as above. Pattern consistent with anemia of chronic disease based on recent iron studies. Monitor for change especially in light of Coumadin therapy and previous Hemoccult-positive stools prior to transfer back to [facility] on 01/27/19. Qualifiers: Anemia type: other cause Other causes of anemia: chronic disease, other Qualified Code(s): D63.8 - Anemia in other chronic diseases classified elsewhere (4) Paroxysmal A-fib SNOMED Code(s): 808390164 ICD Code: I48.0 - PAROXYSMAL ATRIAL FIBRILLATION Status: Chronic Priority : Medium Current Visit: Yes Problem Details: [facility] is following patient's Coumadin therapy with INR elevated today at 4.0 with Coumadin to be held for the next couple of days and instructions received from the Coumadin clinic today. Note normal sinus rhythm today. (5) Hypomagnesemia SNOMED Code(s): 801354820 ICD Code: E83.42 - HYPOMAGNESEMIA Status: Chronic Priority: Medium Current Visit: Yes Problem Details: Magnesium is extremely refractory to high- dose magnesium oxide therapy Repeat magnesium level at follow-up on 02/17 as above. Patient may need IV magnesium sulfate infusion depending on his clinical course. (6) Hypoalbuminemia SNOMED Code(s): 975743305 ICD Code: E88.09 - [facility] DISORDERS OF PLASMA-PROTEIN METABOLISM, NEC Status: Chronic Priority: Medium Current Visit: Yes Problem Details: Observe for now. Consider high protein Glucerna supplements as snacks. (7) COPD (chronic obstructive pulmonary disease) SNOMED Code(s): 39116762 ICD Code: J44.9 - CHRONIC OBSTRUCTIVE PULMONARY DISEASE, UNSPECIFIED Status : Chronic Priority: Medium Current Visit: Yes Problem Details: Currently stable with resolution of previous postoperative pneumonia during his earlier swing bed care as above. Chest x-ray was normal during his swing bed care. PRN supplemental O2 at night and with activity during his swing bed care is no longer needed at this time. Note tapering prednisone regimen has been completed. No recent fever or bronchitic type symptoms. Qualifiers: COPD type: emphysema Emphysema type: panlobular Qualified Code(s): J43.1 - Panlobular emphysema (8) HTN, Benign hypertension SNOMED Code(s): 80131108 ICD Code: I10 - ESSENTIAL (PRIMARY) HYPERTENSION Status: Chronic Priority : Medium Current Visit: Yes Problem Details: Blood pressure is still somewhat variable and mildly elevated today, however much improved from previous sling bed care. Continue to observe closely by his regular providers and during upcoming cardiac rehabilitation program with no change in medical therapy for the time being. (9) Peptic reflux disease SNOMED Code(s): 661677287 ICD Code: K21.9 - GASTRO-ESOPHAGEAL REFLUX DISEASE WITHOUT ESOPHAGITIS Status: Chronic Priority: Medium Current Visit: Yes Problem Details: Stable per patient (10) Renal insufficiency SNOMED Code(s): 664956471, 860815951 ICD Code: N28.9 - DISORDER OF KIDNEY AND URETER, UNSPECIFIED Status: Chronic Priority: Medium Current Visit: No Problem Details: Continue to observe closely with repeat blood work at follow-up as per discharge instructions. - Patient Summary/Data Operative Procedure(s) Performed: None Complications: None Consults: Consultations 01/31/19 17:47 Consult to Case Management/Superintendent Recreation [CONS] Routine OT Evaluation and Treatment [CONS] Routine PT Evaluation and Treatment [CONS] Routine Labs Pending at D/C: None Recommended Follow-up Testing/Procedures: As per discharge instructions Planned Operative Procedure(s) after DC: None Hospital Course: Patient was admitted to our swing bed unit for further physical therapy and occupational therapy, which did progress well. They are releasing the patient to home care today. No complications during his care with evaluations and improvement as above. - Patient Instructions Diet: Fluid Restriction Diet, Other: Heart healthy, diverticulosis, Fluid Restriction: 2000 mL Activity: As Tolerated Driving: Do Not Drive Showering/Bathing: May Shower Notify Provider of: Fever, Increased Pain, Nausea and/or Vomiting Other/Special Instructions: 1. Follow-up with your gate keeper at [facility] in [place] as already scheduled with recommended CBC, comprehensive metabolic panel, INR, magnesium level, uric acid level, troponin I, and BNP. Additional EKG and chest x-ray per discretion of his gate keeper. 2. Discuss setting up of low level cardiac stress test for admission to our cardiac rehabilitation program at that time. 3. No Coumadin should be taken until 02/16 with only 1 mg tablet at that time and further Coumadin instructions from the Coumadin clinic at follow-up on 02/17. 4. High protein Glucerna supplements 2 times a day as snacks. 5. No additional Tylenol, ibuprofen, Aleve, etc. secondary to your Coumadin therapy and verbal INRs as discussed today. 6. If you need the colchicine, extra Tylenol, etc. the Coumadin clinic or your regular provider should be contacted ANA so that your INR may be checked earlier. 7. Home health at discharge for medication set up, etc. 8. Continue PT and OT as per their instructions. 9. Immediately after this visit verify that your cellular telephone's voicemail has been activated and is empty. Also verify that your home telephone's answering machine is operating properly and has space to receive messages. Note that it is sometimes necessary for us to be able to contact you at a later date to discuss your medical care. 10. Please remember that we are ALWAYS here for you and want to answer any questions you may have. Feel free to call the hospital any time and we call you back ANA. - Discharge Plan *PRESCRIPTION DRUG MONITORING PROGRAM REVIEWED*: Not Applicable *COPY OF PRESCRIPTION DRUG MONITORING REPORT IN PATIENT JAKE: Not Applicable Prescriptions/Med Rec: Furosemide [Lasix] 20 mg PO DAILY #30 tablet Magnesium Oxide 800 mg PO TID #100 tablet Potassium Chloride [Klor-Con M20] 20 meq PO DAILY #30 tab.er Warfarin [Coumadin] 1 mg PO DAILY #30 tab Home Medications: Home Meds Allopurinol [Zyloprim] 200 mg PO DAILY 02/05/14 [History] Fluticasone Propionate [Flonase] 2 spray NASBOTH DAILY PRN 02/05/14 [History] Multivit-Min/FA/Lycopene/Lut [Centrum Silver] 1 each PO DAILY 02/05/14 [History] Tiotropium [Spiriva HandiHaler] 1 cap INH DAILY 02/05/14 [History] atorvaSTATin [Lipitor] 60 mg PO BEDTIME 02/05/14 [History] Loratadine [Claritin] 10 mg PO QAM 06/16/14 [History] Aspirin [Halfprin] 1 tab PO DAILY 11/08/18 [History] Albuterol Sulfate [Albuterol Sulfate Hfa] 2 puff INH Q6H PRN 01/15/19 [History] Amiodarone [Cordarone] 200 mg PO DAILY 01/15/19 [History] Calcium Citrate/Vitamin D3 [Calcium Citrate - Vit D Tablet] 1 each PO BIDMEALS 01/15/19 [History] Colchicine 0.6 mg PO ASDIRECTED 01/15/19 [History] Metoprolol Tartrate [Lopressor] 75 mg PO DAILY 01/15/19 [History] Omeprazole 20 mg PO DAILY 01/15/19 [History] Gabapentin [Neurontin] 300 mg PO Q12HR 01/22/19 [History] Budesonide/Formoterol [Symbicort 160-4.5 MCG] 2 puff INH BID@,20 01/31/19 [ History] Docusate Sodium 200 mg PO DAILY 01/31/19 [History] Bisacodyl [Dulcolax] 5 mg PO DAILY PRN tablet 02/14/19 [Rx] Furosemide [Lasix] 20 mg PO DAILY #30 tablet 02/14/19 [Rx] MO/Pet,Wh/Phenylephrine/Shk Lv [Preparation H Oint] 0 gm RECTAL ASDIRECTED PRN tube 02/14/19 [Rx] Magnesium Oxide 800 mg PO TID #100 tablet 02/14/19 [Rx] Potassium Chloride [Klor-Con M20] 20 meq PO DAILY #30 tab.er 02/14/19 [Rx] Warfarin [Coumadin] 1 mg PO DAILY #30 tab 02/14/19 [Rx] Oxygen Therapy Mode: Room Air - Discharge Summary/Plan Comment DC Time >30 min.: Yes (Coordination of care ) Discharge Summary/Plan Comment: As above. Extensive precautions were given to the patient, who is in agreement with the treatment plan. See Patient Instructions for further treatment and plan. - General Info Date of Service: 02/14/19 Admission Dx/Problem (Free Text: 1. Coronary artery disease with status post CABG 2 on 01/08/19 2. Postoperative fatigue and weakness 3. CHF Functional Status: Reports: Pain Controlled, Tolerating Diet, Ambulating, Urinating, Incentive Spirometry. Denies: New Symptoms Numeric/FACES Score: 0 - Review of Systems General: Reports: Weakness (Improved generalized PT and OT). Denies: Fever, Fatigue, Malaise, Chills, Night Sweats, Appetite (Adequate) HEENT: Reports: No Symptoms. Denies: Dysphasia, Ear Pain, Eye Pain, Headaches, Post Nasal Drip, Sinus Congestion, Sore Throat, Rhinitis, Visual Changes Pulmonary: Reports: No Symptoms. Denies: Shortness of Breath, Pleuritic Chest Pain, Cough, Sputum, Hemoptysis, Wheezing Cardiovascular: Reports: No Symptoms. Denies: Chest Pain, Palpitations, Dyspnea on Exertion, Orthopnea, PND, Edema, Lightheadedness Gastrointestinal: Reports: No Symptoms, Other (Normal bowel movement earlier today). Denies: Abdominal Pain, Constipation, Decreased Appetite, Diarrhea, Difficulty Swallowing, Flatus, Hematochezia (Although occasional problems with hemorrhoids but not at time of discharge), Melena, Nausea, Vomiting Genitourinary: Reports: No Symptoms. Denies: Dysuria, Frequency, Burning, Pain , Urgency, Incontinence, Hematuria, Retention, Flank Pain Musculoskeletal: Reports: No Symptoms. Denies: Neck Pain, Shoulder Pain, Arm Pain, Back Pain, Leg Pain Skin: Reports: Bruising (Mild from Coumadin therapy). Denies: Diaphoresis Neurological: Reports: Weakness (As above). Denies: Confusion, Dizziness, Headache, Numbness, Paresthesia, Syncope, Tremors, Difficulty Walking, Change in Speech, Gait Disturbance Psychiatric: Reports: No Symptoms. Denies: Confusion, Depression, Anxiety, Agitation, Hallucinations - Patient Data Vitals - Most Recent: Last Vital Signs Temp 36.4 C 02/14/19 08:00 Pulse 90 02/14/19 08:49 Resp 19 02/14/19 08:00 BP 154/90 H 02/14/19 08:49 Pulse Ox 96 02/14/19 08:00 Vital Signs (72 hours) 02/11/19 02/12/19 02/12/19 20:00 07:49 07:58 Temperature [ Oral] Temperature [ 36.9 C 36.6 C Temporal] Pulse, 77 Peripheral Pulse, 74 77 Peripheral [ Right Pulse Oximetry] Respiratory 16 20 Rate Blood Pressure 125/77 Blood Pressure 150/92 H 125/77 [Left Upper Arm ] O2 Sat by Pulse 98 93 L Oximetry 02/12/19 02/13/19 02/13/19 19:14 08:00 08:55 Temperature [ Oral] Temperature [ 37.3 C 36.4 C Temporal] Pulse, 79 Peripheral Pulse, 80 79 Peripheral [ Right Pulse Oximetry] Respiratory 16 17 Rate Blood Pressure 149/80 H Blood Pressure 130/82 149/80 H [Left Upper Arm ] O2 Sat by Pulse 96 92 L Oximetry 02/13/19 02/14/19 02/14/19 19:25 08:00 08:49 Temperature [ 36.4 C Oral] Temperature [ 36.4 C Temporal] Pulse, 90 Peripheral Pulse, 73 90 Peripheral [ Right Pulse Oximetry] Respiratory 16 19 Rate Blood Pressure 154/90 H Blood Pressure 101/59 L 154/90 H [Left Upper Arm ] O2 Sat by Pulse 94 L 96 Oximetry Weight - Most Recent: 79.787 kg I&O - Last 24 hours: Intake & Output 02/13/19 02/14/19 02/14/19 22:59 06:59 14:59 Intake Total 240 720 Balance 240 720 Imaging Impressions - Last 24 hrs: Chest x-ray, PA and lateral, report from 02/04/19 showed no evidence of CHF, pulmonary infiltrates, etc. with mild left lung basilar atelectasis. Lab Results - Last 24 hrs: Laboratory Results - last 24 hr 02/14/19 Range/Units 07:25 INR 4.0 Laboratory Tests 06/29/19 06/29/19 06/29/19 Range/Units 07:10 07:10 07:10 WBC 9.4 (4.0-10.2) K/uL RBC 3.61 L (4.33-5.41) M/uL Hgb 10.7 L D (13.1-16.8) g/dL Hct 33.0 L (39.0-49.0) % MCV 91.4 D (84.0-98.0) fL MCH 29.6 (28.2-33.3) pg MCHC 32.4 (31.7-36.0) g/dL RDW 16.7 H (11.2-14.1) % Plt Count 318 D (150-350) K/uL Neut % (Auto) 70.7 (45.0-80.0) % Lymph % (Auto) 17.3 (10.0-50.0) % [place] % (Auto) 9.8 (2.0-14.0) % Eos % (Auto) 2.0 (0.0-5.0) % Baso % (Auto) 0.2 (0.0-2.0) % Neut # (Auto) 6.61 (1.40-7.00) K/uL Lymph # (Auto) 1.62 (0.50-3.50) K/uL [place] # (Auto) 0.92 (0.00-1.00) K/uL Eos # (Auto) 0.19 (0.00-0.50) K/uL Baso # (Auto) 0.02 (0.00-0.20) K/uL PT 33.0 H D (9.5-12.0) SEC INR 3.1 Sodium 136 (136-145) mmol/L Potassium 3.8 (3.5-5.1) mmol/L Chloride 102 (98-107) mmol/L Carbon Dioxide 24.7 (21.0-32.0) mmol/L BUN 42 H (7-18) mg/dL Creatinine 1.16 (0.51-1.17) mg/dL Est Cr Clr Drug Dosing 49.86 mL/min Estimated GFR (MDRD) > 60 mL/min Glucose 88 (74-106) mg/dL Calcium 9.6 (8.5-10.1) mg/dL Magnesium (1.8-2.4) mg/dL Total Bilirubin 0.4 (0.2-1.0) mg/dL AST 29 (15-37) U/L ALT 67 (12-78) U/L Alkaline Phosphatase 66 (46-116) IU/L Creatine Kinase (26-308) U/L Creatine Kinase Index (0.0-2.5) % CK-MB (CK-2) (0.00-3.60) ng/mL Troponin I (0.000-0.056) ng/mL NT-Pro-B Natriuret Pep (0-125) pg/mL Total Protein 6.0 L (6.4-8.2) g/dL Albumin 2.5 L (3.4-5.0) g/dL 02/02/19 02/02/19 02/03/19 Range/Units 07:15 07:15 07:45 WBC (4.0-10.2) K/uL RBC (4.33-5.41) M/uL Hgb (13.1-16.8) g/dL Hct (39.0-49.0) % MCV (84.0-98.0) fL MCH (28.2-33.3) pg MCHC (31.7-36.0) g/dL RDW (11.2-14.1) % Plt Count (150-350) K/uL Neut % (Auto) (45.0-80.0) % Lymph % (Auto) (10.0-50.0) % [place] % (Auto) (2.0-14.0) % Eos % (Auto) (0.0-5.0) % Baso % (Auto) (0.0-2.0) % Neut # (Auto) (1.40-7.00) K/uL Lymph # (Auto) (0.50-3.50) K/uL [place] # (Auto) (0.00-1.00) K/uL Eos # (Auto) (0.00-0.50) K/uL Baso # (Auto) (0.00-0.20) K/uL PT 49.9 H D 47.1 H (9.5-12.0) SEC INR 4.6 4.4 Sodium (136-145) mmol/L Potassium (3.5-5.1) mmol/L Chloride (98-107) mmol/L Carbon Dioxide (21.0-32.0) mmol/L BUN (7-18) mg/dL Creatinine (0.51-1.17) mg/dL Est Cr Clr Drug Dosing mL/min Estimated GFR (MDRD) mL/min Glucose (74-106) mg/dL Calcium (8.5-10.1) mg/dL Magnesium 1.5 L (1.8-2.4) mg/dL Total Bilirubin (0.2-1.0) mg/dL AST (15-37) U/L ALT (12-78) U/L Alkaline Phosphatase (46-116) IU/L Creatine Kinase (26-308) U/L Creatine Kinase Index (0.0-2.5) % CK-MB (CK-2) (0.00-3.60) ng/mL Troponin I (0.000-0.056) ng/mL NT-Pro-B Natriuret Pep (0-125) pg/mL Total Protein (6.4-8.2) g/dL Albumin (3.4-5.0) g/dL 02/04/19 02/04/19 02/05/19 Range/Units 07:10 08:13 07:18 WBC (4.0-10.2) K/uL RBC (4.33-5.41) M/uL Hgb (13.1-16.8) g/dL Hct (39.0-49.0) % MCV (84.0-98.0) fL MCH (28.2-33.3) pg MCHC (31.7-36.0) g/dL RDW (11.2-14.1) % Plt Count (150-350) K/uL Neut % (Auto) (45.0-80.0) % Lymph % (Auto) (10.0-50.0) % [place] % (Auto) (2.0-14.0) % Eos % (Auto) (0.0-5.0) % Baso % (Auto) (0.0-2.0) % Neut # (Auto) (1.40-7.00) K/uL Lymph # (Auto) (0.50-3.50) K/uL [place] # (Auto) (0.00-1.00) K/uL Eos # (Auto) (0.00-0.50) K/uL Baso # (Auto) (0.00-0.20) K/uL PT 23.0 H D (9.5-12.0) SEC INR 2.9 2.1 Sodium (136-145) mmol/L Potassium (3.5-5.1) mmol/L Chloride (98-107) mmol/L Carbon Dioxide (21.0-32.0) mmol/L BUN (7-18) mg/dL Creatinine (0.51-1.17) mg/dL Est Cr Clr Drug Dosing mL/min Estimated GFR (MDRD) mL/min Glucose (74-106) mg/dL Calcium (8.5-10.1) mg/dL Magnesium (1.8-2.4) mg/dL Total Bilirubin (0.2-1.0) mg/dL AST (15-37) U/L ALT (12-78) U/L Alkaline Phosphatase (46-116) IU/L Creatine Kinase (26-308) U/L Creatine Kinase Index (0.0-2.5) % CK-MB (CK-2) (0.00-3.60) ng/mL Troponin I 0.040 (0.000-0.056) ng/mL NT-Pro-B Natriuret Pep (0-125) pg/mL Total Protein (6.4-8.2) g/dL Albumin (3.4-5.0) g/dL 02/05/19 02/05/19 02/07/19 Range/Units 07:18 07:18 06:56 WBC 9.3 (4.0-10.2) K/uL RBC 3.44 L (4.33-5.41) M/uL Hgb 10.4 L (13.1-16.8) g/dL Hct 31.8 L (39.0-49.0) % MCV 92.4 (84.0-98.0) fL MCH 30.2 (28.2-33.3) pg MCHC 32.7 (31.7-36.0) g/dL RDW 16.9 H (11.2-14.1) % Plt Count 249 (150-350) K/uL Neut % (Auto) 69.1 (45.0-80.0) % Lymph % (Auto) 19.6 (10.0-50.0) % [place] % (Auto) 8.5 (2.0-14.0) % Eos % (Auto) 2.7 (0.0-5.0) % Baso % (Auto) 0.1 (0.0-2.0) % Neut # (Auto) 6.40 (1.40-7.00) K/uL Lymph # (Auto) 1.82 (0.50-3.50) K/uL [place] # (Auto) 0.79 (0.00-1.00) K/uL Eos # (Auto) 0.25 (0.00-0.50) K/uL Baso # (Auto) 0.01 (0.00-0.20) K/uL PT (9.5-12.0) SEC INR Sodium 137 138 (136-145) mmol/L Potassium 3.7 4.2 (3.5-5.1) mmol/L Chloride 103 101 (98-107) mmol/L Carbon Dioxide 23.3 26.2 (21.0-32.0) mmol/L BUN 33 H 21 H (7-18) mg/dL Creatinine 1.08 1.06 (0.51-1.17) mg/dL Est Cr Clr Drug Dosing 53.55 54.56 mL/min Estimated GFR (MDRD) > 60 > 60 mL/min Glucose 80 83 (74-106) mg/dL Calcium 8.6 9.3 (8.5-10.1) mg/dL Magnesium 1.4 L 1.2 L (1.8-2.4) mg/dL Total Bilirubin 0.4 (0.2-1.0) mg/dL AST 31 (15-37) U/L ALT 47 (12-78) U/L Alkaline Phosphatase 58 (46-116) IU/L Creatine Kinase 19 L 27 (26-308) U/L Creatine Kinase Index 8.4 H 7.8 H (0.0-2.5) % CK-MB (CK-2) 1.60 2.10 (0.00-3.60) ng/mL Troponin I 0.044 0.034 (0.000-0.056) ng/mL NT-Pro-B Natriuret Pep 603 H 599 H (0-125) pg/mL Total Protein 5.7 L (6.4-8.2) g/dL Albumin 2.5 L (3.4-5.0) g/dL 02/07/19 02/10/19 02/10/19 Range/Units 06:56 07:16 07:16 WBC 9.0 (4.0-10.2) K/uL RBC 3.83 L (4.33-5.41) M/uL Hgb 11.5 L (13.1-16.8) g/dL Hct 36.3 L (39.0-49.0) % MCV 94.8 (84.0-98.0) fL MCH 30.0 (28.2-33.3) pg MCHC 31.7 (31.7-36.0) g/dL RDW 17.6 H (11.2-14.1) % Plt Count 273 (150-350) K/uL Neut % (Auto) 72.3 (45.0-80.0) % Lymph % (Auto) 17.2 (10.0-50.0) % [place] % (Auto) 8.8 (2.0-14.0) % Eos % (Auto) 1.3 (0.0-5.0) % Baso % (Auto) 0.4 (0.0-2.0) % Neut # (Auto) 6.47 (1.40-7.00) K/uL Lymph # (Auto) 1.54 (0.50-3.50) K/uL [place] # (Auto) 0.79 (0.00-1.00) K/uL Eos # (Auto) 0.12 (0.00-0.50) K/uL Baso # (Auto) 0.04 (0.00-0.20) K/uL PT 26.7 H 21.6 H (9.5-12.0) SEC INR 2.5 2.0 Sodium (136-145) mmol/L Potassium (3.5-5.1) mmol/L Chloride (98-107) mmol/L Carbon Dioxide (21.0-32.0) mmol/L BUN (7-18) mg/dL Creatinine (0.51-1.17) mg/dL Est Cr Clr Drug Dosing mL/min Estimated GFR (MDRD) mL/min Glucose (74-106) mg/dL Calcium (8.5-10.1) mg/dL Magnesium (1.8-2.4) mg/dL Total Bilirubin (0.2-1.0) mg/dL AST (15-37) U/L ALT (12-78) U/L Alkaline Phosphatase (46-116) IU/L Creatine Kinase (26-308) U/L Creatine Kinase Index (0.0-2.5) % CK-MB (CK-2) (0.00-3.60) ng/mL Troponin I (0.000-0.056) ng/mL NT-Pro-B Natriuret Pep (0-125) pg/mL Total Protein (6.4-8.2) g/dL Albumin (3.4-5.0) g/dL 02/10/19 02/14/19 Range/Units 07:16 07:25 WBC (4.0-10.2) K/uL RBC (4.33-5.41) M/uL Hgb (13.1-16.8) g/dL Hct (39.0-49.0) % MCV (84.0-98.0) fL MCH (28.2-33.3) pg MCHC (31.7-36.0) g/dL RDW (11.2-14.1) % Plt Count (150-350) K/uL Neut % (Auto) (45.0-80.0) % Lymph % (Auto) (10.0-50.0) % [place] % (Auto) (2.0-14.0) % Eos % (Auto) (0.0-5.0) % Baso % (Auto) (0.0-2.0) % Neut # (Auto) (1.40-7.00) K/uL Lymph # (Auto) (0.50-3.50) K/uL [place] # (Auto) (0.00-1.00) K/uL Eos # (Auto) (0.00-0.50) K/uL Baso # (Auto) (0.00-0.20) K/uL PT (9.5-12.0) SEC INR 4.0 Sodium 138 (136-145) mmol/L Potassium 4.1 (3.5-5.1) mmol/L Chloride 101 (98-107) mmol/L Carbon Dioxide 25.7 (21.0-32.0) mmol/L BUN 22 H (7-18) mg/dL Creatinine 1.15 (0.51-1.17) mg/dL Est Cr Clr Drug Dosing 50.29 mL/min Estimated GFR (MDRD) > 60 mL/min Glucose 77 (74-106) mg/dL Calcium 9.2 (8.5-10.1) mg/dL Magnesium 1.5 L (1.8-2.4) mg/dL Total Bilirubin (0.2-1.0) mg/dL AST (15-37) U/L ALT (12-78) U/L Alkaline Phosphatase (46-116) IU/L Creatine Kinase (26-308) U/L Creatine Kinase Index (0.0-2.5) % CK-MB (CK-2) (0.00-3.60) ng/mL Troponin I (0.000-0.056) ng/mL NT-Pro-B Natriuret Pep 395 H (0-125) pg/mL Total Protein (6.4-8.2) g/dL Albumin (3.4-5.0) g/dL [facility] Results - Last 24 hrs: None Med Orders - Current: Current Medications Acetaminophen (Tylenol Extra Strength) 1,000 mg PO TID PRN PRN Reason: Pain/Fever Last Admin: 02/14/19 08:53 Dose: 1,000 mg Albuterol (Ventolin Hfa) 0 gm INH Q6H PRN PRN Reason: Shortness of Breath Allopurinol (Zyloprim) 200 mg PO DAILY [facility] Last Admin: 02/14/19 08:47 Dose: 200 mg Amiodarone HCl (Cordarone) 200 mg PO DAILY [facility] Last Admin: 02/14/19 08:49 Dose: 200 mg Aspirin (Halfprin) 81 mg PO DAILY [facility] Last Admin: 02/14/19 08:47 Dose: 81 mg Atorvastatin Calcium (Lipitor) 60 mg PO BEDTIME [facility] Last Admin: 02/13/19 19:36 Dose: 60 mg Bisacodyl (Dulcolax) 5 mg PO DAILY PRN PRN Reason: Constipation Calcium Carbonate (Caltrate 600+D 1500 Mg-400 Units) 1 tab PO BIDMEALS [facility] Last Admin: 02/14/19 08:48 Dose: 1 tab Colchicine (Colcrys) 0.6 mg PO ASDIRECTED PRN PRN Reason: GOUT PAIN Docusate Sodium (Colace) 200 mg PO DAILY [facility] Last Admin: 02/14/19 08:47 Dose: 200 mg Fluticasone Propionate (Flonase) 0 gm NASBOTH DAILY PRN PRN Reason: Allergies Furosemide (Lasix) 20 mg PO DAILY [facility] Last Admin: 02/14/19 08:48 Dose: 20 mg Gabapentin (Neurontin) 300 mg PO Q12HR [facility] Last Admin: 02/14/19 08:50 Dose: 300 mg Loratadine (Claritin) 10 mg PO QAM [facility] Last Admin: 02/14/19 08:48 Dose: 10 mg Magnesium Hydroxide (Milk Of Magnesia) 30 ml PO DAILY PRN PRN Reason: Constipation Magnesium Oxide (Magnesium Oxide) 800 mg PO TID [facility] [facility] Last Admin: 02/14/19 11:45 Dose: 800 mg Metoprolol Tartrate (Lopressor) 75 mg PO DAILY [facility] Last Admin: 02/14/19 08:49 Dose: 75 mg Mometasone Furoate/Formoterol Fumar (Dulera 200-5 Mcg) 0 puff IH BIDRT [facility] Last Admin: 02/14/19 08:45 Dose: 2 inhalation Multivitamins/Minerals/Vitamin C (Tab-A-Cooper) 1 tab PO DAILY [facility] Last Admin: 02/14/19 08:48 Dose: 1 tab Omeprazole (Omeprazole) 20 mg PO DAILY [facility] Last Admin: 02/14/19 08:48 Dose: 20 mg Phenyleph/Shark Oil/Min Oil/Petrol (Preparation H Oint) 0 gm RECTAL ASDIRECTED PRN PRN Reason: Hemorrhoids Last Admin: 02/11/19 07:16 Dose: 1 applic Potassium Chloride (Klor-Con M20) 20 meq PO DAILY [facility] Last Admin: 02/14/19 08:46 Dose: 20 meq Tiotropium [place] (Spiriva Handihaler) 18 mcg INH DAILY [facility] Last Admin: 02/14/19 08:50 Dose: 18 mcg Warfarin Sodium (Coumadin) 1 mg PO ONETIME ONE Stop: 02/16/19 18:01 Discontinued Medications Enoxaparin Sodium (Lovenox) 80 mg SUBCUT BID@08,20 [facility] Last Admin: 02/05/19 15:43 Dose: Not Given Magnesium Oxide (Magnesium Oxide) 400 mg PO DAILY [facility] Magnesium Oxide (Magnesium Oxide) 800 mg PO DAILY [facility] Last Admin: 02/08/19 08:13 Dose: 800 mg Pharmacy Consult (Consult To Pharmacy) 1 each .XX ASDIRECTED [facility] Prednisone (Prednisone) 40 mg PO DAILY [facility] Stop: 02/01/19 08:01 Last Admin: 02/01/19 08:20 Dose: 40 mg Prednisone (Prednisone) 20 mg PO DAILY [facility] Stop: 02/04/19 08:01 Last Admin: 02/04/19 07:12 Dose: 20 mg Prednisone (Prednisone) 10 mg PO DAILY [facility] Stop: 02/07/19 08:01 Last Admin: 02/07/19 08:49 Dose: 10 mg Prednisone (Prednisone) 5 mg PO DAILY [facility] Stop: 02/10/19 08:01 Last Admin: 02/10/19 07:37 Dose: 5 mg Warfarin Sodium (Coumadin) 2 mg PO DAILY@1800 [facility] Stop: 02/02/19 18:01 Warfarin Sodium (Coumadin) 2 mg PO DAILY@1800 [facility] Stop: 02/01/19 18:01 Last Admin: 02/01/19 17:44 Dose: 2 mg Warfarin Sodium (Coumadin) 1 mg PO ONETIME ONE Stop: 02/04/19 18:01 Last Admin: 02/04/19 17:24 Dose: 1 mg Warfarin Sodium (Coumadin) 2 mg PO ONETIME ONE Stop: 02/05/19 18:01 Last Admin: 02/05/19 17:45 Dose: 2 mg Warfarin Sodium (Coumadin) 1 mg PO ONETIME ONE Stop: 02/06/19 18:01 Last Admin: 02/06/19 17:18 Dose: 1 mg Warfarin Sodium (Coumadin) 1 mg PO QPM [facility] Stop: 02/09/19 18:01 Last Admin: 02/09/19 17:47 Dose: 1 mg Warfarin Sodium (Coumadin) 2 mg PO ONETIME ONE Stop: 02/10/19 18:01 Last Admin: 02/10/19 17:25 Dose: 2 mg Warfarin Sodium (Coumadin) 1 mg PO ONETIME ONE Stop: 02/11/19 18:01 Last Admin: 02/11/19 17:15 Dose: 1 mg Warfarin Sodium (Coumadin) 5 mg PO ONETIME ONE Stop: 02/12/19 18:01 Last Admin: 02/12/19 18:08 Dose: 5 mg Warfarin Sodium (Coumadin) 1 mg PO ONETIME ONE Stop: 02/13/19 18:01 Last Admin: 02/13/19 17:12 Dose: 1 mg - Exam Quality Assessment: Reports: Central Line/PICC, Urine Catheter, DVT Prophylaxis (On Coumadin). Denies: Supplemental Oxygen, Skin Breakdown, Restraints General: Reports: Alert, Oriented, Cooperative, No Acute Distress HEENT: Reports: Pupils Equal, Pupils Reactive, EOMI, Mucous Membr. 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 Patient wears glasses) Neck: Reports: Supple, Trachea Midline, No JVD, No Thyromegaly, Carotid Bruit ( Stable mild bilateral carotid bruits). Denies: Lymphadenopathy Lungs: Reports: Clear to Auscultation, Normal Respiratory Effort. Denies: Rub Cardiovascular: Reports: Regular Rate, Regular Rhythm, No Murmurs. Denies: Murmurs, Gallops, Rubs GI/Abdominal Exam: Normal Bowel Sounds, Soft, Non-Tender, No Organomegaly, No Distention, No Abnormal Bruit, No Mass. No: Guarding (Male) Exam: Deferred Rectal (Males) Exam: Deferred Back Exam: Reports: Normal Inspection, Full Range of Motion. Denies: CVA Tenderness (L), CVA Tenderness (R), Muscle Spasm Extremities: Normal Inspection, Normal Range of Motion, Non-Tender, No Pedal Edema, Normal Capillary Refill. No: Shmuel's Sign Skin: Reports: Ecchymosis (Mild occasional and arm secondary to Coumadin therapy ) Wound/Incisions: Reports: Healing Well (Medial sternotomy healed with no local signs of infection) Neurological: Reports: No New Focal Deficit, Other (Stable and improving generalized weakness) Psy/Mental Status: Reports: Alert, Normal Affect, Normal Mood. Denies: Agitated , Hallucinations, Withdrawal Symptoms
== END 2019-02-14 16:00 | disposition home health service (06) | DRG 949 ==
LOC: LL.MS 13:41
PROVIDERS: ADMIT Emergency Medicine; ATTEND Family Medicine
DX: Z48.812 Encounter for surgical aftercare following surgery on the circulatory system (principal); J84.9 Interstitial pulmonary disease, unspecified; I13.0 Hypertensive heart and chronic kidney disease with heart failure and stage 1 through stage 4 chronic kidney disease, or unspecified chronic kidney disease; I50.32 Chronic diastolic (congestive) heart failure; I25.10 Atherosclerotic heart disease of native coronary artery without angina pectoris; D63.8 Anemia in other chronic diseases classified elsewhere; I48.0 Paroxysmal atrial fibrillation; E83.42 Hypomagnesemia; E88.09 Other disorders of plasma-protein metabolism, not elsewhere classified; J43.1 Panlobular emphysema; K21.9 Gastro-esophageal reflux disease without esophagitis; N28.9 Disorder of kidney and ureter, unspecified; R53.1 Weakness; R53.83 Other fatigue; E78.00 Pure hypercholesterolemia, unspecified; E21.3 Hyperparathyroidism, unspecified; G62.9 Polyneuropathy, unspecified; N18.9 Chronic kidney disease, unspecified; I73.9 Peripheral vascular disease, unspecified; Z88.1 Allergy status to other antibiotic agents; Z88.0 Allergy status to penicillin; Z88.8 Allergy status to other drugs, medicaments and biological substances; Z79.01 Long term (current) use of anticoagulants; Z79.82 Long term (current) use of aspirin; Z95.1 Presence of aortocoronary bypass graft; Z79.84 Long term (current) use of oral hypoglycemic drugs; Z79.52 Long term (current) use of systemic steroids; Z86.010 Personal history of colon polyps; Z87.11 Personal history of peptic ulcer disease; Z86.73 Personal history of transient ischemic attack (TIA), and cerebral infarction without residual deficits; Z87.891 Personal history of nicotine dependence
CPT/HCPCS: 36415; 36416; 71046; 80048; 80053; 82550; 82553; 83735; 83880; 84484; 85025; 85610; 93005; 94640; 97110-GO; 97110-GP; 97112-GP; 97116-GP; 97162-GP; 97165-GO; 97530-GO; 97530-GP; 97535-GO; A9270-GY; J1650

== ENCOUNTER 2019-09-25 09:20 | Day surgery (SDC) | payer MEDICARE, BC ==
[~2019-09-25 09:20] MED LIST: Midazolam 1 MG/ML 2 ML SDV ONE; Propofol 200 MG/20 ML SDV ONE
[2019-09-25] MEDS ORDERED: Sodium Chloride 0.9% 10 ML Syringe FLUSH PRN (09:30)
[2019-09-25] MEDS ORDERED: Ondansetron 4 MG/2 ML SDV IVPUSH ONE (10:17)
[2019-09-25] MEDS: Lactated Ringers 1,000 ML IV SCH ×2 (10:38→11:50)
[2019-09-25] MEDS ORDERED: Propofol 200 MG/20 ML SDV ONE (11:08)
[2019-09-25] MEDS ORDERED: Midazolam 1 MG/ML 2 ML SDV ONE (11:08)
--- NOTE | 2019-09-25 11:43 | PCM.HPR ---
H & P Addendum review - H & P Addendum Review Date of Original H & P: 08/29/19 Date Reviewed: 09/25/19 Time Reviewed: 10:55 Patient was Examined: No Changes
--- NOTE | 2019-09-25 11:44 | PCM.OPNOTE ---
- General Post-Op/Procedure Note Date of Surgery/Procedure: 09/25/19 Operative Procedure(s): Colonoscopy Findings: Sig tics Pre Op Diagnosis: Hx Colitis Post-Op Diagnosis: Same Anesthesia Technique: MAC Primary Surgeon: Scooter Lujan Anesthesia Provider: Treasure Hernandez Complications: None Condition: Good
[2019-09-25 12:14] VITALS: BP 136/84; PULSE 82
--- NOTE | 2019-09-25 13:45 | OR ---
Date of Procedure: 09/25/2019 PREOPERATIVE DIAGNOSIS: History of colitis. POSTOPERATIVE DIAGNOSIS: Sigmoid diverticulosis. PROCEDURE: Colonoscopy. ANESTHESIA: IV sedation. PROCEDURE IN DETAIL: Patient was brought to the procedure room where he was placed on his left side and IV sedation administered. Digital rectal exam was performed which was normal. Colonoscope was inserted and advanced to the level of the cecum with difficulty getting past the hepatic flexure, requiring pressure on the abdomen and changing to the supine position. I was able to reach the cecum which was confirmed by identifying the appendiceal lumen and ileocecal valve. The light was transilluminating in the right lower quadrant. The prep was fair with some thick stool remaining throughout the colon. Most of this was irrigated and suctioned. Upon withdrawing the scope, the ascending, transverse, and descending colon were normal in appearance. Sigmoid colon had multiple large diverticula present. Rectum was normal and retroflexion was normal. Air was removed and the scope withdrawn. Patient tolerated the procedure well and returned to recovery in stable condition. No further colon screenings are necessary due to patient's age. MIMI PRYOR MD /[id number]
== END 2019-09-25 13:55 | disposition home or self-care (01) ==
LOC: LL.SDS 09:20
PROVIDERS: ATTEND Surgery
DX: K57.30 Diverticulosis of large intestine without perforation or abscess without bleeding (principal); I25.10 Atherosclerotic heart disease of native coronary artery without angina pectoris; J43.9 Emphysema, unspecified; K21.9 Gastro-esophageal reflux disease without esophagitis; M10.9 Gout, unspecified; I12.9 Hypertensive chronic kidney disease with stage 1 through stage 4 chronic kidney disease, or unspecified chronic kidney disease; N18.3 Chronic kidney disease, stage 3 (moderate); N40.0 Benign prostatic hyperplasia without lower urinary tract symptoms; E78.2 Mixed hyperlipidemia; Z79.01 Long term (current) use of anticoagulants; Z87.19 Personal history of other diseases of the digestive system; Z88.8 Allergy status to other drugs, medicaments and biological substances; Z88.1 Allergy status to other antibiotic agents; Z88.0 Allergy status to penicillin; Z87.891 Personal history of nicotine dependence; Z79.51 Long term (current) use of inhaled steroids; Z79.899 Other long term (current) drug therapy
CPT/HCPCS: 00812; J2250; J2405; J2704; J7120

== ENCOUNTER 2019-12-01 17:04 | Observation (INO) | payer MEDICARE, BC ==
[2019-12-01] MEDS ORDERED: Famotidine 20 MG/2 ML SDV IVPUSH ONE (17:16)
--- NOTE | 2019-12-01 17:16 | EDM.PDOC ---
ED HPI GENERAL MEDICAL PROBLEM - General Chief Complaint: Chest Pain Stated Complaint: chest pain, left arm and jaw pain Time Seen by Provider: 12/01/19 17:04 Source of Information: Reports: Patient, Old Records ([facility] chart/EMR), Other ([facility]. records previously reviewed on 02/05/14.) History Limitations: Reports: No Limitations - History of Present Illness INITIAL COMMENTS - FREE TEXT/NARRATIVE: Patient drove himself to the emergency room via private automobile for evaluation of 4/10 retrosternal chest pressure with radiation to the jaw and left arm with symptoms usually lasting only for a few seconds and occurring on an intermittent basis. Note that symptoms started about 9 AM this morning with additional nonspecific epigastric discomfort and burning. He has not taken any medications for his symptoms to this point, although he does have a strong cardiac history as below. His symptoms worsened shortly prior to arrival, however did resolve spontaneously at time of my initial evaluation. The patient denies any heart flutter, dizziness, orthostasis, orthopnea, diaphoresis, paresthesias, recent decreased exercise tolerance, or any other anginal-type symptoms. No recent history of abdominal pain, heartburn, nausea, diarrhea, melena, gross hematochezia, or any food intolerance, including fatty foods, etc. , although he has been having some problems with constipation. He denies any gross hematuria, colic, or other UTI symptoms. The patient also denies any recent fever, cough, wheezing, dyspnea, etc.. Onset: Today, Gradual Onset Date: 12/01/19 Onset Time: 09:00 Duration: Intermittent Location: Reports: Neck, Chest, Abdomen, Upper Extremity, Left, Radiates to (As above). Denies: Head, Face, Back, Upper Extremity, Right Quality: Reports: Pressure, Same as Previous Episode Severity: Moderate Improves with: Reports: None Worsens with: Reports: None Context: Reports: Other (As above). Denies: Trauma Associated Symptoms: Reports: Chest Pain. 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: Other (see below) (None) Chest/Left Arm/Jaw Pain Score (Numeric/FACES): 4 - Related Data Allergies Allergy/AdvReac Type Severity Reaction Status Date / Time gentamicin Allergy unknown Verified 12/01/19 17:23 lovastatin Allergy Dizziness Verified 12/01/19 17:23 Penicillins Allergy Hives Verified 12/01/19 17:23 Home Meds: Home Meds Fluticasone Propionate [Flonase] 2 spray NASBOTH DAILY 02/05/14 [History] Multivit-Min/FA/Lycopene/Lut [Centrum Silver] 1 each PO DAILY 02/05/14 [History] Tiotropium [Spiriva HandiHaler] 1 cap INH DAILY 02/05/14 [History] atorvaSTATin [Lipitor] 60 mg PO BEDTIME 02/05/14 [History] Loratadine [Claritin] 10 mg PO QAM 06/16/14 [History] Albuterol Sulfate [Albuterol Sulfate Hfa] 2 puff INH Q6H PRN 01/15/19 [History] Calcium Citrate/Vitamin D3 [Calcium Citrate - Vit D Tablet] 1 each PO BIDMEALS 01/15/19 [History] Colchicine 0.6 mg PO ASDIRECTED PRN 01/15/19 [History] Docusate Sodium 100 mg PO BID PRN 01/31/19 [History] Warfarin [Coumadin] 2 mg PO ASDIRECTED 09/24/19 [History] Aspirin [Halfprin] 81 mg PO DAILY 09/25/19 [History] Azithromycin [Zithromax] 250 mg PO MOWEFR 09/25/19 [History] Acetaminophen [Non-Aspirin Extra Strength] 1,000 mg PO TID PRN 12/01/19 [History ] Budesonide/Formoterol Fumarate [Budesonide-Formoterol 160-4.5] 2 inh IH BID [History] Gabapentin [Neurontin] 300 mg PO BID 12/01/19 [History] Magnesium Oxide 800 mg PO BID 12/01/19 [History] Metoprolol Succinate [Toprol XL 50mg] 75 mg PO DAILY 12/01/19 [History] Warfarin [Coumadin] 1 mg PO ASDIRECTED 12/01/19 [History] Past Medical History HEENT History: Reports: Allergic Rhinitis, Cataract, Impaired Vision, Sinusitis , Other (See Below). Denies: Glaucoma, Hard of Hearing, Macular Degeneration, Otitis Media, Retinal Detachment Other HEENT History: Patient wears glasses. He does have cataracts with no surgery to this point. Cleft palate requiring repair as below. Cardiovascular History: Reports: Afib, Arrhythmia, Bypass, CAD, Cardiomyopathy, Heart Failure, Heart Murmur, High Cholesterol, Hypertension, MS, PVD. Denies: Aneurysm, Blood Clots/VTE/DVT, PTCA, Stents, Syncope Other Cardiovascular History: PACs with PSVT, PVCs, couplets, and incomplete right bundle branch block. Non-STEMI in December 2018? with subsequent CABG as below. Grade 1 diastolic dysfunction with cardiomegaly. Mild to moderate mitral valve insufficiency by echocardiogram. D-Dimer elevation with negative workup as below. Respiratory History: Reports: COPD, Intubation, Previous. Denies: Asthma, Bronchitis, Recurrent, Intubation, Difficult, PE, Pneumonia, Recurrent, Pneumothorax, Pulmonary Fibrosis, TB Gastrointestinal History: Reports: Cholelithiasis, Chronic Constipation, Colon Polyp, Diverticulosis, Gastritis, GERD, Other (See Below). Denies: Celiac Disease, Chronic Diarrhea, Fatty Liver, Fecal Incontinence, GI Bleed, Hepatitis , Hiatal Hernia, Inflammatory Bowel Disease, Irritable Bowel Syndrome, Jaundice , Pancreatitis Other Gastrointestinal History: Moderate to severe diverticulosis with history of colitis of the descending colon. Recurrent colonic polyps including tubular adenoma at 15 cm on 12/12/07 with additional hyperplastic colonic polyp at 10 cm and a tubular adenoma at 30 cm. Excision of colonic polyps of unknown type. Lower GI bleed secondary to diverticulosis in 2007. Large umbilical hernia. Esophagitis and gastritis per EGD. Genitourinary History: Reports: BPH, Chronic Renal Insuffiency. Denies: Renal Calculus, STD, Urinary Incontinence, UTI, Recurrent Musculoskeletal History: Reports: Arthritis, Back Pain, Chronic, Fracture, Gout , Neck Pain, Chronic, Osteoarthritis, Other (See Below). Denies: Amputation, RA , SLE Other Musculoskeletal History: Left foot fracture in his 40s with no surgery required. Neurological History: Reports: CVA, Neuropathy, Peripheral, Seizure, Other (See Below). 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 Bilateral sciatica with additional peripheral neuropathy secondary to cervical radiculopathy with previous epidural steroid injections. 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 Benign resting tremor. Psychiatric History: Reports: None. Denies: Abuse, Victim of, ADD, ADHD, Addiction, Anxiety, Depression, Psych Hospitalization(s), PTSD, Suicide Attempt , Suicidal Ideation Endocrine/Metabolic History: Reports: Hyperparathyroidism, Obesity/BMI 30+, Other (See Below). Denies: Diabetes, Type I, Diabetes, Type II, Diabetes Mellitus, Type 3c, Hypothyroidism, IDDM Other Endocrine/Metabolic History: Mild nonsymptomatic hyperparathyroidism. Hematologic History: Reports: Anemia, Iron Deficiency, Other (See Below) Other Hematologic History: Blood Transfusions after CABG. Immunologic History: Reports: None. Denies: AIDS, HIV, SLE Oncologic (Cancer) History: Reports: None. Denies: Basal Cell Carcinoma, Cervix , Colon, Hodgkin's Lymphoma, Leukemia, Lymphoma, Prostate, Squamous Cell Carcinoma, Thyroid, Uterine Dermatologic History: Reports: None. Denies: Eczema, Psoriasis - Infectious Disease History Infectious Disease History: Reports: Chicken Pox. Denies: C-Difficile, Meningitis, Mononucleosis, MRSA, Mumps, Pertussis (Whooping Cough), Rubella, Scarlet Fever, Shingles, TB, VRE - Past Surgical History Head Surgeries/Procedures: Reports: None. Denies: Craniotomy HEENT Surgical History: Reports: Oral Surgery, Other (See Below). Denies: Adenoidectomy, Cataract Surgery, Eye Surgery, Laser Surgery, LASIK, Myringotomy w Tube(s), Naso-Sinus Surgery, Tonsillectomy Other HEENT Surgeries/Procedures: Multiple cleft palate repair as initially as an infant with last surgery between ages 11 and 12. Complete teeth extraction with current dentures. Cardiovascular Surgical History: Reports: Carotid Endarterectomy, Coronary Artery Bypass, Vascular Surgery, Other (See Below). Denies: Coronary Artery Stent, Pacer, Percutaneous Transluminal Angioplasty Other Cardiovascular Surgeries/Procedures: CABG 2 on 01/08/19 with postoperative complications of sepsis and anemia. Angioplasty of the right common iliac artery stent placement in March 2013. Left-sided carotid enterectomy 02/23/09 with right sided carotid endarterectomy on 01/01/13 with repeat procedure in 12/28. Respiratory Surgical History: Reports: Thoracentesis, Other (See Below) Other Respiratory Surgeries/Procedures: Left-sided thoracentesis on 01/13/19. GI Surgical History: Reports: Colonoscopy, EGD, Polypectomy, Other (See Below). Denies: Appendectomy, Cholecystectomy, Hernia, Abdominal, Hernia, Inguinal, Hernia Repair/Other Other GI Surgeries/Procedures: Colonoscopy and EGD on 06/22/16 and 01/05/11. Colonoscopy on 09/25/19. Male Surgical History: Reports: Circumcision, Other (See Below). Denies: TURP-Transurethral Resection of Prostate, Vasectomy Other Male Surgeries/Procedures: Circumcision at about age 73 Endocrine Surgical History: Reports: None. Denies: Thyroid Biopsy Neurological Surgical History: Denies: C-Spine, Discectomy, Laminectomy, Lumbar Spine, Sacral Spine, Spinal Fusion, Thoracic Spine, Vertebroplasty Musculoskeletal Surgical History: Reports: None. Denies: Arthroscopic Procedure , Carpal Tunnel, Ganglion Cyst, Joint Replacement, ORIF, Shoulder Surgery Oncologic Surgical History: Reports: None Dermatological Surgical History: Reports: None - Past Imaging History Past Imaging History: Reports: AMANDA Screen (09/04/19, 03/03/19, and 05/25/17.), Angiography (Heart catheterization on 11/12/18. Cerebral angiogram on 12/31/12.), Cardiac Echo (03/10/19 with ejection fraction of 65% with findings as above. Previous evaluations on 01/27/19 and 11/11/18.), Carotid US (Rest on 09/04/19), CAT Scan (CT of the sinuses and chest on 09/12/19. Negative CTA of the chest on . CT of the head on 01/17/18, 06/16/14 and 12/30/12. Soft tissue CT of the neck on 12/02/08.), Event Monitor (06/14/17), MRA (On 12/07/12 and was concomitant CTA on [address] scans as above.), MRI (Brain and C-spine on 05/28/10.), PFT ( PFTs on 09/19/19, 06/10/19, 12/12/18 and 11/14/05.), Stress Testing (Low level cardiac stress test on 03/13/19), Swallow Study (01/28/19), Ultrasound (Arterial duplex evaluation of the legs on 03/03/19 and 11/12/18. 3-year-old duplex abdominal ultrasound evaluation on 11/12/18. Renal ultrasound on 11/18/08), Venous Doppler (Legs bilaterally on 01/24/19.), Other (See Below) (Negative esophagram on 06/17/19. Upper GI with small bowel series on 01/30/08) Social & Family History - Family History HEENT: Reports: None. Denies: Glaucoma, Macular Degeneration, Retinal Detachment Cardiac: Reports: CAD, MS, Other (See Below). Denies: Afib, Aneurysm, Arrhythmia, Blood Clots/VTE/DVT, Cardiomyopathy, Heart Failure, Heart Murmur, High Cholesterol, Hypertension, Pacemaker, PVD/COD, Syncope Other Cardiac Family History: Father with fatal MS at age 57. Sister with fatal MS in her 60s. Respiratory: Reports: None. Denies: Asthma, COPD, PE, Pneumothorax, Sleep Apnea GI: Reports: None. Denies: Cholelithiasis, Colon Polyps, GERD, GI bleed, Inflammatory Bowel Disease, Irritable Bowel Syndrome : Reports: None. Denies: Renal Calculus, Renal Disease/Insufficiency OBGYN: Reports: None. Denies: Endometriosis, Recurrent Spontaneous Musculoskeletal: Reports: None. Denies: Gout, RA, SLE Neurological: Reports: Alzheimers Disease, Dementia, Other (See Below). Denies : CVA, Migraines, MS, Parkinson's, Seizure, TIA Other Neurological Family History: Paternal aunt with dementia. Psychiatric: Reports: None. Denies: Abuse, Victim of, ADD, ADHD, Anxiety, Depression, Psych Hospitalization(s), PTSD, Suicide Attempt Endocrine/Metabolic: Reports: None. Denies: Diabetes, Type I, Diabetes, type II , Diabetes Mellitus, Type 3c, Hypothyroidism, IDDM Hematologic: Reports: None. Denies: Anemia, SLE Immunologic: Reports: None. Denies: AIDS, HIV, SLE Dermatologic: Reports: None. Denies: Eczema, Psoriasis Oncologic: Reports: Other (See Below) Other Oncologic Family History: Sister with fatal throat cancer in her 50s with history of tobacco abuse. Mother with unknown type of cancer in her 40-50s. - Tobacco Use Smoking Status *Q: Former Smoker Tobacco Use Within Last Twelve Months: No Years of Tobacco use: 34 Packs/Tins Daily: 1 Packs/Tins Daily Comment: Between ages 17 and 51 with maximum use of 2 packs per day. Used Tobacco, but Quit: Yes Smoking Cessation Information Provided To Patient: No Second Hand Smoke Exposure: No Second Hand Smoke Education Provided: No - Caffeine Use Caffeine Use: Reports: None. Denies: Coffee, Energy Drinks, Soda, Tea - Alcohol Use Alcohol Use History: Yes Days Per Week of Alcohol Use: 4 Number of Drinks Per Day: 2 Number of Drinks Per Day Comment: Usually beer. DWI in his 30s however no history of alcohol treatment, abuse, etc. 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 ED EXAM, GENERAL - Physical Exam Exam: See Below Exam Limited By: No Limitations General Appearance: Alert, WD/WN, No Apparent Distress Eye Exam: Bilateral Eye: EOMI, Normal Inspection (No nystagmus), PERRL Ears: Normal External Exam, Normal Canal, Hearing Grossly Normal, Normal TMs Nose: Normal Inspection, Normal Mucosa, No Blood Throat/Mouth: Normal Gums, Normal Oropharynx, Normal Voice, No Airway Compromise , Other (Status post cleft palate repair). No: Normal Teeth (Complete dentures uppers and lowers), Dysphagia, Perioral Cyanosis Head: Atraumatic, Normocephalic. No: Facial Swelling, Facial Tenderness, Sinus Tenderness Neck: Supple, Non-Tender, Full Range of Motion, Carotid Bruit (Bilateral carotid bruits- mild). No: Lymphadenopathy (L), Lymphadenopathy (R), Thyromegaly Respiratory/Chest: No Respiratory Distress, Lungs Clear, Normal Breath Sounds, No Accessory Muscle Use, Chest Non-Tender. No: Pleural Rub, Retractions Cardiovascular: Normal Peripheral Pulses, Regular Rate, Rhythm, No Edema, No Gallop, No JVD, No Murmur, No Rub. No: Gallop/S3, Gallop/S4, Friction Rub Peripheral Pulses: 2+: Radial (L), Radial (R), Dorsalis Pedis (L), Dorsalis Pedis (R) GI/Abdominal: Normal Bowel Sounds, Soft, Non-Tender, No Organomegaly, No Distention, No Abnormal Bruit, No Mass, Hernia (3 cm in diameter nonincarcerated umbilical hernia), Other (Obese). No: Guarding (Male) Exam: Deferred Rectal (Males) Exam: Deferred Back Exam: Normal Inspection, Full Range of Motion. No: CVA Tenderness (L), CVA Tenderness (R), Muscle Spasm Extremities: Normal Inspection, Normal Range of Motion, Non-Tender, No Pedal Edema, Normal Capillary Refill. No: Shmuel's Sign Neurological: Alert, Oriented, CN II-XII Intact, Normal Cognition, Normal Gait, Normal Reflexes (negative Babinski's), No Motor/Sensory Deficits Psychiatric: Normal Affect, Normal Mood Skin Exam: Warm, Dry, Intact, Normal Color, No Rash. No: Diaphoretic, Wound/ Incision Lymphatic: No Adenopathy EKG INTERPRETATION EKG Date: 12/01/19 Time: 17:17 Rhythm: NSR Rate (Beats/Min): 66 Junction: LAD-Left Junction Deviation (Change from left cardiac axis) P-Wave: Present (Mild Diffuse biphasic P waves with extreme poor R-wave progression in the anterior leads) QRS: Normal (Her 0.09 seconds representing repolarization changes) ST-T: Normal (T-wave inversion in lead V1) QT: Normal AL/PQ Interval: 0.19 seconds Comparison: Change From Previous EKG (As above since 03/13/19 at time of low level cardiac stress test) EKG Interpretation Comments: No acute ischemic changes Course - Vital Signs Last Recorded V/S: Last Vital Signs Temp 36.3 C 12/01/19 17:06 Pulse 61 12/01/19 19:10 Resp 16 12/01/19 19:10 BP 112/79 12/01/19 19:10 Pulse Ox 99 12/01/19 19:10 Vital Signs - 24 hr 12/01/19 12/01/19 12/01/19 17:06 17:25 17:40 Temperature [ 36.3 C Temporal] Pulse, 77 65 64 Peripheral [ Pulse Oximetry] Respiratory 24 H 22 H 15 Rate Blood Pressure 179/89 H 110/75 108/77 [Left Upper Arm ] O2 Sat by Pulse 96 96 95 Oximetry 12/01/19 12/01/19 12/01/19 17:55 18:10 18:25 Temperature [ Temporal] Pulse, 58 L 58 L 58 L Peripheral [ Pulse Oximetry] Respiratory 16 16 16 Rate Blood Pressure 111/75 108/75 106/80 [Left Upper Arm ] O2 Sat by Pulse 95 96 96 Oximetry 12/01/19 12/01/19 12/01/19 18:40 18:55 19:10 Temperature [ Temporal] Pulse, 56 L 73 61 Peripheral [ Pulse Oximetry] Respiratory 16 18 16 Rate Blood Pressure 110/65 118/68 112/79 [Left Upper Arm ] O2 Sat by Pulse 96 100 99 Oximetry - Orders/Labs/Meds Orders: Active Orders 24 hr Category Date Time Status Cardiac Monitoring [RC] . DIRECTED Care 12/01/19 17:16 Active EKG Documentation Completion [RC] ASDIRECTED Care 12/01/19 17:16 Active Oxygen Therapy, ED [RC] PRN Care 12/01/19 17:16 Active Peripheral IV Care [RC] . DIRECTED Care 12/01/19 17:16 Active Pulse Oximetry [RC] CONTINUOUS Care 12/01/19 17:16 Active Up With Assistance [RC] PFP Care 12/01/19 17:16 Active Vital Signs [RC] PFP Care 12/01/19 17:16 Active Nothing per Oral Now Diet [DIET] Diet 12/01/19 Breakfast Active Chest 1V Frontal [CR] Stat Exams 12/01/19 17:16 Taken Sodium Chloride 0.9% [Saline Flush] Med 12/01/19 17:16 Active 10 ml FLUSH ASDIRECTED PRN Obtain Past Medical Record [OM.PC] Urgent Oth 12/01/19 17:16 Active Peripheral IV Insertion Adult [OM.PC] Stat Oth 12/01/19 17:16 Ordered Resuscitation Status Stat Resus Stat 12/01/19 17:16 Ordered Medication Orders Sodium Chloride (Saline Flush) 10 ml FLUSH ASDIRECTED PRN PRN Reason: Keep Vein Open Last Admin: 12/01/19 17:26 Dose: 10 ml Labs: Laboratory Tests 12/01/19 12/01/19 12/01/19 Range/Units 17:22 17:22 17:22 WBC 6.8 (4.0-10.2) K/uL RBC 4.09 L (4.33-5.41) M/uL Hgb 13.0 L D (13.1-16.8) g/dL Hct 38.7 L (39.0-49.0) % MCV 94.6 (84.0-98.0) fL MCH 31.8 (28.2-33.3) pg MCHC 33.6 (31.7-36.0) g/dL RDW 13.6 (11.2-14.1) % Plt Count 192 D (150-350) K/uL Neut % (Auto) 54.1 (45.0-80.0) % Lymph % (Auto) 28.9 (10.0-50.0) % Burke % (Auto) 12.3 (2.0-14.0) % Eos % (Auto) 4.1 (0.0-5.0) % Baso % (Auto) 0.6 (0.0-2.0) % Neut # (Auto) 3.65 (1.40-7.00) K/uL Lymph # (Auto) 1.95 (0.50-3.50) K/uL Burke # (Auto) 0.83 (0.00-1.00) K/uL Eos # (Auto) 0.28 (0.00-0.50) K/uL Baso # (Auto) 0.04 (0.00-0.20) K/uL PT 20.5 H (9.5-12.0) SEC INR 2.1 APTT 31.6 (24.5-32.8) SEC D-Dimer, Quantitative 267 (0-400) ng/mL Sodium (136-145) mmol/L Potassium (3.5-5.1) mmol/L Chloride (98-107) mmol/L Carbon Dioxide (21.0-32.0) mmol/L BUN (7-18) mg/dL Creatinine (0.51-1.17) mg/dL Est Cr Clr Drug Dosing mL/min Estimated GFR (MDRD) mL/min Glucose (74-106) mg/dL Lactic Acid (0.4-2.0) mmol/L Uric Acid (2.6-7.2) mg/dL Calcium (8.5-10.1) mg/dL Magnesium (1.8-2.4) mg/dL Total Bilirubin (0.2-1.0) mg/dL AST (15-37) U/L ALT (12-78) U/L Alkaline Phosphatase (46-116) IU/L Creatine Kinase (26-308) U/L Creatine Kinase Index (0.0-2.5) % CK-MB (CK-2) (0.00-3.60) ng/mL Troponin I (0.000-0.056) ng/mL NT-Pro-B Natriuret Pep (0-125) pg/mL Total Protein (6.4-8.2) g/dL Albumin (3.4-5.0) g/dL TSH, Ultra Sensitive (0.358-3.740) mIU/mL 12/01/19 12/01/19 Range/Units 17:22 17:22 WBC (4.0-10.2) K/uL RBC (4.33-5.41) M/uL Hgb (13.1-16.8) g/dL Hct (39.0-49.0) % MCV (84.0-98.0) fL MCH (28.2-33.3) pg MCHC (31.7-36.0) g/dL RDW (11.2-14.1) % Plt Count (150-350) K/uL Neut % (Auto) (45.0-80.0) % Lymph % (Auto) (10.0-50.0) % Burke % (Auto) (2.0-14.0) % Eos % (Auto) (0.0-5.0) % Baso % (Auto) (0.0-2.0) % Neut # (Auto) (1.40-7.00) K/uL Lymph # (Auto) (0.50-3.50) K/uL Burke # (Auto) (0.00-1.00) K/uL Eos # (Auto) (0.00-0.50) K/uL Baso # (Auto) (0.00-0.20) K/uL PT (9.5-12.0) SEC INR APTT (24.5-32.8) SEC D-Dimer, Quantitative (0-400) ng/mL Sodium 133 L (136-145) mmol/L Potassium 4.1 (3.5-5.1) mmol/L Chloride 98 (98-107) mmol/L Carbon Dioxide 23.2 (21.0-32.0) mmol/L BUN 19 H (7-18) mg/dL Creatinine 1.15 (0.51-1.17) mg/dL Est Cr Clr Drug Dosing 49.50 mL/min Estimated GFR (MDRD) > 60 mL/min Glucose 98 (74-106) mg/dL Lactic Acid 0.7 (0.4-2.0) mmol/L Uric Acid 4.8 (2.6-7.2) mg/dL Calcium 9.2 (8.5-10.1) mg/dL Magnesium 1.7 L (1.8-2.4) mg/dL Total Bilirubin 0.4 (0.2-1.0) mg/dL AST 22 (15-37) U/L ALT 28 (12-78) U/L Alkaline Phosphatase 64 (46-116) IU/L Creatine Kinase 99 (26-308) U/L Creatine Kinase Index 1.3 (0.0-2.5) % CK-MB (CK-2) 1.30 (0.00-3.60) ng/mL Troponin I 0.010 (0.000-0.056) ng/mL NT-Pro-B Natriuret Pep 367 H (0-125) pg/mL Total Protein 6.8 (6.4-8.2) g/dL Albumin 3.9 (3.4-5.0) g/dL TSH, Ultra Sensitive 0.991 (0.358-3.740) mIU/mL Meds: Medications Generic Name Dose Route Start Last Admin Trade Name Freq PRN Reason Stop Dose Admin Sodium Chloride 10 ml 12/01/19 17:16 12/01/19 17:26 Saline Flush FLUSH 10 ml ASDIRECTED PRN Administration Keep Vein Open Discontinued Medications Generic Name Dose Route Start Last Admin Trade Name Freq PRN Reason Stop Dose Admin Famotidine 40 mg 12/01/19 17:16 12/01/19 17:25 Pepcid IVPUSH 12/01/19 17:17 40 mg ONETIME ONE Administration - Radiology Interpretation Free Text/Narrative:: 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 Chest X-ray, portable, shows severe cardiomegaly with status post median sternotomy. Mild centralized CHF and/or pulmonary hypertension. Moderate COPD changes with no pulmonary infiltrates, pneumothorax etc. Departure - Departure Time of Disposition: 19:35 Disposition: Refer to Observation Condition: Good Clinical Impression: COPD (chronic obstructive pulmonary disease), HTN, Benign hypertension, Renal insufficiency, Peptic reflux disease, Hypomagnesemia, CHF (congestive heart failure), Hyponatremia, Coronary artery disease Referrals: PCP,Unknown [Ordering Only Provider] - Forms: ED Department Discharge Care Plan Goals: See plan Sepsis Event Note - Evaluation Sepsis Screening Result: No Definite Risk - Focused Exam Vital Signs: Vital Signs Temp Pulse Resp BP Pulse Ox 12/01/19 19:10 61 16 112/79 99 12/01/19 18:55 73 18 118/68 100 12/01/19 18:40 56 L 16 110/65 96 12/01/19 18:25 58 L 16 106/80 96 12/01/19 18:10 58 L 16 108/75 96 12/01/19 17:55 58 L 16 111/75 95 12/01/19 17:40 64 15 108/77 95 12/01/19 17:25 65 22 H 110/75 96 12/01/19 17:06 36.3 C 77 24 H 179/89 H 96 Date Exam was Performed: 12/01/19 Time Exam was Performed: 19:37 - Problem List & Annotations (1) Coronary artery disease SNOMED Code(s): 57552943 Code(s): I25.10 - ATHSCL HEART DISEASE OF [place] CORONARY ARTERY W/O ANG PCTRS Status: Acute Priority: High Current Visit: Yes Annotation/Comment :: Chest pain protocol initiated immediately upon patient's arrival to the emergency room. Aspirin and Brilinta were not given secondary to his current Coumadin therapy with therapeutic INR at this time. Coumadin therapy apparently prescribed secondary to his previous atrial fibrillation. Initiate standard rule out MS orders. Cardiology consultation depending on his clinical course. Qualifiers: Coronary Disease-Associated Artery/Lesion type: bypass graft [place] vs. transplanted heart: [place] heart Associated angina: with stable angina Qualified Code(s): I25.708 - Atherosclerosis of coronary artery bypass graft(s) , unspecified, with other forms of angina pectoris (2) Hyponatremia SNOMED Code(s): 77558244 Code(s): E87.1 - HYPO-OSMOLALITY AND HYPONATREMIA Status: Acute Priority : Medium Current Visit: Yes Annotation/Comment:: Mild hyponatremia secondary to CHF. Continue to observe closely. Note initiation of IV Lasix therapy and potassium supplementation. (3) CHF (congestive heart failure) SNOMED Code(s): 84399675 Code(s): I50.9 - HEART FAILURE, UNSPECIFIED Status: Chronic Priority: Medium Current Visit: Yes Annotation/Comment:: Only mild CHF by today's clinical exam with mildly elevated BNP. Initiate IV Lasix therapy Qualifiers: Heart failure type: combined systolic and diastolic Heart failure chronicity: unspecified Qualified Code(s): I50.40 - Unspecified combined systolic (congestive) and diastolic (congestive) heart failure (4) COPD (chronic obstructive pulmonary disease) SNOMED Code(s): 51830249 Code(s): J44.9 - CHRONIC OBSTRUCTIVE PULMONARY DISEASE, UNSPECIFIED Status : Chronic Priority: Medium Current Visit: Yes Annotation/Comment:: Stable by history with no recent fever or bronchitic type symptoms. Note apparent Zithromax prophylaxis by his [employer] worker. Qualifiers: COPD type: emphysema Emphysema type: panlobular Qualified Code(s): J43.1 - Panlobular emphysema (5) HTN, Benign hypertension SNOMED Code(s): 59923846 Code(s): I10 - ESSENTIAL (PRIMARY) HYPERTENSION Status: Chronic Priority : Medium Current Visit: Yes Annotation/Comment:: Blood pressures somewhat elevated initially upon arrival however improved without treatment prior to admission (6) Hypomagnesemia SNOMED Code(s): 916141226 Code(s): E83.42 - HYPOMAGNESEMIA Status: Chronic Priority: Medium Current Visit: Yes Annotation/Comment:: Continue magnesium oxide adjustment. Note previous history of his magnesium being extremely refractory to high-dose magnesium oxide therapy. Patient may need IV magnesium sulfate infusion depending on his clinical course. (7) Peptic reflux disease SNOMED Code(s): 147401668 Code(s): K21.9 - GASTRO-ESOPHAGEAL REFLUX DISEASE WITHOUT ESOPHAGITIS Status: Chronic Priority: Medium Current Visit: Yes Annotation/Comment:: Stable per patient history, although epigastric symptoms as above. High dose IV Pepcid given as GI prophylaxis. Note previous EGDs, etc. as above. (8) Renal insufficiency SNOMED Code(s): 051266221, 988021071 Code(s): N28.9 - DISORDER OF KIDNEY AND URETER, UNSPECIFIED Status: Chronic Priority: Medium Current Visit: Yes Annotation/Comment:: Continue to observe closely especially in light of IV Lasix therapy. - Problem List Review Problem List Initiated/Reviewed/Updated: Yes - My Orders Last 24 Hours: My Active Orders 12/01/19 17:16 Cardiac Monitoring [RC] . DIRECTED EKG Documentation Completion [RC] ASDIRECTED Oxygen Therapy, ED [RC] PRN Peripheral IV Care [RC] . DIRECTED Pulse Oximetry [RC] CONTINUOUS Up With Assistance [RC] PFP Vital Signs [RC] PFP Chest 1V Frontal [CR] Stat Sodium Chloride 0.9% [Saline Flush] 10 ml FLUSH ASDIRECTED PRN Obtain Past Medical Record [OM.PC] Urgent Peripheral IV Insertion Adult [OM.PC] Stat Resuscitation Status Stat 12/01/19 Breakfast Nothing per Oral Now Diet [DIET] - Assessment/Plan Last 24 Hours: My Active Orders 12/01/19 17:16 Cardiac Monitoring [RC] . DIRECTED EKG Documentation Completion [RC] ASDIRECTED Oxygen Therapy, ED [RC] PRN Peripheral IV Care [RC] . DIRECTED Pulse Oximetry [RC] CONTINUOUS Up With Assistance [RC] PFP Vital Signs [RC] PFP Chest 1V Frontal [CR] Stat Sodium Chloride 0.9% [Saline Flush] 10 ml FLUSH ASDIRECTED PRN Obtain Past Medical Record [OM.PC] Urgent Peripheral IV Insertion Adult [OM.PC] Stat Resuscitation Status Stat 12/01/19 Breakfast Nothing per Oral Now Diet [DIET] Assessment:: As above Plan: as above. Extensive precautions were given to the patient, who is in agreement with the treatment plan. [facility] physician assumes care in the a.m. The patient's condition is stable enough for observation status and general supervision.
[2019-12-01] MEDS: Sodium Chloride 0.9% 10 ML Syringe FLUSH PRN ×2 (17:26→20:55)
[2019-12-01 17:52] LABS: PTT,PARTIAL THROMBOPLSTIN TIME 31.6 SEC (24.5-32.8)
[2019-12-01 17:53] LABS: CHLORIDE,CL 98 mmol/L (98-107); SODIUM,NA 133 mmol/L (136-145)
[2019-12-01] MEDS ORDERED: Docusate Sodium 100 MG Cap PO PRN (19:51)
[2019-12-01] MEDS ORDERED: Sodium Chloride 0.9% 10 ML Syringe FLUSH PRN (19:52)
[2019-12-01] MEDS ORDERED: Temazepam 15 MG Cap PO PRN (19:52)
[2019-12-01] MEDS ORDERED: Acetaminophen 325 MG Tab PO PRN (19:52)
[2019-12-01] MEDS ORDERED: Albuterol 0.083% 2.5 MG/3 ML Neb Soln INH PRN (20:00)
[2019-12-01] MEDS ORDERED: Albuterol/Ipratropium 3.0-0.5 MG/3 ML Neb Soln NEB PRN (20:00)
[2019-12-01] MEDS ORDERED: atorvaSTATin 40 MG Tab PO SCH (20:00)
[2019-12-01] MEDS ORDERED: Warfarin 2 MG Tab PO SCH (20:30)
[2019-12-01] MEDS: Furosemide 40 MG/4 ML VIAL IVPUSH SCH (20:53)
[2019-12-01] MEDS: Potassium Chloride 20 MEQ Tab.ER PO SCH (20:54)
[2019-12-01] MEDS: Budesonide 0.5 MG/2 ML Neb Susp NEB SCH (20:54)
[2019-12-02] MEDS ORDERED: Gabapentin 300 MG Cap PO SCH (08:00)
[2019-12-02] MEDS ORDERED: Magnesium Oxide 400 MG Tab PO SCH (08:00)
[2019-12-02] MEDS ORDERED: Metoprolol Succinate 50 MG Tab.ER PO SCH (08:00)
[2019-12-02] MEDS ORDERED: Loratadine 10 MG Tab PO SCH (08:00)
[2019-12-02] MEDS ORDERED: Aspirin 81 MG Tab.EC PO SCH (08:00)
[2019-12-02 08:03] LABS: HEMOGLOBIN A1C 5.8 % (4.3-5.7)
[2019-12-02] MEDS: Budesonide 0.5 MG/2 ML Neb Susp NEB SCH (08:05)
[2019-12-02] MEDS: Furosemide 40 MG/4 ML VIAL IVPUSH SCH (08:06)
[2019-12-02] MEDS: Potassium Chloride 20 MEQ Tab.ER PO SCH (08:06)
[2019-12-02 12:38] VITALS: BP 98/60; PULSE 62
--- NOTE | 2019-12-02 15:44 | PCM.DCSUM1 ---
Discharge Summary - Hospital Course Brief History: Admitted observation for rule out chest pain protocol Diagnosis: Stroke: No - Discharge Data Discharge Date: 12/02/19 Discharge Disposition: Home, Self-Care 01 Condition: Good - Referral to Home Health Primary Care Physician: PCP None - Discharge Diagnosis/Problem(s) (1) Coronary artery disease SNOMED Code(s): 36359283 ICD Code: I25.10 - ATHSCL HEART DISEASE OF [place] CORONARY ARTERY W/O ANG PCTRS Status: Acute Priority: High Problem Details: Chest pain protocol initiated immediately upon patient's arrival to the emergency room. Aspirin and Brilinta were not given secondary to his current Coumadin therapy with therapeutic INR at this time. Coumadin therapy apparently prescribed secondary to his previous atrial fibrillation. Chest pain resolved in ER and did not return during observation stay. Serial negative troponins. Unremarkable telemetry. Qualifiers: Coronary Disease-Associated Artery/Lesion type: bypass graft [place] vs. transplanted heart: [place] heart Associated angina: with stable angina Qualified Code(s): I25.708 - Atherosclerosis of coronary artery bypass graft(s) , unspecified, with other forms of angina pectoris (2) Peptic reflux disease SNOMED Code(s): 587066046 ICD Code: K21.9 - GASTRO-ESOPHAGEAL REFLUX DISEASE WITHOUT ESOPHAGITIS Status: Chronic Priority: Medium Problem Details: Stable per patient history , although epigastric symptoms as above. High dose IV Pepcid given as GI prophylaxis. Note previous EGDs, etc. as above. Recently d/c of Ranitidine per [place] concerns of potential carcinogen risk. Now received new package when last at Pharmacy and told it was different gut cleaner. It is possible that patient 's chest discomfort is related to GI cause given stoppage of PPI. Patient plans to restart the medication. (3) Hyponatremia SNOMED Code(s): 76265095 ICD Code: E87.1 - HYPO-OSMOLALITY AND HYPONATREMIA Status: Acute Priority : Medium Problem Details: Normalized level today (4) CHF (congestive heart failure) SNOMED Code(s): 95235763 ICD Code: I50.9 - HEART FAILURE, UNSPECIFIED Status: Chronic Priority: Medium Problem Details: Mild. Minimal elevation of ProBNP Qualifiers: Heart failure type: combined systolic and diastolic Heart failure chronicity: unspecified Qualified Code(s): I50.40 - Unspecified combined systolic (congestive) and diastolic (congestive) heart failure (5) COPD (chronic obstructive pulmonary disease) SNOMED Code(s): 93045016 ICD Code: J44.9 - CHRONIC OBSTRUCTIVE PULMONARY DISEASE, UNSPECIFIED Status : Chronic Priority: Medium Problem Details: Stable by history with no recent fever or bronchitic type symptoms. Note apparent Zithromax prophylaxis by his hand cultivator. Qualifiers: COPD type: emphysema Emphysema type: panlobular Qualified Code(s): J43.1 - Panlobular emphysema (6) HTN, Benign hypertension SNOMED Code(s): 47468819 ICD Code: I10 - ESSENTIAL (PRIMARY) HYPERTENSION Status: Chronic Priority : Medium Problem Details: Blood pressures somewhat elevated initially upon arrival however improved without treatment prior to admission. (7) Hypomagnesemia SNOMED Code(s): 294265673 ICD Code: E83.42 - HYPOMAGNESEMIA Status: Chronic Priority: Medium Problem Details: Continue magnesium oxide adjustment. Note previous history of his magnesium being extremely refractory to high-dose magnesium oxide therapy. To follow up with primary provider (8) Renal insufficiency SNOMED Code(s): 515993980, 111350712 ICD Code: N28.9 - DISORDER OF KIDNEY AND URETER, UNSPECIFIED Status: Chronic Priority: Medium Problem Details: Stable - Patient Summary/Data Hospital Course: Unremarkable hospital course. No return of pain complaint. Patient felt like usual self. Vital signs and telemetry stable. Serial troponins unremarkable. OK to return home today. To observe for changes/return of pain and follow up as needed. To restart his PPI for treatment of PUD/GERD. - Patient Instructions Diet: Usual Diet as Tolerated Activity: As Tolerated Driving: May Drive Today Showering/Bathing: May Shower Notify Provider of: Fever, Increased Pain Other/Special Instructions: Observe for any return of chest pain/new symptoms. Follow up as needed if pain returns or if you have other concerns. Restart Ranitidine. - Discharge Plan *PRESCRIPTION DRUG MONITORING PROGRAM REVIEWED*: Not Applicable *COPY OF PRESCRIPTION DRUG MONITORING REPORT IN PATIENT JAKE: Not Applicable Home Medications: Home Meds Fluticasone Propionate [Flonase] 2 spray NASBOTH DAILY PRN 02/05/14 [History] Multivit-Min/FA/Lycopene/Lut [Centrum Silver] 1 each PO DAILY 02/05/14 [History] Tiotropium [Spiriva HandiHaler] 1 cap INH DAILY 02/05/14 [History] atorvaSTATin [Lipitor] 60 mg PO BEDTIME 02/05/14 [History] Loratadine [Claritin] 10 mg PO QAM 06/16/14 [History] Albuterol Sulfate [Albuterol Sulfate Hfa] 2 puff INH Q6H PRN 01/15/19 [History] Calcium Citrate/Vitamin D3 [Calcium Citrate - Vit D Tablet] 1 each PO BIDMEALS 01/15/19 [History] Colchicine 0.6 mg PO ASDIRECTED PRN 01/15/19 [History] Docusate Sodium 200 mg PO DAILY PRN 01/31/19 [History] Warfarin [Coumadin] 2 mg PO ASDIRECTED 09/24/19 [History] Aspirin [Halfprin] 81 mg PO DAILY 09/25/19 [History] Azithromycin [Zithromax] 250 mg PO MOWEFR 09/25/19 [History] Acetaminophen [Non-Aspirin Extra Strength] 1,000 mg PO TID PRN 12/01/19 [History ] Budesonide/Formoterol Fumarate [Budesonide-Formoterol 160-4.5] 2 inh IH BID [History] Gabapentin [Neurontin] 300 mg PO BID 12/01/19 [History] Magnesium Oxide 800 mg PO BID 12/01/19 [History] Metoprolol Succinate [Toprol XL 50mg] 75 mg PO DAILY 12/01/19 [History] Warfarin [Coumadin] 1 mg PO ASDIRECTED 12/01/19 [History] Forms: ED Department Discharge Referrals: PCP,Unknown [Ordering Only Provider] - - Discharge Summary/Plan Comment DC Time >30 min.: No - General Info Date of Service: 12/02/19 Admission Dx/Problem (Free Text: R/O NC protocol in patient with chest pain complaint that radiated to left shoulder Subjective Update: Patient has no acute complaints. Feels like usual self. Functional Status: Reports: Pain Controlled, Tolerating Diet, Ambulating, Urinating. Denies: New Symptoms - Review of Systems General: Reports: No Symptoms HEENT: Reports: No Symptoms, Glasses Pulmonary: Reports: No Symptoms Cardiovascular: Reports: No Symptoms. Denies: Chest Pain Gastrointestinal: Reports: No Symptoms Genitourinary: Reports: No Symptoms Musculoskeletal: Reports: Other (no acute changes from baseline) Skin: Reports: No Symptoms Neurological: Reports: No Symptoms Psychiatric: Reports: No Symptoms - Patient Data Vitals - Most Recent: Last Vital Signs Temp 36.1 C 12/02/19 12:00 Pulse 62 12/02/19 12:00 Resp 16 12/02/19 12:00 BP 98/60 12/02/19 12:00 Pulse Ox 96 12/02/19 12:00 Weight - Most Recent: 80.921 kg I&O - Last 24 hours: Intake & Output 12/02/19 12/02/19 12/02/19 06:59 14:59 22:59 Intake Total 240 Balance 240 Lab Results - Last 24 hrs: Laboratory Results - last 24 hr 12/01/19 12/01/19 12/01/19 Range/Units 17:22 17:22 17:22 WBC 6.8 (4.0-10.2) K/uL RBC 4.09 L (4.33-5.41) M/uL Hgb 13.0 L D (13.1-16.8) g/dL Hct 38.7 L (39.0-49.0) % MCV 94.6 (84.0-98.0) fL MCH 31.8 (28.2-33.3) pg MCHC 33.6 (31.7-36.0) g/dL RDW 13.6 (11.2-14.1) % Plt Count 192 D (150-350) K/uL Neut % (Auto) 54.1 (45.0-80.0) % Lymph % (Auto) 28.9 (10.0-50.0) % [place] % (Auto) 12.3 (2.0-14.0) % Eos % (Auto) 4.1 (0.0-5.0) % Baso % (Auto) 0.6 (0.0-2.0) % Neut # (Auto) 3.65 (1.40-7.00) K/uL Lymph # (Auto) 1.95 (0.50-3.50) K/uL [place] # (Auto) 0.83 (0.00-1.00) K/uL Eos # (Auto) 0.28 (0.00-0.50) K/uL Baso # (Auto) 0.04 (0.00-0.20) K/uL PT 20.5 H (9.5-12.0) SEC INR 2.1 APTT 31.6 (24.5-32.8) SEC D-Dimer, Quantitative 267 (0-400) ng/mL Sodium (136-145) mmol/L Potassium (3.5-5.1) mmol/L Chloride (98-107) mmol/L Carbon Dioxide (21.0-32.0) mmol/L BUN (7-18) mg/dL Creatinine (0.51-1.17) mg/dL Est Cr Clr Drug Dosing mL/min Estimated GFR (MDRD) mL/min Glucose (74-106) mg/dL Hemoglobin A1c (4.3-5.7) % Lactic Acid (0.4-2.0) mmol/L Uric Acid (2.6-7.2) mg/dL Calcium (8.5-10.1) mg/dL Magnesium (1.8-2.4) mg/dL Total Bilirubin (0.2-1.0) mg/dL AST (15-37) U/L ALT (12-78) U/L Alkaline Phosphatase (46-116) IU/L Creatine Kinase (26-308) U/L Creatine Kinase Index (0.0-2.5) % CK-MB (CK-2) (0.00-3.60) ng/mL Troponin I (0.000-0.056) ng/mL NT-Pro-B Natriuret Pep (0-125) pg/mL Total Protein (6.4-8.2) g/dL Albumin (3.4-5.0) g/dL Triglycerides (30-150) mg/dL Cholesterol (100-200) mg/dL LDL Cholesterol, Calc (0-100) mg/dL HDL Cholesterol (40-60) mg/dL TSH, Ultra Sensitive (0.358-3.740) mIU/mL 12/01/19 12/01/19 12/01/19 Range/Units 17:22 17:22 20:51 WBC (4.0-10.2) K/uL RBC (4.33-5.41) M/uL Hgb (13.1-16.8) g/dL Hct (39.0-49.0) % MCV (84.0-98.0) fL MCH (28.2-33.3) pg MCHC (31.7-36.0) g/dL RDW (11.2-14.1) % Plt Count (150-350) K/uL Neut % (Auto) (45.0-80.0) % Lymph % (Auto) (10.0-50.0) % [place] % (Auto) (2.0-14.0) % Eos % (Auto) (0.0-5.0) % Baso % (Auto) (0.0-2.0) % Neut # (Auto) (1.40-7.00) K/uL Lymph # (Auto) (0.50-3.50) K/uL [place] # (Auto) (0.00-1.00) K/uL Eos # (Auto) (0.00-0.50) K/uL Baso # (Auto) (0.00-0.20) K/uL PT (9.5-12.0) SEC INR APTT (24.5-32.8) SEC D-Dimer, Quantitative (0-400) ng/mL Sodium 133 L (136-145) mmol/L Potassium 4.1 (3.5-5.1) mmol/L Chloride 98 (98-107) mmol/L Carbon Dioxide 23.2 (21.0-32.0) mmol/L BUN 19 H (7-18) mg/dL Creatinine 1.15 (0.51-1.17) mg/dL Est Cr Clr Drug Dosing 49.50 mL/min Estimated GFR (MDRD) > 60 mL/min Glucose 98 (74-106) mg/dL Hemoglobin A1c (4.3-5.7) % Lactic Acid 0.7 (0.4-2.0) mmol/L Uric Acid 4.8 (2.6-7.2) mg/dL Calcium 9.2 (8.5-10.1) mg/dL Magnesium 1.7 L (1.8-2.4) mg/dL Total Bilirubin 0.4 (0.2-1.0) mg/dL AST 22 (15-37) U/L ALT 28 (12-78) U/L Alkaline Phosphatase 64 (46-116) IU/L Creatine Kinase 99 93 (26-308) U/L Creatine Kinase Index 1.3 1.5 (0.0-2.5) % CK-MB (CK-2) 1.30 1.40 (0.00-3.60) ng/mL Troponin I 0.010 0.009 (0.000-0.056) ng/mL NT-Pro-B Natriuret Pep 367 H (0-125) pg/mL Total Protein 6.8 (6.4-8.2) g/dL Albumin 3.9 (3.4-5.0) g/dL Triglycerides (30-150) mg/dL Cholesterol (100-200) mg/dL LDL Cholesterol, Calc (0-100) mg/dL HDL Cholesterol (40-60) mg/dL TSH, Ultra Sensitive 0.991 (0.358-3.740) mIU/mL 12/02/19 12/02/19 12/02/19 Range/Units 07:32 07:32 07:32 WBC 6.7 (4.0-10.2) K/uL RBC 4.33 (4.33-5.41) M/uL Hgb 13.4 (13.1-16.8) g/dL Hct 40.9 (39.0-49.0) % MCV 94.5 (84.0-98.0) fL MCH 30.9 (28.2-33.3) pg MCHC 32.8 (31.7-36.0) g/dL RDW 13.5 (11.2-14.1) % Plt Count 184 (150-350) K/uL Neut % (Auto) 58.4 (45.0-80.0) % Lymph % (Auto) 25.3 (10.0-50.0) % [place] % (Auto) 12.0 (2.0-14.0) % Eos % (Auto) 3.9 (0.0-5.0) % Baso % (Auto) 0.4 (0.0-2.0) % Neut # (Auto) 3.89 (1.40-7.00) K/uL Lymph # (Auto) 1.69 (0.50-3.50) K/uL [place] # (Auto) 0.80 (0.00-1.00) K/uL Eos # (Auto) 0.26 (0.00-0.50) K/uL Baso # (Auto) 0.03 (0.00-0.20) K/uL PT (9.5-12.0) SEC INR APTT (24.5-32.8) SEC D-Dimer, Quantitative (0-400) ng/mL Sodium 136 (136-145) mmol/L Potassium 4.1 (3.5-5.1) mmol/L Chloride 100 (98-107) mmol/L Carbon Dioxide 26.3 (21.0-32.0) mmol/L BUN 18 (7-18) mg/dL Creatinine 1.20 H (0.51-1.17) mg/dL Est Cr Clr Drug Dosing 47.43 mL/min Estimated GFR (MDRD) 59 mL/min Glucose 90 (74-106) mg/dL Hemoglobin A1c 5.8 H (4.3-5.7) % Lactic Acid (0.4-2.0) mmol/L Uric Acid (2.6-7.2) mg/dL Calcium 9.3 (8.5-10.1) mg/dL Magnesium (1.8-2.4) mg/dL Total Bilirubin 0.5 (0.2-1.0) mg/dL AST 22 (15-37) U/L ALT 26 (12-78) U/L Alkaline Phosphatase 52 (46-116) IU/L Creatine Kinase 105 (26-308) U/L Creatine Kinase Index 1.4 (0.0-2.5) % CK-MB (CK-2) 1.50 (0.00-3.60) ng/mL Troponin I 0.000 (0.000-0.056) ng/mL NT-Pro-B Natriuret Pep 410 H (0-125) pg/mL Total Protein 6.6 (6.4-8.2) g/dL Albumin 3.8 (3.4-5.0) g/dL Triglycerides 138 (30-150) mg/dL Cholesterol 177 (100-200) mg/dL LDL Cholesterol, Calc 112 H (0-100) mg/dL HDL Cholesterol 37 L (40-60) mg/dL TSH, Ultra Sensitive (0.358-3.740) mIU/mL [facility] Results - Last 24 hrs: Microbiology 12/02/19 09:50 Stool Occult Blood (LEONIDES) - Final Stool / Feces NEGATIVE OCCULT BLOOD REFERENCE RANGE: NEGATIVE Med Orders - Current: Current Medications Acetaminophen (Tylenol) 650 mg PO Q4H PRN PRN Reason: Pain Last Admin: 12/02/19 08:12 Dose: 650 mg Albuterol (Proventil Neb Soln) 2.5 mg INH Q2H PRN PRN Reason: SHORTNESS OF BREATH Albuterol/Ipratropium (Duoneb 3.0-0.5 Mg/3 Ml) 3 ml NEB Q4HRRT PRN PRN Reason: Dyspnea Aspirin (Halfprin) 81 mg PO DAILY [facility] Last Admin: 12/02/19 08:06 Dose: 81 mg Atorvastatin Calcium (Lipitor) 60 mg PO BEDTIME [facility] Last Admin: 12/01/19 20:53 Dose: 60 mg Budesonide (Pulmicort) 0.5 mg NEB BIDRT [facility] Last Admin: 12/02/19 08:05 Dose: 0.5 mg Docusate Sodium (Colace) 200 mg PO DAILY PRN PRN Reason: Constipation Furosemide (Lasix) 40 mg IVPUSH Q12H [facility] Last Admin: 12/02/19 08:06 Dose: 40 mg Gabapentin (Neurontin) 300 mg PO BID [facility] Last Admin: 12/02/19 08:06 Dose: 300 mg Loratadine (Claritin) 10 mg PO QAM [facility] Last Admin: 12/02/19 08:06 Dose: 10 mg Magnesium Oxide (Magnesium Oxide) 800 mg PO BID [facility] Last Admin: 12/02/19 08:06 Dose: 800 mg Metoprolol Succinate (Toprol Xl) 75 mg PO DAILY [facility] Last Admin: 12/02/19 08:07 Dose: 75 mg Potassium Chloride (Klor-Con M20) 20 meq PO BID [facility] Last Admin: 12/02/19 08:06 Dose: 20 meq Sodium Chloride (Saline Flush) 10 ml FLUSH ASDIRECTED PRN PRN Reason: Keep Vein Open Last Admin: 12/01/19 20:55 Dose: 10 ml Sodium Chloride (Saline Flush) 10 ml FLUSH Q12HR PRN PRN Reason: Keep Vein Open Last Admin: 12/02/19 08:06 Dose: 10 ml Temazepam (Restoril) 15 mg PO BEDTIME PRN PRN Reason: Insomnia Last Admin: 12/01/19 20:54 Dose: 15 mg Warfarin Sodium (Coumadin) 3 mg PO SuTuWeThSa@1800 AUGIE Warfarin Sodium (Coumadin) 2 mg PO MoFr@1800 AUGIE Last Admin: 12/01/19 20:54 Dose: 2 mg Discontinued Medications Famotidine (Pepcid) 40 mg IVPUSH ONETIME ONE Stop: 12/01/19 17:17 Last Admin: 12/01/19 17:25 Dose: 40 mg - Exam General: Reports: Alert, Oriented, Cooperative HEENT: Reports: Pupils Equal, Pupils Reactive, EOMI, Mucous Membr. Moist/[place] Neck: Reports: Supple Lungs: Reports: Clear to Auscultation, Normal Respiratory Effort Cardiovascular: Reports: Regular Rate, Regular Rhythm GI/Abdominal Exam: Normal Bowel Sounds, Soft, Non-Tender, No Distention (Male) Exam: Deferred Rectal (Males) Exam: Deferred Back Exam: Denies: Muscle Spasm Extremities: Non-Tender, Normal Capillary Refill Skin: Reports: Warm, Dry Neurological: Reports: No New Focal Deficit Psy/Mental Status: Reports: Alert, Normal Affect, Normal Mood
[2019-12-02] MEDS ORDERED: Warfarin 2 MG Tab PO SCH (18:00)
== END 2019-12-02 16:00 | disposition home or self-care (01) ==
LOC: LL.ED 17:04 → UNDOADMOB 19:31 → LL.MS 19:31 → UNDOADMOB 19:56
PROVIDERS: ADMIT Family Medicine; ATTEND Family Medicine
DX: I25.118 Atherosclerotic heart disease of native coronary artery with other forms of angina pectoris (principal); I10 Essential (primary) hypertension; K27.9 Peptic ulcer, site unspecified, unspecified as acute or chronic, without hemorrhage or perforation; E87.1 Hypo-osmolality and hyponatremia; I50.40 Unspecified combined systolic (congestive) and diastolic (congestive) heart failure; E83.42 Hypomagnesemia; J43.1 Panlobular emphysema; N28.9 Disorder of kidney and ureter, unspecified; Z79.899 Other long term (current) drug therapy; Z79.82 Long term (current) use of aspirin; Z87.891 Personal history of nicotine dependence
CPT/HCPCS: 36415; 71045; 80053; 80061; 82272; 82550; 82553; 83036; 83605; 83735; 83880; 84443; 84484; 84550; 85025; 85379; 85610; 85730; 87338; 93005; 94640; 96374; 96375; 96376; 99285; A9270; G0378; J1940; J3490

== ENCOUNTER 2023-08-28 15:30 | Emergency (ER) | payer MEDICARE, BC ==
[2023-08-28 15:35] VITALS: BP 127/89; PULSE 86
== END 2023-08-28 16:24 | disposition home or self-care (01) ==
LOC: LL.ED 15:30
DX: R20.2 Paresthesia of skin (principal); I13.0 Hypertensive heart and chronic kidney disease with heart failure and stage 1 through stage 4 chronic kidney disease, or unspecified chronic kidney disease; I50.9 Heart failure, unspecified; N18.9 Chronic kidney disease, unspecified; I25.10 Atherosclerotic heart disease of native coronary artery without angina pectoris; I25.2 Old myocardial infarction; J44.9 Chronic obstructive pulmonary disease, unspecified; E66.9 Obesity, unspecified; K21.9 Gastro-esophageal reflux disease without esophagitis; Z86.73 Personal history of transient ischemic attack (TIA), and cerebral infarction without residual deficits; Z95.5 Presence of coronary angioplasty implant and graft; Z79.82 Long term (current) use of aspirin; Z79.01 Long term (current) use of anticoagulants; Z79.899 Other long term (current) drug therapy; Z88.0 Allergy status to penicillin; Z88.1 Allergy status to other antibiotic agents
CPT/HCPCS: 99283; 99284

== ENCOUNTER 2023-11-05 11:09 | Emergency (ER) | payer OTHER, MEDICARE, BC ==
[2023-11-05] MEDS: Sodium Chloride 0.9% 1,000 ML IV ONE (11:22)
[2023-11-05 11:26] LABS: BASOPHILS ABSOLUTE AUTO 0.05 K/uL (0.00-0.20); BASOPHILS PERCENT AUTO 0.5 % (0.0-2.0); EOSINOPHILS ABSOLUTE AUTO 0.46 K/uL (0.00-0.50); EOSINOPHILS PERCENT AUTO 4.1 % (0.0-5.0); HEMATOCRIT 25.7 % (39.0-49.0); LYMPHOCYTES ABSOLUTE AUTO 1.27 K/uL (0.50-3.50); LYMPHOCYTES PERCENT AUTO 11.4 % (10.0-50.0); MEAN CORPUSCULAR HEMOGLOBIN 31.6 pg (28.2-33.3); MEAN CORPUSCULAR HGB CONC 31.1 g/dL (31.7-36.0); MEAN CORPUSCULAR VOLUME 101.6 fL (84.0-98.0); MONOCYTES ABSOLUTE AUTO 0.98 K/uL (0.00-1.00); MONOCYTES PERCENT AUTO 8.8 % (2.0-14.0); NEUTROPHILS ABSOLUTE AUTO 8.34 K/uL (1.40-7.00); NEUTROPHILS PERCENT AUTO 75.2 % (45.0-80.0); PLATELET COUNT,PLT 328 K/uL (150-350); RED BLOOD CELL COUNT 2.53 M/uL (4.33-5.41); RED CELL DISTRIBUTION WIDTH 13.3 % (11.2-14.1); WHITE BLOOD CELL COUNT,WBC 11.1 K/uL (4.0-10.2)
[2023-11-05 11:53] LABS: ANION GAP 12.4 meq/L (7-15); BILIRUBIN TOTAL 0.5 mg/dL (0.2-1.0); CALCIUM 10.4 mg/dL (8.5-10.1); CARBON DIOXIDE,CO2 25.6 mmol/L (21.0-32.0); CREATININE 1.58 mg/dL (0.51-1.17); EST CRCL DRUG DOSING (CG) 33.7 mL/min; MAGNESIUM 1.7 mg/dL (1.8-2.4); PROTEIN TOTAL,TP 6.4 g/dL (6.4-8.2)
[2023-11-05 11:56] LABS: INR 3.8 (0.9-1.1); PROTHROMBIN TIME 35.9 SEC (9.0-11.1)
[2023-11-05 12:26] LABS: CORONAVIRUS COVID-19 NAA NEGATIVE (NEGATIVE); INFLUENZA A NAA NEGATIVE (NEGATIVE); INFLUENZA B NAA NEGATIVE (NEGATIVE); RESPIRATORY SYNCYTIAL VIR NAA NEGATIVE (NEGATIVE)
[2023-11-05] MEDS: Sodium Chloride 0.9% 1,000 ML IV SCH (12:49)
[2023-11-05] MEDS: Phytonadione 5 MG Tab PO ONE (13:45)
[2023-11-05] MEDS: Cefepime 2 GM Vial IVPUSH ONE (13:46)
[2023-11-05] MEDS: Sodium Chloride 0.9% 10 ML Syringe FLUSH PRN (13:47)
[2023-11-05] MEDS: HUM PROTHROMBIN CPLX 1000 UNIT IV ONE (14:03)
[2023-11-05] MEDS: FACTOR IX COMPLEX HUMAN 500 UNIT IV ONE (14:03)
[2023-11-05] MEDS: [UNRECOGNIZED DRUG - OTHER] IV ONE (14:03)
[2023-11-05] MEDS: guaiFENesin 600 MG Tab.ER PO ONE (14:21)
[2023-11-05] MEDS: Benzonatate 100 MG Cap PO ONE (14:21)
[2023-11-05] MEDS: Albuterol/Ipratropium 3.0-0.5 MG/3 ML Neb Soln NEB ONE (14:44)
[2023-11-05 17:19] VITALS: BP 112/85; PULSE 83
== END 2023-11-05 16:07 ==
LOC: LL.ED 11:09
DX: J96.01 Acute respiratory failure with hypoxia (principal); J18.9 Pneumonia, unspecified organism; R04.2 Hemoptysis; E83.42 Hypomagnesemia; D64.9 Anemia, unspecified; Z79.1 Long term (current) use of non-steroidal anti-inflammatories (NSAID); I13.0 Hypertensive heart and chronic kidney disease with heart failure and stage 1 through stage 4 chronic kidney disease, or unspecified chronic kidney disease; I50.9 Heart failure, unspecified; N18.9 Chronic kidney disease, unspecified; J44.9 Chronic obstructive pulmonary disease, unspecified; I25.810 Atherosclerosis of coronary artery bypass graft(s) without angina pectoris; Z86.16 Personal history of COVID-19; Z79.01 Long term (current) use of anticoagulants; Z79.899 Other long term (current) drug therapy; Z79.82 Long term (current) use of aspirin; Z88.0 Allergy status to penicillin; Z88.8 Allergy status to other drugs, medicaments and biological substances
CPT/HCPCS: 0241U; 36415; 71045; 80053; 83605; 83735; 83880; 84484; 85018; 85025; 85379; 85610; 86850; 86900; 86901; 87040; 87070; 87205; 93005; 93010; 94640; 96361; 96365; 96375; 99284; 99285; A9270; J0692; J3370; J7030; J7050; J7168; J3490; J7620-GY